=== PATIENT | female | born 1940 | race Caucasian/White ===

== ENCOUNTER 2023-04-15 19:49 | Inpatient (IN) ==
[2023-04-15] MEDS ORDERED: fentaNYL citrate PF 100 MCG/2 ML VIAL IV STA (20:19)
[2023-04-15 20:21] LABS: Basophils # (auto) 0.05 K/uL (0.00-0.20); Basophils % (auto) 0.4 %; Hematocrit (blood only) 26.7 % (37.0-47.0); Hemoglobin 8.5 g/dl (12.0-16.0); Immature Granulocytes # (auto) 0.07 K/uL (0.01-0.20); Immature Granulocytes % (auto) 0.5 %; Lymphocytes # (auto) 1.64 K/uL (1.20-3.40); Lymphocytes % (auto) 11.9 %; Mean Corpuscular Hemoglobin 31.4 pg (25.0-34.0); Mean Corpuscular Hgb Conc 31.8 g/dL (32.0-36.0); Mean Corpuscular Volume 98.5 fL (80.0-100.0); Mean Platelet Volume 9.8 fL (9.4-12.4); Monocytes # (auto) 1.16 K/uL (0.11-0.59); Monocytes % (auto) 8.4 %; Neutrophils # (auto) 10.82 K/uL (1.40-6.50); Neutrophils % (auto) 78.8 %; Platelet Count 451 K/uL (130-400); RDW Coefficient of Variation 16.4 % (11.5-14.5); Red Blood Count 2.71 M/uL (4.20-5.40); White Blood Count 13.74 K/ul (4.8-10.8)
[2023-04-15 20:33] LABS: Albumin Globulin Ratio 0.8 (0.9-2); BUN Creatinine Ratio 14.3 (10-20); Bilirubin,Total 0.3 mg/dl (0.2-1.0); Calcium 8.6 mg/dl (8.6-10.3); Est GFR (African American) 37.9 ml/min; Est GFR (Non-African American) 32.7 ml/min; Globulin 3.9 gm/dl (2.5-4.0); Potassium 4.5 mmol/L (3.5-5.1); Total Protein 6.9 gm/dl (6.0-8.3)
[2023-04-15 20:43] LABS: INR 1.1 (0.9-1.1); Partial Thromboplastin Time 27 Seconds (21-31); Prothrombin Time 12.2 Seconds (9.0-12.0)
[2023-04-15] MEDS ORDERED: SODIUM CHLORIDE 0.9% 500 ML IV ONE (20:44)
--- NOTE | 2023-04-15 20:48 | Emergency Department Note ---
Impression & Plan Hip pain ED Provider Note Provider: Dakota Rubio MD DATE OF SERVICE: 04/15/2023 CHIEF COMPLAINT: Left hip pain HISTORY OF PRESENT ILLNESS: Patient is a 82-year-old female. She is not a good historian. Did call and discussed with [facility] where she comes from via ambulance tonight. Attendant there reports the patient arrived to their facility yesterday from outside the [facility], [facility]. Patient evidently fell and fractured her left hip in December and required at least 1 if not 2 repeat surgeries due to infection. They report that she has had no fever or trauma and her memory was not so good when she arrived. They states that the left hip area was not red or warm or tender at all upon arrival last night became that way today. Patient received some Tylenol for EMS but complains of pain here. She herself repeatedly asked if she can be taken to the hospital. Informed her that she is here already. Niece later arrives and states the patient has been treated [facility] by [facility]. Patient in February had repeat surgery without findings of infection although possibly fungus and completed course of IV antibiotics as well as fluconazole. Niece has not seen the wound recently but states it does look red now. States the patient's memory and recollection issues are chronic. PAST MEDICAL HISTORY: As noted above MEDICATIONS: SOCIAL HISTORY: Currently a resident at [facility] PHYSICAL EXAM: GENERAL: alert looking around the room asking for help. Not oriented to location or events or time. Head: normocephalic and atraumatic EYES: No injection, discharge or icterus. PERRL, EOMI. NECK: Trachea midline. ENT: Mucous membranes pink and moist. LUNGS: Airway patent. No retractions. Breath sounds clear HEART: Regular rate and rhythm. No chest wall tenderness ABDOMEN: Soft and non-tender, without guarding or rebound. SKIN: Acyanotic, warm, dry, without rashes EXTREMITIES: Large area of erythema and tenderness approximately 26 cm x 8 cm surrounding a postsurgical wound of the left lateral hip. No crepitus. NEUROLOGICAL: No focal deficits. No aphasia. No facial droop or slurred speech. Normal strength and tone in the extremities. Sensation to gross touch normal. EK bpm normal sinus rhythm with incomplete right bundle branch block. No PVC or PAC. No acute ST segment elevation or depression with QTc of 474 CONTINUOUS CARDIAC MONITORING: was ordered and showed a heart rate of bpm in 1 view chest x-ray pulm interpretation: No significant cardiomegaly or free under the diaphragm. No o pneumonia or pneumothorax noted. No significant pleural effusions or pulmonary edema. Reviewed left hip x-ray and pelvis per my interpretation: Hardware in the left hip without obvious fracture or displacement and no obvious acute fracture. Patient's laboratory studies and imaging reviewed. Differential includes Foreign body, fracture, dislocation, joint compromise, infection, soft tissue injury, tendon injury, vascular compromise, compartment syndrome, DVT as well as other pathologies. IMPRESSION/MEDICAL DECISION MAKING: Patient not a good historian. Additional history from facility. From what I gather outside the [place] area had a hip fracture then had a root infection and had to have repeat surgery. No reported redness or fever tenderness to the area of the left hip wound which is well-healed yesterday but is that way tonight. Given some fentanyl and did receive Tylenol prior to arrival. Blood cultures and procalcitonin and lactate sent. Given some IV fluid. Moving all extremities and no trauma history. From report from facility it seems like the patient always has some memory issues so lower suspicion for acute intracranial abnormality. Blood work here mild anemia 8.5 with a white count of 13.74. INR normal. Creatinine elevated 1.47. Slight hyponatremia. Procalcitonin not significantly elevated low suspicion for systemic sepsis or bacteremia. Hypertensive but nontachycardic and not hypoxic. No significant swelling of the lower extremities in the legs or ankle area. I have low suspicion for DVT at this time. The isolated area of erythema is right around the postsurgical wound given the report that this has evolved since yesterday by staff report from [facility], and concern for infection in this area. Will obtain a CT scan here to evaluate for fluid collection. X-rays of the hip were obtained. No obvious hardware fracture or malpositioning noted. CT of the femur per radiology report shows Niece reports she has talked with Dr. Campos who is agreeable to see the patient when she moved to the area. Did receive records from [facility] showing the patient had workup here in February including MRI and neurology evaluation believing likely a chronic dementia episode as well as a course of vancomycin and cefepime as well as fluconazole for a total of 28 days that has been completed. Evidently had a pulmonary embolism and January and has been on Eliquis since that time. Is on Depakote for mood stabilization and level of this was ordered. CT reporting delayed overnight. Discussed with hospitalist. DIAGNOSIS: left hip pain, long-term anticoagulation DISPOSITION: Hospitalist will evaluate Past Med/Surg History Social History Smoking Status: Unknown if ever smoked Hx Alcohol Use: No (unable to answer questions) Hx Substance Use: No (unable to answer questions) Preferred Language: Kyr[place] Vp Hr Diversity Required: No Beliefs That Will Affect Care: None Current Living Situation: Personal Care Facility Current Living Situation Comment: [facility] Feels Safe at Home: Yes Allergies Allergies Allergy/AdvReac Type Severity Reaction Status Date / Time cinnamon Allergy Intermediate Flushing Verified 04/15/23 20:13 haloperidol [From Haldol] AdvReac Severe excessive Verified 04/16/23 07:24 sedation as per family Home Meds Home Medications Medication Instructions Recorded Confirmed amlodipine 5 mg tablet 5 mg PO DAILY 04/15/23 04/15/23 anastrozole 1 mg tablet 1 mg PO QAM 04/15/23 04/15/23 apixaban 5 mg tablet (Eliquis) 5 mg PO Q12 04/15/23 04/15/23 benzonatate 100 mg capsule 200 mg PO Q8 PRN Cough 04/15/23 04/15/23 clonidine 0.1 mg/24 hr weekly 0.1 mg transdermal .Wednesdays04/15/23 04/15/23 transdermal patch divalproex 250 mg tablet,extended 250 mg PO HS 04/15/23 04/15/23 release 24 hr levothyroxine 125 mcg tablet 125 mcg PO DAILYBB 04/15/23 04/15/23 quetiapine 25 mg tablet 12.5 mg PO BID 04/15/23 04/15/23 Results & Data (ED) Vital Signs Vital Signs - 24 hr 04/15/23 19:53 04/15/23 19:53 04/15/23 20:01 Temperature 36.4 C L Temperature Source Oral Pulse Rate 87 92 H Pulse Rate [Apical] Pulse Rate from SpO2 Sensor Pulse Rhythm [Apical] Pulse Strength [Apical] Respiratory Rate 17 Respiratory Effort / Characteristics Non-Labored Respiratory Depth Normal Normal Respiratory Pattern Blood Pressure 152/102 H Blood Pressure [Right Arm] Blood Pressure Mean 118 Blood Pressure Mean [Right Arm] Blood Pressure Position [Right Arm] Pulse Oximetry 97 Oxygen Delivery Method Room Air Sepsis Recent Fever Within 48 Hours No Sepsis New/Unexplained Change in Mental Status No Sepsis Action Taken by Nursing No Action Required 04/15/23 20:02 04/15/23 20:30 04/15/23 20:33 Temperature Temperature Source Pulse Rate 89 94 H 99 H Pulse Rate [Apical] Pulse Rate from SpO2 Sensor 92 H 97 H Pulse Rhythm [Apical] Pulse Strength [Apical] Respiratory Rate 20 21 24 Respiratory Effort / Characteristics Respiratory Depth Respiratory Pattern Blood Pressure 138/109 H Blood Pressure [Right Arm] Blood Pressure Mean 118 Blood Pressure Mean [Right Arm] Blood Pressure Position [Right Arm] Pulse Oximetry 93 96 Oxygen Delivery Method Sepsis Recent Fever Within 48 Hours Sepsis New/Unexplained Change in Mental Status Sepsis Action Taken by Nursing 04/15/23 21:00 04/15/23 21:30 04/15/23 22:00 Temperature Temperature Source Pulse Rate 95 H 84 86 Pulse Rate [Apical] Pulse Rate from SpO2 Sensor 95 H 84 82 Pulse Rhythm [Apical] Pulse Strength [Apical] Respiratory Rate 17 19 16 Respiratory Effort / Characteristics Respiratory Depth Respiratory Pattern Blood Pressure 157/120 H 140/75 129/99 Blood Pressure [Right Arm] Blood Pressure Mean 132 96 109 Blood Pressure Mean [Right Arm] Blood Pressure Position [Right Arm] Pulse Oximetry 95 100 94 Oxygen Delivery Method Sepsis Recent Fever Within 48 Hours Sepsis New/Unexplained Change in Mental Status Sepsis Action Taken by Nursing 04/15/23 23:25 04/16/23 00:10 Temperature Temperature Source Pulse Rate 72 Pulse Rate [Apical] 69 Pulse Rate from SpO2 Sensor Pulse Rhythm [Apical] Regular Pulse Strength [Apical] Normal Respiratory Rate 15 Respiratory Effort / Characteristics Non-Labored Spontaneous Respiratory Depth Normal Respiratory Pattern Regular Blood Pressure Blood Pressure [Right Arm] 87/48 L Blood Pressure Mean Blood Pressure Mean [Right Arm] 61 Blood Pressure Position [Right Arm] Lying Pulse Oximetry 91 Oxygen Delivery Method Room Air Sepsis Recent Fever Within 48 Hours Sepsis New/Unexplained Change in Mental Status Sepsis Action Taken by Nursing Laboratory Data 04/15/23 23:43 04/16/23 04:03 Lab Results 04/15/23 04/15/23 04/15/23 Range/Units 20:02 20:35 21:31 WBC 13.74 H (4.8-10.8) K/ul RBC 2.71 L (4.20-5.40) M/uL Hgb 8.5 L (12.0-16.0) g/dl Hct 26.7 L (37.0-47.0) % MCV 98.5 (80.0-100.0) fL MCH 31.4 (25.0-34.0) pg MCHC 31.8 L (32.0-36.0) g/dL RDW Std Deviation 59.0 H (36.4-46.3) fL RDW Coeff of Andrea 16.4 H (11.5-14.5) % Plt Count 451 H (130-400) K/uL MPV 9.8 (9.4-12.4) fL Immature Gran % (Auto) 0.5 % Neut % (Auto) 78.8 % Lymph % (Auto) 11.9 % [place] % (Auto) 8.4 % Eos % (Auto) 0.0 % Baso % (Auto) 0.4 % Neut # (Auto) 10.82 H (1.40-6.50) K/uL Lymph # (Auto) 1.64 (1.20-3.40) K/uL [place] # (Auto) 1.16 H (0.11-0.59) K/uL Eos # (Auto) 0.00 (0.00-0.50) K/uL Baso # (Auto) 0.05 (0.00-0.20) K/uL Immature Gran # (Auto) 0.07 (0.01-0.20) K/uL PT 12.2 H (9.0-12.0) Seconds INR 1.1 (0.9-1.1) APTT 27 (21-31) Seconds PTT Ratio 1.0 Sodium 134 L (136-145) mmol/L Potassium 4.5 (3.5-5.1) mmol/L Chloride 101 (98-107) mmol/L Carbon Dioxide 23 (21-32) mmol/L Anion Gap 10 (3-11) BUN 21 (6-23) mg/dl Creatinine 1.47 H (0.6-1.2) mg/dl Est Cr Clr Drug Dosing 25.0 ml/min Est GFR ( Amer) 37.9 ml/min Est GFR (Non-Af Amer) 32.7 ml/min BUN/Creatinine Ratio 14.3 (10-20) Glucose 116 H (70-99(Fasting)) mg/dl Estimat Average Glucose mg/dl Hemoglobin A1c (4.5-5.6) % Lactate 2.7 H* (0.4-2.0) mmol/L Calcium 8.6 (8.6-10.3) mg/dl Magnesium 1.8 (1.7-2.4) mg/dl Total Bilirubin 0.3 (0.2-1.0) mg/dl AST 27 (13-39) U/L ALT 11 (7-52) U/L Alkaline Phosphatase 105 H (34-104) U/L Troponin I High Sens 8.7 (0-14) pg/ml Total Protein 6.9 (6.0-8.3) gm/dl Albumin 3.0 L (3.4-5.0) gm/dl Globulin 3.9 (2.5-4.0) gm/dl Albumin/Globulin Ratio 0.8 L (0.9-2) Procalcitonin 0.15 (0-0.5) ng/ml TSH 4.282 (0.300-4.500) uIu/ml Urine Color Urine Appearance (Clear) Urine pH (4.5-7.5) Ur Specific [place] (1.000-1.030) Urine Protein (Negative) Urine Glucose (UA) (Negative) Urine Ketones (Negative) Urine Blood (Negative) Urine Nitrite (Negative) Urine Bilirubin (Negative) Urine Urobilinogen (Negative) Ur Leukocyte Esterase (Negative) Urine WBC (Auto) (0-5) /hpf Urine RBC (Auto) (0-4) /hpf U Hyaline Cast (Auto) (0-5) /lpf U Epithel Cells (Auto) (0-5) /lpf Urine Bacteria (Auto) (Negative) Valproic Acid (50-100) mcg/ml SARS-CoV-2, RNA, NAAT NEGATIVE (NEGATIVE) Blood Type Antibody Screen Crossmatch 04/15/23 04/15/23 04/15/23 Range/Units 22:20 23:21 23:43 WBC (4.8-10.8) K/ul RBC (4.20-5.40) M/uL Hgb 6.3 L* (12.0-16.0) g/dl Hct 20.4 L* (37.0-47.0) % MCV (80.0-100.0) fL MCH (25.0-34.0) pg MCHC (32.0-36.0) g/dL RDW Std Deviation (36.4-46.3) fL RDW Coeff of Andrea (11.5-14.5) % Plt Count (130-400) K/uL MPV (9.4-12.4) fL Immature Gran % (Auto) % Neut % (Auto) % Lymph % (Auto) % [place] % (Auto) % Eos % (Auto) % Baso % (Auto) % Neut # (Auto) (1.40-6.50) K/uL Lymph # (Auto) (1.20-3.40) K/uL [place] # (Auto) (0.11-0.59) K/uL Eos # (Auto) (0.00-0.50) K/uL Baso # (Auto) (0.00-0.20) K/uL Immature Gran # (Auto) (0.01-0.20) K/uL PT (9.0-12.0) Seconds INR (0.9-1.1) APTT (21-31) Seconds PTT Ratio Sodium (136-145) mmol/L Potassium (3.5-5.1) mmol/L Chloride (98-107) mmol/L Carbon Dioxide (21-32) mmol/L Anion Gap (3-11) BUN (6-23) mg/dl Creatinine (0.6-1.2) mg/dl Est Cr Clr Drug Dosing ml/min Est GFR ( Amer) ml/min Est GFR (Non-Af Amer) ml/min BUN/Creatinine Ratio (10-20) Glucose (70-99(Fasting)) mg/dl Estimat Average Glucose 97 mg/dl Hemoglobin A1c 5.0 (4.5-5.6) % Lactate 2.1 H* (0.4-2.0) mmol/L Calcium (8.6-10.3) mg/dl Magnesium (1.7-2.4) mg/dl Total Bilirubin (0.2-1.0) mg/dl AST (13-39) U/L ALT (7-52) U/L Alkaline Phosphatase (34-104) U/L Troponin I High Sens (0-14) pg/ml Total Protein (6.0-8.3) gm/dl Albumin (3.4-5.0) gm/dl Globulin (2.5-4.0) gm/dl Albumin/Globulin Ratio (0.9-2) Procalcitonin (0-0.5) ng/ml TSH (0.300-4.500) uIu/ml Urine Color Yellow Urine Appearance Clear (Clear) Urine pH 7.0 (4.5-7.5) Ur Specific [place] 1.014 (1.000-1.030) Urine Protein Trace H (Negative) Urine Glucose (UA) Negative (Negative) Urine Ketones Negative (Negative) Urine Blood Negative (Negative) Urine Nitrite Negative (Negative) Urine Bilirubin Negative (Negative) Urine Urobilinogen Negative (Negative) Ur Leukocyte Esterase Negative (Negative) Urine WBC (Auto) 1-5 (0-5) /hpf Urine RBC (Auto) 0-4 (0-4) /hpf U Hyaline Cast (Auto) 1-5 (0-5) /lpf U Epithel Cells (Auto) 10-20 H (0-5) /lpf Urine Bacteria (Auto) Negative (Negative) Valproic Acid 33 L (50-100) mcg/ml SARS-CoV-2, RNA, NAAT (NEGATIVE) Blood Type B Positive Antibody Screen NEGATIVE Crossmatch See Detail Administered Medications Sodium Chloride (Nss) 1,000 mls @ 50 mls/hr IV .Q20H ONE Stop: 04/16/23 21:29 Last Infusion: 04/16/23 04:00 Dose: 0 mls/hr Documented By: Admin: 04/16/23 02:26 Dose: 80 mls/hr Documented By: IDD Levothyroxine Sodium (Levothyroxine Sodium 125 Mcg Tablet) 125 mcg PO DAILYBB BO Stop: 05/16/23 06:29 Last Admin: 04/16/23 06:15 Dose: Not Given Documented By: ERIKA Discontinued Medications Fentanyl Citrate (Fentanyl Citrate Pf 100 Mcg/2 Ml Vial) 50 mcg IV NOW STA Stop: 04/15/23 20:20 Last Admin: 04/15/23 20:38 Dose: 50 mcg Documented By: EMB Sodium Chloride (Nss) 500 mls @ 999 mls/hr IV .Q31M ONE Stop: 04/15/23 21:14 Last Infusion: 04/15/23 22:24 Dose: Infused Documented By: Admin: 04/15/23 21:19 Dose: 999 mls/hr Documented By: EMB Vancomycin HCl 1,250 mg/ (Sodium Chloride) 525 mls @ 200 mls/hr IV NOW ONE Stop: 04/16/23 01:29 Last Infusion: 04/16/23 04:00 Dose: Infused Documented By: Admin: 04/16/23 00:52 Dose: 200 mls/hr Documented By: IDD Cefepime HCl (Maxipime) 2,000 mg in 20 mls @ 5 mls/min IV NOW STA; Protocol Stop: 04/15/23 22:55 Last Admin: 04/15/23 23:33 Dose: 5 mls/min Documented By: IDD Sodium Chloride (Nss) 1,000 mls @ 500 mls/hr IV .Q2H ONE Stop: 04/16/23 01:28 Last Infusion: 04/16/23 02:15 Dose: Infused Documented By: Infusion: 04/16/23 00:28 Dose: 500 mls/hr Documented By: Admin: 04/15/23 23:42 Dose: 100 mls/hr Documented By: IDD Caspofungin 70 mg/ Sodium (Chloride) 260 mls @ 260 mls/hr IV NOW STA; Protocol Stop: 04/16/23 01:36 Last Infusion: 04/16/23 02:43 Dose: Infused Documented By: Admin: 04/16/23 01:37 Dose: 260 mls/hr Documented By: IDD Lorazepam (Lorazepam 1 Mg/1 Ml Syr Ed Inj Use) 0.5 mg IV ONE STA Stop: 04/15/23 23:07 Last Admin: 04/15/23 23:23 Dose: 0.5 mg Documented By: IDD Morphine Sulfate (Morphine Sulfate 4 Mg/Ml 1 Ml Carp\Vial) 4 mg IV NOW STA Stop: 04/15/23 21:10 Last Admin: 04/15/23 21:19 Dose: 4 mg Documented By: EMB Imaging Data Radiologist's Impression: Hip/Pelvis X-Ray 04/15/23 20:19 XR hip LT 2V w pelvis CLINICAL HISTORY: s/p surgery, pain COMPARISON: None FINDINGS: Sacroiliac joints and symphysis pubis are intact. No acute fracture within the pelvis or hips is identified. Left hip arthroplasty is intact. Proximal left femoral internal fixation with cerclage wires is noted. Heterotopic ossification is present. There is no acute periprosthetic fracture or lucency. IMPRESSION: 1. No acute fracture within the pelvis or hips. 2. Intact left hip arthroplasty with proximal left femoral internal fixation. No acute periprosthetic fracture. ACT 112: Negative or not required by law. Electronically signed by: Floyd Bañuelos M.D. 04/16/2023 7:19 AM Chest X-Ray 04/15/23 20:20 XR chest 1V portable CLINICAL HISTORY: weakness COMPARISON STUDY: No previous studies for comparison. FINDINGS: Incidental note is made of surgical anchors within the right humerus and right axillary surgical clips. Lung volumes are normal. Lungs are clear. There is no pneumothorax or pleural effusion. Cardiac size is normal. Mediastinal contours are normal. There is no evidence for pulmonary edema. IMPRESSION: No acute cardiopulmonary findings. ACT 112: Negative or not required by law. Electronically signed by: Floyd Bañuelos M.D. 04/16/2023 7:[address] 04/15/23 21:00 Exam(s): CT EXTREMITY LEFT LOWER Without Contrast EXAM: CT Left Lower Extremity Without Intravenous Contrast CLINICAL HISTORY: Reason for exam: s/p surgery, ?infection/abscess. TECHNIQUE: Axial computed tomography images of the left lower extremity without intravenous contrast. CTDI is 10.43 mGy and DLP is 545.36 mGy-cm. Automated exposure control was utilized for the study. A dose lowering technique was utilized adhering to the principles of ALARA. COMPARISON: No relevant prior studies available. FINDINGS: Bones/joints: Posterior to the hip replacement there is a moderate size hematoma measuring up to 4.1 cm in thickness by 10 cm transverse. The hematoma begins at the superior acetabulum and extends into the mid thigh measuring at least 15 cm craniocaudal. Patient is status post a left total hip replacement. No hardware complications are noted. No acute fractures or dislocations. Soft tissues: See above. IMPRESSION: Posterior to the hip replacement there is a moderate size hematoma measuring up to 4.1 cm in thickness by 10 cm transverse. The hematoma begins at the superior acetabulum and extends into the mid thigh measuring at least 15 cm craniocaudal. Electronically signed by: Hiram Castro M.D. 04/16/23 01:34 AM Discharge Plan Visit Data Chief Complaint: Hip Pain Stated Complaint: HIP PAIN, REDNESS AND SWELLING ED Provider: Dakota Rubio Discharge Problem: Hip pain Patient Disposition: Admitted As Inpatient Discharge Instructions Interventions: ED Discharge Assessment Last Done: 04/16/23 02:41 Discharge Problem: Hip pain Qualifiers: Laterality: left Qualified Code(s): M25.552 - Pain in left hip
[2023-04-15 20:53] LABS: Magnesium 1.8 mg/dl (1.7-2.4)
[2023-04-15 21:05] LABS: Troponin I High Sensitivity 8.7 pg/ml (0-14)
[2023-04-15] MEDS ORDERED: MoRPHine SULFATE 4 MG/ML 1 ML CARP\\VIAL IV STA (21:09)
[2023-04-15 21:15] LABS: Thyroid Stimulating Hormone 4.282 uIu/ml (0.300-4.500)
[2023-04-15 22:45] LABS: Appearance Urine Clear (Clear); Bacteria Urine Automated Negative (Negative); Bilirubin Urine Negative (Negative); Blood Urine Negative (Negative); Color Urine Yellow; Glucose Urine UA Negative (Negative); Ketones Urine Negative (Negative); Leukocyte Esterase Urine Negative (Negative); Nitrite Urine Negative (Negative); Protein Urine Trace (Negative); RBC Urine Automated 0-4 /hpf (0-4); Specific Gravity Urine 1.014 (1.000-1.030); Urobilinogen Urine Negative (Negative)
[2023-04-15] MEDS ORDERED: CEFEPIME 2,000 MG/20 ML VIAL IV STA (22:52)
[2023-04-15] MEDS ORDERED: VANCOMYCIN CONSULT ACTIVE PRN (22:52)
[2023-04-15] MEDS ORDERED: VANCOMYCIN HCL 1,250 MG in SODIUM CHLORIDE 0.9% 500 ML IV ONE (22:52)
[2023-04-15] MEDS ORDERED: LORazepam 1 MG/1 ML SYR ED Inj Use IV STA (23:06)
[2023-04-15] MEDS ORDERED: SODIUM CHLORIDE 0.9% 1,000 ML IV ONE (23:29)
--- NOTE | 2023-04-16 00:22 | History & Physical Report ---
Date of Service April 16, 2023 Assessment & Plan (1) Hypotension: Plan: Secondary to hypovolemia secondary to left hip hematoma History of multiple L hip fracture surgeries following infectious complications Patient on Eliquis for pulmonary embolism Anemia secondary to left hip hematoma Hemoglobin dropped from 8.5 to 6.3 within a span of 3 hours ARF, unknown duration hx CVA as per records breast cancer left status postsurgery, radiation currently on Arimidex hypothyroidism, euthyroid as of today CISH mood disorder, at baseline dementia, multiple admissions for delirium since surgery 3 months ago Hyperglycemia rule out DM ongoing tobacco abuse Medical telemetry Transfuse PRBC to maintain hemoglobin of at least 8 given history of CVA as per records Hold clonidine for now given hypotension Stop Eliquis given significant bleeding causing hypotension and hospital admission, Orthopedics consult Re: Left hip hematoma (Dr. Campos as per patient family request.) Vascular surgery consult for IVC filter placement given contraindication to anti coagulation if family agreeable. Patient niece would like to contemplate over decision given patient protracted illness over the last few months. N.p.o. for now in anticipation of procedures. Monitor creatinine response to IVF Check hemoglobin A1c DVT prophylaxis. SCDs Re: Left hip hematoma DNR as per patient's prior directives as per family. Patient niece requesting updates providers. Ms. Orly Smith, contact #[phone] Total critical time was 45 minutes. Text document was generated using Immy voice recognition software. It may contain grammatical or spelling errors. Kindly contact undersigned for clarification of any documentation item in question. History of Present Illness Chief Complaint: Worsening left hip pain/swelling Primary Care Provider: Rodolfo Palma DO History obtained from patient family, ER provider, and records. Limited history from patient secondary to dementia. Medical history significant for hypertension, CVA as per records, hx PE on Eliquis (01/2023), breast cancer left status postsurgery, radiation currently on Arimidex, hypothyroidism, mood disorder, occipital neuralgia as per records, dementia, ongoing tobacco abuse. Patient is a resident of [place], [place] who was admitted at a local personal care facility yesterday to be close to local family. Multiple admissions at [facility] in [facility] since December 2022 following traumatic left hip fracture leading to surgery. Patient noted to have pulmonary embolism postop. First occurrence as per family. Discharged on Eliquis to rehab facility. Patient contracted COVID-19 illness first week of January 2023 at rehab facility. Patient later found to have pulmonary embolism. No leg DVT as per niece. Patient started on Eliquis. 02/23-03/10 Patient readmitted at [facility] for infected left hip prosthesis/abscess. Subsequent operative revision and wound VAC replacement. Yeast within deep tissue noted on operative CS. Patient completed vancomycin, cefepime and fluconazole course following ID recommendations. 03/11-03/23 Patient readmitted for delirium. Subsequently discharged to rehab facility. Left hip sutures removed 3 days ago as per niece. Patient admitted at the local [facility] yesterday to be close to her niece. Patient complaining of increased left hip pain at facility yesterday. Left hip noted bruise and swollen as per niece. Patient unable to verbalize chest pain, SOB symptoms. Increased agitation noted. Patient directed to ER for evaluation. Lowest SBP of 80s noted. Vancomycin and cefepime administered at the ER. Lorazepam administered for agitation. Patient currently somnolent post Ativan administration. 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 [employer] Allergies Allergy/AdvReac Type Severity Reaction Status Date / Time cinnamon Allergy Intermediate Flushing Verified 04/15/23 20:13 haloperidol [From Haldol] AdvReac Severe excessive Verified 04/16/23 07:24 sedation as per family Home Medications Medication Instructions Recorded Confirmed Type amlodipine 5 mg tablet 5 mg PO DAILY 04/15/23 04/15/23 History anastrozole 1 mg tablet 1 mg PO QAM 04/15/23 04/15/23 History apixaban 5 mg tablet (Eliquis) 5 mg PO Q12 04/15/23 04/15/23 History benzonatate 100 mg capsule 200 mg PO Q8 PRN Cough 04/15/23 04/15/23 History clonidine 0.1 mg/24 hr weekly 0.1 mg transdermal .Wednesdays04/15/23 04/15/23 History transdermal patch divalproex 250 mg tablet,extended 250 mg PO HS 04/15/23 04/15/23 History release 24 hr levothyroxine 125 mcg tablet 125 mcg PO DAILYBB 04/15/23 04/15/23 History quetiapine 25 mg tablet 12.5 mg PO BID 04/15/23 04/15/23 History Past Med/Surg History Social History Smoking Status: Unknown if ever smoked Hx Alcohol Use: No (unable to answer questions) Hx Substance Use: No (unable to answer questions) Preferred Language: Turkish Formula Technician Required: No Beliefs That Will Affect Care: None Current Living Situation: Personal Care Facility Current Living Situation Comment: [facility] Feels Safe at Home: Yes Review of Systems Review of Systems: Could not be reliably obtained secondary to obtunded state Physical Exam Physical Exam: GENERAL: Obtunded, no respiratory distress SKIN: Pallor, warm HEENT: Pale palpebral conjunctivae, no ptosis, dry buccal mucosa NECK : Supple, no tenderness CHEST : Decreased breath sounds, no tenderness HEART : RRR, no obvious murmurs ABDOMEN: Some distention, nontender EXTREMITIES : Ecchymosis left hip with tenderness, no other conspicuous deformities noted NEUROLOGIC : Obtunded, no facial asymmetry, gait and stance not assessed Results & Data Results & Data Vital Signs (Past 12 Hours) Vital Signs Temp Pulse Pulse Resp BP BP Pulse Ox 04/16/23 00:10 72 04/15/23 23:25 69 15 87/48 L 91 04/15/23 22:00 86 16 129/99 94 04/15/23 21:30 84 19 140/75 100 04/15/23 21:00 95 H 17 157/120 H 95 04/15/23 20:33 99 H 24 138/109 H 96 04/15/23 20:30 94 H 21 04/15/23 20:02 89 20 93 04/15/23 20:01 92 H 04/15/23 19:53 36.4 C L 87 17 152/102 H 97 O2 Del Method 04/16/23 00:10 04/15/23 23:25 Room Air 04/15/23 22:00 04/15/23 21:30 04/15/23 21:00 04/15/23 20:33 04/15/23 20:30 04/15/23 20:02 04/15/23 20:01 04/15/23 19:53 Room Air Laboratory Results Laboratory Results WBC 13.74 K/ul (4.8-10.8) H 04/15/23 20:02 RBC 2.71 M/uL (4.20-5.40) L 04/15/23 20:02 Hgb 8.5 g/dl (12.0-16.0) L 04/15/23 20:02 Hct 26.7 % (37.0-47.0) L 04/15/23 20:02 MCV 98.5 fL (80.0-100.0) 04/15/23 20:02 MCH 31.4 pg (25.0-34.0) 04/15/23 20:02 MCHC 31.8 g/dL (32.0-36.0) L 04/15/23 20:02 RDW Std Deviation 59.0 fL (36.4-46.3) H 04/15/23 20:02 RDW Coeff of Andrea 16.4 % (11.5-14.5) H 04/15/23 20:02 Plt Count 451 K/uL (130-400) H 04/15/23 20:02 MPV 9.8 fL (9.4-12.4) 04/15/23 20:02 Immature Gran % (Auto) 0.5 % 04/15/23 20:02 Neut % (Auto) 78.8 % 04/15/23 20:02 Lymph % (Auto) 11.9 % 04/15/23 20:02 Long % (Auto) 8.4 % 04/15/23 20:02 Eos % (Auto) 0.0 % 04/15/23 20:02 Baso % (Auto) 0.4 % 04/15/23 20:02 Neut # (Auto) 10.82 K/uL (1.40-6.50) H 04/15/23 20:02 Lymph # (Auto) 1.64 K/uL (1.20-3.40) 04/15/23 20:02 Long # (Auto) 1.16 K/uL (0.11-0.59) H 04/15/23 20:02 Eos # (Auto) 0.00 K/uL (0.00-0.50) 04/15/23 20:02 Baso # (Auto) 0.05 K/uL (0.00-0.20) 04/15/23 20:02 Immature Gran # (Auto) 0.07 K/uL (0.01-0.20) 04/15/23 20:02 PT 12.2 Seconds (9.0-12.0) H 04/15/23 20:02 INR 1.1 (0.9-1.1) 04/15/23 20:02 APTT 27 Seconds (21-31) 04/15/23 20:02 PTT Ratio 1.0 04/15/23 20:02 Sodium 134 mmol/L (136-145) L 04/15/23 20:02 Potassium 4.5 mmol/L (3.5-5.1) 04/15/23 20:02 Chloride 101 mmol/L (98-107) 04/15/23 20:02 Carbon Dioxide 23 mmol/L (21-32) 04/15/23 20:02 Anion Gap 10 (3-11) 04/15/23 20:02 BUN 21 mg/dl (6-23) 04/15/23 20:02 Creatinine 1.47 mg/dl (0.6-1.2) H 04/15/23 20:02 Est Cr Clr Drug Dosing 25.0 ml/min 04/15/23 20:02 Est GFR ( Amer) 37.9 ml/min 04/15/23 20:02 Est GFR (Non-Af Amer) 32.7 ml/min 04/15/23 20:02 BUN/Creatinine Ratio 14.3 (10-20) 04/15/23 20:02 Glucose 116 mg/dl (70-99(Fasting)) H 04/15/23 20:02 Lactate 2.1 mmol/L (0.4-2.0) H* 04/15/23 23:21 Calcium 8.6 mg/dl (8.6-10.3) 04/15/23 20:02 Magnesium 1.8 mg/dl (1.7-2.4) 04/15/23 20:02 Total Bilirubin 0.3 mg/dl (0.2-1.0) 04/15/23 20:02 AST 27 U/L (13-39) 04/15/23 20:02 ALT 11 U/L (7-52) 04/15/23 20:02 Alkaline Phosphatase 105 U/L (34-104) H 04/15/23 20:02 Troponin I High Sens 8.7 pg/ml (0-14) 04/15/23 20:02 Total Protein 6.9 gm/dl (6.0-8.3) 04/15/23 20:02 Albumin 3.0 gm/dl (3.4-5.0) L 04/15/23 20:02 Globulin 3.9 gm/dl (2.5-4.0) 04/15/23 20:02 Albumin/Globulin Ratio 0.8 (0.9-2) L 04/15/23 20:02 Procalcitonin 0.15 ng/ml (0-0.5) 04/15/23 20:02 TSH 4.282 uIu/ml (0.300-4.500) 04/15/23 20:02 Urine Color Yellow 04/15/23 22:20 Urine Appearance Clear (Clear) 04/15/23 22:20 Urine pH 7.0 (4.5-7.5) 04/15/23 22:[address] [place] 1.014 (1.000-1.030) 04/15/23 22:20 Urine Protein Trace (Negative) H 04/15/23 22:20 Urine Glucose (UA) Negative (Negative) 04/15/23 22:20 Urine Ketones Negative (Negative) 04/15/23 22:20 Urine Blood Negative (Negative) 04/15/23 22:20 Urine Nitrite Negative (Negative) 04/15/23 22:20 Urine Bilirubin Negative (Negative) 04/15/23 22:20 Urine Urobilinogen Negative (Negative) 04/15/23 22:20 Ur Leukocyte Esterase Negative (Negative) 04/15/23 22:20 Urine WBC (Auto) 1-5 /hpf (0-5) 04/15/23 22:20 Urine RBC (Auto) 0-4 /hpf (0-4) 04/15/23 22:20 U Hyaline Cast (Auto) 1-5 /lpf (0-5) 04/15/23 22:20 U Epithel Cells (Auto) 10-20 /lpf (0-5) H 04/15/23 22:20 Urine Bacteria (Auto) Negative (Negative) 04/15/23 22:20 Valproic Acid 33 mcg/ml (50-100) L 04/15/23 23:21 SARS-CoV-2, RNA, NAAT NEGATIVE (NEGATIVE) 04/15/23 20:[address]: Posterior to the hip replacement there is a moderate size hematoma measuring up to 4.1 cm in thickness by 10 cm transverse. The hematoma begins at the superior acetabulum and extends into the mid thigh measuring at least 15 cm craniocaudal. Diagnostic Findings Chest x-ray as per my interpretation no congestion EKG as per my interpretation :Rate 90, NSR, normal axis, incomplete RBBB, T wave abnormalities inferior leads
[2023-04-16] MEDS ORDERED: traMADol HCL 50 MG TABLET PO PRN (00:26)
[2023-04-16] MEDS ORDERED: PROMETHAZINE HCL 6.25 MG in SODIUM CHLORIDE 0.9% 50 ML IV PRN (00:26)
[2023-04-16] MEDS ORDERED: CASPOFUNGIN 70 MG in SODIUM CHLORIDE 0.9% 250 ML IV STA (00:37)
[2023-04-16 00:48] LABS: Hematocrit (blood only) 20.4 % (37.0-47.0); Hemoglobin 6.3 g/dl (12.0-16.0)
[2023-04-16] MEDS ORDERED: SODIUM CHLORIDE 0.9% 250 ML IV PRN (00:51)
[2023-04-16] MEDS ORDERED: SODIUM CHLORIDE 0.9% 1,000 ML IV ONE (01:30)
--- NOTE | 2023-04-16 01:35 | CT Scan Report ---
Exam(s): CT EXTREMITY LEFT LOWER Without Contrast EXAM: CT Left Lower Extremity Without Intravenous Contrast CLINICAL HISTORY: Reason for exam: s/p surgery, ?infection/abscess. TECHNIQUE: Axial computed tomography images of the left lower extremity without intravenous contrast. CTDI is 10.43 mGy and DLP is 545.36 mGy-cm. Automated exposure control was utilized for the study. A dose lowering technique was utilized adhering to the principles of ALARA. COMPARISON: No relevant prior studies available. FINDINGS: Bones/joints: Posterior to the hip replacement there is a moderate size hematoma measuring up to 4.1 cm in thickness by 10 cm transverse. The hematoma begins at the superior acetabulum and extends into the mid thigh measuring at least 15 cm craniocaudal. Patient is status post a left total hip replacement. No hardware complications are noted. No acute fractures or dislocations. Soft tissues: See above. IMPRESSION: Posterior to the hip replacement there is a moderate size hematoma measuring up to 4.1 cm in thickness by 10 cm transverse. The hematoma begins at the superior acetabulum and extends into the mid thigh measuring at least 15 cm craniocaudal. Electronically signed by: Hiram Castro M.D. 04/16/23 01:34 AM
[2023-04-16 04:36] LABS: BUN Creatinine Ratio 16.5 (10-20); Calcium 7.5 mg/dl (8.6-10.3); Creatinine Clr Calc Pharmacy 33.8 ml/min; Est GFR (African American) 54.4 ml/min; Est GFR (Non-African American) 46.9 ml/min; Potassium 4.8 mmol/L (3.5-5.1)
[2023-04-16] MEDS: LEVOTHYROXINE SODIUM 125 MCG TABLET PO SCH (06:15)
--- NOTE | 2023-04-16 07:15 | XRay Report ---
XR chest 1V portable CLINICAL HISTORY: weakness COMPARISON STUDY: No previous studies for comparison. FINDINGS: Incidental note is made of surgical anchors within the right humerus and right axillary gracie gical clips. Lung volumes are normal. Lungs are clear. There is no pneumothorax or pleural effusion. Cardiac size is normal. Mediastinal contours are normal. There is no evidence for pulmonary edema. IMPRESSION: No acute cardiopulmonary findings. ACT 112: Negative or not required by law. Electronically signed by: Floyd Bañuelos M.D. 04/16/2023 7:13 AM
--- NOTE | 2023-04-16 07:20 | XRay Report ---
XR hip LT 2V w pelvis CLINICAL HISTORY: s/p surgery, pain COMPARISON: None FINDINGS: Sacroiliac joints and symphysis pubis are intact. No acute fracture within the pelvis or h ips is identified. Left hip arthroplasty is intact. Proximal left femoral internal fixation with cerc yung wires is noted. Heterotopic ossification is present. There is no acute periprosthetic fracture o r lucency. IMPRESSION: 1. No acute fracture within the pelvis or hips. 2. Intact left hip arthroplasty with proximal left femoral internal fixation. No acute periprosthetic fracture. ACT 112: Negative or not required by law. Electronically signed by: Floyd Bañuelos M.D. 04/16/2023 7:19 AM
[2023-04-16 07:37] LABS: Estimated Average Glucose 97 mg/dl
--- NOTE | 2023-04-16 11:16 | Orthopedic Consultation ---
Date of Service April 16, 2023 Assessment & Plan (1) Hip pain: Patient was seen and evaluated today with Dr. Sanchez. At this point, as far as orthopedic intervention we can continue with conservative treatment options for the left hip pain and hematoma. She may be weightbearing as tolerated to the left lower extremity. Recommend physical therapy and occupational evaluation. We are going to check a CRP and sed rate. If these are elevated, we would recommend continuing with antibiotic coverage. If these are within normal range, antibiotics may not be needed for the hematoma/hip pain. DVT prophylaxis and medical management per primary. She may follow-up with us as an outpatient. She would like to follow-up with Dr. Campos per family request. Please [place] text or reach out to [facility] orthopedics if this patient's situation is to change. History of Present Illness Reason for Consultation: . Left hip hematoma Requesting Physician: . Attending Physician: Wiley Vizcarra MD . Patient is an 82-year-old female who is pleasantly confused with significant past medical history who we were asked to see on consult today involving a left hip hematoma. She does have a significant past surgical history with the left hip. She currently does have a left total hip arthroplasty completed with a long trochanteric plate which appears to be secondary to an old fracture with another surgery for irrigation and debridement of the surgical site. She had all this done at [facility] in [facility]. She does not really answer any questions upon examination today so most of the history is from the intake form. It does appear that antibiotics were started in the emergency department with vancomycin and cefepime. She is on anticoagulation which is Eliquis that has since been discontinued due to low hemoglobin as well as possible procedures while inpatient. She denies any concerns today. Allergies Allergy/AdvReac Type Severity Reaction Status Date / Time cinnamon Allergy Intermediate Flushing Verified 04/15/23 20:13 haloperidol [From Haldol] AdvReac Severe excessive Verified 04/16/23 07:24 sedation as per family Home Medications Medication Instructions Recorded Confirmed Type amlodipine 5 mg tablet 5 mg PO DAILY 04/15/23 04/15/23 History anastrozole 1 mg tablet 1 mg PO QAM 04/15/23 04/15/23 History apixaban 5 mg tablet (Eliquis) 5 mg PO Q12 04/15/23 04/15/23 History benzonatate 100 mg capsule 200 mg PO Q8 PRN Cough 04/15/23 04/15/23 History clonidine 0.1 mg/24 hr weekly 0.1 mg transdermal .Wednesdays04/15/23 04/15/23 History transdermal patch divalproex 250 mg tablet,extended 250 mg PO HS 04/15/23 04/15/23 History release 24 hr levothyroxine 125 mcg tablet 125 mcg PO DAILYBB 04/15/23 04/15/23 History quetiapine 25 mg tablet 12.5 mg PO BID 04/15/23 04/15/23 History Past Med/Surg History Social History Smoking Status: Unknown if ever smoked Hx Alcohol Use: No (unable to answer questions) Hx Substance Use: No (unable to answer questions) Preferred Language: 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 Physical Exam . GENERAL: Obtunded, no respiratory distress SKIN: Pallor, warm HEENT: Pale palpebral conjunctivae, no ptosis, dry buccal mucosa NECK : Supple, no tenderness CHEST : Decreased breath sounds, no tenderness HEART : RRR, no obvious murmurs ABDOMEN: Some distention, nontender NEUROLOGIC : Obtunded, no facial asymmetry, gait and stance not assessed Musculoskeletal On physical examination of the left hip, well-healed surgical incision to the lateral aspect of the left hip with ecchymosis diffusely throughout the left lower extremity predominantly around the surgical site. She really does not follow directions for assessment of active range of motion. She does show some discomfort with passive range of motion at the hip. Slight discomfort with logroll. No tenderness at the calf. She does dorsiflex when touched on the foot. +2 DP and PT pulses. Less than 2-second capillary refill. Results & Data Results & Data Laboratory Results . Abnormal lab results 04/15/23 04/15/23 04/15/23 Range/Units 20:02 21:31 22:20 WBC 13.74 H (4.8-10.8) K/ul RBC 2.71 L (4.20-5.40) M/uL Hgb 8.5 L (12.0-16.0) g/dl Hct 26.7 L (37.0-47.0) % MCHC 31.8 L (32.0-36.0) g/dL RDW Std Deviation 59.0 H (36.4-46.3) fL RDW Coeff of Andrea 16.4 H (11.5-14.5) % Plt Count 451 H (130-400) K/uL Neut # (Auto) 10.82 H (1.40-6.50) K/uL Hinds # (Auto) 1.16 H (0.11-0.59) K/uL PT 12.2 H (9.0-12.0) Seconds Sodium 134 L (136-145) mmol/L Chloride (98-107) mmol/L Creatinine 1.47 H (0.6-1.2) mg/dl Glucose 116 H (70-99(Fasting)) mg/dl Lactate 2.7 H* (0.4-2.0) mmol/L Calcium (8.6-10.3) mg/dl Alkaline Phosphatase 105 H (34-104) U/L Albumin 3.0 L (3.4-5.0) gm/dl Albumin/Globulin Ratio 0.8 L (0.9-2) Urine Protein Trace H (Negative) U Epithel Cells (Auto) 10-20 H (0-5) /lpf Valproic Acid (50-100) mcg/ml Crossmatch 04/15/23 04/15/23 04/16/23 Range/Units 23:21 23:43 04:03 WBC (4.8-10.8) K/ul RBC (4.20-5.40) M/uL Hgb 6.3 L* (12.0-16.0) g/dl Hct 20.4 L* (37.0-47.0) % MCHC (32.0-36.0) g/dL RDW Std Deviation (36.4-46.3) fL RDW Coeff of Andrea (11.5-14.5) % Plt Count (130-400) K/uL Neut # (Auto) (1.40-6.50) K/uL Hinds # (Auto) (0.11-0.59) K/uL PT (9.0-12.0) Seconds Sodium (136-145) mmol/L Chloride 109 H (98-107) mmol/L Creatinine (0.6-1.2) mg/dl Glucose (70-99(Fasting)) mg/dl Lactate 2.1 H* (0.4-2.0) mmol/L Calcium 7.5 L (8.6-10.3) mg/dl Alkaline Phosphatase (34-104) U/L Albumin (3.4-5.0) gm/dl Albumin/Globulin Ratio (0.9-2) Urine Protein (Negative) U Epithel Cells (Auto) (0-5) /lpf Valproic Acid 33 L (50-100) mcg/ml Crossmatch See Detail Diagnostic Findings . Hip/Pelvis X-Ray 04/15/23 20:19 XR hip LT 2V w pelvis CLINICAL HISTORY: s/p surgery, pain COMPARISON: None FINDINGS: Sacroiliac joints and symphysis pubis are intact. No acute fracture within the pelvis or hips is identified. Left hip arthroplasty is intact. Proximal left femoral internal fixation with cerclage wires is noted. Heterotopic ossification is present. There is no acute periprosthetic fracture or lucency. IMPRESSION: 1. No acute fracture within the pelvis or hips. 2. Intact left hip arthroplasty with proximal left femoral internal fixation. No acute periprosthetic fracture. ACT 112: Negative or not required by law. Electronically signed by: Floyd Bañuelos M.D. 04/16/2023 7:19 AM Chest X-Ray 04/15/23 20:20 XR chest 1V portable CLINICAL HISTORY: weakness COMPARISON STUDY: No previous studies for comparison. FINDINGS: Incidental note is made of surgical anchors within the right humerus and right axillary surgical clips. Lung volumes are normal. Lungs are clear. There is no pneumothorax or pleural effusion. Cardiac size is normal. Mediastinal contours are normal. There is no evidence for pulmonary edema. IMPRESSION: No acute cardiopulmonary findings. ACT 112: Negative or not required by law. Electronically signed by: Floyd Bañuelos M.D. 04/16/2023 7:[address] 04/15/23 21:00 Exam(s): CT EXTREMITY LEFT LOWER Without Contrast EXAM: CT Left Lower Extremity Without Intravenous Contrast CLINICAL HISTORY: Reason for exam: s/p surgery, ?infection/abscess. TECHNIQUE: Axial computed tomography images of the left lower extremity without intravenous contrast. CTDI is 10.43 mGy and DLP is 545.36 mGy-cm. Automated exposure control was utilized for the study. A dose lowering technique was utilized adhering to the principles of ALARA. COMPARISON: No relevant prior studies available. FINDINGS: Bones/joints: Posterior to the hip replacement there is a moderate size hematoma measuring up to 4.1 cm in thickness by 10 cm transverse. The hematoma begins at the superior acetabulum and extends into the mid thigh measuring at least 15 cm craniocaudal. Patient is status post a left total hip replacement. No hardware complications are noted. No acute fractures or dislocations. Soft tissues: See above. IMPRESSION: Posterior to the hip replacement there is a moderate size hematoma measuring up to 4.1 cm in thickness by 10 cm transverse. The hematoma begins at the superior acetabulum and extends into the mid thigh measuring at least 15 cm craniocaudal. Electronically signed by: Hiram Castro M.D. 04/16/23 01:34 AM PG Care Time/CCT Total # of Minutes Spent Total Time Spent with Patient: Total time spent is greater than 50% in coordination of care (as documented) at patient's floor/unit and/or counseling patient: Coding Level of Care Code 12562 IN/OBS CONSULT LVL 3,45M Diagnoses Hip pain M25.552 Laterality: left (1) Hip pain Laterality: left Qualified Code(s): M25.552 - Pain in left hip
[2023-04-16] MEDS: QUEtiapine FUMARATE 25 MG TABLET PO SCH ×2 (11:38→19:59)
[2023-04-16] MEDS: ANASTROZOLE 1 MG TAB PO SCH (12:04)
[2023-04-16] MEDS: ACETAMINOPHEN 325 MG TAB PO PRN (12:04)
[2023-04-16] MEDS ORDERED: PNEUMOCOCCAL VACCINE (PCV20) 20-VAL CONJ-DIP CRM/PF 0.5 ML SYR IM ONE (12:15)
[2023-04-16 12:49] LABS: Basophils # (auto) 0.04 K/uL (0.00-0.20); Basophils % (auto) 0.5 %; Eosinophils # (auto) 0.04 K/uL (0.00-0.50); Eosinophils % (auto) 0.5 %; Immature Granulocytes # (auto) 0.02 K/uL (0.01-0.20); Immature Granulocytes % (auto) 0.3 %; Lymphocytes % (auto) 20.4 %; Mean Corpuscular Hemoglobin 29.9 pg (25.0-34.0); Mean Corpuscular Hgb Conc 32.3 g/dL (32.0-36.0); Mean Corpuscular Volume 92.5 fL (80.0-100.0); Mean Platelet Volume 9.1 fL (9.4-12.4); Monocytes # (auto) 0.83 K/uL (0.11-0.59); Monocytes % (auto) 11.3 %; Neutrophils # (auto) 4.92 K/uL (1.40-6.50); Platelet Count 290 K/uL (130-400); RDW Coefficient of Variation 17.7 % (11.5-14.5); RDW Standard Deviation 59.2 fL (36.4-46.3); Red Blood Count 3.35 M/uL (4.20-5.40); White Blood Count 7.35 K/ul (4.8-10.8)
--- NOTE | 2023-04-16 14:23 | CT Scan Report ---
HEAD CT NONCONTRAST CT DOSE: 1094.1 mGy.cm HISTORY: Confusion. altered mental status TECHNIQUE: Multiaxial CT images of the head were performed without the use of intravenous contrast. A utomated exposure control was utilized for this study. A dose lowering technique was utilized adheri ng to the principles of ALARA. Comparison: None. Findings: Fluid levels within the sphenoid sinuses and right maxillary sinus resulting in partial opa cification. The mastoid air cells are clear. Suboptimal evaluation of the brain due to the motion art ifact. The calvarium and skull base are intact. There is no definite mass, hematoma, midline shift, a cute infarct. White matter hypodensity is nonspecific but suggestive of microvascular ischemic change . The ventricles and sulci demonstrate mild age-related involutional changes. Impression: Suboptimal evaluation of the brain due to motion artifact. However, no definite acute intracranial ab normality. ACT 112: Negative or not required by law. Electronically signed by: Laureano San M.D. 04/16/2023 2:22 PM
--- NOTE | 2023-04-16 15:33 | Hospitalist Progress Note ---
Date of Service April 16, 2023 Assessment & Plan (1) Hypotension: Plan: Left hip hematoma Acute blood loss anemia In setting of anticoagulation use with Eliquis No known history of trauma H/O multiple left hip surgeries and complications with infection Hypovolemia Delirium --Femur CT: Posterior to the hip replacement there is a moderate size hematoma measuring up to 4.1 cm in thickness by 10 cm transverse. The hematoma begins at the superior acetabulum and extends into the mid thigh measuring at least 15 cm craniocaudal. --Hip X ray:No acute fracture within the pelvis or hips. Intact left hip arthroplasty with proximal left femoral internal fixation. No acute periprosthetic fracture. --Head CT:Suboptimal evaluation of the brain due to motion artifact. However, no definite acute intracranial abnormality. --S/P 2 units PRBCs --Fall precautions Appreciate orthopedics input Conservative management as per orthopedics Monitor CBC Weightbearing as tolerated per Ortho PT OT evaluation Given ESR, CRP elevated, will start empiric antibiotics Blood cultures pending Patient is use of narcotics given delirium H/O PE (postprocedure, COVID infection) Eliquis on hold given acute blood loss anemia Discussed with patient's family regarding possible need for IVC filter--will hold off for now per family Also did discuss risk versus benefits of anticoagulation given mental status/fall risk Acute kidney injury Renal function improved with IV fluids, blood transfusion Creatinine back to baseline Monitor renal function Avoid nephrotoxic agents as able H/O CVA As per records Has been delirious since many months Evaluated by neurology on prior hospitalization CT head showed no acute findings Obtain old records Zyprexa as needed for agitation Reorient frequently H/O Breast cancer S/P Surgery, radiation continue Arimidex Hypothyroidism Normal TSH Continue levothyroxine Mood disorder Possible Dementia Continue home medications Ongoing tobacco abuse Counseled to quit smoking DVT Px: SCDs for now Code Status DNI/DNR Admission and Anticipated Discharge Date Admission Date: April 16, 2023 Subjective Patient is seen and examined at bedside Unable to provide any history due to patient's mental status Discussed with patient's family in detail Currently no plan for intervention by orthopedics Pleasantly confused Review of Systems Review of Systems: Unobtainable due to cognitive status Physical Exam Physical Exam: Physical Exam: Vitals signs as noted above General Appearance:Moderately built and nourished, mild distress,confused Head: normocephalic, Atraumatic Eyes: normal inspection, EOMI Neck: supple, Trachea midline Respiratory/Chest: Decreased breath sounds, CTA, No accessory muscle use Cardiovascular: S1, S2, No murmur Abdomen/GI:Soft, Non tender, Bowel sounds present Extremities/Musculoskeletal:normal inspection, no edema,+ L hip Ecchymosis, tender Neurologic/Psych:Alert, awake, confused, grossly moves all extremities Skin: normal color, warm Results & Data Results & Data Vital Signs (Past 12 Hours) Vital Signs Temp Pulse Pulse Resp BP BP Pulse Ox 04/16/23 11:42 04/16/23 11:38 36.4 C L 66 16 150/79 H 94 04/16/23 10:42 36.8 C 60 16 138/70 99 04/16/23 10:03 36.7 C 63 16 145/79 H 100 04/16/23 09:03 36.7 C 65 14 149/75 H 100 04/16/23 08:33 36.8 C 62 16 120/55 L 99 04/16/23 08:18 36.4 C L 61 16 129/76 100 04/16/23 08:14 36.4 C L 61 16 129/76 100 04/16/23 07:57 36.8 C 61 16 121/64 100 04/16/23 07:14 66 04/16/23 06:59 36.8 C 63 16 124/77 100 04/16/23 05:59 36.4 C L 70 18 157/76 H 99 04/16/23 04:59 36.3 C L 65 18 126/70 100 04/16/23 04:29 36.4 C L 64 18 125/78 98 04/16/23 04:14 36.4 C L 72 18 119/75 98 04/16/23 03:53 36.3 C L 69 18 104/63 97 O2 Del Method O2 Flow Rate 04/16/23 11:42 Room Air 04/16/23 11:38 Room Air 04/16/23 10:42 2 04/16/23 10:03 2 04/16/23 09:03 2 04/16/23 08:33 2 04/16/23 08:18 2 04/16/23 08:14 04/16/23 07:57 04/16/23 07:14 04/16/23 06:59 2 04/16/23 05:59 2 04/16/23 04:59 2 04/16/23 04:29 2 04/16/23 04:14 2 04/16/23 03:53 2 Laboratory Results Short CBC 04/15/23 04/15/23 04/16/23 Range/Units 20:02 23:43 12:10 WBC 13.74 H 7.35 (4.8-10.8) K/ul Hgb 8.5 L 6.3 L* 10.0 L D (12.0-16.0) g/dl Hct 26.7 L 20.4 L* 31.0 L (37.0-47.0) % Plt Count 451 H 290 (130-400) K/uL BMP 04/15/23 04/16/23 20:02 04:03 Sodium 134 L 138 Potassium 4.5 4.8 Chloride 101 109 H Carbon Dioxide 23 25 BUN 21 18 Creatinine 1.47 H 1.09 D Glucose 116 H 91 Calcium 8.6 7.5 L Liver Function 04/15/23 Range/Units 20:02 Total Bilirubin 0.3 (0.2-1.0) mg/dl AST 27 (13-39) U/L ALT 11 (7-52) U/L Alkaline Phosphatase 105 H (34-104) U/L Albumin 3.0 L (3.4-5.0) gm/dl Urine 04/15/23 Range/Units 22:20 Urine Color Yellow Urine Appearance Clear (Clear) Urine pH 7.0 (4.5-7.5) Ur Specific [place] 1.014 (1.000-1.030) Urine Protein Trace H (Negative) Urine Glucose (UA) Negative (Negative)
[2023-04-16] MEDS ORDERED: VANCOMYCIN HCL 1,000 MG in SODIUM CHLORIDE 0.9% 250 ML IV STA (15:52)
[2023-04-16] MEDS ORDERED: VANCOMYCIN CONSULT ACTIVE PRN (15:52)
[2023-04-16] MEDS ORDERED: CEFEPIME 1,000 MG in SYRINGE 0 ML IV SCH (16:00)
[2023-04-16] MEDS: CEFEPIME 2,000 MG in SYRINGE 0 ML IV SCH (16:47)
[2023-04-16] MEDS: VANCOMYCIN HCL 1,000 MG in SODIUM CHLORIDE 0.9% 250 ML IV SCH (16:47)
--- NOTE | 2023-04-16 18:47 | Pharmacy Report ---
Pharmacy PK ABX Note - Date of Service April 16, 2023 - Assessment and Plan Assessment 82 year old F receiving empiric vancomycin/cefepime. SCr improving, ? baseline. Initial leukocytosis improved. Blood cultures pending. Elevated CRP. Plan Vancomycin * Loading dose: 1250 mg IV x 1 * Maintenance dose: 1000 mg IV every 24 hours * Regimen is predicted to achieve target AUC/SANTIAGO of 400-600 mg/L.hr * Random level to be ordered if continued >48 hours Pharmacy will continue to follow and will adjust dose/frequency as necessary. Thank you. Pharmacy has transitioned to AUC monitoring for vancomycin. AUC/SANTIAGO is the preferred PK/PD target and is associated with decreased risk of nephrotoxicity compared to traditional trough targets.
[2023-04-16] MEDS: DIVALPROEX EXTENDED RELEASE 250 MG TABCR PO SCH (19:59)
[2023-04-17] MEDS: CEFEPIME 2,000 MG in SYRINGE 0 ML IV SCH ×2 (04:30→16:41)
[2023-04-17] MEDS: LEVOTHYROXINE SODIUM 125 MCG TABLET PO SCH ×2 (06:36→06:38)
[2023-04-17 06:44] LABS: Hematocrit (blood only) 33.9 % (37.0-47.0); Mean Corpuscular Hemoglobin 29.8 pg (25.0-34.0); Mean Corpuscular Hgb Conc 32.4 g/dL (32.0-36.0); Mean Corpuscular Volume 91.9 fL (80.0-100.0); Mean Platelet Volume 9.2 fL (9.4-12.4); Platelet Count 315 K/uL (130-400); RDW Coefficient of Variation 17.5 % (11.5-14.5); RDW Standard Deviation 59.2 fL (36.4-46.3); Red Blood Count 3.69 M/uL (4.20-5.40); White Blood Count 6.87 K/ul (4.8-10.8)
[2023-04-17 07:17] LABS: BUN Creatinine Ratio 16.9 (10-20); Calcium 8.5 mg/dl (8.6-10.3); Creatinine Clr Calc Pharmacy 41.4 ml/min; Est GFR (African American) 69.5 ml/min; Est GFR (Non-African American) 59.9 ml/min; Magnesium 1.6 mg/dl (1.7-2.4); Potassium 3.6 mmol/L (3.5-5.1)
[2023-04-17] MEDS: ANASTROZOLE 1 MG TAB PO SCH (08:22)
[2023-04-17] MEDS: QUEtiapine FUMARATE 25 MG TABLET PO SCH ×2 (08:22→20:01)
[2023-04-17] MEDS: MAGNESIUM CHLORIDE W/CALCIUM 64MG DELAYED REL TAB PO SCH ×2 (12:09→20:02)
--- NOTE | 2023-04-17 13:10 | Orthopedic Progress Note ---
Date of Service April 17, 2023 Assessment & Plan (1) Hip pain: I think she is doing with a hematoma from the 3 surgery she had around her hip over the past few months. She has been lying supine a lot and the hematoma seems to have collected posterior to the hip joint. I do not think a fourth surgery would be beneficial on her at this time. I think that this needs to absorb some and heal on its own. I explained this to the daughter and she is in agreement. Tc can be weightbearing as tolerated on the left hip. I do not feel that this is an infection show antibiotics can be distributed per the primary care team. She can follow-up with my office in about a month to make sure that she is improving. Office phone number is [phone] Subjective Tc was seen and examined at bedside again this morning. Her hematoma is improving overall. Her daughter was with her in the room. She still is fairly demented and unable to answer questions. She has no new complaints and no acute events overnight.. Review of Systems All systems reviewed & are unremarkable except as noted in HPI & below. Physical Exam Physical examination of her left hip does show a large hematoma. There are some ecchymosis laterally. There is little bit of induration. I do not see any erythema or signs of infection. She is unable to cooperate with a neurovascular examination.. Results & Data Results & Data Laboratory Results . Diagnostic Findings . PG Care Time/CCT Total # of Minutes Spent Total Time Spent with Patient: Total time spent is greater than 50% in coordination of care (as documented) at patient's floor/unit and/or counseling patient: Coding Level of Care Code 73536 SUB INP/OBS CARE 2/35MIN Diagnoses Hip pain M25.552 Laterality: left (1) Hip pain Laterality: left Qualified Code(s): M25.552 - Pain in left hip
--- NOTE | 2023-04-17 14:47 | Hospitalist Progress Note ---
Date of Service April 17, 2023 Assessment & Plan (1) Hypotension: Plan: Left hip hematoma Acute blood loss anemia In setting of anticoagulation use with Eliquis No known history of trauma H/O multiple left hip surgeries and complications with infection Hypovolemia Delirium --Femur CT: Posterior to the hip replacement there is a moderate size hematoma measuring up to 4.1 cm in thickness by 10 cm transverse. The hematoma begins at the superior acetabulum and extends into the mid thigh measuring at least 15 cm craniocaudal. --Hip X ray:No acute fracture within the pelvis or hips. Intact left hip arthroplasty with proximal left femoral internal fixation. No acute periprosthetic fracture. --Head CT:Suboptimal evaluation of the brain due to motion artifact. However, no definite acute intracranial abnormality. --S/P 2 units PRBCs --Fall precautions Appreciate orthopedics input Conservative management as per orthopedics Monitor CBC Weightbearing as tolerated per Ortho PT OT evaluation Given ESR, CRP elevated, was started on empiric antibiotics Blood cultures pending to date Cautious use of narcotics given delirium No concern for joint infection per Ortho Will consider discontinuing antibiotics if cultures remain negative PT OT eval requested Hemoglobin stable today H/O PE (postprocedure, COVID infection) Eliquis on hold given acute blood loss anemia Discussed with patient's family regarding possible need for IVC filter--will hold off for now per family Also did discuss risk versus benefits of anticoagulation given mental status/fall risk Acute kidney injury Renal function improved with IV fluids, blood transfusion Creatinine back to baseline Monitor renal function Avoid nephrotoxic agents as able H/O CVA As per records Has been delirious since many months Evaluated by neurology on prior hospitalization CT head showed no acute findings Obtain old records Zyprexa as needed for agitation Reorient frequently H/O Breast cancer S/P Surgery, radiation continue Arimidex Hypothyroidism Normal TSH Continue levothyroxine Mood disorder Possible Dementia Continue home medications Ongoing tobacco abuse Counseled to quit smoking DVT Px: SCDs for now Code Status DNI/DNR Admission and Anticipated Discharge Date Admission Date: April 16, 2023 Subjective Patient is seen and examined at bedside Unable to provide any history due to patient's mental status No distress on exam Lying comfortably on bed during my encounter Afebrile today Hemoglobin stable Review of Systems Review of Systems: Other Physical Exam Physical Exam: Physical Exam: Vitals signs as noted above General Appearance:Moderately built and nourished, mild distress,confused Head: normocephalic, Atraumatic Eyes: normal inspection, EOMI Neck: supple, Trachea midline Respiratory/Chest: Decreased breath sounds, CTA, No accessory muscle use Cardiovascular: S1, S2, No murmur Abdomen/GI:Soft, Non tender, Bowel sounds present Extremities/Musculoskeletal:normal inspection, no edema,+ L hip Ecchymosis, tender Neurologic/Psych:Alert, awake, confused, grossly moves all extremities Skin: normal color, warm Results & Data Results & Data Vital Signs (Past 12 Hours) Vital Signs Temp Pulse Pulse Pulse Resp BP Pulse Ox 04/17/23 11:50 36.9 C 67 16 134/84 97 04/17/23 08:33 36.5 C 69 18 135/74 97 04/17/23 07:30 61 04/17/23 03:59 36.5 C 77 20 144/84 H 92 O2 Del Method 04/17/23 11:50 Room Air 04/17/23 08:33 Room Air 04/17/23 07:30 04/17/23 03:59 Room Air Laboratory Results Short CBC 04/17/23 Range/Units 06:23 WBC 6.87 (4.8-10.8) K/ul Hgb 11.0 L (12.0-16.0) g/dl Hct 33.9 L (37.0-47.0) % Plt Count 315 (130-400) K/uL BMP 04/17/23 06:23 Sodium 139 Potassium 3.6 D Chloride 105 Carbon Dioxide 26 BUN 15 Creatinine 0.89 Glucose 74 Calcium 8.5 L
[2023-04-17] MEDS: VANCOMYCIN HCL 1,000 MG in SODIUM CHLORIDE 0.9% 250 ML IV SCH (16:41)
[2023-04-17] MEDS: DIVALPROEX EXTENDED RELEASE 250 MG TABCR PO SCH (20:02)
[2023-04-17] MEDS: ACETAMINOPHEN 325 MG TAB PO PRN (22:47)
[2023-04-18] MEDS: CEFEPIME 2,000 MG in SYRINGE 0 ML IV SCH (04:24)
[2023-04-18] MEDS: LEVOTHYROXINE SODIUM 125 MCG TABLET PO SCH (05:53)
[2023-04-18 09:02] LABS: Hematocrit (blood only) 33.9 % (37.0-47.0); Mean Corpuscular Hemoglobin 29.9 pg (25.0-34.0); Mean Corpuscular Hgb Conc 32.4 g/dL (32.0-36.0); Mean Corpuscular Volume 92.1 fL (80.0-100.0); Mean Platelet Volume 9.4 fL (9.4-12.4); Platelet Count 330 K/uL (130-400); RDW Coefficient of Variation 17.2 % (11.5-14.5); RDW Standard Deviation 58.1 fL (36.4-46.3); Red Blood Count 3.68 M/uL (4.20-5.40); White Blood Count 5.18 K/ul (4.8-10.8)
[2023-04-18 09:04] LABS: BUN Creatinine Ratio 16.8 (10-20); C Reactive Protein 8.86 mg/dl (0-0.5); Calcium 8.4 mg/dl (8.6-10.3); Creatinine Clr Calc Pharmacy 38.7 ml/min; Est GFR (African American) 64.2 ml/min; Est GFR (Non-African American) 55.4 ml/min; Magnesium 1.7 mg/dl (1.7-2.4); Potassium 3.3 mmol/L (3.5-5.1)
[2023-04-18] MEDS ORDERED: POTASSIUM CHLORIDE CRTAB 20 MEQ TABCR PO STA (09:22)
[2023-04-18] MEDS: ACETAMINOPHEN 325 MG TAB PO PRN (11:28)
[2023-04-18] MEDS: QUEtiapine FUMARATE 25 MG TABLET PO SCH ×2 (11:28→21:46)
[2023-04-18] MEDS: ANASTROZOLE 1 MG TAB PO SCH (11:29)
[2023-04-18] MEDS: MAGNESIUM CHLORIDE W/CALCIUM 64MG DELAYED REL TAB PO SCH ×2 (11:29→21:46)
--- NOTE | 2023-04-18 12:55 | Hospitalist Progress Note ---
Date of Service April 18, 2023 Assessment & Plan (1) Hypotension: Plan: Left hip hematoma Acute blood loss anemia In setting of anticoagulation use with Eliquis No known history of trauma H/O multiple left hip surgeries and complications with infection Hypovolemia Delirium --Femur CT: Posterior to the hip replacement there is a moderate size hematoma measuring up to 4.1 cm in thickness by 10 cm transverse. The hematoma begins at the superior acetabulum and extends into the mid thigh measuring at least 15 cm craniocaudal. --Hip X ray:No acute fracture within the pelvis or hips. Intact left hip arthroplasty with proximal left femoral internal fixation. No acute periprosthetic fracture. --Head CT:Suboptimal evaluation of the brain due to motion artifact. However, no definite acute intracranial abnormality. --S/P 2 units PRBCs --Fall precautions Appreciate orthopedics input Conservative management as per orthopedics Monitor CBC Weightbearing as tolerated per Ortho Started on prn Toradol for pain Given ESR, CRP elevated, was started on empiric antibiotics Blood cultures with NGTD Cautious use of narcotics given delirium No concern for joint infection per Ortho Discontinued antibiotics PT OT eval requested- pt's family declined evaluation today Hemoglobin remains stable at 11 Poor Appetite Per nursing, pt refusing all po intake Started on very gentle IVF on 04/18 Nutrition consult placed H/O PE (postprocedure, COVID infection) Eliquis on hold given acute blood loss anemia Discussed with patient's family regarding possible need for IVC filter--will hold off for now per family Also did discuss risk versus benefits of anticoagulation given mental status/fall risk Acute kidney injury Renal function improved with IV fluids, blood transfusion Creatinine back to baseline Monitor renal function Avoid nephrotoxic agents as able -pt started on as needed toradol for pain, sparing use H/O CVA As per records Has been delirious for many months Evaluated by neurology on prior hospitalization CT head showed no acute findings Obtain old records Zyprexa as needed for agitation Reorient frequently H/O Breast cancer S/P Surgery, radiation continue Arimidex Hypothyroidism Normal TSH Continue levothyroxine Mood disorder Possible Dementia Continue home medications Ongoing tobacco abuse Encourage cessation DVT Px: SCDs for now Code Status: DNI/DNR Dispo: Family declining PT/OT at this time Admission and Anticipated Discharge Date Admission Date: April 16, 2023 Subjective Pt initially did not want to talk to provider on arrival. Was not answering questions. Did ask what are you doing when abdomen was palpated. Review of Systems Review of Systems: All systems reviewed & are unremarkable except as noted in Subjective Physical Exam Physical Exam: General: Alert, Skin: No noted rashes or bruises Psych: could not determine Neuro: No gross deficits while laying in bed HEENT: NC/AT CV: RRR Resp: no increased effort of breathing Abdomen: Soft, nontender Extremities: No edema in lower extremities bilaterally. Results & Data Results & Data Vital Signs (Past 12 Hours) Vital Signs Temp Pulse Pulse Resp BP Pulse Ox O2 Del Method 04/18/23 11:05 36.6 C 78 16 136/83 99 Room Air 04/18/23 09:27 56 L 04/18/23 07:27 36.5 C 61 18 143/81 H 95 Room Air
[2023-04-18] MEDS: KETOROLAC TROMETHAMINE 15 MG/ML VIAL IV PRN (14:11)
[2023-04-18] MEDS: SODIUM CHLORIDE 0.9% 1,000 ML IV SCH (17:09)
[2023-04-18] MEDS: VANCOMYCIN HCL 1,000 MG in SODIUM CHLORIDE 0.9% 250 ML IV SCH (17:09)
[2023-04-18] MEDS: HYDROmorphone INJ 0.5 MG/0.5 ML SYR IV PRN ×2 (17:12→22:00)
--- NOTE | 2023-04-18 18:14 | Electrocardiogram Report ---
Test Reason : Blood Pressure : / mmHG Vent. Rate : 091 BPM Atrial Rate : 091 BPM P-R Int : 140 ms QRS Dur : 104 ms QT Int : 386 ms P-R-T Axes : 087 013 036 degrees QTc Int : 474 ms Normal sinus rhythm Incomplete right bundle branch block Borderline ECG No previous ECGs available Confirmed by Sarmad Quiros ([id number]) on 04/18/2023 6:14:15 PM Referred By: [facility] Confirmed By:Sarmad Quiros
[2023-04-18] MEDS ORDERED: LABETALOL HCL IV 5 MG/ML 20ML IV STA (21:37)
[2023-04-18] MEDS: DIVALPROEX EXTENDED RELEASE 250 MG TABCR PO SCH (21:46)
[2023-04-19] MEDS: SODIUM CHLORIDE 0.9% 1,000 ML IV SCH (05:45)
[2023-04-19] MEDS: LEVOTHYROXINE SODIUM 125 MCG TABLET PO SCH (05:50)
[2023-04-19 07:13] LABS: Hematocrit (blood only) 35.5 % (37.0-47.0); Hemoglobin 11.7 g/dl (12.0-16.0); Mean Platelet Volume 9.4 fL (9.4-12.4); Platelet Count 373 K/uL (130-400); RDW Coefficient of Variation 16.6 % (11.5-14.5); RDW Standard Deviation 55.6 fL (36.4-46.3); White Blood Count 4.66 K/ul (4.8-10.8)
[2023-04-19 07:24] LABS: BUN Creatinine Ratio 15.1 (10-20); Creatinine Clr Calc Pharmacy 42.8 ml/min; Est GFR (African American) 72.4 ml/min; Est GFR (Non-African American) 62.5 ml/min; Magnesium 1.7 mg/dl (1.7-2.4); Phosphorus 3.1 mg/dl (2.5-4.9); Potassium 4.1 mmol/L (3.5-5.1)
[2023-04-19] MEDS: KETOROLAC TROMETHAMINE 15 MG/ML VIAL IV PRN (08:32)
[2023-04-19] MEDS: HYDROmorphone INJ 0.5 MG/0.5 ML SYR IV PRN ×2 (08:32→15:20)
[2023-04-19] MEDS: ACETAMINOPHEN 1,000 MG/100 ML VIAL IV SCH ×2 (13:29→21:22)
[2023-04-19] MEDS: QUEtiapine FUMARATE 25 MG TABLET PO SCH ×2 (13:30→21:21)
[2023-04-19] MEDS: ANASTROZOLE 1 MG TAB PO SCH (13:30)
[2023-04-19] MEDS: MAGNESIUM CHLORIDE W/CALCIUM 64MG DELAYED REL TAB PO SCH ×2 (13:30→21:21)
--- NOTE | 2023-04-19 14:00 | Hospitalist Progress Note ---
Date of Service April 19, 2023 Assessment & Plan (1) Hypotension: Plan: Left hip hematoma Acute blood loss anemia In setting of anticoagulation use with Eliquis No known history of trauma H/O multiple left hip surgeries --Femur CT on admission: Posterior to the hip replacement there is a moderate size hematoma measuring up to 4.1 cm in thickness by 10 cm transverse. The hematoma begins at the superior acetabulum and extends into the mid thigh measuring at least 15 cm craniocaudal. --Hip X ray:No acute fracture within the pelvis or hips. Intact left hip arthroplasty with proximal left femoral internal fixation. No acute periprosthetic fracture. --Head CT:Suboptimal evaluation of the brain due to motion artifact. However, no definite acute intracranial abnormality. --S/P 2 units PRBCs Hemoglobin is stable around 11 Will restart DVT prophylaxis with heparin and see response. Discussed with POA. Patient has high risks of PE given her previous history. Fall precautions Patient evaluated by orthopedic; follow-up as outpatient in 4 weeks. Pain control with IV Tylenol. Minimize opioids. H/O PE (postprocedure, COVID infection) Eliquis on hold given acute blood loss anemia Started on DVT prophylaxis with heparin. Acute kidney injury, likely prerenal due to hypotension. Renal function improved with IV fluids, blood transfusion Creatinine back to baseline Monitor renal function Avoid nephrotoxic agents as able H/O CVA As per records Evaluated by neurology on prior hospitalization CT head showed no acute findings Zyprexa as needed for agitation Reorient frequently H/O Breast cancer S/P Surgery, radiation continue Arimidex Hypothyroidism Normal TSH Continue levothyroxine Mood disorder Possible underlying dementia Continue home medications Ongoing tobacco abuse Encourage cessation DVT Px: Heparin Code Status: DNI/DNR Dispo: PT OT pending Time spent evaluating patient, direct bedside care, chart review, placing orders, interpretation of diagnostic studies, discussion with consultants, patient, and family members, as well as other required patient management activities is 50 minutes Please note the above document was generated using voice recognition software. It may contain grammatical, syntax or spelling errors. Any formal questions or concerns about the content, text or information contained within the body of this dictation should be directly addressed to the provider for clarification Admission and Anticipated Discharge Date Admission Date: April 16, 2023 Subjective Patient seen and examined at bedside. She appears to be delirious. She is not responding to questions. Vital stable. No overnight events Review of Systems Review of Systems: Unobtainable due to cognitive status Physical Exam Physical Exam: Constitutional: Awake, alert, oriented to self only Respiratory: Bilateral vesicular breath sound. Cardiovascular: RRR, no murmur, no edema Vessels: no JVD or carotid bruit Abdomen: Soft, nontender. Musculoskeletal: Bruises present on right thigh Skin: no rashes, warm and dry normal turgor Neurologic: Difficulty in following commands. PERRLA Psychiatric: A+Ox1, euthymic affect Results & Data Results & Data Vital Signs (Past 12 Hours) Vital Signs Temp Pulse Pulse Resp BP Pulse Ox O2 Del Method 04/19/23 11:45 35.4 C L 71 20 162/97 H 97 Room Air 04/19/23 08:09 36.3 C L 66 16 161/75 H 100 Room Air 04/19/23 08:00 77 04/19/23 05:12 36.6 C 72 18 106/78 95 Room Air
[2023-04-19] MEDS: HEPARIN SOD 5,000 UNIT/0.5 ML VIAL SQ SCH ×2 (15:39→21:37)
[2023-04-19] MEDS: MoRPHine SULFATE 2 MG/ML CARP IV PRN ×3 (16:18→22:44)
[2023-04-19] MEDS ORDERED: LABETALOL HCL IV 5 MG/ML 20ML IV STA (20:51)
[2023-04-19] MEDS: VALPROATE SOD 250 MG in DEXTROSE 5% 50 ML IV SCH (21:38)
[2023-04-20] MEDS: ACETAMINOPHEN 1,000 MG/100 ML VIAL IV SCH ×3 (05:11→21:36)
[2023-04-20] MEDS: HEPARIN SOD 5,000 UNIT/0.5 ML VIAL SQ SCH ×3 (05:13→21:36)
[2023-04-20] MEDS: LEVOTHYROXINE SODIUM 125 MCG TABLET PO SCH ×2 (05:31→07:26)
[2023-04-20 06:38] LABS: Basophils # (auto) 0.03 K/uL (0.00-0.20); Basophils % (auto) 0.6 %; Eosinophils # (auto) 0.07 K/uL (0.00-0.50); Eosinophils % (auto) 1.5 %; Hematocrit (blood only) 33.2 % (37.0-47.0); Hemoglobin 11.3 g/dl (12.0-16.0); Immature Granulocytes # (auto) 0.01 K/uL (0.01-0.20); Immature Granulocytes % (auto) 0.2 %; Lymphocytes # (auto) 1.33 K/uL (1.20-3.40); Lymphocytes % (auto) 27.8 %; Mean Corpuscular Hemoglobin 30.3 pg (25.0-34.0); Monocytes # (auto) 0.61 K/uL (0.11-0.59); Monocytes % (auto) 12.7 %; Neutrophils # (auto) 2.74 K/uL (1.40-6.50); Neutrophils % (auto) 57.2 %; Platelet Count 344 K/uL (130-400); RDW Coefficient of Variation 16.2 % (11.5-14.5); RDW Standard Deviation 53.5 fL (36.4-46.3); Red Blood Count 3.73 M/uL (4.20-5.40); White Blood Count 4.79 K/ul (4.8-10.8)
[2023-04-20] MEDS: OLANZapine 10 MG/2.1 ML SDV IM PRN (07:04)
[2023-04-20 07:21] LABS: BUN Creatinine Ratio 16.4 (10-20); Calcium 8.8 mg/dl (8.6-10.3); Creatinine Clr Calc Pharmacy 50.4 ml/min; Est GFR (African American) 88.3 ml/min; Est GFR (Non-African American) 76.2 ml/min; Potassium 2.9 mmol/L (3.5-5.1)
[2023-04-20] MEDS: QUEtiapine FUMARATE 25 MG TABLET PO SCH ×2 (07:23→18:15)
[2023-04-20] MEDS: MAGNESIUM CHLORIDE W/CALCIUM 64MG DELAYED REL TAB PO SCH ×2 (07:23→21:36)
[2023-04-20] MEDS: ANASTROZOLE 1 MG TAB PO SCH (07:23)
[2023-04-20] MEDS: POTASSIUM CHLORIDE / WTR 10 MEQ/100 ML PLCT IV SCH ×4 (10:00→14:53)
[2023-04-20] MEDS ORDERED: INFLUENZA VACCINE HIGH-DOSE (HD-IIV4) PF 65+ 0.7mL SYR IM ONE (11:15)
--- NOTE | 2023-04-20 13:19 | Hospitalist Progress Note ---
Date of Service April 20, 2023 Assessment & Plan (1) Hypotension: Plan: Left hip hematoma Acute blood loss anemia In setting of anticoagulation use with Eliquis No known history of trauma H/O multiple left hip surgeries --Femur CT on admission: Posterior to the hip replacement there is a moderate size hematoma measuring up to 4.1 cm in thickness by 10 cm transverse. The hematoma begins at the superior acetabulum and extends into the mid thigh measuring at least 15 cm craniocaudal. --Hip X ray:No acute fracture within the pelvis or hips. Intact left hip arthroplasty with proximal left femoral internal fixation. No acute periprosthetic fracture. --Head CT:Suboptimal evaluation of the brain due to motion artifact. However, no definite acute intracranial abnormality. --S/P 2 units PRBCs Hemoglobin is stable around 11 Restarted on DVT prophylaxis with heparin. Discussed with POA. Patient has high risks of PE given her previous history. Fall precautions Patient evaluated by orthopedic; follow-up as outpatient in 4 weeks. Pain control with IV Tylenol. Minimize opioids. H/O PE (postprocedure, COVID infection) Eliquis on hold given acute blood loss anemia Started on DVT prophylaxis with heparin. Acute kidney injury, likely prerenal due to hypotension. Renal function improved with IV fluids, blood transfusion Creatinine back to baseline Monitor renal function Avoid nephrotoxic agents as able H/O CVA As per records Evaluated by neurology on prior hospitalization CT head showed no acute findings Zyprexa as needed for agitation Reorient frequently H/O Breast cancer S/P Surgery, radiation continue Arimidex Hypothyroidism Normal TSH Continue levothyroxine Mood disorder Possible underlying dementia Continue home medications Ongoing tobacco abuse Encourage cessation DVT Px: Heparin Code Status: DNI/DNR Dispo: PT OT Discussed with the POA. Plan is to discharge back to [facility] in next few days if she continues to remain clinically stable. Time spent evaluating patient, direct bedside care, chart review, placing orders, interpretation of diagnostic studies, discussion with consultants, patient, and family members, as well as other required patient management activities is 50 minutes Please note the above document was generated using voice recognition software. It may contain grammatical, syntax or spelling errors. Any formal questions or concerns about the content, text or information contained within the body of this dictation should be directly addressed to the provider for clarification Admission and Anticipated Discharge Date Admission Date: April 16, 2023 Subjective Patient seen and examined at bedside. Patient appears to be much more comfortable today. No complaints of pain. No significant overnight events. Hemodynamically stable. She is able to answer questions appropriately. Able to follow commands Review of Systems Review of Systems: All systems reviewed & are unremarkable except as noted in Subjective Physical Exam Physical Exam: Constitutional: Awake, alert, oriented to self only Respiratory: Bilateral vesicular breath sound. Cardiovascular: RRR, no murmur, no edema Vessels: no JVD or carotid bruit Abdomen: Soft, nontender. Musculoskeletal: Bruises present on right thigh Skin: no rashes, warm and dry normal turgor Neurologic: Grossly moves all extremities. Psychiatric: A+Ox1, euthymic affect Results & Data Results & Data Vital Signs (Past 12 Hours) Vital Signs Temp Pulse Resp BP Pulse Ox O2 Del Method 04/20/23 11:24 36.1 C L 73 18 109/71 99 Room Air 04/20/23 07:37 36.2 C L 63 18 164/90 H 100 Room Air 04/20/23 04:09 36.3 C L 81 18 165/89 H 98 Room Air
[2023-04-20] MEDS: VALPROATE SOD 250 MG in DEXTROSE 5% 50 ML IV SCH (20:51)
[2023-04-21] MEDS: ACETAMINOPHEN 1,000 MG/100 ML VIAL IV SCH ×2 (07:51→14:20)
[2023-04-21 07:54] LABS: Basophils # (auto) 0.05 K/uL (0.00-0.20); Eosinophils # (auto) 0.29 K/uL (0.00-0.50); Hematocrit (blood only) 32.5 % (37.0-47.0); Hemoglobin 10.7 g/dl (12.0-16.0); Immature Granulocytes # (auto) 0.02 K/uL (0.01-0.20); Immature Granulocytes % (auto) 0.4 %; Lymphocytes # (auto) 1.95 K/uL (1.20-3.40); Lymphocytes % (auto) 40.6 %; Mean Corpuscular Hgb Conc 32.9 g/dL (32.0-36.0); Mean Platelet Volume 9.4 fL (9.4-12.4); Monocytes # (auto) 0.47 K/uL (0.11-0.59); Monocytes % (auto) 9.8 %; Neutrophils # (auto) 2.02 K/uL (1.40-6.50); Neutrophils % (auto) 42.2 %; Platelet Count 354 K/uL (130-400); RDW Coefficient of Variation 16.3 % (11.5-14.5); RDW Standard Deviation 55.2 fL (36.4-46.3); Red Blood Count 3.57 M/uL (4.20-5.40)
[2023-04-21] MEDS: HEPARIN SOD 5,000 UNIT/0.5 ML VIAL SQ SCH ×3 (07:55→19:45)
[2023-04-21] MEDS: LEVOTHYROXINE SODIUM 125 MCG TABLET PO SCH (07:55)
[2023-04-21] MEDS: QUEtiapine FUMARATE 25 MG TABLET PO SCH ×2 (07:56→19:46)
[2023-04-21] MEDS: ANASTROZOLE 1 MG TAB PO SCH (07:56)
[2023-04-21] MEDS: MAGNESIUM CHLORIDE W/CALCIUM 64MG DELAYED REL TAB PO SCH ×2 (07:56→19:45)
[2023-04-21 08:08] LABS: BUN Creatinine Ratio 17.7 (10-20); Calcium 8.5 mg/dl (8.6-10.3); Creatinine Clr Calc Pharmacy 38.3 ml/min; Est GFR (African American) 63.4 ml/min; Est GFR (Non-African American) 54.7 ml/min; Potassium 3.1 mmol/L (3.5-5.1)
--- NOTE | 2023-04-21 11:18 | Hospitalist Progress Note ---
Date of Service April 21, 2023 Assessment & Plan (1) Hypotension: Plan: Left hip hematoma Acute blood loss anemia In setting of anticoagulation use with Eliquis No known history of trauma H/O multiple left hip surgeries --Femur CT on admission: Posterior to the hip replacement there is a moderate size hematoma measuring up to 4.1 cm in thickness by 10 cm transverse. The hematoma begins at the superior acetabulum and extends into the mid thigh measuring at least 15 cm craniocaudal. --Hip X ray:No acute fracture within the pelvis or hips. Intact left hip arthroplasty with proximal left femoral internal fixation. No acute periprosthetic fracture. --Head CT:Suboptimal evaluation of the brain due to motion artifact. However, no definite acute intracranial abnormality. --S/P 2 units PRBCs Hemoglobin is stable around 11 Restarted on DVT prophylaxis with heparin. Discussed with POA. Patient has high risks of PE given her previous history. Fall precautions Patient evaluated by orthopedic; follow-up as outpatient in 4 weeks. Pain control with IV Tylenol. Minimize opioids. H/O PE (postprocedure, COVID infection) Eliquis on hold given acute blood loss anemia Started on DVT prophylaxis with heparin. Continue to monitor. Acute kidney injury, likely prerenal due to hypotension. Renal function improved with IV fluids, blood transfusion Creatinine back to baseline Monitor renal function Avoid nephrotoxic agents as able H/O CVA As per records Evaluated by neurology on prior hospitalization CT head showed no acute findings Zyprexa as needed for agitation Reorient frequently Will decrease her frequency of Seroquel to just at night and avoiding daytime dose. H/O Breast cancer S/P Surgery, radiation continue Arimidex Hypothyroidism Normal TSH Continue levothyroxine Mood disorder Possible underlying dementia Continue home medications Ongoing tobacco abuse Encourage cessation DVT Px: Heparin Code Status: DNI/DNR Dispo: PT OT Discussed with the POA. Plan is to discharge back to [facility] in next few days if she continues to remain clinically stable. Please note the above document was generated using voice recognition software. It may contain grammatical, syntax or spelling errors. Any formal questions or concerns about the content, text or information contained within the body of this dictation should be directly addressed to the provider for clarification Admission and Anticipated Discharge Date Admission Date: April 16, 2023 Subjective Patient seen at bedside. She is lying on the bed comfortably. She wakes up with voice. She denied any pain or discomfort. No overnight events Review of Systems Review of Systems: All systems reviewed & are unremarkable except as noted in Subjective Physical Exam Physical Exam: Constitutional: Awake, alert, oriented to self only Respiratory: Bilateral vesicular breath sound. Cardiovascular: RRR, no murmur, no edema Vessels: no JVD or carotid bruit Abdomen: Soft, nontender. Musculoskeletal: Bruises present on right thigh Skin: no rashes, warm and dry normal turgor Neurologic: Grossly moves all extremities. Psychiatric: A+Ox1, euthymic affect Results & Data Results & Data Vital Signs (Past 12 Hours) Vital Signs Temp Pulse Pulse Pulse Resp BP Pulse Ox 04/21/23 07:31 36.4 C L 60 18 164/80 H 99 04/21/23 07:00 59 L 04/21/23 04:00 36.6 C 56 L 56 L 16 147/78 H 99 O2 Del Method 04/21/23 07:31 Room Air 04/21/23 07:00 04/21/23 04:00 Room Air
[2023-04-21] MEDS: POTASSIUM CHLORIDE / WTR 10 MEQ/100 ML PLCT IV SCH ×4 (11:22→15:20)
[2023-04-21] MEDS: DIVALPROEX EXTENDED RELEASE 250 MG TABCR PO SCH (21:38)
[2023-04-22] MEDS: ACETAMINOPHEN 1,000 MG/100 ML VIAL IV SCH ×2 (01:50→06:33)
[2023-04-22] MEDS: HEPARIN SOD 5,000 UNIT/0.5 ML VIAL SQ SCH ×3 (06:33→20:07)
[2023-04-22] MEDS: LEVOTHYROXINE SODIUM 125 MCG TABLET PO SCH (06:33)
[2023-04-22] MEDS: ANASTROZOLE 1 MG TAB PO SCH (07:39)
[2023-04-22] MEDS: MAGNESIUM CHLORIDE W/CALCIUM 64MG DELAYED REL TAB PO SCH ×2 (07:39→20:07)
[2023-04-22 09:14] LABS: BUN Creatinine Ratio 21.6 (10-20); Calcium 8.7 mg/dl (8.6-10.3); Creatinine Clr Calc Pharmacy 36.1 ml/min; Est GFR (African American) 58.9 ml/min; Est GFR (Non-African American) 50.8 ml/min; Potassium 3.3 mmol/L (3.5-5.1)
[2023-04-22 09:25] LABS: Basophils # (auto) 0.05 K/uL (0.00-0.20); Echinocytes 1+; Eosinophils # (auto) 0.27 K/uL (0.00-0.50); Eosinophils % (auto) 5.1 %; Hematocrit (blood only) 37.6 % (37.0-47.0); Hemoglobin 11.7 g/dl (12.0-16.0); Immature Granulocytes # (auto) 0.03 K/uL (0.01-0.20); Immature Granulocytes % (auto) 0.6 %; Lymphocytes # (auto) 1.58 K/uL (1.20-3.40); Lymphocytes % (auto) 30.1 %; Mean Corpuscular Hemoglobin 29.8 pg (25.0-34.0); Mean Corpuscular Hgb Conc 31.1 g/dL (32.0-36.0); Mean Corpuscular Volume 95.7 fL (80.0-100.0); Mean Platelet Volume 8.8 fL (9.4-12.4); Monocytes # (auto) 0.48 K/uL (0.11-0.59); Monocytes % (auto) 9.1 %; Neutrophils # (auto) 2.84 K/uL (1.40-6.50); Neutrophils % (auto) 54.1 %; Platelet Count 338 K/uL (130-400); RDW Coefficient of Variation 16.7 % (11.5-14.5); RDW Standard Deviation 59.2 fL (36.4-46.3); Red Blood Count 3.93 M/uL (4.20-5.40); White Blood Count 5.25 K/ul (4.8-10.8)
--- NOTE | 2023-04-22 13:33 | Hospitalist Progress Note ---
Date of Service April 22, 2023 Assessment & Plan (1) Hypotension: Plan: Left hip hematoma Acute blood loss anemia In setting of anticoagulation use with Eliquis No known history of trauma H/O multiple left hip surgeries --Femur CT on admission: Posterior to the hip replacement there is a moderate size hematoma measuring up to 4.1 cm in thickness by 10 cm transverse. The hematoma begins at the superior acetabulum and extends into the mid thigh measuring at least 15 cm craniocaudal. --Hip X ray:No acute fracture within the pelvis or hips. Intact left hip arthroplasty with proximal left femoral internal fixation. No acute periprosthetic fracture. --Head CT:Suboptimal evaluation of the brain due to motion artifact. However, no definite acute intracranial abnormality. --S/P 2 units PRBCs Hemoglobin is stable around 11 Restarted on DVT prophylaxis with heparin. Discussed with POA. Patient has high risks of PE given her previous history. Fall precautions Patient evaluated by orthopedic; follow-up as outpatient in 4 weeks. Pain control with IV Tylenol. Minimize opioids. H/O PE (postprocedure, COVID infection) Eliquis on hold given acute blood loss anemia Started on DVT prophylaxis with heparin. Continue to monitor. Could consider low-dose of Eliquis at 2.5 mg twice daily as DVT prophylaxis at discharge. Acute kidney injury, likely prerenal due to hypotension. Renal function improved with IV fluids, blood transfusion Creatinine back to baseline Monitor renal function Avoid nephrotoxic agents as able H/O CVA As per records Evaluated by neurology on prior hospitalization CT head showed no acute findings Zyprexa as needed for agitation Reorient frequently Will decrease her frequency of Seroquel to just at night and avoiding daytime dose. H/O Breast cancer S/P Surgery, radiation continue Arimidex Hypothyroidism Normal TSH Continue levothyroxine Mood disorder Possible underlying dementia Continue home medications Ongoing tobacco abuse Encourage cessation DVT Px: Heparin Code Status: DNI/DNR Dispo: PT OT Please note the above document was generated using voice recognition software. It may contain grammatical, syntax or spelling errors. Any formal questions or concerns about the content, text or information contained within the body of this dictation should be directly addressed to the provider for clarification Admission and Anticipated Discharge Date Admission Date: April 16, 2023 Subjective Patient seen and examined at bedside. She was in pleasant mood; not in any distress. Denies any pain or discomfort. Review of Systems Review of Systems: All systems reviewed & are unremarkable except as noted in Subjective Physical Exam Physical Exam: Constitutional: Awake, alert, oriented to self only Respiratory: Bilateral vesicular breath sound. Cardiovascular: RRR, no murmur, no edema Vessels: no JVD or carotid bruit Abdomen: Soft, nontender. Musculoskeletal: Bruises present on right thigh Skin: no rashes, warm and dry normal turgor Neurologic: Grossly moves all extremities. Psychiatric: A+Ox1, euthymic affect Results & Data Results & Data Vital Signs (Past 12 Hours) Vital Signs Temp Pulse Resp BP Pulse Ox O2 Del Method 04/22/23 11:21 36.5 C 73 18 112/72 96 Room Air 04/22/23 07:53 36.4 C L 65 18 167/92 H 99 Room Air Laboratory Results Laboratory Results WBC 5.25 K/ul (4.8-10.8) 04/22/23 08:45 RBC 3.93 M/uL (4.20-5.40) L 04/22/23 08:45 Hgb 11.7 g/dl (12.0-16.0) L 04/22/23 08:45 Hct 37.6 % (37.0-47.0) 04/22/23 08:45 MCV 95.7 fL (80.0-100.0) D 04/22/23 08:45 MCH 29.8 pg (25.0-34.0) 04/22/23 08:45 MCHC 31.1 g/dL (32.0-36.0) L 04/22/23 08:45 RDW Std Deviation 59.2 fL (36.4-46.3) H 04/22/23 08:45 RDW Coeff of Andrea 16.7 % (11.5-14.5) H 04/22/23 08:45 Plt Count 338 K/uL (130-400) 04/22/23 08:45 MPV 8.8 fL (9.4-12.4) L 04/22/23 08:45 Immature Gran % (Auto) 0.6 % 04/22/23 08:45 Neut % (Auto) 54.1 % 04/22/23 08:45 Lymph % (Auto) 30.1 % 04/22/23 08:45 [place] % (Auto) 9.1 % 04/22/23 08:45 Eos % (Auto) 5.1 % 04/22/23 08:45 Baso % (Auto) 1.0 % 04/22/23 08:45 Neut # (Auto) 2.84 K/uL (1.40-6.50) 04/22/23 08:45 Lymph # (Auto) 1.58 K/uL (1.20-3.40) 04/22/23 08:45 [place] # (Auto) 0.48 K/uL (0.11-0.59) 04/22/23 08:45 Eos # (Auto) 0.27 K/uL (0.00-0.50) 04/22/23 08:45 Baso # (Auto) 0.05 K/uL (0.00-0.20) 04/22/23 08:45 Immature Gran # (Auto) 0.03 K/uL (0.01-0.20) 04/22/23 08:45 Echinocytes 1+ 04/22/23 08:45 ESR 76 mm/hr (0-30) H 04/18/23 08:07 PT 12.2 Seconds (9.0-12.0) H 04/15/23 20:02 INR 1.1 (0.9-1.1) 04/15/23 20:02 APTT 27 Seconds (21-31) 04/15/23 20:02 PTT Ratio 1.0 04/15/23 20:02 Sodium 137 mmol/L (136-145) 04/22/23 08:45 Potassium 3.3 mmol/L (3.5-5.1) L 04/22/23 08:45 Chloride 104 mmol/L (98-107) 04/22/23 08:45 Carbon Dioxide 26 mmol/L (21-32) 04/22/23 08:45 Anion Gap 7 (3-11) 04/22/23 08:45 BUN 22 mg/dl (6-23) 04/22/23 08:45 Creatinine 1.02 mg/dl (0.6-1.2) 04/22/23 08:45 Est Cr Clr Drug Dosing 36.1 ml/min 04/22/23 08:45 Est GFR ( Amer) 58.9 ml/min 04/22/23 08:45 Est GFR (Non-Af Amer) 50.8 ml/min 04/22/23 08:45 BUN/Creatinine Ratio 21.6 (10-20) H 04/22/23 08:45 Glucose 82 mg/dl (70-99(Fasting)) 04/22/23 08:45 Estimat Average Glucose 97 mg/dl 04/15/23 23:43 Hemoglobin A1c 5.0 % (4.5-5.6) 04/15/23 23:43 Lactate 1.6 mmol/L (0.4-2.0) 04/16/23 04:03 Calcium 8.7 mg/dl (8.6-10.3) 04/22/23 08:45 Ionized Calcium 1.19 mmol/L (1.12-1.32) 04/19/23 06:11 Phosphorus 3.1 mg/dl (2.5-4.9) 04/19/23 06:11 Magnesium 1.7 mg/dl (1.7-2.4) 04/19/23 06:11 Total Bilirubin 0.3 mg/dl (0.2-1.0) 04/15/23 20:02 AST 27 U/L (13-39) 04/15/23 20:02 ALT 11 U/L (7-52) 04/15/23 20:02 Alkaline Phosphatase 105 U/L (34-104) H 04/15/23 20:02 Troponin I High Sens 8.7 pg/ml (0-14) 04/15/23 20:02 C-Reactive Protein 8.86 mg/dl (0-0.5) H 04/18/23 08:07 Total Protein 6.9 gm/dl (6.0-8.3) 04/15/23 20:02 Albumin 3.0 gm/dl (3.4-5.0) L 04/15/23 20:02 Globulin 3.9 gm/dl (2.5-4.0) 04/15/23 20:02 Albumin/Globulin Ratio 0.8 (0.9-2) L 04/15/23 20:02 Procalcitonin 0.15 ng/ml (0-0.5) 04/15/23 20:02 TSH 4.282 uIu/ml (0.300-4.500) 04/15/23 20:02 Urine Color Yellow 04/15/23 22:20 Urine Appearance Clear (Clear) 04/15/23 22:20 Urine pH 7.0 (4.5-7.5) 04/15/23 22:20 Ur Specific [place] 1.014 (1.000-1.030) 04/15/23 22:20 Urine Protein Trace (Negative) H 04/15/23 22:20 Urine Glucose (UA) Negative (Negative) 04/15/23 22:20 Urine Ketones Negative (Negative) 04/15/23 22:20 Urine Blood Negative (Negative) 04/15/23 22:20 Urine Nitrite Negative (Negative) 04/15/23 22:20 Urine Bilirubin Negative (Negative) 04/15/23 22:20 Urine Urobilinogen Negative (Negative) 04/15/23 22:20 Ur Leukocyte Esterase Negative (Negative) 04/15/23 22:20 Urine WBC (Auto) 1-5 /hpf (0-5) 04/15/23 22:20 Urine RBC (Auto) 0-4 /hpf (0-4) 04/15/23 22:20 U Hyaline Cast (Auto) 1-5 /lpf (0-5) 04/15/23 22:20 U Epithel Cells (Auto) 10-20 /lpf (0-5) H 04/15/23 22:20 Urine Bacteria (Auto) Negative (Negative) 04/15/23 22:20 Valproic Acid 33 mcg/ml (50-100) L 04/15/23 23:21 SARS-CoV-2, RNA, NAAT NEGATIVE (NEGATIVE) 04/15/23 20:35 Blood Type B Positive 04/15/23 23:43 Blood Type Recheck B Positive 04/16/23 01:13 Antibody Screen NEGATIVE 04/15/23 23:43 Crossmatch See Detail 04/15/23 23:43 Impressions Hip/Pelvis X-Ray 04/15/23 20:19 XR hip LT 2V w pelvis CLINICAL HISTORY: s/p surgery, pain COMPARISON: None FINDINGS: Sacroiliac joints and symphysis pubis are intact. No acute fracture within the pelvis or hips is identified. Left hip arthroplasty is intact. Proximal left femoral internal fixation with cerclage wires is noted. Heterotopic ossification is present. There is no acute periprosthetic fracture or lucency. IMPRESSION: 1. No acute fracture within the pelvis or hips. 2. Intact left hip arthroplasty with proximal left femoral internal fixation. No acute periprosthetic fracture. ACT 112: Negative or not required by law. Electronically signed by: Floyd Bañuelos M.D. 04/16/2023 7:19 AM Chest X-Ray 04/15/23 20:20 XR chest 1V portable CLINICAL HISTORY: weakness COMPARISON STUDY: No previous studies for comparison. FINDINGS: Incidental note is made of surgical anchors within the right humerus and right axillary surgical clips. Lung volumes are normal. Lungs are clear. There is no pneumothorax or pleural effusion. Cardiac size is normal. Mediastinal contours are normal. There is no evidence for pulmonary edema. IMPRESSION: No acute cardiopulmonary findings. ACT 112: Negative or not required by law. Electronically signed by: Floyd Bañuelos M.D. 04/16/2023 7:[address] 04/15/23 21:00 Exam(s): CT EXTREMITY LEFT LOWER Without Contrast EXAM: CT Left Lower Extremity Without Intravenous Contrast CLINICAL HISTORY: Reason for exam: s/p surgery, ?infection/abscess. TECHNIQUE: Axial computed tomography images of the left lower extremity without intravenous contrast. CTDI is 10.43 mGy and DLP is 545.36 mGy-cm. Automated exposure control was utilized for the study. A dose lowering technique was utilized adhering to the principles of ALARA. COMPARISON: No relevant prior studies available. FINDINGS: Bones/joints: Posterior to the hip replacement there is a moderate size hematoma measuring up to 4.1 cm in thickness by 10 cm transverse. The hematoma begins at the superior acetabulum and extends into the mid thigh measuring at least 15 cm craniocaudal. Patient is status post a left total hip replacement. No hardware complications are noted. No acute fractures or dislocations. Soft tissues: See above. IMPRESSION: Posterior to the hip replacement there is a moderate size hematoma measuring up to 4.1 cm in thickness by 10 cm transverse. The hematoma begins at the superior acetabulum and extends into the mid thigh measuring at least 15 cm craniocaudal. Electronically signed by: Hiram Castro M.D. 04/16/23 01:[address] 04/16/23 11:[address] DOSE: 1094.1 mGy.cm HISTORY: Confusion. altered mental status TECHNIQUE: Multiaxial CT images of the head were performed without the use of intravenous contrast. Automated exposure control was utilized for this study. A dose lowering technique was utilized adhering to the principles of ALARA. Comparison: None. Findings: Fluid levels within the sphenoid sinuses and right maxillary sinus resulting in partial opacification. The mastoid air cells are clear. Suboptimal evaluation of the brain due to the motion artifact. The calvarium and skull base are intact. There is no definite mass, hematoma, midline shift, acute infarct. White matter hypodensity is nonspecific but suggestive of microvascular ischemic change. The ventricles and sulci demonstrate mild age-related involutional changes. Impression: Suboptimal evaluation of the brain due to motion artifact. However, no definite acute intracranial abnormality. ACT 112: Negative or not required by law. Electronically signed by: Laureano San M.D. 04/16/2023 2:22 PM
[2023-04-22] MEDS: ACETAMINOPHEN 1,000 MG/100 ML VIAL IV PRN (17:45)
[2023-04-22] MEDS: QUEtiapine FUMARATE 25 MG TABLET PO SCH (20:07)
[2023-04-22] MEDS: DIVALPROEX EXTENDED RELEASE 250 MG TABCR PO SCH (20:08)
[2023-04-22] MEDS: OLANZapine 10 MG/2.1 ML SDV IM PRN (20:35)
[2023-04-23 06:59] LABS: Hematocrit (blood only) 33.5 % (37.0-47.0); Hemoglobin 10.7 g/dl (12.0-16.0); Mean Corpuscular Hemoglobin 29.9 pg (25.0-34.0); Mean Corpuscular Hgb Conc 31.9 g/dL (32.0-36.0); Mean Corpuscular Volume 93.6 fL (80.0-100.0); Mean Platelet Volume 9.2 fL (9.4-12.4); Platelet Count 311 K/uL (130-400); RDW Coefficient of Variation 16.4 % (11.5-14.5); Red Blood Count 3.58 M/uL (4.20-5.40); White Blood Count 6.19 K/ul (4.8-10.8)
[2023-04-23 07:21] LABS: Calcium 8.8 mg/dl (8.6-10.3); Est GFR (Non-African American) 68.2 ml/min
[2023-04-23 07:49] LABS: Basophils # (auto) 0.04 K/uL (0.00-0.20); Basophils % (auto) 0.6 %; Eosinophils # (auto) 0.22 K/uL (0.00-0.50); Eosinophils % (auto) 3.6 %; Immature Granulocytes # (auto) 0.03 K/uL (0.01-0.20); Immature Granulocytes % (auto) 0.5 %; Lymphocytes # (auto) 1.73 K/uL (1.20-3.40); Lymphocytes % (auto) 27.9 %; Monocytes # (auto) 0.58 K/uL (0.11-0.59); Monocytes % (auto) 9.4 %; Neutrophils # (auto) 3.59 K/uL (1.40-6.50)
[2023-04-23] MEDS: MAGNESIUM CHLORIDE W/CALCIUM 64MG DELAYED REL TAB PO SCH ×2 (08:20→19:37)
[2023-04-23] MEDS: ANASTROZOLE 1 MG TAB PO SCH (08:21)
[2023-04-23] MEDS: LEVOTHYROXINE SODIUM 125 MCG TABLET PO SCH (08:21)
[2023-04-23] MEDS: HEPARIN SOD 5,000 UNIT/0.5 ML VIAL SQ SCH ×3 (08:23→19:38)
[2023-04-23] MEDS: ACETAMINOPHEN 1,000 MG/100 ML VIAL IV PRN ×2 (09:51→19:42)
--- NOTE | 2023-04-23 12:37 | Hospitalist Progress Note ---
Date of Service April 23, 2023 Assessment & Plan (1) Hypotension: (2) Hip pain: (3) Hip hematoma, left: (4) History of CVA (cerebrovascular accident): (5) Dementia: (6) Delirium: (7) Hypothyroidism: Plan Pt is an 82yoF with PMHx significant for HTN, Hx of CVA, hx PE on Eliquis (01/2023), breast cancer, s/p surgery & radiation currently on Arimidex, hypothyroidism, mood disorder, occipital neuralgia as per records, dementia admitted after multiple hospitalizations and rehab admissions, admitted with left hip pain and a hematoma. Left hip hematoma Acute blood loss anemia In setting of anticoagulation use with Eliquis No known history of trauma H/O multiple left hip surgeries S/P 2 units PRBCs Hemoglobin is stable around 11 Restarted on DVT prophylaxis with heparin per discussion of previous provider with POA. Fall precautions Patient evaluated by orthopedics; follow-up as outpatient in 4 weeks. Pain control with IV Tylenol. Minimize opioids. H/O PE (postprocedure, COVID infection) Eliquis on hold given acute blood loss anemia Started on DVT prophylaxis with heparin. Consider low-dose of Eliquis at 2.5 mg twice daily as DVT prophylaxis at discharge. Acute kidney injury Renal function improved with IV fluids, blood transfusion Creatinine currently back to baseline Monitor renal function Avoid nephrotoxic agents as able H/O CVA As per records Evaluated by neurology on prior hospitalization CT head showed no acute findings Dementia Delirium Mood Disorder Currently on seroquel 12.5mg qhs Zyprexa as needed for agitation Reorient frequently H/O Breast cancer S/P Surgery, radiation continue Arimidex Hypothyroidism Normal TSH Continue levothyroxine Ongoing tobacco abuse Encourage cessation Diet: Regular DVT Px: Heparin Code Status: DNI/DNR Dispo: PT recommending rehab vs. H Admission and Anticipated Discharge Date Admission Date: April 16, 2023 Subjective Pt seen, sitting at bedside. Was conversant, though at times thoughts were tangential. Unable to follow train of thought. Per nursing, pt can be aggressive and threatening. Nursing reports pt stated that she would "shoot her whole family". Review of Systems Review of Systems: All systems reviewed & are unremarkable except as noted in Subjective Physical Exam Physical Exam: General: Alert Skin: No noted rashes or bruises Psych: tangential Neuro: No gross deficits while sitting up in chair HEENT: NC/AT CV: RRR Resp: no increased effort of breathing Abdomen: Soft, nontender Extremities: No edema in lower extremities bilaterally. Results & Data Results & Data Vital Signs (Past 12 Hours) Vital Signs Temp Pulse Pulse Resp BP Pulse Ox O2 Del Method 04/23/23 08:14 36.6 C 60 18 150/73 H 98 Room Air 04/23/23 07:18 64 04/23/23 01:47 65 (2) Hip pain Laterality: left Qualified Code(s): M25.552 - Pain in left hip
[2023-04-23] MEDS ORDERED: POTASSIUM CHLORIDE 20 MEQ/15 ML UDC PO STA (14:00)
[2023-04-23] MEDS: QUEtiapine FUMARATE 25 MG TABLET PO SCH (19:35)
[2023-04-23] MEDS: DIVALPROEX EXTENDED RELEASE 250 MG TABCR PO SCH (19:37)
[2023-04-24] MEDS: LEVOTHYROXINE SODIUM 125 MCG TABLET PO SCH (05:44)
[2023-04-24] MEDS: HEPARIN SOD 5,000 UNIT/0.5 ML VIAL SQ SCH ×3 (05:44→19:33)
[2023-04-24 07:54] LABS: Hemoglobin 10.7 g/dl (12.0-16.0); Mean Corpuscular Hemoglobin 30.3 pg (25.0-34.0); Mean Corpuscular Hgb Conc 31.5 g/dL (32.0-36.0); Mean Corpuscular Volume 96.3 fL (80.0-100.0); Mean Platelet Volume 9.6 fL (9.4-12.4); Platelet Count 334 K/uL (130-400); RDW Coefficient of Variation 17.2 % (11.5-14.5); RDW Standard Deviation 60.5 fL (36.4-46.3); Red Blood Count 3.53 M/uL (4.20-5.40); White Blood Count 6.51 K/ul (4.8-10.8)
[2023-04-24 08:13] LABS: Albumin Globulin Ratio 0.7 (0.9-2); Albumin Level 2.7 gm/dl (3.4-5.0); BUN Creatinine Ratio 32.5 (10-20); Bilirubin,Total 0.4 mg/dl (0.2-1.0); Calcium 8.8 mg/dl (8.6-10.3); Creatinine Clr Calc Pharmacy 47.8 ml/min; Est GFR (African American) 82.8 ml/min; Est GFR (Non-African American) 71.4 ml/min; Globulin 3.7 gm/dl (2.5-4.0); Magnesium 1.7 mg/dl (1.7-2.4); Potassium 3.7 mmol/L (3.5-5.1); Total Protein 6.4 gm/dl (6.0-8.3)
[2023-04-24 08:25] LABS: Basophils # (auto) 0.06 K/uL (0.00-0.20); Basophils % (auto) 0.9 %; Eosinophils # (auto) 0.45 K/uL (0.00-0.50); Eosinophils % (auto) 6.9 %; Immature Granulocytes # (auto) 0.03 K/uL (0.01-0.20); Immature Granulocytes % (auto) 0.5 %; Lymphocytes % (auto) 33.8 %; Monocytes # (auto) 0.64 K/uL (0.11-0.59); Monocytes % (auto) 9.8 %; Neutrophils # (auto) 3.13 K/uL (1.40-6.50); Neutrophils % (auto) 48.1 %
[2023-04-24] MEDS: MAGNESIUM CHLORIDE W/CALCIUM 64MG DELAYED REL TAB PO SCH ×2 (08:38→19:33)
[2023-04-24] MEDS: ANASTROZOLE 1 MG TAB PO SCH (08:38)
[2023-04-24] MEDS ORDERED: POTASSIUM PHOS 3 MMOL/1 ML INFUSION IV STA (09:11)
[2023-04-24] MEDS ORDERED: POTASSIUM PHOSPHATE 21 MMOL in SODIUM CHLORIDE 0.9% 500 ML IV ONE (09:30)
--- NOTE | 2023-04-24 13:23 | Hospitalist Progress Note ---
Date of Service April 24, 2023 Assessment & Plan (1) Hypotension: (2) Hip pain: (3) Hip hematoma, left: (4) History of CVA (cerebrovascular accident): (5) Dementia: (6) Delirium: (7) Hypothyroidism: Plan Pt is an 82yoF with PMHx significant for HTN, Hx of CVA, hx PE on Eliquis (01/2023), breast cancer, s/p surgery & radiation currently on Arimidex, hypothyroidism, mood disorder, occipital neuralgia as per records, dementia admitted after multiple hospitalizations and rehab admissions, admitted with left hip pain and a hematoma. Left hip hematoma Acute blood loss anemia In setting of anticoagulation use with Eliquis No known history of trauma H/O multiple left hip surgeries S/P 2 units PRBCs Hemoglobin is stable around 11 Restarted on DVT prophylaxis with heparin per discussion of previous provider with POA. Fall precautions Patient evaluated by orthopedics; follow-up as outpatient in 4 weeks. Pain control with IV Tylenol. Minimize opioids. H/O PE (postprocedure, COVID infection) Eliquis on hold given acute blood loss anemia Started on DVT prophylaxis with heparin. Consider low-dose of Eliquis at 2.5 mg twice daily as DVT prophylaxis at discharge. Acute kidney injury Renal function improved with IV fluids, blood transfusion Creatinine currently back to baseline Monitor renal function Avoid nephrotoxic agents as able H/O CVA As per records Evaluated by neurology on prior hospitalization CT head showed no acute findings Dementia Delirium Mood Disorder Currently on seroquel 12.5mg qhs IM Zyprexa as needed for agitation- pt has been receiving the IM zyprexa which limits placement. Reorient frequently H/O Breast cancer S/P Surgery, radiation continue Arimidex Hypothyroidism Normal TSH Continue levothyroxine Ongoing tobacco abuse Encourage cessation Diet: Regular DVT Px: Heparin Code Status: DNI/DNR Dispo: PT recommending rehab vs. [facility] Admission and Anticipated Discharge Date Admission Date: April 16, 2023 Subjective Pt was seen laying in bed. States that she was looking for her car. Not sure where her car was. Review of Systems Review of Systems: Unobtainable due to mental health condition Physical Exam Physical Exam: General: Alert Skin: No noted rashes or bruises Psych: tangential Neuro: No gross deficits while laying in bed HEENT: NC/AT CV: RRR Resp: no increased effort of breathing Abdomen: Soft, nontender Extremities: No edema in lower extremities bilaterally. Results & Data Results & Data Vital Signs (Past 12 Hours) Vital Signs Temp Pulse Pulse BP Pulse Ox O2 Del Method 04/24/23 10:42 36.4 C L 75 132/77 97 Room Air 04/24/23 07:34 36.5 C 63 145/79 H 99 Room Air 04/24/23 07:24 62 (2) Hip pain Laterality: left Qualified Code(s): M25.552 - Pain in left hip
[2023-04-24] MEDS: QUEtiapine FUMARATE 25 MG TABLET PO SCH (17:39)
[2023-04-24] MEDS: ACETAMINOPHEN 1,000 MG/100 ML VIAL IV PRN (19:32)
[2023-04-24] MEDS: DIVALPROEX EXTENDED RELEASE 250 MG TABCR PO SCH (19:33)
[2023-04-25] MEDS: OLANZapine 10 MG/2.1 ML SDV IM PRN ×2 (02:32→18:06)
[2023-04-25] MEDS: LEVOTHYROXINE SODIUM 125 MCG TABLET PO SCH (06:03)
[2023-04-25] MEDS: HEPARIN SOD 5,000 UNIT/0.5 ML VIAL SQ SCH ×3 (06:03→19:58)
[2023-04-25] MEDS: ANASTROZOLE 1 MG TAB PO SCH (09:35)
[2023-04-25] MEDS: MAGNESIUM CHLORIDE W/CALCIUM 64MG DELAYED REL TAB PO SCH ×2 (09:35→19:58)
[2023-04-25] MEDS: ACETAMINOPHEN 1,000 MG/100 ML VIAL IV PRN (09:42)
[2023-04-25] MEDS ORDERED: POTASSIUM PHOS 3 MMOL/1 ML INFUSION IV STA (10:18)
[2023-04-25 10:52] LABS: Basophils # (auto) 0.06 K/uL (0.00-0.20); Basophils % (auto) 0.9 %; Eosinophils # (auto) 0.25 K/uL (0.00-0.50); Eosinophils % (auto) 3.8 %; Hematocrit (blood only) 33.7 % (37.0-47.0); Hemoglobin 10.8 g/dl (12.0-16.0); Immature Granulocytes # (auto) 0.04 K/uL (0.01-0.20); Immature Granulocytes % (auto) 0.6 %; Lymphocytes # (auto) 1.83 K/uL (1.20-3.40); Lymphocytes % (auto) 27.7 %; Mean Corpuscular Hemoglobin 29.9 pg (25.0-34.0); Mean Corpuscular Volume 93.4 fL (80.0-100.0); Mean Platelet Volume 9.4 fL (9.4-12.4); Monocytes # (auto) 0.77 K/uL (0.11-0.59); Monocytes % (auto) 11.7 %; Neutrophils # (auto) 3.65 K/uL (1.40-6.50); Neutrophils % (auto) 55.3 %; Platelet Count 334 K/uL (130-400); RDW Coefficient of Variation 17.6 % (11.5-14.5); RDW Standard Deviation 60.1 fL (36.4-46.3); Red Blood Count 3.61 M/uL (4.20-5.40)
[2023-04-25] MEDS ORDERED: POTASSIUM PHOSPHATE 15 MMOL in SODIUM CHLORIDE 0.9% 250 ML IV ONE (11:00)
[2023-04-25 11:04] LABS: Albumin Globulin Ratio 0.7 (0.9-2); Albumin Level 3.2 gm/dl (3.4-5.0); BUN Creatinine Ratio 26.3 (10-20); Bilirubin,Total 0.4 mg/dl (0.2-1.0); Calcium 9.5 mg/dl (8.6-10.3); Est GFR (Non-African American) 68.2 ml/min; Globulin 4.3 gm/dl (2.5-4.0); Magnesium 1.7 mg/dl (1.7-2.4); Phosphorus 2.6 mg/dl (2.5-4.9); Potassium 3.6 mmol/L (3.5-5.1); Total Protein 7.5 gm/dl (6.0-8.3)
[2023-04-25] MEDS: QUEtiapine FUMARATE 25 MG TABLET PO SCH (19:56)
[2023-04-25] MEDS: DIVALPROEX EXTENDED RELEASE 250 MG TABCR PO SCH (19:58)
--- NOTE | 2023-04-25 22:24 | Hospitalist Progress Note ---
Date of Service April 25, 2023 Assessment & Plan (1) Hypotension: (2) Hip pain: (3) Hip hematoma, left: (4) History of CVA (cerebrovascular accident): (5) Dementia: (6) Delirium: (7) Hypothyroidism: Plan Pt is an 82yoF with PMHx significant for HTN, Hx of CVA, hx PE on Eliquis (01/2023), breast cancer, s/p surgery & radiation currently on Arimidex, hypothyroidism, mood disorder, occipital neuralgia as per records, dementia admitted after multiple hospitalizations and rehab admissions, admitted with left hip pain and a hematoma. Left hip hematoma Acute blood loss anemia In setting of anticoagulation use with Eliquis No known history of trauma H/O multiple left hip surgeries S/P 2 units PRBCs Hemoglobin is stable around 11 Restarted on DVT prophylaxis with heparin per discussion of previous provider with POA. Fall precautions Patient evaluated by orthopedics; follow-up as outpatient in 4 weeks. Pain control with IV Tylenol. Minimize opioids. H/O PE (postprocedure, COVID infection) Eliquis on hold given acute blood loss anemia Started on DVT prophylaxis with heparin. Consider low-dose of Eliquis at 2.5 mg twice daily as DVT prophylaxis at discharge. Acute kidney injury Renal function improved with IV fluids, blood transfusion Creatinine currently back to baseline Monitor renal function Avoid nephrotoxic agents as able H/O CVA As per records Evaluated by neurology on prior hospitalization CT head showed no acute findings Dementia Delirium Mood Disorder Currently on seroquel 12.5mg qhs IM Zyprexa as needed for agitation- pt has been receiving the IM zyprexa which limits placement. Started on po Zyrprexa nightly at same IM dose. Careful concurrent use with low dose seroquel EKGs Reorient frequently H/O Breast cancer S/P Surgery, radiation continue Arimidex Hypothyroidism Normal TSH Continue levothyroxine Ongoing tobacco abuse Encourage cessation Diet: Regular DVT Px: Heparin Code Status: DNI/DNR Dispo: PT recommending rehab vs. [facility] Admission and Anticipated Discharge Date Admission Date: April 16, 2023 Subjective Pt seen sitting up in bed eating, sitter at bedisde. Tangential in speech once more. Review of Systems Review of Systems: Unobtainable due to mental health condition Physical Exam Physical Exam: General: Alert Skin: No noted rashes or bruises Psych: tangential Neuro: No gross deficits while laying in bed HEENT: NC/AT CV: RRR Resp: no increased effort of breathing Abdomen: Soft, nontender Extremities: No edema in lower extremities bilaterally. Results & Data Results & Data Vital Signs (Past 12 Hours) Vital Signs Temp Pulse Pulse Resp BP Pulse Ox O2 Del Method 04/25/23 09:06 36.3 C L 74 16 157/88 H 97 Room Air 04/25/23 07:13 67 04/25/23 03:47 79 18 (2) Hip pain Laterality: left Qualified Code(s): M25.552 - Pain in left hip
[2023-04-26] MEDS: HEPARIN SOD 5,000 UNIT/0.5 ML VIAL SQ SCH ×3 (06:14→20:57)
[2023-04-26] MEDS: LEVOTHYROXINE SODIUM 125 MCG TABLET PO SCH (06:15)
[2023-04-26 09:12] LABS: Basophils # (auto) 0.08 K/uL (0.00-0.20); Basophils % (auto) 1.4 %; Eosinophils # (auto) 0.38 K/uL (0.00-0.50); Eosinophils % (auto) 6.5 %; Hematocrit (blood only) 30.3 % (37.0-47.0); Immature Granulocytes # (auto) 0.02 K/uL (0.01-0.20); Immature Granulocytes % (auto) 0.3 %; Lymphocytes # (auto) 1.92 K/uL (1.20-3.40); Mean Corpuscular Hemoglobin 30.4 pg (25.0-34.0); Mean Corpuscular Volume 92.1 fL (80.0-100.0); Mean Platelet Volume 9.4 fL (9.4-12.4); Monocytes # (auto) 0.73 K/uL (0.11-0.59); Monocytes % (auto) 12.5 %; Neutrophils # (auto) 2.69 K/uL (1.40-6.50); Neutrophils % (auto) 46.3 %; Platelet Count 345 K/uL (130-400); RDW Coefficient of Variation 17.8 % (11.5-14.5); RDW Standard Deviation 58.5 fL (36.4-46.3); Red Blood Count 3.29 M/uL (4.20-5.40); White Blood Count 5.82 K/ul (4.8-10.8)
[2023-04-26 09:27] LABS: Albumin Globulin Ratio 0.7 (0.9-2); Albumin Level 2.8 gm/dl (3.4-5.0); BUN Creatinine Ratio 30.1 (10-20); Bilirubin,Total 0.4 mg/dl (0.2-1.0); Calcium 8.9 mg/dl (8.6-10.3); Creatinine Clr Calc Pharmacy 50.4 ml/min; Est GFR (African American) 88.3 ml/min; Est GFR (Non-African American) 76.2 ml/min; Globulin 3.8 gm/dl (2.5-4.0); Magnesium 1.8 mg/dl (1.7-2.4); Phosphorus 3.6 mg/dl (2.5-4.9); Potassium 4.1 mmol/L (3.5-5.1); Total Protein 6.6 gm/dl (6.0-8.3)
[2023-04-26] MEDS: MAGNESIUM CHLORIDE W/CALCIUM 64MG DELAYED REL TAB PO SCH ×2 (10:32→19:48)
[2023-04-26] MEDS: ANASTROZOLE 1 MG TAB PO SCH (10:32)
--- NOTE | 2023-04-26 14:08 | Psychiatric Consultation ---
Date of Consultation April 26, 2023 Impression / Recommendations Impression 82 y/o F with evident dementia with superimposed delirium. Etiology of the dementia is unclear, but she has a history of CVA, so a vascular etiology or contribution is plausible. She has had episodes of delirium prior to this admission and appears to have episodes of delirium in the evenings here - the benign confusion on my exam today is clearly not how she presents all the time. Pt is currently ordered divalproex ER 250 mg QHS, which seems to have been the thnkn-[id number] dose on which her level had been subtherapeutic on presentation. When used for mood disorder symptoms, the target range of 85-125 mcg/mL is higher than the 50-100 mcg/mL used for seizures. Since pt has been requiring PRN olanzapine, strongly consider increasing the divalproex ER to 500 mg QHS. Pt is on very low-dose quetiapine 12.5 mg QHS, which is lower than her wynzq-kv-crveafhlj dose of 12.5 mg BID and evidently insufficient to prevent episodes during which she seems to be more disoriented and frightened, necessita ting IM olanzapine three times thus far. Because of this, scheduled olanzapine has been added in the hope of obviating the need for PRN doses. It is strongly preferred to use a single antipsychotic, if any must be used, and in this instance the olanzapine appears more useful than the quetiapine. Pt may very well have had some sort of mood disorder for which she was treated in the past. Right now, this is not evident clinically and is not a priority target for treatment. I do not believe this could account for the symptoms for which she has given PRN medication. Overall I spent a total of 78 minutes on the floor for this consultation assessment including review of chart records, review of test results, direct evaluation of the patient [id number], risk assessment, [facility], and documentation in the electronic health record. (1) Dementia: (2) Delirium: Plan * increase divalproex ER to 500 mg QHS * stop quetiapine * continue olanzapine 2.5 mg, change time to QPM at 1600 * add olanzapine ODT 2.5 mg PO Q4Hr PRN psychosis * continue olanzapine 2.5 mg IM Q4Hr PRN psychosis of oral form cannot be administered Psych History Identifying Data TORSTEN GALEANO is a 82-year-old F with a history of dementia, admitted on 04/16/2023 for left hip pain. Consult is by the hospitalist service for "med management, per silva was "normal" 3 mos ago". Chief Complaint "Oh, I've been here for about 10 years". History of Present Illness As part of a thorough review of the available medical records, I have read and confirmed the following note by the ED physician: "Patient is a 82-year-old female. She is not a good historian. Did call and discussed with [facility] where she comes from via ambulance tonight. Attendant there reports the patient arrived to their facility yesterday from outside the [facility], [place]?. Patient evidently fell and fractured her left hip in December and required at least 1 if not 2 repeat surgeries due to infection. They report that she has had no fever or trauma and her memory was not so good when she arrived. They states that the left hip area was not red or warm or tender at all upon arrival last night became that way today. Patient received some Tylenol for EMS but complains of pain here. She herself repeatedly asked if she can be taken to the hospital. Informed her that she is here already. Niece later arrives and states the patient has been treated [facility] by [place]. Patient in February had repeat surgery without fin dings of infection although possibly fungus and completed course of IV antibiotics as well as fluconazole. Niece has not seen the wound recently but states it does look red now. States the patient's memory and recollection issues are chronic." "Did receive records from [facility] showing the patient had workup here in February including MRI and neurology evaluation believing likely a chronic dementia episode as well as a course of vancomycin and cefepime as well as fluconazole for a total of 28 days that has been completed. Evidently had a pulmonary embolism and January and has been on Eliquis since that time. Is on Depakote for mood stabilization and level of this was ordered" Review of the medical record reveals no previous or outside psychiatric records. There are repeated mentions of dementia and reference to at least one hospitalization for delirium. There is mention of "mood disorder at baseline". Valproic acid level in the ED was very low at 33 mcg/mL. Pt was living in the [place] area until the day prior to admission, when she moved to the [facility] to be closer to her niece. She is reported to have fallen and fractured her left hip in December 2022 with subsequent infections, further surgery, and admissions. She appears to have been described in multiple notes over that ~3 month period as having a dementia and h er niece told the ED physician here that she has had "chronic" memory problems. However, more recently she appears to have been describing the patient as "normal" prior to the hip fracture. Today, pt greets me cheerfully and says she thinks it's been a long time since we last met. We've never met. She is alert and her level of arousal does not vary over the course of my assessment. She is oriented to her name only. She is not able to say she's in a hospital, although she says she has "had GI issues for a long time" and that "it leaks". She cannot tell me the town or state. She correctly identifies the day as Friday. When I ask about the "date, month, and year" she says "Friday but I got here ". She is not aware of any impending or recent holidays. Pt is not able to tell me of any medical problems Allergies Allergy/AdvReac Type Severity Reaction Status Date / Time cinnamon Allergy Intermediate Flushing Verified 04/15/23 20:13 haloperidol [From Haldol] AdvReac Severe excessive Verified 04/16/23 07:24 sedation as per family Home Medications Medication Instructions Recorded Confirmed Type amlodipine 5 mg tablet 5 mg PO DAILY 04/15/23 04/15/23 History anastrozole 1 mg tablet 1 mg PO QAM 04/15/23 04/15/23 History apixaban 5 mg tablet (Eliquis) 5 mg PO Q12 04/15/23 04/15/23 History benzonatate 100 mg capsule 200 mg PO Q8 PRN Cough 04/15/23 04/15/23 History clonidine 0.1 mg/24 hr weekly 0.1 mg transdermal .Wednesdays04/15/23 04/15/23 History transdermal patch divalproex 250 mg tablet,extended 250 mg PO HS 04/15/23 04/15/23 History release 24 hr levothyroxine 125 mcg tablet 125 mcg PO DAILYBB 04/15/23 04/15/23 History quetiapine 25 mg tablet 12.5 mg PO BID 04/15/23 04/15/23 History Patient History Social History Smoking Status: Unknown if ever smoked Hx Alcohol Use: No (unable to answer questions) Hx Substance Use: No (unable to answer questions) Preferred Language: Indonesian Communication Ability: Effective Manager Banking Required: No Beliefs That Will Affect Care: None Current Living Situation: Personal Care Facility Current Living Situation Comment: [facility] Feels Safe at Home: Yes Assistive Devices: Walker Physical Exam Psychiatric: Orientation: alert and oriented to person; + not oriented to place and + not oriented to time Apperance: appropriately dressed, appropriately groomed and appeared stated age Eye Contact: good eye contact Motor Behavior: no abnormal motor movements Speech: normal rate/rhythm/volume of speech (very sparse content despite chattiness) Affect: euthymic affect Mood: no depressed mood, no anxious mood and no irritable mood Thought Process: + looseness of associations and + confabulations; + t hought process not linear or logical and + thought process not clear or coherent Thought Content: reality based without delusions Suicidal Thoughts: denies suicidal thoughts Homicidal Thoughts: denies homicidal thoughts Hallucinations: no auditory hallucinations and no visual hallucinations Cognition: + recent memory not intact, + remote memory not intact, + attention not intact and + language not intact Estimated Intelligence: average estimated intelligence Insight: + severely impaired insight Judgment: + impaired judgement Vital Signs (Past 24 Hours): Last Vital Signs Temp 36.6 C 04/26/23 12:42 Pulse 72 04/26/23 12:42 Resp 18 04/26/23 12:42 BP 156/84 H 04/26/23 12:42 Pulse Ox 98 04/26/23 12:42 O2 Del Method Room Air 04/26/23 12:42 O2 Flow Rate 2 04/16/23 10:42 Exam Statement: I've reviewed and incorporated into my assessment the physical exams done in the ED and by the hospitalist upon admission. Results & Data (PSY) Medications Administered Anastrozole (Anastrozole 1 Mg Tab) 1 mg PO QAM BO Stop: 05/16/23 08:59 Last Admin: 04/26/23 10:32 Dose: 1 mg Documented By: PADMINI Co-signed By: JOSE Admin: 04/25/23 09:35 Dose: 1 mg Documented By: AMS Co-signed By: MOISE Admin: 04/24/23 08:38 Dose: 1 mg Documented By: AMS Co-signed By: SM Admin: 04/23/23 08:21 Dose: 1 mg Documented By: JOSE Co-signed By: MARIA ELENA Admin: 04/22/23 07:39 Dose: 1 mg Documented By: ALA Co-signed By: SDA Admin: 04/21/23 07:56 Dose: 1 mg Documented By: RRR Co-signed By: MES Admin: 04/20/23 07:23 Dose: 1 mg Documented By: JENNIFER Co-signed By: MOISE Admin: 04/19/23 13:30 Dose: Not Given Documented By: Admin: 04/18/23 11:29 Dose: 1 mg Documented By: COREY Co-signed By: JING Admin: 04/17/23 08:22 Dose: 1 mg Documented By: JOSE JUAN Co-signed By: IKER Admin: 04/16/23 12:04 Dose: 1 mg Documented By: JOSE JUAN Co-signed By: SAJAN Divalproex Sodium (Divalproex Extended Release 250 Mg Tabcr) 250 mg PO HS BO Stop: 05/16/23 20:59 Last Admin: 04/25/23 19:58 Dose: 250 mg Documented By: Admin: 04/24/23 19:33 Dose: 250 mg Documented By: Admin: 04/23/23 19:37 Dose: 250 mg Documented By: Admin: 04/22/23 20:08 Dose: 250 mg Documented By: Admin: 04/21/23 21:38 Dose: 250 mg Documented By: Admin: 04/18/23 21:46 Dose: Not Given Documented By: Admin: 04/17/23 20:02 Dose: 250 mg Documented By: Admin: 04/16/23 19:59 Dose: 250 mg Documented By: CLR Heparin Sodium (Porcine) (Heparin Sod 5,000 Unit/0.5 Ml Vial) 5,000 units SQ Q8 BO Stop: 05/19/23 13:59 Last Admin: 04/26/23 14:01 Dose: 5,000 units Documented By: Admin: 04/26/23 06:14 Dose: 5,000 units Documented By: Admin: 04/25/23 19:58 Dose: 5,000 units Documented By: Admin: 04/25/23 13:07 Dose: 5,000 units Documented By: Admin: 04/25/23 06:03 Dose: Not Given Documented By: Admin: 04/24/23 19:33 Dose: 5,000 units Documented By: Admin: 04/24/23 13:51 Dose: 5,000 units Documented By: Admin: 04/24/23 05:44 Dose: 5,000 units Documented By: Admin: 04/23/23 19:38 Dose: 5,000 units Documented By: Admin: 04/23/23 14:30 Dose: 5,000 units Documented By: Admin: 04/23/23 08:23 Dose: 5,000 units Documented By: Admin: 04/22/23 20:07 Dose: 5,000 units Documented By: Admin: 04/22/23 13:42 Dose: 5,000 units Documented By: Admin: 04/22/23 06:33 Dose: 5,000 units Documented By: Admin: 04/21/23 19:45 Dose: 5,000 units Documented By: Admin: 04/21/23 14:22 Dose: 5,000 units Documented By: Admin: 04/21/23 07:55 Dose: 5,000 units Documented By: Admin: 04/20/23 21:36 Dose: 5,000 units Documented By: Admin: 04/20/23 15:14 Dose: 5,000 units Documented By: Admin: 04/20/23 05:13 Dose: 5,000 units Documented By: Admin: 04/19/23 21:37 Dose: 5,000 units Documented By: Admin: 04/19/23 15:39 Dose: 5,000 units Documented By: MM Levothyroxine Sodium (Levothyroxine Sodium 125 Mcg Tablet) 125 mcg PO DAILYBB BO Stop: 05/16/23 06:29 Last Admin: 04/26/23 06:15 Dose: 125 mcg Documented By: Admin: 04/25/23 06:03 Dose: Not Given Documented By: Admin: 04/24/23 05:44 Dose: 125 mcg Documented By: Admin: 04/23/23 08:21 Dose: 125 mcg Documented By: Admin: 04/22/23 06:33 Dose: 125 mcg Documented By: Admin: 04/21/23 07:55 Dose: 125 mcg Documented By: Admin: 04/20/23 07:26 Dose: 125 mcg Documented By: Admin: 04/20/23 05:31 Dose: Not Given Documented By: Admin: 04/19/23 05:50 Dose: Not Given Documented By: Admin: 04/18/23 05:53 Dose: Not Given Documented By: Admin: 04/17/23 06:38 Dose: Not Given Documented By: Admin: 04/16/23 06:15 Dose: Not Given Documented By: ERIKA Magnesium Chloride (Magnesium Chloride W/Calcium 64mg Delayed Rel Tab) 64 mg PO BID BO Stop: 05/17/23 09:29 Last Admin: 04/26/23 10:32 Dose: 64 mg Documented By: Admin: 04/25/23 19:58 Dose: 64 mg Documented By: Admin: 04/25/23 09:35 Dose: 64 mg Documented By: Admin: 04/24/23 19:33 Dose: 64 mg Documented By: Admin: 04/24/23 08:38 Dose: 64 mg Documented By: Admin: 04/23/23 19:37 Dose: 64 mg Documented By: Admin: 04/23/23 08:20 Dose: 64 mg Documented By: Admin: 04/22/23 20:07 Dose: 64 mg Documented By: Admin: 04/22/23 07:39 Dose: 64 mg Documented By: Admin: 04/21/23 19:45 Dose: 64 mg Documented By: Admin: 04/21/23 07:56 Dose: 64 mg Documented By: Admin: 04/20/23 21:36 Dose: 64 mg Documented By: Admin: 04/20/23 07:23 Dose: 64 mg Documented By: Admin: 04/19/23 21:21 Dose: Not Given Documented By: Admin: 04/19/23 13:30 Dose: Not Given Documented By: Admin: 04/18/23 21:46 Dose: Not Given Documented By: Admin: 04/18/23 11:29 Dose: 64 mg Documented By: Admin: 04/17/23 20:02 Dose: 64 mg Documented By: Admin: 04/17/23 12:09 Dose: 64 mg Documented By: JOSE JUAN Olanzapine (Olanzapine 10 Mg/2.1 Ml Sdv) 2.5 mg IM Q4H PRN PRN Reason: Agitation Stop: 05/16/23 00:25 Last Admin: 04/25/23 18:06 Dose: 2.5 mg Documented By: Admin: 04/25/23 02:32 Dose: 2.5 mg Documented By: Admin: 04/22/23 20:35 Dose: 2.5 mg Documented By: Admin: 04/20/23 07:04 Dose: 2.5 mg Documented By: JENNIFER Quetiapine Fumarate (Quetiapine Fumarate 25 Mg Tablet) 12.5 mg PO HS BO Stop: 05/21/23 20:59 Last Admin: 04/25/23 19:56 Dose: 12.5 mg Documented By: Admin: 04/24/23 17:39 Dose: 12.5 mg Documented By: Admin: 04/23/23 19:35 Dose: 12.5 mg Documented By: Admin: 04/22/23 20:07 Dose: 12.5 mg Documented By: Admin: 04/21/23 19:46 Dose: 12.5 mg Documented By: KARTHIK Coding Level of Care Code 18205 [facility] Intl Hosp Care Lvl 3 Diagnoses Dementia F03.90 Delirium R41.0 Time Spent (min) 78
[2023-04-26] MEDS ORDERED: OLANZAPINE 2.5 MG TAB PO STA (19:27)
[2023-04-26] MEDS: DIVALPROEX EXTENDED RELEASE 500 MG TAB PO SCH (19:47)
[2023-04-26] MEDS: OLANZapine 10 MG/2.1 ML SDV IM PRN (20:04)
[2023-04-26] MEDS ORDERED: OLANZapine 10 MG/2.1 ML SDV IM PRN (20:31)
[2023-04-26] MEDS ORDERED: OLANZAPINE 2.5 MG TAB PO SCH (21:00)
[2023-04-27] MEDS: OLANZapine ZYDIS 5 MG ORALLY DIS. TAB PO PRN ×2 (00:44→21:49)
--- NOTE | 2023-04-27 05:53 | Hospitalist Progress Note ---
Date of Service April 26, 2023 Assessment & Plan (1) Hypotension: (2) Hip pain: (3) Hip hematoma, left: (4) History of CVA (cerebrovascular accident): (5) Dementia: (6) Delirium: (7) Hypothyroidism: Plan Pt is an 82yoF with PMHx significant for HTN, Hx of CVA, hx PE on Eliquis (01/2023), breast cancer, s/p surgery & radiation currently on Arimidex, hypothyroidism, mood disorder, occipital neuralgia as per records, dementia admitted after multiple hospitalizations and rehab admissions, admitted with left hip pain and a hematoma. Left hip hematoma Acute blood loss anemia In setting of anticoagulation use with Eliquis No known history of trauma H/O multiple left hip surgeries S/P 2 units PRBCs Hemoglobin is stable around 11 Restarted on DVT prophylaxis with heparin per discussion of previous provider with POA. Fall precautions Patient evaluated by orthopedics; follow-up as outpatient in 4 weeks. Pain control with IV Tylenol. Minimize opioids. H/O PE (postprocedure, COVID infection) Eliquis on hold given acute blood loss anemia Started on DVT prophylaxis with heparin. Consider low-dose of Eliquis at 2.5 mg twice daily as DVT prophylaxis at discharge. Acute kidney injury Renal function improved with IV fluids, blood transfusion Creatinine currently back to baseline Monitor renal function Avoid nephrotoxic agents as able Dementia Delirium Mood Disorder Currently on seroquel 12.5mg qhs IM Zyprexa as needed for agitation- pt has been receiving the IM zyprexa which limits placement. Started on po Zyprexa nightly at same IM dose. Psych consulted- recommended discontinuing seroquel and increasing dose of Depakote Continuing with po zyprexa at 4pm daily and using the ODT prn before IM Delirium precautions. Frequent reorientation, avoid sedating medications Pt needs to be 48hr free from IM antipsychotic for placement H/O CVA As per records Evaluated by neurology on prior hospitalization CT head showed no acute findings H/O Breast cancer S/P Surgery, radiation continue Arimidex Hypothyroidism Normal TSH Continue levothyroxine Ongoing tobacco abuse Encourage cessation Diet: Regular DVT Px: Heparin Code Status: DNI/DNR Dispo: PT recommending rehab vs. [facility] Admission and Anticipated Discharge Date Admission Date: April 16, 2023 Subjective Laying in bed, today talking about her grandmother visiting. Pt aware that it might not be true. Discussed with pt's silva Sequeira, provided update. Agreeable to psych evaluation for further medication recommendations especially since pt was her usual slef 3 months ago and has never been on antipsychotics before then. Review of Systems Review of Systems: Unobtainable due to mental health condition Physical Exam Physical Exam: General: Alert Skin: No noted rashes or bruises Psych: tangential Neuro: No gross deficits while laying in bed HEENT: NC/AT CV: murmur appreciated Resp: no increased effort of breathing Abdomen: Soft, nontender Extremities: No edema in lower extremities bilaterally. Results & Data Results & Data Vital Signs (Past 12 Hours) Vital Signs Temp Pulse Pulse Resp BP Pulse Ox O2 Del Method 04/26/23 07:56 36.6 C 65 18 127/53 L 96 Room Air 04/26/23 07:38 57 L 04/26/23 03:42 36.4 C L 61 18 128/75 96 Room Air 04/25/23 23:57 87 04/25/23 23:09 36.6 C 87 18 125/85 95 Room Air (2) Hip pain Laterality: left Qualified Code(s): M25.552 - Pain in left hip
[2023-04-27] MEDS: HEPARIN SOD 5,000 UNIT/0.5 ML VIAL SQ SCH ×3 (06:49→20:58)
[2023-04-27] MEDS: LEVOTHYROXINE SODIUM 125 MCG TABLET PO SCH (06:49)
[2023-04-27] MEDS: MAGNESIUM CHLORIDE W/CALCIUM 64MG DELAYED REL TAB PO SCH ×2 (09:35→20:11)
[2023-04-27] MEDS: ANASTROZOLE 1 MG TAB PO SCH (09:35)
[2023-04-27] MEDS: OLANZAPINE 2.5 MG TAB PO SCH (14:58)
--- NOTE | 2023-04-27 18:13 | Hospitalist Progress Note ---
Date of Service April 27, 2023 Assessment & Plan (1) Acute blood loss anemia: (2) Delirium: (3) Hip pain: (4) Hip hematoma, left: (5) History of CVA (cerebrovascular accident): (6) Dementia: (7) Hypothyroidism: Plan Pt is an 82yoF with PMHx significant for HTN, Hx of CVA, hx PE on Eliquis (01/2023), breast cancer, s/p surgery & radiation currently on Arimidex, hypothyroidism, mood disorder, occipital neuralgia as per records, dementia admitted after multiple hospitalizations and rehab admissions, admitted with left hip pain and a hematoma. Left hip hematoma Acute blood loss anemia In setting of anticoagulation use with Eliquis No known history of trauma H/O multiple left hip surgeries S/P 2 units PRBCs Hemoglobin is stable Restarted on DVT prophylaxis with heparin per discussion of previous provider with POA. Fall precautions Patient evaluated by orthopedics; follow-up as outpatient in 4 weeks. Pain control with Tylenol. Minimize opioids. She was ambulating today per RN-appears to be improving. H/O PE Eliquis on hold given acute blood loss anemia Acute kidney injury Renal function improved with IV fluids, blood transfusion Creatinine currently back to baseline Monitor renal function Avoid nephrotoxic agents as able Dementia Delirium Mood Disorder Currently on seroquel 12.5mg qhs IM Zyprexa as needed for agitation- pt has been receiving the IM zyprexa which limits placement. Started on po Zyprexa nightly at same IM dose. Psych consulted- recommended discontinuing seroquel and increasing dose of Depakote Continuing with po zyprexa at 4pm daily and using the ODT prn before IM Delirium precautions. Frequent reorientation, avoid sedating medications Pt needs to be 48hr free from IM antipsychotic for placement H/O CVA As per records Evaluated by neurology on prior hospitalization CT head showed no acute findings H/O Breast cancer S/P Surgery, radiation continue Arimidex Hypothyroidism Normal TSH Continue levothyroxine Ongoing tobacco abuse Encourage cessation Diet: Regular DVT Px: Heparin Code Status: DNI/DNR Dispo: PT recommending rehab vs. [facility] DO Violetta Antunez Hospitalist Admission and Anticipated Discharge Date Admission Date: April 16, 2023 Subjective 82 yo F with dementia presents with left hip pain Pt is a poor historian 2/2 dementia. Some discomfort in her legs is present that cannot be explained further She is open to Tylenol Per RN she appeared to be ambulating with ease. Physical Exam Physical Exam: CONSTITUTIONAL: WNWD, vitals as above, generally well-appearing, NAD EYES: normal conjunctivae, no scleral icterus, ENT: external ear and nose normal, MMM NECK: trachea midline, RESPIRATORY: clear to auscultation bilaterally, no crackles, rales or wheezes, normal respiratory effort CARDIOVASCULAR: regular rate and rhythm, S1 and 2 heard without murmurs, gallops or rubs, no JVD, no peripheral edema, CHEST: inspection of chest was normal GASTROINTESTINAL: soft, nontender, ND, no guarding MUSCULOSKELETAL: strength 5/5 throughout, head is normocephalic and atraumatic, neck supple, normal palpation of chest wall without tenderness SKIN: warm and dry NEUROLOGIC: CN 2-12 grossly intact, no sensory deficit, normal cognition, normal speech, no tremor PSYCHIATRIC: alert cooperative and oriented to person, place and time. Euthymic mood, makes good eye contact, language grossly intact, recent and remote memory grossly intact. Results & Data Results & Data Vital Signs (Past 12 Hours) Vital Signs Temp Pulse Pulse Resp BP Pulse Ox O2 Del Method 04/27/23 11:22 36.3 C L 71 19 118/70 98 Room Air 04/27/23 10:21 36.7 C 72 20 133/74 98 Room Air 04/27/23 07:17 62 Medications Administered Current Inpatient Medications Acetaminophen (Acetaminophen 500 Mg Tab) 1,000 mg PO Q8H PRN PRN Reason: fever or pain Stop: 05/25/23 17:12 Anastrozole (Anastrozole 1 Mg Tab) 1 mg PO QAM [facility] Stop: 05/16/23 08:59 Last Admin: 04/27/23 09:35 Dose: 1 mg Divalproex Sodium (Divalproex Extended Release 500 Mg Tab) 500 mg PO HS [facility] Stop: 05/26/23 20:59 Last Admin: 04/26/23 19:47 Dose: 500 mg Heparin Sodium (Porcine) (Heparin Sod 5,000 Unit/0.5 Ml Vial) 5,000 units SQ Q8 BO Stop: 05/19/23 13:59 Last Admin: 04/27/23 13:56 Dose: 5,000 units Levothyroxine Sodium (Levothyroxine Sodium 125 Mcg Tablet) 125 mcg PO DAILYBB [facility] Stop: 05/16/23 06:29 Last Admin: 04/27/23 06:49 Dose: Not Given Magnesium Chloride (Magnesium Chloride W/Calcium 64mg Delayed Rel Tab) 64 mg PO BID [facility] Stop: 05/17/23 09:29 Last Admin: 04/27/23 09:35 Dose: 64 mg Olanzapine (Olanzapine 2.5 Mg Tab) 2.5 mg PO DAILY@1600 [facility] Stop: 05/27/23 15:59 Last Admin: 04/27/23 14:58 Dose: 2.5 mg Olanzapine (Olanzapine Zydis 5 Mg Orally Dis. Tab) 2.5 mg PO Q4H PRN PRN Reason: psychosis (1st line) Stop: 05/26/23 20:29 Last Admin: 04/27/23 00:44 Dose: 2.5 mg Olanzapine (Olanzapine 10 Mg/2.1 Ml Sdv) 2.5 mg IM Q4H PRN PRN Reason: psychosis if ODT cannot be giv Stop: 05/16/23 00:25 (3) Hip pain Laterality: left Qualified Code(s): M25.552 - Pain in left hip
[2023-04-27] MEDS: DIVALPROEX EXTENDED RELEASE 500 MG TAB PO SCH (20:11)
[2023-04-27] MEDS: ACETAMINOPHEN 500 MG TAB PO PRN (20:20)
[2023-04-28] MEDS: LEVOTHYROXINE SODIUM 125 MCG TABLET PO SCH (06:47)
[2023-04-28] MEDS: HEPARIN SOD 5,000 UNIT/0.5 ML VIAL SQ SCH ×2 (06:50→14:56)
[2023-04-28] MEDS: ANASTROZOLE 1 MG TAB PO SCH (08:46)
[2023-04-28] MEDS: MAGNESIUM CHLORIDE W/CALCIUM 64MG DELAYED REL TAB PO SCH ×2 (08:46→20:15)
--- NOTE | 2023-04-28 14:45 | Hospitalist Progress Note ---
Date of Service April 28, 2023 Assessment & Plan (1) Acute blood loss anemia: (2) Delirium: (3) Hip pain: (4) Hip hematoma, left: (5) History of CVA (cerebrovascular accident): (6) Dementia: (7) Hypothyroidism: Plan Pt is an 82yoF with PMHx significant for HTN, Hx of CVA, hx PE on Eliquis (01/2023), breast cancer, s/p surgery & radiation currently on Arimidex, hypothyroidism, mood disorder, occipital neuralgia as per records, dementia admitted after multiple hospitalizations and rehab admissions, admitted with left hip pain and a hematoma. Left hip hematoma Acute blood loss anemia In setting of anticoagulation use with Eliquis No known history of trauma H/O multiple left hip surgeries S/P 2 units PRBCs Hemoglobin is stable--will restart her apixaban now. Fall precautions Patient evaluated by orthopedics; follow-up as outpatient in 4 weeks. Pain control with Tylenol. Minimize opioids. She was ambulating today per RN-appears to be improving. H/O PE Eliquis on hold given acute blood loss anemia-will restart 1/2 Acute kidney injury Renal function improved with IV fluids, blood transfusion Creatinine currently back to baseline Monitor renal function Avoid nephrotoxic agents as able Dementia Delirium Mood Disorder Currently on seroquel 12.5mg qhs IM Zyprexa as needed for agitation- pt has been receiving the IM zyprexa which limits placement. Started on po Zyprexa nightly at same IM dose. Psych consulted- recommended discontinuing seroquel and increasing dose of Depakote Continuing with po zyprexa at 4pm daily and using the ODT prn before IM Delirium precautions. Frequent reorientation, avoid sedating medications Pt needs to be 48hr free from IM antipsychotic for placement H/O CVA As per records Evaluated by neurology on prior hospitalization CT head showed no acute findings H/O Breast cancer S/P Surgery, radiation continue Arimidex Hypothyroidism Normal TSH Continue levothyroxine Ongoing tobacco abuse Encourage cessation Diet: Regular DVT Px: Heparin Code Status: DNI/DNR Dispo: PT recommending rehab vs. [facility] DO Violetta Antunez Hospitalist Admission and Anticipated Discharge Date Admission Date: April 16, 2023 Subjective 82 yo F with dementia presents with left hip pain Pt is a poor historian 2/2 dementia. Some discomfort in her legs is present that cannot be explained further Doing well with Tylenol Less combative on current medication regimen with olanzapine Per RN she appeared to be ambulating with ease. Physical Exam Physical Exam: CONSTITUTIONAL: WNWD, vitals as above, generally well-appearing, NAD EYES: normal conjunctivae, no scleral icterus, ENT: external ear and nose normal, MMM NECK: trachea midline, RESPIRATORY: clear to auscultation bilaterally, no crackles, rales or wheezes, normal respiratory effort CARDIOVASCULAR: regular rate and rhythm, S1 and 2 heard without murmurs, gallops or rubs, no JVD, no peripheral edema, CHEST: inspection of chest was normal GASTROINTESTINAL: soft, nontender, ND, no guarding MUSCULOSKELETAL: strength 5/5 throughout, head is normocephalic and atraumatic, neck supple, normal palpation of chest wall without tenderness SKIN: warm and dry NEUROLOGIC: CN 2-12 grossly intact, no sensory deficit, normal cognition, normal speech, no tremor PSYCHIATRIC: alert cooperative and oriented to person, place and time. Euthymic mood, makes good eye contact, language grossly intact, recent and remote memory grossly intact. Results & Data Results & Data Vital Signs (Past 12 Hours) Vital Signs Temp Pulse Pulse Resp BP Pulse Ox O2 Del Method 04/28/23 14:32 36.6 C 74 18 100/65 97 Room Air 04/28/23 09:39 36.5 C 67 18 118/69 96 Room Air 04/28/23 08:00 Room Air 04/28/23 07:00 60 Medications Administered Current Inpatient Medications Acetaminophen (Acetaminophen 500 Mg Tab) 1,000 mg PO Q8H PRN PRN Reason: fever or pain Stop: 05/25/23 17:12 Last Admin: 04/27/23 20:20 Dose: 1,000 mg Anastrozole (Anastrozole 1 Mg Tab) 1 mg PO QAM BO Stop: 05/16/23 08:59 Last Admin: 04/28/23 08:46 Dose: 1 mg Divalproex Sodium (Divalproex Extended Release 500 Mg Tab) 500 mg PO HS BO Stop: 05/26/23 20:59 Last Admin: 04/27/23 20:11 Dose: 500 mg Heparin Sodium (Porcine) (Heparin Sod 5,000 Unit/0.5 Ml Vial) 5,000 units SQ Q8 BO Stop: 05/19/23 13:59 Last Admin: 04/28/23 06:50 Dose: Not Given Levothyroxine Sodium (Levothyroxine Sodium 125 Mcg Tablet) 125 mcg PO DAILYBB [facility] Stop: 05/16/23 06:29 Last Admin: 04/28/23 06:47 Dose: 125 mcg Magnesium Chloride (Magnesium Chloride W/Calcium 64mg Delayed Rel Tab) 64 mg PO BID [facility] Stop: 05/17/23 09:29 Last Admin: 04/28/23 08:46 Dose: 64 mg Olanzapine (Olanzapine 2.5 Mg Tab) 2.5 mg PO DAILY@1600 [facility] Stop: 05/27/23 15:59 Last Admin: 04/27/23 14:58 Dose: 2.5 mg Olanzapine (Olanzapine Zydis 5 Mg Orally Dis. Tab) 2.5 mg PO Q4H PRN PRN Reason: psychosis (1st line) Stop: 05/26/23 20:29 Last Admin: 04/27/23 21:49 Dose: 2.5 mg Olanzapine (Olanzapine 10 Mg/2.1 Ml Sdv) 2.5 mg IM Q4H PRN PRN Reason: psychosis if ODT cannot be giv Stop: 05/16/23 00:25 (3) Hip pain Laterality: left Qualified Code(s): M25.552 - Pain in left hip
[2023-04-28] MEDS: OLANZapine ZYDIS 5 MG ORALLY DIS. TAB PO PRN ×2 (16:21→20:16)
[2023-04-28] MEDS: OLANZAPINE 2.5 MG TAB PO SCH (16:25)
[2023-04-28] MEDS: DIVALPROEX EXTENDED RELEASE 500 MG TAB PO SCH (20:16)
[2023-04-28] MEDS: APIXABAN 5 MG TABLET PO SCH (21:38)
[2023-04-29] MEDS: OLANZapine ZYDIS 5 MG ORALLY DIS. TAB PO PRN ×4 (00:16→20:15)
[2023-04-29] MEDS: LEVOTHYROXINE SODIUM 125 MCG TABLET PO SCH (06:17)
[2023-04-29] MEDS: MAGNESIUM CHLORIDE W/CALCIUM 64MG DELAYED REL TAB PO SCH ×2 (09:52→20:01)
[2023-04-29] MEDS: ANASTROZOLE 1 MG TAB PO SCH (09:52)
[2023-04-29] MEDS: APIXABAN 5 MG TABLET PO SCH ×2 (09:53→20:00)
[2023-04-29 10:44] LABS: Hematocrit (blood only) 32.2 % (37.0-47.0); Hemoglobin 10.2 g/dl (12.0-16.0); Mean Corpuscular Hemoglobin 30.6 pg (25.0-34.0); Mean Corpuscular Hgb Conc 31.7 g/dL (32.0-36.0); Mean Corpuscular Volume 96.7 fL (80.0-100.0); Mean Platelet Volume 9.2 fL (9.4-12.4); Platelet Count 444 K/uL (130-400); RDW Coefficient of Variation 18.3 % (11.5-14.5); RDW Standard Deviation 64.1 fL (36.4-46.3); Red Blood Count 3.33 M/uL (4.20-5.40); White Blood Count 7.48 K/ul (4.8-10.8)
[2023-04-29 10:48] LABS: BUN Creatinine Ratio 30.7 (10-20); Calcium 9.2 mg/dl (8.6-10.3); Creatinine Clr Calc Pharmacy 37.6 ml/min; Est GFR (African American) 70.4 ml/min; Est GFR (Non-African American) 60.8 ml/min; Potassium 4.2 mmol/L (3.5-5.1)
--- NOTE | 2023-04-29 12:28 | Hospitalist Progress Note ---
Date of Service April 29, 2023 Assessment & Plan (1) Acute blood loss anemia: (2) Delirium: (3) Hip pain: (4) Hip hematoma, left: (5) History of CVA (cerebrovascular accident): (6) Dementia: (7) Hypothyroidism: Plan Pt is an 82yoF with PMHx significant for HTN, Hx of CVA, hx PE on Eliquis (01/2023), breast cancer, s/p surgery & radiation currently on Arimidex, hypothyroidism, mood disorder, occipital neuralgia as per records, dementia admitted after multiple hospitalizations and rehab admissions, admitted with left hip pain and a hematoma. Left hip hematoma Acute blood loss anemia In setting of anticoagulation use with Eliquis No known history of trauma H/O multiple left hip surgeries S/P 2 units PRBCs Hemoglobin is stable--apixaban restarted Fall precautions Patient evaluated by orthopedics; follow-up as outpatient in 4 weeks. Pain control with Tylenol. Minimize opioids. She was ambulating today per RN-appears to be improving. H/O PE Eliquis on hold given acute blood loss anemia-will restart 1/2 Acute kidney injury Renal function improved with IV fluids, blood transfusion Creatinine currently back to baseline Monitor renal function Avoid nephrotoxic agents as able Dementia Delirium Mood Disorder Currently on seroquel 12.5mg qhs IM Zyprexa as needed for agitation- pt has been receiving the IM zyprexa which limits placement. Started on po Zyprexa nightly at same IM dose. Psych consulted- recommended discontinuing seroquel and increasing dose of Depakote Continuing with po zyprexa at 4pm daily and using the ODT prn before IM Delirium precautions. Frequent reorientation, avoid sedating medications Pt needs to be 48hr free from IM antipsychotic for placement H/O CVA As per records Evaluated by neurology on prior hospitalization CT head showed no acute findings H/O Breast cancer S/P Surgery, radiation continue Arimidex Hypothyroidism Normal TSH Continue levothyroxine Ongoing tobacco abuse Encourage cessation Diet: Regular DVT Px: Heparin Code Status: DNI/DNR Dispo: PT recommending rehab vs. [facility] I tried to contact the two people on her contact list today for an update. Orly did not answer the phone and She's phone was busy. Pt came from [facility]. Cont with current plan for now. [facility] Admission and Anticipated Discharge Date Admission Date: April 16, 2023 Subjective 82 yo F with dementia presents with left hip pain Pt is a poor historian 2/2 dementia. Reports that her legs feel well Has not been demonstrating combative behavior Not eating well today I tried to address restarting the apixaban with her today but she is too disoriented and cannot understand. Physical Exam Physical Exam: CONSTITUTIONAL: WNWD, vitals as above, generally well-appearing, NAD EYES: normal conjunctivae, no scleral icterus, ENT: external ear and nose normal, MMM NECK: trachea midline, RESPIRATORY: clear to auscultation bilaterally, no crackles, rales or wheezes, normal respiratory effort CARDIOVASCULAR: regular rate and rhythm, S1 and 2 heard without murmurs, gallops or rubs, no JVD, no peripheral edema, CHEST: inspection of chest was normal GASTROINTESTINAL: soft, nontender, ND, no guarding MUSCULOSKELETAL: strength 5/5 throughout, head is normocephalic and atraumatic, neck supple, normal palpation of chest wall without tenderness SKIN: warm and dry NEUROLOGIC: CN 2-12 grossly intact, no sensory deficit, normal cognition, normal speech, no tremor PSYCHIATRIC: alert cooperative and oriented to person, place and time. Euthymic mood, makes good eye contact, language grossly intact, recent and remote memory grossly intact. Results & Data Results & Data Vital Signs (Past 12 Hours) Vital Signs Temp Pulse Pulse Resp BP Pulse Ox O2 Del Method 04/29/23 11:43 36.5 C 64 16 126/69 98 Room Air 04/29/23 07:44 80 04/29/23 02:26 83 Laboratory Results Short CBC 04/29/23 Range/Units 09:53 WBC 7.48 (4.8-10.8) K/ul Hgb 10.2 L (12.0-16.0) g/dl Hct 32.2 L (37.0-47.0) % Plt Count 444 H (130-400) K/uL BMP 04/29/23 09:53 Sodium 138 Potassium 4.2 Chloride 105 Carbon Dioxide 27 BUN 27 H Creatinine 0.88 Glucose 84 Calcium 9.2 Medications Administered Current Inpatient Medications Acetaminophen (Acetaminophen 500 Mg Tab) 1,000 mg PO Q8H PRN PRN Reason: fever or pain Stop: 05/25/23 17:12 Last Admin: 04/27/23 20:20 Dose: 1,000 mg Anastrozole (Anastrozole 1 Mg Tab) 1 mg PO QAM [facility] Stop: 05/16/23 08:59 Last Admin: 04/29/23 09:52 Dose: 1 mg Apixaban (Apixaban 5 Mg Tablet) 5 mg PO BID [facility] Stop: 05/28/23 20:59 Last Admin: 04/29/23 09:53 Dose: 5 mg Divalproex Sodium (Divalproex Extended Release 500 Mg Tab) 500 mg PO HS [facility] Stop: 05/26/23 20:59 Last Admin: 04/28/23 20:16 Dose: 500 mg Levothyroxine Sodium (Levothyroxine Sodium 125 Mcg Tablet) 125 mcg PO DAILYBB [facility] Stop: 05/16/23 06:29 Last Admin: 04/29/23 06:17 Dose: 125 mcg Magnesium Chloride (Magnesium Chloride W/Calcium 64mg Delayed Rel Tab) 64 mg PO BID [facility] Stop: 05/17/23 09:29 Last Admin: 04/29/23 09:52 Dose: 64 mg Olanzapine (Olanzapine 2.5 Mg Tab) 2.5 mg PO DAILY@1600 [facility] Stop: 05/27/23 15:59 Last Admin: 04/28/23 16:25 Dose: 2.5 mg Olanzapine (Olanzapine Zydis 5 Mg Orally Dis. Tab) 2.5 mg PO Q4H PRN PRN Reason: psychosis (1st line) Stop: 05/26/23 20:29 Last Admin: 04/29/23 11:22 Dose: 2.5 mg Olanzapine (Olanzapine 10 Mg/2.1 Ml Sdv) 2.5 mg IM Q4H PRN PRN Reason: psychosis if ODT cannot be giv Stop: 05/16/23 00:25 (3) Hip pain Laterality: left Qualified Code(s): M25.552 - Pain in left hip
[2023-04-29] MEDS: OLANZAPINE 2.5 MG TAB PO SCH (15:56)
[2023-04-29] MEDS: DIVALPROEX EXTENDED RELEASE 500 MG TAB PO SCH (20:00)
[2023-04-29] MEDS: ACETAMINOPHEN 500 MG TAB PO PRN (20:12)
[2023-04-30] MEDS: MAGNESIUM CHLORIDE W/CALCIUM 64MG DELAYED REL TAB PO SCH ×2 (08:44→19:27)
[2023-04-30] MEDS: ANASTROZOLE 1 MG TAB PO SCH (08:44)
[2023-04-30] MEDS: APIXABAN 5 MG TABLET PO SCH ×2 (08:44→19:27)
[2023-04-30] MEDS: LEVOTHYROXINE SODIUM 125 MCG TABLET PO SCH (08:44)
[2023-04-30] MEDS: ACETAMINOPHEN 500 MG TAB PO PRN (13:29)
[2023-04-30] MEDS: OLANZAPINE 2.5 MG TAB PO SCH (14:03)
--- NOTE | 2023-04-30 14:47 | Hospitalist Progress Note ---
Date of Service April 30, 2023 Assessment & Plan (1) Acute blood loss anemia: (2) Delirium: (3) Hip pain: (4) Hip hematoma, left: (5) History of CVA (cerebrovascular accident): (6) Dementia: (7) Hypothyroidism: Plan Pt is an 82yoF with PMHx significant for HTN, Hx of CVA, hx PE on Eliquis (01/2023), breast cancer, s/p surgery & radiation currently on Arimidex, hypothyroidism, mood disorder, occipital neuralgia as per records, dementia admitted after multiple hospitalizations and rehab admissions, admitted with left hip pain and a hematoma. Left hip hematoma Acute blood loss anemia In setting of anticoagulation use with Eliquis No known history of trauma H/O multiple left hip surgeries S/P 2 units PRBCs Hemoglobin is stable--apixaban restarted Fall precautions Patient evaluated by orthopedics; follow-up as outpatient in 4 weeks. Pain control with Tylenol. Minimize opioids. She was ambulating today per RN-appears to be improving. repeat cbc, bmp in am. now that apixaban restarted H/O PE Eliquis on hold given acute blood loss anemia-restarted 1/2 Acute kidney injury Renal function improved with IV fluids, blood transfusion Creatinine currently back to baseline Monitor renal function Avoid nephrotoxic agents as able check bmp in a.m. Dementia Delirium Mood Disorder Currently on seroquel 12.5mg qhs OFF IM Zyprexa Started on po Zyprexa nightly at same IM dose as well as PRN Psych consulted- recommended discontinuing seroquel and increasing dose of Depakote Continuing with po zyprexa at 4pm daily and using the ODT prn Delirium precautions. Frequent reorientation, avoid sedating medications Pt needs to be 48hr free from IM antipsychotic for placement - she has not required IM in 48 hrs H/O CVA As per records Evaluated by neurology on prior hospitalization CT head showed no acute findings H/O Breast cancer S/P Surgery, radiation continue Arimidex Hypothyroidism Normal TSH Continue levothyroxine Ongoing tobacco abuse Encourage cessation Diet: Regular DVT Px: Eliquis Code Status: DNI/DNR Dispo: PT recommending rehab vs. [facility]; [facility] was in to eval patient but CM is still waiting to hear back, if able to accept she is medically stable to d/c back to [facility]; if they are unable she will need snf for rehab Discussed with niisamar Ramsey at bedside Pt was seen and examined in collaboration with Dr. Jolly, please see addendum Check cbc, bmp in a.m. Admission and Anticipated Discharge Date Admission Date: April 16, 2023 Supervising Physician Co-Signing Physician Notes Pt seen and examined by me, care coordinated w/ B. Yasmany NAJERA, pls refer to her note above for further detail. Pt is currently sitting up in chair in NAD. Currently has no complaints. Answers simple questions however more hx from 1:1 sitter present in the room. lungs CTAB, heart sounds regular, abdomen soft, nontender, + left hip hematoma. Apixaban was restarted, cont. to monitor H&H. Plan to Dc back to [facility] if accepted back. CM involved in DC. MD Shanae Subjective Pt seen and examined in [facility]. F/U left hip hematoma and ABL anemia Nurse at bedside. She is sitting up in bed w/o complaints. ROS unreliable due to dementia. Niece at bedside who also elicits history. She has been drinking boost, not a big breakfast eater. She denies f/c/s, chest pain, sob, n/v/d. [facility] was in to eval her today. Review of Systems Review of Systems: All systems reviewed & are unremarkable except as noted in HPI & below Physical Exam Physical Exam: Gen: WD/WN, NAD, A&O x3 HEENT: Normocephalic, atraumatic, conjunctivae moist, sclerae anicteric, mucous membranes moist. Lung: Clear to Auscultation bilaterally, no wheezes/rales/rhonchi Heart: Regular rate, regular rhythm, no murmurs, rubs, or gallops Abdomen: Soft, NT, ND +BS x 4 Extremities: No edema Skin: Warm, no rash, negative turgor. Results & Data Results & Data Vital Signs (Past 12 Hours) Vital Signs Temp Pulse Resp BP Pulse Ox O2 Del Method 04/30/23 08:51 36.5 C 66 18 138/82 98 Room Air Medications Administered Current Inpatient Medications Acetaminophen (Acetaminophen 500 Mg Tab) 1,000 mg PO Q8H PRN PRN Reason: fever or pain Stop: 05/25/23 17:12 Last Admin: 04/30/23 13:29 Dose: 1,000 mg Anastrozole (Anastrozole 1 Mg Tab) 1 mg PO QAM [facility] Stop: 05/16/23 08:59 Last Admin: 04/30/23 08:44 Dose: 1 mg Apixaban (Apixaban 5 Mg Tablet) 5 mg PO BID [facility] Stop: 05/28/23 20:59 Last Admin: 04/30/23 08:44 Dose: 5 mg Divalproex Sodium (Divalproex Extended Release 500 Mg Tab) 500 mg PO HS [facility] Stop: 05/26/23 20:59 Last Admin: 04/29/23 20:00 Dose: 500 mg Levothyroxine Sodium (Levothyroxine Sodium 125 Mcg Tablet) 125 mcg PO DAILYBB [facility] Stop: 05/16/23 06:29 Last Admin: 04/30/23 08:44 Dose: 125 mcg Magnesium Chloride (Magnesium Chloride W/Calcium 64mg Delayed Rel Tab) 64 mg PO BID [facility] Stop: 05/17/23 09:29 Last Admin: 04/30/23 08:44 Dose: 64 mg Olanzapine (Olanzapine 2.5 Mg Tab) 2.5 mg PO DAILY@1600 [facility] Stop: 05/27/23 15:59 Last Admin: 04/30/23 14:03 Dose: 2.5 mg Olanzapine (Olanzapine Zydis 5 Mg Orally Dis. Tab) 2.5 mg PO Q4H PRN PRN Reason: psychosis (1st line) Stop: 05/26/23 20:29 Last Admin: 04/29/23 20:15 Dose: 2.5 mg (3) Hip pain Laterality: left Qualified Code(s): M25.552 - Pain in left hip
[2023-04-30] MEDS: OLANZapine ZYDIS 5 MG ORALLY DIS. TAB PO PRN ×2 (15:40→19:27)
[2023-04-30] MEDS ORDERED: OLANZAPINE 2.5 MG TAB PO ONE (16:41)
[2023-04-30] MEDS: DIVALPROEX EXTENDED RELEASE 500 MG TAB PO SCH (19:26)
[2023-05-01] MEDS: OLANZapine ZYDIS 5 MG ORALLY DIS. TAB PO PRN ×3 (01:35→19:29)
[2023-05-01] MEDS: LEVOTHYROXINE SODIUM 125 MCG TABLET PO SCH (06:22)
[2023-05-01 07:21] LABS: BUN Creatinine Ratio 41.9 (10-20); Calcium 8.7 mg/dl (8.6-10.3); Creatinine Clr Calc Pharmacy 38.5 ml/min; Est GFR (African American) 72.4 ml/min; Est GFR (Non-African American) 62.5 ml/min; Potassium 3.9 mmol/L (3.5-5.1)
[2023-05-01 07:27] LABS: Basophils # (auto) 0.06 K/uL (0.00-0.20); Basophils % (auto) 0.9 %; Eosinophils # (auto) 0.42 K/uL (0.00-0.50); Hematocrit (blood only) 30.4 % (37.0-47.0); Hemoglobin 9.8 g/dl (12.0-16.0); Immature Granulocytes # (auto) 0.04 K/uL (0.01-0.20); Immature Granulocytes % (auto) 0.6 %; Lymphocytes % (auto) 32.9 %; Mean Corpuscular Hemoglobin 30.6 pg (25.0-34.0); Mean Corpuscular Hgb Conc 32.2 g/dL (32.0-36.0); Mean Platelet Volume 9.3 fL (9.4-12.4); Monocytes # (auto) 0.81 K/uL (0.11-0.59); Monocytes % (auto) 11.6 %; Neutrophils # (auto) 3.37 K/uL (1.40-6.50); Platelet Count 500 K/uL (130-400); RDW Coefficient of Variation 18.3 % (11.5-14.5); RDW Standard Deviation 64.4 fL (36.4-46.3)
[2023-05-01] MEDS: ANASTROZOLE 1 MG TAB PO SCH (09:44)
[2023-05-01] MEDS: APIXABAN 5 MG TABLET PO SCH ×4 (09:44→20:35)
[2023-05-01] MEDS: MAGNESIUM CHLORIDE W/CALCIUM 64MG DELAYED REL TAB PO SCH ×4 (09:45→20:36)
[2023-05-01] MEDS: ACETAMINOPHEN 500 MG TAB PO PRN (14:45)
[2023-05-01] MEDS: OLANZAPINE 2.5 MG TAB PO SCH (15:50)
--- NOTE | 2023-05-01 17:56 | Hospitalist Progress Note ---
Date of Service May 01, 2023 Assessment & Plan (1) Acute blood loss anemia: (2) Delirium: (3) Hip pain: (4) Hip hematoma, left: (5) History of CVA (cerebrovascular accident): (6) Dementia: (7) Hypothyroidism: Plan Pt is an 82yoF with PMHx significant for HTN, Hx of CVA, hx PE on Eliquis (01/2023), breast cancer, s/p surgery & radiation currently on Arimidex, hypothyroidism, mood disorder, occipital neuralgia as per records, dementia admitted after multiple hospitalizations and rehab admissions, admitted with left hip pain and a hematoma. Left hip hematoma Acute blood loss anemia In setting of anticoagulation use with Eliquis No known history of trauma H/O multiple left hip surgeries S/P 2 units PRBCs Hemoglobin is stable--apixaban restarted Fall precautions Patient evaluated by orthopedics; follow-up as outpatient in 4 weeks. Pain control with Tylenol. Minimize opioids. She was ambulating today per RN-appears to be improving. Hgb 9.8 today (from 10.2), cont to monitor with daily CBC H/O PE Eliquis on hold given acute blood loss anemia-restarted 04/29 Acute kidney injury Renal function improved with IV fluids, blood transfusion Creatinine currently back to baseline Monitor renal function Avoid nephrotoxic agents as able check bmp in a.m. Dementia Delirium Mood Disorder Currently on seroquel 12.5mg qhs OFF IM Zyprexa Started on po Zyprexa nightly at same IM dose as well as PRN Psych consulted- recommended discontinuing seroquel and increasing dose of Depakote Continuing with po zyprexa at 4pm daily and using the ODT prn Delirium precautions. Frequent reorientation, avoid sedating medications Pt needs to be 48hr free from IM antipsychotic for placement - she has not required IM in 48 hrs H/O CVA As per records Evaluated by neurology on prior hospitalization CT head showed no acute findings H/O Breast cancer S/P Surgery, radiation continue Arimidex Hypothyroidism Normal TSH Continue levothyroxine Ongoing tobacco abuse Encourage cessation Diet: Regular DVT Px: Eliquis Code Status: DNI/DNR Dispo: PT recommending rehab vs [facility]; per CM: [facility] can offer a bed on Friday 05/05, pending insurance auth Pt was seen and examined in collaboration with Dr. Jolly, please see addendum Admission and Anticipated Discharge Date Admission Date: April 16, 2023 Supervising Physician Co-Signing Physician Notes Pt seen and examined by me, care coordinated w/ Reginald Sanchez PA-C, pls refer to her note above for further detail. Pt is currently laying in bed in NAD. She is sleeping but wakes up easily, opens her eyes but does not answer me today very much. Received extra zyprexa last evening. 1:1 sitter present in the room. lungs CTAB, heart sounds regular, abdomen soft, nontender, + left hip hematoma. Apixaban was restarted, cont. to monitor H&H. Plan to DC to [facility] before return to [facility]. CM involved in DC. MD Shanae Subjective Pt seen and examined in 352-1 in F/U left hip hematoma and ABL anemia. No acute events or issues overnight, resting comfortably with 1:1 present. ROS unreliable due to dementia. Did require PO olanzapine once overnight. Review of Systems Review of Systems: Unobtainable due to cognitive status Physical Exam Physical Exam: Gen: WD/WN, NAD, resting comfortably, pleasantly confused HEENT: Normocephalic, atraumatic, conjunctivae moist, sclerae anicteric, mucous membranes moist. Lung: Clear to Auscultation bilaterally, no wheezes/rales/rhonchi Heart: Regular rate, regular rhythm, no murmurs, rubs, or gallops Abdomen: Soft, NT, ND +BS x 4 Extremities: No edema Skin: Warm, no rash Results & Data Results & Data Vital Signs (Past 12 Hours) Vital Signs Temp Pulse Resp BP Pulse Ox O2 Del Method 05/01/23 16:00 36.7 C 70 18 120/60 97 Room Air 05/01/23 07:23 36.7 C 72 18 124/64 97 Room Air Laboratory Results Short CBC 05/01/23 Range/Units 06:05 WBC 7.00 (4.8-10.8) K/ul Hgb 9.8 L (12.0-16.0) g/dl Hct 30.4 L (37.0-47.0) % Plt Count 500 H (130-400) K/uL BMP 05/01/23 06:05 Sodium 138 Potassium 3.9 Chloride 105 Carbon Dioxide 26 BUN 36 H Creatinine 0.86 Glucose 85 Calcium 8.7 Diagnostic Findings Hip/Pelvis X-Ray 04/15/23 20:19 XR hip LT 2V w pelvis CLINICAL HISTORY: s/p surgery, pain COMPARISON: None FINDINGS: Sacroiliac joints and symphysis pubis are intact. No acute fracture within the pelvis or hips is identified. Left hip arthroplasty is intact. Proximal left femoral internal fixation with cerclage wires is noted. Heterotopic ossification is present. There is no acute periprosthetic fracture or lucency. IMPRESSION: 1. No acute fracture within the pelvis or hips. 2. Intact left hip arthroplasty with proximal left femoral internal fixation. No acute periprosthetic fracture. ACT 112: Negative or not required by law. Electronically signed by: Floyd Bañuelos M.D. 04/16/2023 7:19 AM Chest X-Ray 04/15/23 20:20 XR chest 1V portable CLINICAL HISTORY: weakness COMPARISON STUDY: No previous studies for comparison. FINDINGS: Incidental note is made of surgical anchors within the right humerus and right axillary surgical clips. Lung volumes are normal. Lungs are clear. There is no pneumothorax or pleural effusion. Cardiac size is normal. Mediastinal contours are normal. There is no evidence for pulmonary edema. IMPRESSION: No acute cardiopulmonary findings. ACT 112: Negative or not required by law. Electronically signed by: Floyd Bañuelos M.D. 04/16/2023 7:[address] 04/15/23 21:00 Exam(s): CT EXTREMITY LEFT LOWER Without Contrast EXAM: CT Left Lower Extremity Without Intravenous Contrast CLINICAL HISTORY: Reason for exam: s/p surgery, ?infection/abscess. TECHNIQUE: Axial computed tomography images of the left lower extremity without intravenous contrast. CTDI is 10.43 mGy and DLP is 545.36 mGy-cm. Automated exposure control was utilized for the study. A dose lowering technique was utilized adhering to the principles of ALARA. COMPARISON: No relevant prior studies available. FINDINGS: Bones/joints: Posterior to the hip replacement there is a moderate size hematoma measuring up to 4.1 cm in thickness by 10 cm transverse. The hematoma begins at the superior acetabulum and extends into the mid thigh measuring at least 15 cm craniocaudal. Patient is status post a left total hip replacement. No hardware complications are noted. No acute fractures or dislocations. Soft tissues: See above. IMPRESSION: Posterior to the hip replacement there is a moderate size hematoma measuring up to 4.1 cm in thickness by 10 cm transverse. The hematoma begins at the superior acetabulum and extends into the mid thigh measuring at least 15 cm craniocaudal. Electronically signed by: Hiram Castro M.D. 04/16/23 01:[address] 04/16/23 11:[address] DOSE: 1094.1 mGy.cm HISTORY: Confusion. altered mental status TECHNIQUE: Multiaxial CT images of the head were performed without the use of intravenous contrast. Automated exposure control was utilized for this study. A dose lowering technique was utilized adhering to the principles of ALARA. Comparison: None. Findings: Fluid levels within the sphenoid sinuses and right maxillary sinus resulting in partial opacification. The mastoid air cells are clear. Suboptimal evaluation of the brain due to the motion artifact. The calvarium and skull base are intact. There is no definite mass, hematoma, midline shift, acute infarct. White matter hypodensity is nonspecific but suggestive of microvascular ischemic change. The ventricles and sulci demonstrate mild age-related involutional changes. Impression: Suboptimal evaluation of the brain due to motion artifact. However, no definite acute intracranial abnormality. ACT 112: Negative or not required by law. Electronically signed by: Laureano San M.D. 04/16/2023 2:22 PM (3) Hip pain Laterality: left Qualified Code(s): M25.552 - Pain in left hip
[2023-05-01] MEDS: DIVALPROEX EXTENDED RELEASE 500 MG TAB PO SCH ×3 (19:31→20:36)
[2023-05-01] MEDS ORDERED: OLANZapine 10 MG/2.1 ML SDV IM STA (19:42)
[2023-05-02] MEDS: LEVOTHYROXINE SODIUM 125 MCG TABLET PO SCH (08:25)
[2023-05-02] MEDS: ANASTROZOLE 1 MG TAB PO SCH (08:26)
[2023-05-02] MEDS: MAGNESIUM CHLORIDE W/CALCIUM 64MG DELAYED REL TAB PO SCH ×2 (08:26→21:49)
[2023-05-02] MEDS: OLANZapine ZYDIS 5 MG ORALLY DIS. TAB PO PRN ×3 (08:27→21:48)
[2023-05-02] MEDS: ACETAMINOPHEN 500 MG TAB PO PRN (08:36)
--- NOTE | 2023-05-02 09:21 | Hospitalist Progress Note ---
Date of Service May 02, 2023 Assessment & Plan (1) Acute blood loss anemia: (2) Delirium: (3) Hip pain: (4) Hip hematoma, left: (5) History of CVA (cerebrovascular accident): (6) Dementia: (7) Hypothyroidism: Plan Pt is an 82yoF with PMHx significant for HTN, Hx of CVA, hx PE on Eliquis (01/2023), breast cancer, s/p surgery & radiation currently on Arimidex, hypothyroidism, mood disorder, occipital neuralgia as per records, dementia admitted after multiple hospitalizations and rehab admissions, admitted with left hip pain and a hematoma. Left hip hematoma Acute blood loss anemia In setting of anticoagulation use with Eliquis No known history of trauma H/O multiple left hip surgeries S/P 2 units PRBCs Hemoglobin is stable--apixaban restarted Fall precautions Patient evaluated by orthopedics; follow-up as outpatient in 4 weeks. Pain control with Tylenol. Minimize opioids. She is ambulating per RN-appears to be improving. Hgb 9.9 on 05/02/22 (unchanged from yesterday) (previosly 10.2), cont to monitor H/O PE Eliquis was on hold given acute blood loss anemia-restarted 04/29 Acute kidney injury Renal function improved with IV fluids, blood transfusion Creatinine currently back to baseline Avoid nephrotoxic agents as able Left arm weakness -noted 1 AM - stroke alert called and discussed with CT head, CTA head and neck - negative brain MRI - negative for CVA Pt received IM zyprexa likely in her left arm 1/4 evening [facility] neurology consulted Dementia Delirium Mood Disorder was on seroquel 12.5mg qhs was off IM Zyprexa Started on po Zyprexa nightly at same IM dose as well as PRN Psych consulted- recommended discontinuing seroquel and increasing dose of Depakote Continuing with po zyprexa at 4pm daily and using the ODT prn Delirium precautions. Frequent reorientation, avoid sedating medications Pt needs to be 48hr free from IM antipsychotic for placement - she has not required IM in several days however received IM zyprexa last evening (05/01/22) H/O CVA As per records Evaluated by neurology on prior hospitalization CT head showed no acute findings H/O Breast cancer S/P Surgery, radiation continue Arimidex Hypothyroidism Normal TSH Continue levothyroxine Ongoing tobacco abuse Encourage cessation Diet: Regular DVT Px: Eliquis Code Status: DNI/DNR Dispo: PT recommending rehab vs H; per CM: [facility] can offer a bed on Friday 05/05, pending insurance auth Admission and Anticipated Discharge Date Admission Date: April 16, 2023 Subjective Pt seen in follow up left hip hematoma and ABL anemia. This AM pt not able to lift her left arm. 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 She does have sign of injection and bruise at her left upper arm. She is awake and cooperative. She moves other extremities. She is able to squeeze my fingers with her left hand and bend her left elbow. She can't move her left shoulder - pt is trying to lift her left arm w/ help of her R arm- exam done w/ RN at the bedside Stroke alert called. Discussed w/ [facility] stroke neurologist over the phone and at the bedside via telestroke, CT head w/o con negative. CTA head and neck also negative. Recommended to obtain brain MRI as pt also has some LLE weakness (neurologist aware that pt had recently several L hip surgeries). Also updated family at the bedside. Pt is otherwise calm and cooperative and does not have any complaints. This AM found resting comfortably with 1:1 present. Did require IM olanzapine once overnight (as mentioned above) Update: Brain MRI negative for acute CVA. Will place consult for [facility] neurology for further recommendations Review of Systems Review of Systems: All systems reviewed & are unremarkable except as noted in Subjective Physical Exam Physical Exam: Gen: WD/WN, NAD, resting comfortably, pleasantly confused HEENT: Normocephalic, atraumatic, conjunctivae moist, sclerae anicteric, mucous membranes moist. Lung: Clear to Auscultation bilaterally, no wheezes/rales/rhonchi Heart: Regular rate, regular rhythm, no murmurs, rubs, or gallops Abdomen: Soft, NT, ND +BS x 4 Extremities: No edema. Neuro: She is awake and cooperative. She moves other extremities but left arm. She is able to squeeze my fingers with her left hand and bend her left elbow. She can't move her left shoulder - pt is trying to lift her left arm w/ help of her R arm Skin: Warm, no rash Results & Data Results & Data Vital Signs (Past 12 Hours) Vital Signs Temp Pulse Resp BP Pulse Ox O2 Del Method 05/02/23 08:11 37.1 C 78 16 132/74 93 Room Air 05/01/23 23:17 36.9 C 88 14 161/96 H 94 Room Air Laboratory Results 05/02/23 05/02/23 05/02/23 Range/Units 10:50 10:49 10:39 WBC 7.74 (4.8-10.8) K/ul RBC 3.23 L (4.20-5.40) M/uL Hgb 9.9 L (12.0-16.0) g/dl Hct 31.5 L (37.0-47.0) % MCV 97.5 (80.0-100.0) fL MCH 30.7 (25.0-34.0) pg MCHC 31.4 L (32.0-36.0) g/dL RDW Std Deviation 65.8 H (36.4-46.3) fL RDW Coeff of Andrea 18.2 H (11.5-14.5) % Plt Count 539 H (130-400) K/uL MPV 9.2 L (9.4-12.4) fL PT 10.4 (9.0-12.0) Seconds INR 0.9 (0.9-1.1) APTT 26 (21-31) Seconds PTT Ratio 0.9 Sodium 140 (136-145) mmol/L Potassium 4.2 (3.5-5.1) mmol/L Chloride 107 (98-107) mmol/L Carbon Dioxide 27 (21-32) mmol/L Anion Gap 6 (3-11) BUN 33 H (6-23) mg/dl Creatinine 0.97 (0.6-1.2) mg/dl Est Cr Clr Drug Dosing 34.1 ml/min Est GFR ( Amer) 62.6 ml/min Est GFR (Non-Af Amer) 54.0 ml/min BUN/Creatinine Ratio 34.0 H (10-20) Glucose 113 H (70-99(Fasting)) mg/dl POC Glucose 125 H (70-99) mg/dl Calcium 9.1 (8.6-10.3) mg/dl Magnesium 2.0 (1.7-2.4) mg/dl Blood Type B Positive Antibody Screen NEGATIVE Medications Administered Current Inpatient Medications Acetaminophen (Acetaminophen 500 Mg Tab) 1,000 mg PO Q8H PRN PRN Reason: fever or pain Stop: 05/25/23 17:12 Last Admin: 05/02/23 08:36 Dose: 1,000 mg Anastrozole (Anastrozole 1 Mg Tab) 1 mg PO QAM [facility] Stop: 05/16/23 08:59 Last Admin: 05/02/23 08:26 Dose: 1 mg Apixaban (Apixaban 5 Mg Tablet) 5 mg PO BID [facility] Stop: 05/28/23 20:59 Last Admin: 05/01/23 20:35 Dose: Not Given Divalproex Sodium (Divalproex Extended Release 500 Mg Tab) 500 mg PO HS [facility] Stop: 05/26/23 20:59 Last Admin: 05/01/23 20:36 Dose: Not Given Levothyroxine Sodium (Levothyroxine Sodium 125 Mcg Tablet) 125 mcg PO DAILYBB [facility] Stop: 05/16/23 06:29 Last Admin: 05/02/23 08:25 Dose: 125 mcg Magnesium Chloride (Magnesium Chloride W/Calcium 64mg Delayed Rel Tab) 64 mg PO BID [facility] Stop: 05/17/23 09:29 Last Admin: 05/02/23 08:26 Dose: 64 mg Olanzapine (Olanzapine 2.5 Mg Tab) 2.5 mg PO DAILY@1600 [facility] Stop: 05/27/23 15:59 Last Admin: 05/01/23 15:50 Dose: 2.5 mg Olanzapine (Olanzapine Zydis 5 Mg Orally Dis. Tab) 2.5 mg PO Q4H PRN PRN Reason: psychosis (1st line) Stop: 05/26/23 20:29 Last Admin: 05/02/23 08:27 Dose: 2.5 mg (3) Hip pain Laterality: left Qualified Code(s): M25.552 - Pain in left hip
[2023-05-02] MEDS: APIXABAN 5 MG TABLET PO SCH ×2 (10:16→21:48)
[2023-05-02] MEDS ORDERED: OPTIRAY 320 125ml IV ONE (11:04)
--- NOTE | 2023-05-02 11:22 | CT Scan Report ---
HEAD CT NONCONTRAST CT DOSE: HISTORY: Stroke symptoms. Left arm paresthesia/paralysis. can't lift L arm TECHNIQUE: Multiaxial CT images of the head were performed without the use of intravenous contrast. A utomated exposure control was utilized for this study. A dose lowering technique was utilized adheri ng to the principles of ALARA. Comparison: Head CT 04/16/2023. Findings: Small fluid levels within the sphenoid sinuses and mild mucosal thickening within the right maxillary sinus. This has improved in the interval. The mastoid air cells are clear. The calvarium a nd skull base are intact. There is no mass, hematoma, midline shift, acute infarct. White matter hypo density is nonspecific but suggestive of microvascular ischemic change. The ventricles and sulci demo nstrate mild age-related involutional changes. Impression: 1. No acute infarct or intracranial hemorrhage. 2. Interval improvement in the paranasal sinus disease. ACT 112: Negative or not required by law. Electronically signed by: Laureano San M.D. 05/02/2023 11:20 AM
[2023-05-02 11:34] LABS: Hematocrit (blood only) 31.5 % (37.0-47.0); Hemoglobin 9.9 g/dl (12.0-16.0); Mean Corpuscular Hemoglobin 30.7 pg (25.0-34.0); Mean Corpuscular Hgb Conc 31.4 g/dL (32.0-36.0); Mean Corpuscular Volume 97.5 fL (80.0-100.0); Mean Platelet Volume 9.2 fL (9.4-12.4); Platelet Count 539 K/uL (130-400); RDW Coefficient of Variation 18.2 % (11.5-14.5); RDW Standard Deviation 65.8 fL (36.4-46.3); Red Blood Count 3.23 M/uL (4.20-5.40); White Blood Count 7.74 K/ul (4.8-10.8)
--- NOTE | 2023-05-02 11:38 | CT Scan Report ---
CT ANGIOGRAM OF THE NECK CLINICAL HISTORY: Strokelike symptoms. Left upper extremity weakness. COMPARISON STUDY: No priors. TECHNIQUE: Following the IV administration of 116 of Optiray 320, CT angiogram of the neck was perfor med from the aortic arch to the skull base. Images are reviewed in the axial, sagittal, and coronal p lanes. 3-D MIPS images are created and assessed. IV contrast was administered without complication. A ll measurements were calculated based on NASCET criteria. A dose lowering technique was utilized adh ering to the principles of ALARA. CT DOSE: 1263.07 mGy.cm FINDINGS: Thoracic aorta: Visualized portions of the thoracic aorta are normal in caliber. The aortic arch demo nstrates bovine variant anatomy. Right carotid arterial system: The right common carotid artery is widely patent, as are the right int ernal and external carotid arteries. Left carotid arterial system: The left common carotid artery is widely patent, as are the left finance intern al and external carotid arteries. Vertebral arteries: The vertebral arteries are widely patent bilaterally noting left-sided dominance. Subclavian arteries: Widely patent bilaterally. Intracranial vasculature: The visualized intracranial vessels at the skull base are patent. Jugular veins: The right internal jugular vein is patent. The left internal jugular vein is diminutiv e. Brain parenchyma: The visualized brain parenchyma the skull base is within normal limits. Lung apices: A calcified granuloma is noted at the left apex. Partially visualized upper lobe lung pa renchyma otherwise appears clear. Soft tissues: The visualized pharyngeal soft tissues are normal in appearance noting angiographic pha se technique. The oropharyngeal airway appears widely patent. The thyroid gland is atrophic. The sali vary glands are normal in appearance. No cervical lymphadenopathy is seen. Skeletal structures: The skeletal structures are osteopenic. The visualized calvarium at the skull ba se appears intact. The imaged cervical spine is maintained noting multilevel spondylosis. Sinuses and mastoids: There is trace mucosal thickening in the right maxillary antrum. Mild mucosal t hickening is noted in the sphenoid sinuses. The mastoid air cells are well pneumatized. IMPRESSION: Unremarkable CT angiogram of the neck. ACT 112: Negative or not required by law. Electronically signed by: Fred Ramirez M.D. 05/02/2023 11:37 AM
--- NOTE | 2023-05-02 11:39 | CT Scan Report ---
CT angio head w con CLINICAL HISTORY: 82 years-old Female with can't lift L arm. Acute stroke like symptoms COMPARISON STUDY: CTA neck of same day, head CT 04/16/2023 TECHNIQUE: Unenhanced axial CT scan of the following the IV administration of 116 cc of Optiray, CT a ngiogram of the brain was performed from the skull base to the vertex. Images are reviewed in the axi al, sagittal, and coronal planes. 3-D MIPS images are created and assessed. IV contrast was administe red without complication. All measurements were obtained according to NASCET criteria. A dose lowerin g technique was utilized adhering to the principles of ALARA. FINDINGS: CT ANGIOGRAM OF THE BRAIN: The imaged bilateral internal carotid arteries are patent. There is a 3 mm saccular aneurysm arising from the clinoid segment left ICA on image 102 series 5 without rupture. Trifurcation of the A2 segme nts of the anterior cerebral arteries with areas of mild multifocal stenosis. The bilateral anterior and middle cerebral arteries are also patent. There is 50% narrowing within the P1 segment left poste rior cerebral artery on image 119 series 5. Additional mild areas of stenosis within the posterior ce rebral arteries. Basilar artery is patent. There is no additional aneurysm, high-grade stenosis, or p roximal branch occlusion identified. Dural sinuses appear patent. Involutional changes with chronic microvascular ischemic disease. IMPRESSION: 1. 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 2. Otherwise unremarkable CTA of the head. ACT 112: Negative or not required by law. The above report was generated using voice recognition software. It may contain grammatical, syntax o r spelling errors. Electronically signed by: Christos Rico M.D. 05/02/2023 11:38 AM
--- NOTE | 2023-05-02 11:40 | Electrocardiogram Report ---
Test Reason : Blood Pressure : / mmHG Vent. Rate : 073 BPM Atrial Rate : 073 BPM P-R Int : 156 ms QRS Dur : 100 ms QT Int : 420 ms P-R-T Axes : 041 029 045 degrees QTc Int : 462 ms Normal sinus rhythm with sinus arrhythmia Incomplete right bundle branch block Borderline ECG When compared with ECG of 15-APR-2023 20:00, Non-specific change in ST segment in Anterior leads Confirmed by Steve Vargas ([id number]) on 05/02/2023 11:39:59 AM Referred By: [facility] Confirmed By:Steve Vargas
[2023-05-02 11:47] LABS: Calcium 9.1 mg/dl (8.6-10.3); Creatinine Clr Calc Pharmacy 34.1 ml/min; Est GFR (African American) 62.6 ml/min; Potassium 4.2 mmol/L (3.5-5.1)
[2023-05-02 11:55] LABS: INR 0.9 (0.9-1.1); Partial Thromboplastin Ratio 0.9; Partial Thromboplastin Time 26 Seconds (21-31); Prothrombin Time 10.4 Seconds (9.0-12.0)
--- NOTE | 2023-05-02 13:26 | Magnetic Resonance Report ---
MRI OF THE BRAIN WITHOUT IV CONTRAST CLINICAL HISTORY: Strokelike symptoms. COMPARISON STUDY: CT of the brain dated 05/02/2023. TECHNIQUE: MRI of the brain was performed utilizing various T1 and T2-weighted sequences in the axial , sagittal, and coronal planes. IV contrast was not administered for this examination. The examinatio n is significantly degraded by motion artifact. FINDINGS: Brain parenchyma: There is age related involutional change noting moderate to advanced confluent subc ortical and periventricular microangiopathic disease. There is no hemorrhage or mass effect. There is no restricted diffusion to suggest acute ischemia. Palacio-white matter differentiation is preserved. N o extra-axial fluid collection is seen. The cerebellar tonsils are normal in configuration. Ventricles, sulci, and cisterns: Prominent secondary to involutional change. Pituitary and sella: Unremarkable. Intracranial vasculature: Normal flow voids are maintained at the skull base. Orbits: The bony orbits are grossly intact. Orbital contents are normal in appearance Bilateral ocular lens implants. Sinuses and mastoids: Mucosal thickening is noted in the sphenoid sinuses. The remaining paranasal si nuses and the mastoid air cells are clear. Calvarium: Unremarkable. Cervical cord: Partially visualized cervical spinal cord is normal in morphology and signal intensity . IMPRESSION: No acute intracranial abnormality is identified. ACT 112: Negative or not required by law. Electronically signed by: Fred Ramirez M.D. 05/02/2023 1:23 PM
[2023-05-02] MEDS: OLANZAPINE 2.5 MG TAB PO SCH (16:14)
--- NOTE | 2023-05-02 16:35 | Communication Note ---
Date of Service: May 02, 2023 Pt has improved in some ways. Went several days without requiring IM PRN medication until night before last. Appears to have been tolerating divalproex w ithout evidence of adverse effects. It would be reasonable to increase her low doses of divalproex and olanzapine, though each could be sedating and if she were to be sedated changing both at the same time could make it difficult to determine to which change to attribute that. Overall, the risk to her from disorganized behavior is significant. Recommendations: * increase divalproex ER to 250 mg QAM & 500 mg QHS * increase olanzapine to 2.5 mg BID * continue olanzapine ODT 2.5 mg PO Q4Hr PRN psychosis or 2.5 mg IM Q4Hr PRN psychosis if oral form cannot be administered
--- NOTE | 2023-05-02 16:59 | Neurology Consultation ---
Date of Consultation May 02, 2023 Assessment & Plan (1) Axillary nerve palsy: Pattern of weakness involving shoulder abduction without distal weakness is inconsistent with stroke or other central etiology. MRI is normal as expected. This is consistent with an axillary nerve injury. Recommend shoulder films to rule out dislocation but otherwise likely compressive. Can have EMG in 6 weeks if it does not improve. -- Shoulder x-rays for dislocation -- EMG in 6 weeks if not improved -- Please contact us with any further questions. Telehealth Consultation Telehealth Information Telehealth Information: I performed this visit using a real-time telehealth connection between my location and the patients location ([facility]). After connecting through interactive tele-video, patient was identified by name and date of and/or wristband check.Patient (or authorized healthcare account services representative) was informed that this was a telemedicine visit and it was being conducted confidentially over secure lines. My office door was closed and no one else was present in the room with me.Patient (or authorized healthcare account services representative) provided consent to proceed with the visit, expressed an understanding of privacy and security of the telemedicine visit, and gave permission to have a hospital account services representative in the room in order to assist with the visit and to conduct portions of the visit, as needed. I informed the patient (or authorized healthcare account services representative) that I reviewed their record and presented the opportunity for them to ask any questions regarding the visit today. The patient agreed to participate. History of Present Illness Reason for Consultation: L arm weakness Requesting Physician: Dr. Jolly Attending Physician: Wood Jolly MD History of Present Illness Tc Shrestha is an 82 yo F admitted 16 days for a L hip hematoma complicated by delirium on dementia. She has been awaiting placement but needs to be off of rescue antipsychotics before she can be placed. Today it was noted on exam that her left shoulder was weak and she needed to lift her left arm with her right. Nursing reports it was noted when trying to get her out of bed this morning but not noticed prior. The patient is unreliable but feels like it has been that way for weeks. She also describes intermittent pain in the shoulder but not currently. Allergies Allergy/AdvReac Type Severity Reaction Status Date / Time cinnamon Allergy Intermediate Flushing Verified 04/15/23 20:13 haloperidol [From Haldol] AdvReac Severe excessive Verified 04/16/23 07:24 sedation as per family Home Medications Medication Instructions Recorded Confirmed Type amlodipine 5 mg tablet 5 mg PO DAILY 04/15/23 04/15/23 History anastrozole 1 mg tablet 1 mg PO QAM 04/15/23 04/15/23 History apixaban 5 mg tablet (Eliquis) 5 mg PO Q12 04/15/23 04/15/23 History benzonatate 100 mg capsule 200 mg PO Q8 PRN Cough 04/15/23 04/15/23 History clonidine 0.1 mg/24 hr weekly 0.1 mg transdermal .Wednesdays04/15/23 04/15/23 History transdermal patch divalproex 250 mg tablet,extended 250 mg PO HS 04/15/23 04/15/23 History release 24 hr levothyroxine 125 mcg tablet 125 mcg PO DAILYBB 04/15/23 04/15/23 History quetiapine 25 mg tablet 12.5 mg PO BID 04/15/23 04/15/23 History Patient History Social History Smoking Status: Unknown if ever smoked Hx Alcohol Use: No (unable to answer questions) Hx Substance Use: No (unable to answer questions) Preferred Language: Turkmen Communication Ability: Effective Strategic Alliances Manager Required: No Beliefs That Will Affect Care: None Current Living Situation: Personal Care Facility Current Living Situation Comment: [facility] Feels Safe at Home: Yes Assistive Devices: Walker Review of Systems L arm weakness Physical Exam Awake and alert, speech fluent but otherwise unable to provide a history. Disoriented to place and time. Follows commands. Face symmetric, no ocular movement abnormalities. LUE - 3/5 strength in the L deltoid, specifically first 25% of range, then able to maintain against gravity. Full strength distally. Results & Data Vital Signs (Past 12 Hours) Vital Signs Temp Pulse Pulse Resp BP BP Pulse Ox 05/02/23 15:11 36.5 C 68 16 131/78 95 05/02/23 12:15 159/78 H 05/02/23 12:15 77 22 05/02/23 12:00 145/93 H 05/02/23 12:00 79 17 05/02/23 11:45 139/67 05/02/23 11:45 81 18 05/02/23 11:30 132/88 05/02/23 11:30 72 24 05/02/23 11:15 118/72 05/02/23 11:15 75 29 H 95 01/05/24 11:07 36.6 C 94 05/02/23 11:07 121/69 05/02/23 08:11 37.1 C 78 16 132/74 93 O2 Del Method 05/02/23 15:11 Room Air 05/02/23 12:15 05/02/23 12:15 05/02/23 12:00 05/02/23 12:00 05/02/23 11:45 05/02/23 11:45 05/02/23 11:30 05/02/23 11:30 05/02/23 11:15 05/02/23 11:15 05/02/23 11:07 05/02/23 11:07 05/02/23 08:11 Room Air Laboratory Results Abnormal lab results 05/02/23 05/02/23 Range/Units 10:39 10:49 RBC 3.23 L (4.20-5.40) M/uL Hgb 9.9 L (12.0-16.0) g/dl Hct 31.5 L (37.0-47.0) % MCHC 31.4 L (32.0-36.0) g/dL RDW Std Deviation 65.8 H (36.4-46.3) fL RDW Coeff of Andrea 18.2 H (11.5-14.5) % Plt Count 539 H (130-400) K/uL MPV 9.2 L (9.4-12.4) fL BUN 33 H (6-23) mg/dl BUN/Creatinine Ratio 34.0 H (10-20) Glucose 113 H (70-99(Fasting)) mg/dl POC Glucose 125 H (70-99) mg/dl Diagnostic Findings MRI brain - Unremarkable
[2023-05-02] MEDS: DIVALPROEX EXTENDED RELEASE 500 MG TAB PO SCH (21:49)
--- NOTE | 2023-05-03 08:06 | XRay Report ---
XR shoulder RT min 2V routine CLINICAL HISTORY: Unable to lift arm. Evaluate for dislocation. COMPARISON: None FINDINGS: Alignment of the right acromioclavicular and glenohumeral joints is anatomic. There is no acute fracture. Mild to moderate degenerative changes within the right shoulder are present. Surgical anchors within the right humeral head are incidentally noted. There are right axillary surgical clip s. IMPRESSION: 1. No fracture or dislocation within the right shoulder. 2. Mild to moderate degenerative changes within the right shoulder. ACT 112: Negative or not required by law. Electronically signed by: Floyd Bañuelos M.D. 05/03/2023 8:05 AM
--- NOTE | 2023-05-03 08:07 | XRay Report ---
XR humerus RT 2V CLINICAL HISTORY: right arm sore COMPARISON: None FINDINGS: Surgical anchors within the right humeral head are incidentally noted. There is no fractur e within the right humerus. No osseous lesions are present. Irregularity of the humeral condyles is c hronic. Moderate right elbow osteophytosis is present. IMPRESSION: 1. No fractures within the right humerus. 2. Moderate right elbow osteoarthritis. ACT 112: Negative or not required by law. Electronically signed by: Floyd Bañuelos M.D. 05/03/2023 8:06 AM
--- NOTE | 2023-05-03 08:08 | XRay Report ---
XR forearm RT 2V CLINICAL HISTORY: right arm sore COMPARISON: None FINDINGS: No fracture within the right radius or ulna is identified. Forearm IV is incidentally note d. There is moderate right elbow osteophytosis. There are no osseous lesions. IMPRESSION: 1. No fractures within the right radius or ulna. 2. Moderate right elbow osteoarthritis. ACT 112: Negative or not required by law. Electronically signed by: Floyd Bañuelos M.D. 05/03/2023 8:07 AM
[2023-05-03] MEDS: LEVOTHYROXINE SODIUM 125 MCG TABLET PO SCH (09:42)
[2023-05-03] MEDS: MAGNESIUM CHLORIDE W/CALCIUM 64MG DELAYED REL TAB PO SCH (09:43)
[2023-05-03] MEDS: APIXABAN 5 MG TABLET PO SCH ×2 (09:43→21:21)
[2023-05-03] MEDS: ANASTROZOLE 1 MG TAB PO SCH (09:43)
[2023-05-03] MEDS: ACETAMINOPHEN 500 MG TAB PO PRN (12:49)
[2023-05-03] MEDS: OLANZapine ZYDIS 5 MG ORALLY DIS. TAB PO PRN ×2 (16:15→21:24)
[2023-05-03] MEDS: OLANZAPINE 2.5 MG TAB PO SCH (16:37)
--- NOTE | 2023-05-03 17:53 | Hospitalist Progress Note ---
Date of Service May 03, 2023 Assessment & Plan (1) Acute blood loss anemia: (2) Delirium: (3) Hip pain: (4) Hip hematoma, left: (5) History of CVA (cerebrovascular accident): (6) Dementia: (7) Hypothyroidism: Plan Pt is an 82yoF with PMHx significant for HTN, Hx of CVA, hx PE on Eliquis (01/2023), breast cancer, s/p surgery & radiation currently on Arimidex, hypothyroidism, mood disorder, occipital neuralgia as per records, dementia admitted after multiple hospitalizations and rehab admissions, admitted with left hip pain and a hematoma. Left hip hematoma Acute blood loss anemia In setting of anticoagulation use with Eliquis No known history of trauma H/O multiple left hip surgeries S/P 2 units PRBCs Hemoglobin is stable--apixaban restarted Fall precautions Patient evaluated by orthopedics; follow-up as outpatient in 4 weeks. Pain control with Tylenol. Minimize opioids. She is ambulating per RN-appears to be improving. Hgb 9.9 on 05/02/22 (unchanged from yesterday) (previosly 10.2), cont to monitor H/O PE Eliquis was on hold given acute blood loss anemia-restarted 04/29 Acute kidney injury Renal function improved with IV fluids, blood transfusion Creatinine currently back to baseline Avoid nephrotoxic agents as able received contrast on 05/02 d/t poss. cva eval - cont. to monitor renal function Left arm weakness -noted 05/02 AM - stroke alert called and discussed with CT head, CTA head and neck - negative brain MRI - negative for CVA Pt received IM zyprexa likely in her left arm on 05/01 evening [facility] neurology consulted - Axillary nerve palsy: Pattern of weakness involving shoulder abduction without distal weakness is inconsistent with stroke or other central etiology. MRI is normal as expected. This is consistent with an axillary nerve injury. Recommend shoulder films to rule out dislocation but otherwise likely compressive. Can have EMG in 6 weeks if it does not improve. -- Shoulder x-rays for dislocation -- EMG in 6 weeks if not improved -- Please contact us with any further questions. XR of left shoulder obtained - no fracture or dislocation Dementia Delirium Mood Disorder was on seroquel 12.5mg qhs was off IM Zyprexa Started on po Zyprexa nightly at same IM dose as well as PRN Psych consulted- recommended discontinuing seroquel and increasing dose of Depakote 250 AM, 500 HS Continuing with po zyprexa at 4pm daily and using the ODT prn -> increase to 2.5 BID Delirium precautions. Frequent reorientation, avoid sedating medications Pt needs to be 48hr free from IM antipsychotic for placement - she has not required IM in several days however received IM zyprexa in the evening (05/01/22) H/O CVA As per records Evaluated by neurology on prior hospitalization CT head showed no acute findings H/O Breast cancer S/P Surgery, radiation continue Arimidex Hypothyroidism Normal TSH Continue levothyroxine Ongoing tobacco abuse Encourage cessation Diet: Regular DVT Px: Eliquis Code Status: DNI/DNR Dispo: PT recommending rehab vs [facility]; per CM: [facility] can offer a bed on Friday 05/05, pending insurance auth Admission and Anticipated Discharge Date Admission Date: April 16, 2023 Subjective Pt seen in follow up left hip hematoma and ABL anemia. Currently laying in bed , in NAD, resting No chest pain, shortness of breath, abd. pain, n/v Left arm weakness seems to be improving. XR of L shoulder obtained and negative Review of Systems Review of Systems: All systems reviewed & are unremarkable except as noted in Subjective Physical Exam Physical Exam: Gen: WD/WN, NAD, resting comfortably, pleasantly confused HEENT: Normocephalic, atraumatic, conjunctivae moist, sclerae anicteric, mucous membranes moist. Lung: Clear to Auscultation bilaterally, no wheezes/rales/rhonchi Heart: Regular rate, regular rhythm, no murmurs, rubs, or gallops Abdomen: Soft, NT, ND +BS x 4 Extremities: No edema. Neuro: Left arm weakness seems to be improving compared to yesterday Skin: Warm, no rash Results & Data Results & Data Vital Signs (Past 12 Hours) Vital Signs Temp Pulse Pulse Resp BP Pulse Ox O2 Del Method 05/03/23 14:00 76 05/03/23 11:41 36.6 C 73 17 112/63 95 Room Air 05/03/23 08:01 36.6 C 72 17 155/73 H 96 Room Air 05/03/23 05:55 65 Medications Administered Current Inpatient Medications Acetaminophen (Acetaminophen 500 Mg Tab) 1,000 mg PO Q8H PRN PRN Reason: fever or pain Stop: 05/25/23 17:12 Last Admin: 05/03/23 12:49 Dose: 1,000 mg Anastrozole (Anastrozole 1 Mg Tab) 1 mg PO QAM [facility] Stop: 05/16/23 08:59 Last Admin: 05/03/23 09:43 Dose: 1 mg Apixaban (Apixaban 5 Mg Tablet) 5 mg PO BID [facility] Stop: 05/28/23 20:59 Last Admin: 05/03/23 09:43 Dose: 5 mg Divalproex Sodium (Divalproex Extended Release 500 Mg Tab) 500 mg PO HS [facility] Stop: 05/26/23 20:59 Last Admin: 05/02/23 21:49 Dose: 500 mg Guaifenesin (Guaifenesin Sugar Free 200 Mg/10 Ml Udc) 200 mg PO Q6H [facility] Stop: 06/02/23 17:59 Levothyroxine Sodium (Levothyroxine Sodium 125 Mcg Tablet) 125 mcg PO DAILYBB [facility] Stop: 05/16/23 06:29 Last Admin: 05/03/23 09:42 Dose: 125 mcg Magnesium Chloride (Magnesium Chloride W/Calcium 64mg Delayed Rel Tab) 64 mg PO BID [facility] Stop: 05/17/23 09:29 Last Admin: 05/03/23 09:43 Dose: 64 mg Olanzapine (Olanzapine 2.5 Mg Tab) 2.5 mg PO DAILY@1600 [facility] Stop: 05/27/23 15:59 Last Admin: 05/03/23 16:37 Dose: 2.5 mg Olanzapine (Olanzapine Zydis 5 Mg Orally Dis. Tab) 2.5 mg PO Q4H PRN PRN Reason: psychosis (1st line) Stop: 05/26/23 20:29 Last Admin: 05/02/23 21:48 Dose: 2.5 mg (3) Hip pain Laterality: left Qualified Code(s): M25.552 - Pain in left hip
[2023-05-03] MEDS ORDERED: guaiFENesin 600 MG TABCR PO SCH (21:00)
[2023-05-03] MEDS: guaiFENesin SUGAR FREE 200 MG/10 ML UDC PO SCH ×2 (21:20→23:00)
[2023-05-03] MEDS: DIVALPROEX EXTENDED RELEASE 500 MG TAB PO SCH ×2 (21:21→21:35)
[2023-05-03] MEDS ORDERED: VALPROIC ACID SOLN 250 MG/5 ML UDC PO SCH ×2 (21:40→21:45)
[2023-05-03] MEDS: DIVALPROEX SODIUM SPRINKLE/DEL-REL 125 MG CAP PO SCH (22:17)
[2023-05-04] MEDS: DIVALPROEX SODIUM SPRINKLE/DEL-REL 125 MG CAP PO SCH ×2 (07:15→21:55)
[2023-05-04] MEDS: guaiFENesin SUGAR FREE 200 MG/10 ML UDC PO SCH ×4 (07:15→23:10)
[2023-05-04] MEDS: LEVOTHYROXINE SODIUM 125 MCG TABLET PO SCH (07:24)
[2023-05-04] MEDS ORDERED: DIVALPROEX EXTENDED RELEASE 250 MG TABCR PO SCH (09:00)
[2023-05-04 09:01] LABS: Hematocrit (blood only) 34.9 % (37.0-47.0); Hemoglobin 10.9 g/dl (12.0-16.0); Mean Corpuscular Hemoglobin 30.8 pg (25.0-34.0); Mean Corpuscular Hgb Conc 31.2 g/dL (32.0-36.0); Mean Corpuscular Volume 98.6 fL (80.0-100.0); Mean Platelet Volume 9.3 fL (9.4-12.4); Platelet Count 564 K/uL (130-400); RDW Coefficient of Variation 17.9 % (11.5-14.5); RDW Standard Deviation 65.6 fL (36.4-46.3); Red Blood Count 3.54 M/uL (4.20-5.40); White Blood Count 6.96 K/ul (4.8-10.8)
[2023-05-04 09:05] LABS: BUN Creatinine Ratio 32.2 (10-20); Calcium 9.5 mg/dl (8.6-10.3); Creatinine Clr Calc Pharmacy 42.3 ml/min; Est GFR (African American) 71.4 ml/min; Est GFR (Non-African American) 61.6 ml/min; Phosphorus 3.9 mg/dl (2.5-4.9); Potassium 4.2 mmol/L (3.5-5.1)
[2023-05-04] MEDS: OLANZAPINE 2.5 MG TAB PO SCH ×2 (10:01→21:55)
[2023-05-04] MEDS: ANASTROZOLE 1 MG TAB PO SCH (10:02)
[2023-05-04] MEDS: APIXABAN 5 MG TABLET PO SCH ×2 (10:02→21:55)
--- NOTE | 2023-05-04 10:09 | Hospitalist Progress Note ---
Date of Service May 04, 2023 Assessment & Plan (1) Acute blood loss anemia: (2) Delirium: (3) Hip pain: (4) Hip hematoma, left: (5) History of CVA (cerebrovascular accident): (6) Dementia: (7) Hypothyroidism: Plan Pt is an 82yoF with PMHx significant for HTN, Hx of CVA, hx PE on Eliquis (01/2023), breast cancer, s/p surgery & radiation currently on Arimidex, hypothyroidism, mood disorder, occipital neuralgia as per records, dementia admitted after multiple hospitalizations and rehab admissions, admitted with left hip pain and a hematoma. Left hip hematoma Acute blood loss anemia In setting of anticoagulation use with Eliquis No known history of trauma H/O multiple left hip surgeries S/P 2 units PRBCs Hemoglobin is stable--apixaban restarted Fall precautions Patient evaluated by orthopedics; follow-up as outpatient in 4 weeks. Pain control with Tylenol. Minimize opioids. She is ambulating per RN-appears to be improving. Hgb 05/04 10.9, improving, cont to monitor 05/04 family concerned about hip hematoma - more tight at the scar and warm, repeat CT ordered, ESR, CRP, will also further discuss w/ Dr. Campos. Pt has no fever, WBC is normal. Hgb is improving. blood cultx obtained previously are negative. H/O PE Eliquis was on hold given acute blood loss anemia-restarted 04/29 Acute kidney injury Renal function improved with IV fluids, blood transfusion Creatinine currently back to baseline Avoid nephrotoxic agents as able received contrast on 05/02 d/t poss. cva eval - cont. to monitor renal function- renal function remains at baseline Left arm weakness -noted 05/02 AM - stroke alert called and discussed with CT head, CTA head and neck - negative brain MRI - negative for CVA Pt received IM zyprexa likely in her left arm on 05/01 evening [facility] neurology consulted - Axillary nerve palsy: Pattern of weakness involving shoulder abduction without distal weakness is inconsistent with stroke or other central etiology. MRI is normal as expected. This is consistent with an axillary nerve injury. Recommend shoulder films to rule out dislocation but otherwise likely compressive. Can have EMG in 6 weeks if it does not improve. -- Shoulder x-rays for dislocation -- EMG in 6 weeks if not improved -- Please contact us with any further questions. XR of left shoulder obtained - no fracture or dislocation Dementia Delirium Mood Disorder was on seroquel 12.5mg qhs was off IM Zyprexa Started on po Zyprexa nightly at same IM dose as well as PRN Psych consulted- recommended discontinuing seroquel and increased dose of Depakote 250 AM, 500 HS Continuing with po zyprexa at 4pm daily and using the ODT prn -> increased to 2.5 BID Delirium precautions. Frequent reorientation, avoid sedating medications Pt needs to be 48hr free from IM antipsychotic for placement - she has not required IM in several days however received IM zyprexa in the evening (05/01/22) H/O CVA As per records Evaluated by neurology on prior hospitalization CT head showed no acute findings H/O Breast cancer S/P Surgery, radiation continue Arimidex Hypothyroidism Normal TSH Continue levothyroxine Ongoing tobacco abuse Encourage cessation Diet: Regular DVT Px: Eliquis Code Status: DNI/DNR Dispo: plan to DC to [facility] when bed available/ auth obatined Admission and Anticipated Discharge Date Admission Date: April 16, 2023 Subjective Pt seen in follow up left hip hematoma and ABL anemia. Currently laying in bed , in NAD, resting No chest pain, shortness of breath, abd. pain, n/v Update: Notified by RN that Pt's niece concerned about left hip hematoma, seems more tight at the scar and warm. Will obtain repeat CT, ESR and CRP and will discuss w/ Dr. Campos. Review of Systems Review of Systems: All systems reviewed & are unremarkable except as noted in Subjective Physical Exam Physical Exam: Gen: WD/WN, NAD, resting comfortably, pleasantly confused HEENT: Normocephalic, atraumatic, conjunctivae moist, sclerae anicteric, mucous membranes moist. Lung: Clear to Auscultation bilaterally, no wheezes/rales/rhonchi Heart: Regular rate, regular rhythm, no murmurs, rubs, or gallops Abdomen: Soft, NT, ND +BS x 4 Extremities: No edema. Neuro: Left arm weakness seems to be slightly improving compared to previous exam Skin: Warm, no rash Results & Data Results & Data Vital Signs (Past 12 Hours) Vital Signs Temp Pulse Pulse Resp BP BP Pulse Ox 05/04/23 07:59 36.4 C L 81 16 147/89 H 98 05/04/23 05:55 65 05/03/23 23:42 05/03/23 23:11 81 05/03/23 22:55 36.6 C 88 16 144/90 H 96 O2 Del Method 05/04/23 07:59 Room Air 05/04/23 05:55 05/03/23 23:42 Room Air 05/03/23 23:11 05/03/23 22:55 Room Air Laboratory Results 05/04/23 Range/Units 08:00 WBC 6.96 (4.8-10.8) K/ul RBC 3.54 L (4.20-5.40) M/uL Hgb 10.9 L (12.0-16.0) g/dl Hct 34.9 L (37.0-47.0) % MCV 98.6 (80.0-100.0) fL MCH 30.8 (25.0-34.0) pg MCHC 31.2 L (32.0-36.0) g/dL RDW Std Deviation 65.6 H (36.4-46.3) fL RDW Coeff of Andrea 17.9 H (11.5-14.5) % Plt Count 564 H (130-400) K/uL MPV 9.3 L (9.4-12.4) fL Sodium 137 (136-145) mmol/L Potassium 4.2 (3.5-5.1) mmol/L Chloride 103 (98-107) mmol/L Carbon Dioxide 28 (21-32) mmol/L Anion Gap 6 (3-11) BUN 28 H (6-23) mg/dl Creatinine 0.87 (0.6-1.2) mg/dl Est Cr Clr Drug Dosing 42.3 ml/min Est GFR ( Amer) 71.4 ml/min Est GFR (Non-Af Amer) 61.6 ml/min BUN/Creatinine Ratio 32.2 H (10-20) Glucose 106 H (70-99(Fasting)) mg/dl Calcium 9.5 (8.6-10.3) mg/dl Phosphorus 3.9 (2.5-4.9) mg/dl Magnesium 2.0 (1.7-2.4) mg/dl Medications Administered Current Inpatient Medications Acetaminophen (Acetaminophen 500 Mg Tab) 1,000 mg PO Q8H PRN PRN Reason: fever or pain Stop: 05/25/23 17:12 Last Admin: 05/03/23 12:49 Dose: 1,000 mg Anastrozole (Anastrozole 1 Mg Tab) 1 mg PO QAM [facility] Stop: 05/16/23 08:59 Last Admin: 05/04/23 10:02 Dose: 1 mg Apixaban (Apixaban 5 Mg Tablet) 5 mg PO BID [facility] Stop: 05/28/23 20:59 Last Admin: 05/04/23 10:02 Dose: 5 mg Divalproex Sodium (Divalproex Sodium Sprinkle/Del-Rel 125 Mg Cap) 250 mg PO DAILYBB [facility] Stop: 06/03/23 06:29 Last Admin: 05/04/23 07:15 Dose: 250 mg Divalproex Sodium (Divalproex Sodium Sprinkle/Del-Rel 125 Mg Cap) 500 mg PO HS [facility] Stop: 06/02/23 21:59 Last Admin: 05/03/23 22:17 Dose: 500 mg Guaifenesin (Guaifenesin Sugar Free 200 Mg/10 Ml Udc) 200 mg PO Q6H [facility] Stop: 06/02/23 17:59 Last Admin: 05/04/23 07:15 Dose: 200 mg Levothyroxine Sodium (Levothyroxine Sodium 125 Mcg Tablet) 125 mcg PO DAILYBB [facility] Stop: 05/16/23 06:29 Last Admin: 05/04/23 07:24 Dose: 125 mcg Magnesium Chloride (Magnesium Chloride W/Calcium 64mg Delayed Rel Tab) 64 mg PO BID [facility] Stop: 05/17/23 09:29 Last Admin: 05/03/23 09:43 Dose: 64 mg Olanzapine (Olanzapine Zydis 5 Mg Orally Dis. Tab) 2.5 mg PO Q4H PRN PRN Reason: psychosis (1st line) Stop: 05/26/23 20:29 Last Admin: 05/03/23 21:24 Dose: 2.5 mg Olanzapine (Olanzapine 2.5 Mg Tab) 2.5 mg PO BID [facility] Stop: 06/03/23 08:59 Last Admin: 05/04/23 10:01 Dose: 2.5 mg (3) Hip pain Laterality: left Qualified Code(s): M25.552 - Pain in left hip
[2023-05-04] MEDS: ACETAMINOPHEN 500 MG TAB PO PRN (12:46)
[2023-05-04] MEDS: ACETAMINOPHEN 500 MG TAB PO SCH (21:54)
--- NOTE | 2023-05-04 23:18 | CT Scan Report ---
Exam(s): CT EXTREMITY LEFT LOWER Without Contrast EXAM: CT Left Lower Extremity Without Intravenous Contrast CLINICAL HISTORY: Reason for exam: follow hematoma, ? abscess. TECHNIQUE: Axial computed tomography images of the left lower extremity without intravenous contrast. CTDI is 10.57 mGy and DLP is 566.02 mGy-cm. Automated exposure control was utilized for the study. A dose lowering technique was utilized adhering to the principles of ALARA. COMPARISON: 04/15/2003. FINDINGS: Bones/joints: There is a left-sided hip prosthesis in place with normal alignment. Diffuse osteopenia. There is an old fracture involving the right inferior pubic ramus and anterior aspect of the right pubic symphysis. Degenerative disease at the level of the knee. Soft tissues: There is nonspecific soft tissue swelling along the lateral aspect of the upper thigh and buttock region versus mild hematoma. Other findings: Increased fecal debris within the colon consistent with constipation. Diverticulosis of the visualized sigmoid. IMPRESSION: 1. Mild hematoma versus nonspecific soft tissue swelling along the lateral aspect of the upper thigh and buttock region. 2. Left-sided hip prosthesis in place with no acute fracture or subluxation. Electronically signed by: Sharmin Valdovinos MD 05/04/23 23:17 PM
[2023-05-05] MEDS: ACETAMINOPHEN 500 MG TAB PO SCH ×3 (06:39→20:16)
[2023-05-05] MEDS: DIVALPROEX SODIUM SPRINKLE/DEL-REL 125 MG CAP PO SCH ×2 (06:40→20:16)
[2023-05-05] MEDS: guaiFENesin SUGAR FREE 200 MG/10 ML UDC PO SCH ×4 (06:40→17:34)
[2023-05-05] MEDS: LEVOTHYROXINE SODIUM 125 MCG TABLET PO SCH (06:40)
[2023-05-05] MEDS: APIXABAN 5 MG TABLET PO SCH ×2 (09:15→20:17)
[2023-05-05] MEDS: ANASTROZOLE 1 MG TAB PO SCH (09:15)
[2023-05-05] MEDS: OLANZAPINE 2.5 MG TAB PO SCH ×2 (09:15→20:16)
[2023-05-05 10:38] LABS: Hematocrit (blood only) 35.3 % (37.0-47.0); Mean Corpuscular Hemoglobin 30.6 pg (25.0-34.0); Mean Corpuscular Hgb Conc 31.2 g/dL (32.0-36.0); Mean Corpuscular Volume 98.1 fL (80.0-100.0); Mean Platelet Volume 9.1 fL (9.4-12.4); Platelet Count 552 K/uL (130-400); RDW Coefficient of Variation 17.8 % (11.5-14.5); RDW Standard Deviation 64.4 fL (36.4-46.3); White Blood Count 6.11 K/ul (4.8-10.8)
[2023-05-05 10:52] LABS: BUN Creatinine Ratio 30.6 (10-20); C Reactive Protein 1.52 mg/dl (0-0.5); Calcium 9.6 mg/dl (8.6-10.3); Creatinine Clr Calc Pharmacy 37.6 ml/min; Est GFR (African American) 61.8 ml/min; Est GFR (Non-African American) 53.3 ml/min; Magnesium 2.1 mg/dl (1.7-2.4); Phosphorus 4.6 mg/dl (2.5-4.9); Potassium 4.2 mmol/L (3.5-5.1)
--- NOTE | 2023-05-05 17:04 | Hospitalist Progress Note ---
Date of Service May 05, 2023 Assessment & Plan (1) Acute blood loss anemia: (2) Delirium: (3) Hip pain: (4) Hip hematoma, left: (5) History of CVA (cerebrovascular accident): (6) Dementia: (7) Hypothyroidism: Plan Pt is an 82yoF with PMHx significant for HTN, Hx of CVA, hx PE on Eliquis (01/2023), breast cancer, s/p surgery & radiation currently on Arimidex, hypothyroidism, mood disorder, occipital neuralgia as per records, dementia admitted after multiple hospitalizations and rehab admissions, admitted with left hip pain and a hematoma. Left hip hematoma Acute blood loss anemia In setting of anticoagulation use with Eliquis No known history of trauma H/O multiple left hip surgeries S/P 2 units PRBCs Hemoglobin is stable--apixaban restarted Fall precautions Patient evaluated by orthopedics; follow-up as outpatient in 4 weeks. Pain control with Tylenol. Minimize opioids. She is ambulating per RN-appears to be improving. Hgb 05/05/23 - 11, improving 05/04 family concerned about hip hematoma - more tight at the scar and warm, repeat CT ordered, ESR, CRP, will also further discuss w/ Dr. Campos. Pt has no fever, WBC is normal. Hgb is improving. blood cultx obtained previously are negative. No hip pain to palpation. 05/05 CT hip repeated - 1. Mild hematoma versus nonspecific soft tissue swelling along the lateral aspect of the upper thigh and buttock region. 2. Left-sided hip prosthesis in place with no acute fracture or subluxation. ESR 119, CRP 1.5. will discuss further w/ Dr. Campos (orthopedics). H/O PE Eliquis was on hold given acute blood loss anemia-restarted 04/29 Acute kidney injury Renal function improved with IV fluids, blood transfusion Creatinine currently back to baseline Avoid nephrotoxic agents as able received contrast on 05/02 d/t poss. cva eval - cont. to monitor renal function- renal function remains at baseline Left arm weakness -noted 05/02 AM - stroke alert called and discussed with CT head, CTA head and neck - negative brain MRI - negative for CVA Pt received IM zyprexa likely in her left arm on 05/01 evening [facility] neurology consulted - Axillary nerve palsy: Pattern of weakness involving shoulder abduction without distal weakness is inconsistent with stroke or other central etiology. MRI is normal as expected. This is consistent with an axillary nerve injury. Recommend shoulder films to rule out dislocation but otherwise likely compressive. Can have EMG in 6 weeks if it does not improve. -- Shoulder x-rays for dislocation -- EMG in 6 weeks if not improved -- Please contact us with any further questions. XR of left shoulder obtained - no fracture or dislocation Dementia Delirium Mood Disorder was on seroquel 12.5mg qhs was off IM Zyprexa Started on po Zyprexa nightly at same IM dose as well as PRN Psych consulted- recommended discontinuing seroquel and increased dose of Depakote 250 AM, 500 HS Continuing with po zyprexa at 4pm daily and using the ODT prn -> increased to 2.5 BID Delirium precautions. Frequent reorientation, avoid sedating medications Pt needs to be 48hr free from IM antipsychotic for placement - she has not required IM in several days however received IM zyprexa in the evening (05/01/22) H/O CVA As per records Evaluated by neurology on prior hospitalization CT head showed no acute findings H/O Breast cancer S/P Surgery, radiation continue Arimidex Hypothyroidism Normal TSH Continue levothyroxine Ongoing tobacco abuse Encourage cessation Diet: Regular DVT Px: Eliquis Code Status: DNI/DNR Dispo: plan to DC to [facility] when bed available/ auth obtained, poss. tmrw Admission and Anticipated Discharge Date Admission Date: April 16, 2023 Subjective Pt seen in follow up left hip hematoma and ABL anemia. Currently laying in bed , in NAD, resting No chest pain, shortness of breath, abd. pain, n/v. No hip pain either. Review of Systems Review of Systems: All systems reviewed & are unremarkable except as noted in Subjective Physical Exam Physical Exam: Gen: WD/WN, NAD, resting comfortably, pleasantly confused HEENT: Normocephalic, atraumatic, conjunctivae moist, sclerae anicteric, mucous membranes moist. Lung: Clear to Auscultation bilaterally, no wheezes/rales/rhonchi Heart: Regular rate, regular rhythm, no murmurs, rubs, or gallops Abdomen: Soft, NT, ND +BS x 4 Extremities: No edema. Neuro: Left arm weakness seems to be slightly improving compared to previous exam Skin: Warm, no rash Results & Data Results & Data Vital Signs (Past 12 Hours) Vital Signs Temp Pulse Pulse Pulse Resp BP BP 05/05/23 15:50 36.7 C 82 18 135/75 05/05/23 15:45 92 H 05/05/23 07:16 73 05/05/23 07:06 36.5 C 68 20 127/78 Pulse Ox O2 Del Method 05/05/23 15:50 98 Room Air 05/05/23 15:45 05/05/23 07:16 05/05/23 07:06 94 Room Air Laboratory Results 05/05/23 Range/Units 09:52 WBC 6.11 (4.8-10.8) K/ul RBC 3.60 L (4.20-5.40) M/uL Hgb 11.0 L (12.0-16.0) g/dl Hct 35.3 L (37.0-47.0) % MCV 98.1 (80.0-100.0) fL MCH 30.6 (25.0-34.0) pg MCHC 31.2 L (32.0-36.0) g/dL RDW Std Deviation 64.4 H (36.4-46.3) fL RDW Coeff of Andrea 17.8 H (11.5-14.5) % Plt Count 552 H (130-400) K/uL MPV 9.1 L (9.4-12.4) fL ESR 119 H (0-30) mm/hr Sodium 138 (136-145) mmol/L Potassium 4.2 (3.5-5.1) mmol/L Chloride 104 (98-107) mmol/L Carbon Dioxide 26 (21-32) mmol/L Anion Gap 8 (3-11) BUN 30 H (6-23) mg/dl Creatinine 0.98 (0.6-1.2) mg/dl Est Cr Clr Drug Dosing 37.6 ml/min Est GFR ( Amer) 61.8 ml/min Est GFR (Non-Af Amer) 53.3 ml/min BUN/Creatinine Ratio 30.6 H (10-20) Glucose 107 H (70-99(Fasting)) mg/dl Calcium 9.6 (8.6-10.3) mg/dl Phosphorus 4.6 (2.5-4.9) mg/dl Magnesium 2.1 (1.7-2.4) mg/dl C-Reactive Protein 1.52 H (0-0.5) mg/dl Medications Administered Current Inpatient Medications Acetaminophen (Acetaminophen 500 Mg Tab) 1,000 mg PO Q8H [facility] Stop: 06/03/23 20:59 Last Admin: 05/05/23 12:19 Dose: 1,000 mg Anastrozole (Anastrozole 1 Mg Tab) 1 mg PO QAM BO Stop: 05/16/23 08:59 Last Admin: 05/05/23 09:15 Dose: 1 mg Apixaban (Apixaban 5 Mg Tablet) 5 mg PO BID [facility] Stop: 05/28/23 20:59 Last Admin: 05/05/23 09:15 Dose: 5 mg Divalproex Sodium (Divalproex Sodium Sprinkle/Del-Rel 125 Mg Cap) 250 mg PO DAILYBB [facility] Stop: 06/03/23 06:29 Last Admin: 05/05/23 06:40 Dose: 250 mg Divalproex Sodium (Divalproex Sodium Sprinkle/Del-Rel 125 Mg Cap) 500 mg PO HS [facility] Stop: 06/02/23 21:59 Last Admin: 05/04/23 21:55 Dose: 500 mg Guaifenesin (Guaifenesin Sugar Free 200 Mg/10 Ml Udc) 200 mg PO Q6H [facility] Stop: 06/02/23 17:59 Last Admin: 05/05/23 12:18 Dose: Not Given Levothyroxine Sodium (Levothyroxine Sodium 125 Mcg Tablet) 125 mcg PO DAILYBB [facility] Stop: 05/16/23 06:29 Last Admin: 05/05/23 06:40 Dose: 125 mcg Magnesium Chloride (Magnesium Chloride W/Calcium 64mg Delayed Rel Tab) 64 mg PO BID [facility] Stop: 05/17/23 09:29 Last Admin: 05/03/23 09:43 Dose: 64 mg Olanzapine (Olanzapine Zydis 5 Mg Orally Dis. Tab) 2.5 mg PO Q4H PRN PRN Reason: psychosis (1st line) Stop: 05/26/23 20:29 Last Admin: 05/03/23 21:24 Dose: 2.5 mg Olanzapine (Olanzapine 2.5 Mg Tab) 2.5 mg PO BID BO Stop: 06/03/23 08:59 Last Admin: 05/05/23 09:15 Dose: 2.5 mg (3) Hip pain Laterality: left Qualified Code(s): M25.552 - Pain in left hip
[2023-05-06] MEDS: guaiFENesin SUGAR FREE 200 MG/10 ML UDC PO SCH ×5 (01:18→23:23)
[2023-05-06] MEDS: ACETAMINOPHEN 500 MG TAB PO SCH ×3 (06:24→19:23)
[2023-05-06] MEDS: LEVOTHYROXINE SODIUM 125 MCG TABLET PO SCH (06:26)
[2023-05-06] MEDS: DIVALPROEX SODIUM SPRINKLE/DEL-REL 125 MG CAP PO SCH ×2 (06:26→20:34)
[2023-05-06] MEDS: APIXABAN 5 MG TABLET PO SCH ×2 (08:15→20:33)
[2023-05-06] MEDS: ANASTROZOLE 1 MG TAB PO SCH (08:15)
[2023-05-06] MEDS: OLANZAPINE 2.5 MG TAB PO SCH ×2 (08:16→20:33)
--- NOTE | 2023-05-06 13:44 | Hospitalist Progress Note ---
Date of Service May 06, 2023 Assessment & Plan (1) Acute blood loss anemia: (2) Delirium: (3) Hip pain: (4) Hip hematoma, left: (5) History of CVA (cerebrovascular accident): (6) Dementia: (7) Hypothyroidism: Plan Pt is an 82yoF with PMHx significant for HTN, Hx of CVA, hx PE on Eliquis (01/2023), breast cancer, s/p surgery & radiation currently on Arimidex, hypothyroidism, mood disorder, occipital neuralgia as per records, dementia admitted after multiple hospitalizations and rehab admissions, admitted with left hip pain and a hematoma. Left hip hematoma Acute blood loss anemia In setting of anticoagulation use with Eliquis No known history of trauma H/O multiple left hip surgeries S/P 2 units PRBCs Hemoglobin is stable--apixaban restarted Fall precautions Patient evaluated by orthopedics; follow-up as outpatient in 4 weeks. Pain control with Tylenol. Minimize opioids. She is ambulating per RN-appears to be improving. Hgb 05/05/23 - 11, improving 05/04 family concerned about hip hematoma - more tight at the scar and warm, repeat CT ordered, ESR, CRP, will also further discuss w/ Dr. Campos. Pt has no fever, WBC is normal. Hgb is improving. blood cultx obtained previously are negative. No hip pain to palpation. 05/05 CT hip repeated - 1. Mild hematoma versus nonspecific soft tissue swelling along the lateral aspect of the upper thigh and buttock region. 2. Left-sided hip prosthesis in place with no acute fracture or subluxation. ESR 119, CRP 1.5. will discuss further w/ Dr. Campos (orthopedics). 05/06 - Per Dr. Campos - reviewed chart - hematoma is smaller and her crp and wbc is down, esr is too nonspecific. Pt still have some sutures present and today is complaining about stabbing pain where sutures are - notified Dr. Campos as well H/O PE Eliquis was on hold given acute blood loss anemia-restarted 04/29 Acute kidney injury Renal function improved with IV fluids, blood transfusion Creatinine currently back to baseline Avoid nephrotoxic agents as able received contrast on 05/02 d/t poss. cva eval - cont. to monitor renal function- renal function remains at baseline Left arm weakness -noted 1/5 AM - stroke alert called and discussed with CT head, CTA head and neck - negative brain MRI - negative for CVA Pt received IM zyprexa likely in her left arm on 05/[address] [facility] neurology consulted - Axillary nerve palsy: Pattern of weakness involving shoulder abduction without distal weakness is inconsistent with stroke or other central etiology. MRI is normal as expected. This is consistent with an axillary nerve injury. Recommend shoulder films to rule out dislocation but otherwise likely compressive. Can have EMG in 6 weeks if it does not improve. -- Shoulder x-rays for dislocation -- EMG in 6 weeks if not improved -- Please contact us with any further questions. XR of left shoulder obtained - no fracture or dislocation Dementia Delirium Mood Disorder was on seroquel 12.5mg qhs was off IM Zyprexa Started on po Zyprexa nightly at same IM dose as well as PRN Psych consulted- recommended discontinuing seroquel and increased dose of Depakote 250 AM, 500 HS Continuing with po zyprexa at 4pm daily and using the ODT prn -> increased to 2.5 BID Delirium precautions. Frequent reorientation, avoid sedating medications Pt needs to be 48hr free from IM antipsychotic for placement - she has not requ ired IM in several days however received IM zyprexa in the evening (05/01/22) H/O CVA As per records Evaluated by neurology on prior hospitalization CT head showed no acute findings H/O Breast cancer S/P Surgery, radiation continue Arimidex Hypothyroidism Normal TSH Continue levothyroxine Ongoing tobacco abuse Encourage cessation Diet: Regular DVT Px: Eliquis Code Status: DNI/DNR Dispo: plan to DC to [facility] when bed available/ auth obtained, poss. tmrw Admission and Anticipated Discharge Date Admission Date: April 16, 2023 Subjective Pt seen in follow up left hip hematoma and ABL anemia. Currently laying in bed , in NAD, resting No chest pain, shortness of breath, abd. pain, n/v. Reports some stabbing pain where her sutures still are. Notified Dr. Campos as well. Review of Systems Review of Systems: All systems reviewed & are unremarkable except as noted in Subjective Physical Exam Physical Exam: Gen: WD/WN, NAD, resting comfortably, pleasantly confused HEENT: Normocephalic, atraumatic, conjunctivae moist, sclerae anicteric, mucous membranes moist. Lung: Clear to Auscultation bilaterally, no wheezes/rales/rhonchi Heart: Regular rate, regular rhythm, no murmurs, rubs, or gallops Abdomen: Soft, NT, ND +BS x 4 Extremities: No edema. Neuro: +Left arm weakness, otherwise moves extremities Skin: Warm, no rash Results & Data Results & Data Vital Signs (Past 12 Hours) Vital Signs Temp Pulse Pulse Pulse Resp BP BP 05/06/23 10:31 36.4 C L 68 18 118/72 05/06/23 07:23 79 05/06/23 04:00 37.0 C 79 18 144/85 H 05/06/23 02:03 89 Pulse Ox O2 Del Method 05/06/23 10:31 96 Room Air 05/06/23 07:23 05/06/23 04:00 95 Room Air 05/06/23 02:03 Medications Administered Current Inpatient Medications Acetaminophen (Acetaminophen 500 Mg Tab) 1,000 mg PO Q8H [facility] Stop: 06/03/23 20:59 Last Admin: 05/06/23 13:40 Dose: 1,000 mg Anastrozole (Anastrozole 1 Mg Tab) 1 mg PO QAM BO Stop: 05/16/23 08:59 Last Admin: 05/06/23 08:15 Dose: 1 mg Apixaban (Apixaban 5 Mg Tablet) 5 mg PO BID BO Stop: 05/28/23 20:59 Last Admin: 05/06/23 08:15 Dose: 5 mg Divalproex Sodium (Divalproex Sodium Sprinkle/Del-Rel 125 Mg Cap) 250 mg PO DAILYBB BO Stop: 06/03/23 06:29 Last Admin: 05/06/23 06:26 Dose: 250 mg Divalproex Sodium (Divalproex Sodium Sprinkle/Del-Rel 125 Mg Cap) 500 mg PO HS BO Stop: 06/02/23 21:59 Last Admin: 05/05/23 20:16 Dose: 500 mg Guaifenesin (Guaifenesin Sugar Free 200 Mg/10 Ml Udc) 200 mg PO Q6H [facility] Stop: 06/02/23 17:59 Last Admin: 05/06/23 13:40 Dose: 200 mg Levothyroxine Sodium (Levothyroxine Sodium 125 Mcg Tablet) 125 mcg PO DAILYBB [facility] Stop: 05/16/23 06:29 Last Admin: 05/06/23 06:26 Dose: 125 mcg Magnesium Chloride (Magnesium Chloride W/Calcium 64mg Delayed Rel Tab) 64 mg PO BID [facility] Stop: 05/17/23 09:29 Last Admin: 05/03/23 09:43 Dose: 64 mg Olanzapine (Olanzapine Zydis 5 Mg Orally Dis. Tab) 2.5 mg PO Q4H PRN PRN Reason: psychosis (1st line) Stop: 05/26/23 20:29 Last Admin: 05/03/23 21:24 Dose: 2.5 mg Olanzapine (Olanzapine 2.5 Mg Tab) 2.5 mg PO BID [facility] Stop: 06/03/23 08:59 Last Admin: 05/06/23 08:16 Dose: 2.5 mg (3) Hip pain Laterality: left Qualified Code(s): M25.552 - Pain in left hip
[2023-05-06] MEDS: OLANZapine ZYDIS 5 MG ORALLY DIS. TAB PO PRN (19:23)
[2023-05-07] MEDS: OLANZapine ZYDIS 5 MG ORALLY DIS. TAB PO PRN (01:17)
[2023-05-07] MEDS: ACETAMINOPHEN 500 MG TAB PO SCH ×3 (05:30→20:28)
[2023-05-07] MEDS: DIVALPROEX SODIUM SPRINKLE/DEL-REL 125 MG CAP PO SCH ×2 (05:30→20:27)
[2023-05-07] MEDS: guaiFENesin SUGAR FREE 200 MG/10 ML UDC PO SCH ×3 (05:30→17:07)
[2023-05-07] MEDS: LEVOTHYROXINE SODIUM 125 MCG TABLET PO SCH (05:30)
[2023-05-07] MEDS: ANASTROZOLE 1 MG TAB PO SCH (10:09)
[2023-05-07] MEDS: APIXABAN 5 MG TABLET PO SCH ×2 (10:10→20:28)
[2023-05-07] MEDS: OLANZAPINE 2.5 MG TAB PO SCH ×2 (10:10→20:28)
--- NOTE | 2023-05-07 13:00 | Orthopedic Progress Note ---
Date of Service May 07, 2023 Assessment & Plan (1) Hip hematoma, left: Patient presentation and exam discussed with Dr. Campos and the plan is as follows. We were asked to reexamine this patient due to family concerns of the hematoma feeling a little more firm. It appears that hematoma has reduced in si ze since original visit and it does not look erythemic or warm to touch today. She also complains of no discomfort. Latest ESR was elevated with CRP trending downward. It was discussed that the ESR is nonspecific as well as CRP trending downwards does not correlate towards infectious process. The secondary CT confirmed hematoma still present and does not appear to be an abscess or infectious in nature. At this point, we would still refrain from any surgical intervention at this time due to there being no benefit to surgical intervention. She may continue working with physical therapy being weightbearing as tolerated to the left hip. She may follow-up with Dr. Campos as an outpatient once discharged. Please [place] text or reach out to [facility] orthopedics if this patient's situation is to change. Procedure: Remaining suture removal of left hip surgical site A timeout was completed with patient and nurse present and verbal consent was given. Site was marked and cleaned using aseptic technique. Suture was held and clipped at the knot and pulled out. Upon completion of procedure, 2 suture strands were removed from patient's surgical site. It appears that all superfic ial suture has now been removed from the surgical site. A Band-Aid was placed at the distal end of the surgical site. Patient tolerated procedure well. Subjective . Tc was seen today at bedside resting comfortably in no apparent distress. We were asked by primary service to reevaluate the patient's left hip due to laboratory work and family request. She denies any pain today involving the left hip. The only complaint she has is there is still some suture remaining that was missed during the original suture removal from primary team. She denies any other concerns. Review of Systems All systems reviewed & are unremarkable except as noted in HPI & below. Physical Exam . On physical examination of the left hip, there appears to very mild induration from a known hematoma that does appear smaller in size to original evaluation. There is a suture tail at the middle aspect of the incision as well as the distal end of the surgical incision. No erythema, ecchymosis, edema, or other obvious deformities. No tenderness to palpation. Limited range of motion and strength due to subjective weakness to the left hip when compared bilaterally. Calf soft nontender to palpation. Negative Homans' sign. +2 DP and PT pulses. Less than 2-second capillary refill. Normal sensation. Neurovascular intact. Results & Data Results & Data Laboratory Results . Diagnostic Findings . PG Care Time/CCT Total # of Minutes Spent Total Time Spent with Patient: Total time spent is greater than 50% in coordination of care (as documented) at patient's floor/unit and/or counseling patient: Coding Level of Care Code 52400 SUB INP/OBS CARE 235MIN Diagnoses Hip hematoma, left S70.02XA
--- NOTE | 2023-05-07 16:06 | Hospitalist Progress Note ---
Date of Service May 07, 2023 Assessment & Plan (1) Acute blood loss anemia: (2) Delirium: (3) Hip pain: (4) Hip hematoma, left: (5) History of CVA (cerebrovascular accident): (6) Dementia: (7) Hypothyroidism: Plan Pt is an 82yoF with PMHx significant for HTN, Hx of CVA, hx PE on Eliquis (01/2023), breast cancer, s/p surgery & radiation currently on Arimidex, hypothyroidism, mood disorder, occipital neuralgia as per records, dementia admitted after multiple hospitalizations and rehab admissions, admitted with left hip pain and a hematoma. Left hip hematoma Acute blood loss anemia In setting of anticoagulation use with Eliquis No known history of trauma H/O multiple left hip surgeries S/P 2 units PRBCs Hemoglobin is stable--apixaban restarted Fall precautions Patient evaluated by orthopedics; follow-up as outpatient in 4 weeks. Pain control with Tylenol. Minimize opioids. She is ambulating per RN-appears to be improving. Hgb 05/05/23 - 11, improving 05/04 family concerned about hip hematoma - more tight at the scar and warm, repeat CT ordered, ESR, CRP, will also further discuss w/ Dr. Campos. Pt has no fever, WBC is normal. Hgb is improving. blood cultx obtained previously are negative. No hip pain to palpation. 05/05 CT hip repeated - 1. Mild hematoma versus nonspecific soft tissue swelling along the lateral aspect of the upper thigh and buttock region. 2. Left-sided hip prosthesis in place with no acute fracture or subluxation. ESR 119, CRP 1.5. will discuss further w/ Dr. Campos (orthopedics). 05/06 - Per Dr. Campos - reviewed chart - hematoma is smaller and her crp and wbc is down, esr is too nonspecific. Pt still have some sutures present and today is complaining about stabbing pain where sutures are - notified Dr. Campos as well 05/07 - Remaining sutures removed by orthopedics. Overall feeling well, but pleasantly confused. H/O PE Eliquis was on hold given acute blood loss anemia-restarted 04/29 Acute kidney injury Renal function improved with IV fluids, blood transfusion Creatinine currently back to baseline Avoid nephrotoxic agents as able received contrast on 05/02 d/t poss. cva eval - cont. to monitor renal function- renal function remains at baseline Left arm weakness -noted 1/ AM - stroke alert called and discussed with CT head, CTA head and neck - negative brain MRI - negative for CVA Pt received IM zyprexa likely in her left arm on 05/01 evening [facility] neurology consulted - Axillary nerve palsy: Pattern of weakness involving shoulder abduction without distal weakness is inconsistent with stroke or other central etiology. MRI is normal as expected. This is consistent with an axillary nerve injury. Recommend shoulder films to rule out dislocation but otherwise likely compressive. Can have EMG in 6 weeks if it does not improve. -- Shoulder x-rays for dislocation -- EMG in 6 weeks if not improved -- Please contact us with any further questions. XR of left shoulder obtained - no fracture or dislocation Dementia Delirium Mood Disorder was on seroquel 12.5mg qhs was off IM Zyprexa Started on po Zyprexa nightly at same IM dose as well as PRN Psych consulted- recommended discontinuing seroquel and increased dose of Depakote 250 AM, 500 HS Continuing with po zyprexa at 4pm daily and using the ODT prn -> increased to 2.5 BID Delirium precautions. Frequent reorientation, avoid sedating medications Pt needs to be 48hr free from IM antipsychotic for placement - she has not required IM in several days however received IM zyprexa in the evening (05/01/22) H/O CVA As per records Evaluated by neurology on prior hospitalization CT head showed no acute findings H/O Breast cancer S/P Surgery, radiation continue Arimidex Hypothyroidism Normal TSH Continue levothyroxine Ongoing tobacco abuse Encourage cessation Diet: Regular DVT Px: Eliquis Code Status: DNI/DNR Dispo: plan to DC to [facility] when bed available, CM involved Admission and Anticipated Discharge Date Admission Date: April 16, 2023 Subjective Pt seen in follow up left hip hematoma and ABL anemia. Currently laying in bed , in NAD, resting No chest pain, shortness of breath, abd. pain, n/v. Had some stabbing pain where some of her sutures still were. Seen by orthopedics again and remaining sutures were removed. Review of Systems Review of Systems: All systems reviewed & are unremarkable except as noted in Subjective Physical Exam Physical Exam: Gen: WD/WN, NAD, resting comfortably, pleasantly confused HEENT: Normocephalic, atraumatic, conjunctivae moist, sclerae anicteric, mucous membranes moist. Lung: Clear to Auscultation bilaterally, no wheezes/rales/rhonchi Heart: Regular rate, regular rhythm, no murmurs, rubs, or gallops Abdomen: Soft, NT, ND +BS x 4 Extremities: No edema. Neuro: +Left arm weakness, otherwise moves extremities Skin: Warm, no rash Results & Data Results & Data Vital Signs (Past 12 Hours) Vital Signs Temp Pulse Pulse Resp BP Pulse Ox O2 Del Method 05/07/23 15:34 80 05/07/23 12:02 36.8 C 93 H 18 127/68 95 Room Air 05/07/23 07:56 37.1 C 93 H 18 166/79 H 94 Room Air 05/07/23 07:28 100 H 05/07/23 04:19 Room Air Medications Administered Current Inpatient Medications Acetaminophen (Acetaminophen 500 Mg Tab) 1,000 mg PO Q8H [facility] Stop: 06/03/23 20:59 Last Admin: 05/08/23 10:39 Dose: 1,000 mg Anastrozole (Anastrozole 1 Mg Tab) 1 mg PO QAM BO Stop: 05/16/23 08:59 Last Admin: 05/08/23 07:44 Dose: 1 mg Apixaban (Apixaban 5 Mg Tablet) 5 mg PO BID BO Stop: 05/28/23 20:59 Last Admin: 05/08/23 07:44 Dose: 5 mg Divalproex Sodium (Divalproex Sodium Sprinkle/Del-Rel 125 Mg Cap) 250 mg PO DAILYBB [facility] Stop: 06/03/23 06:29 Last Admin: 05/08/23 05:51 Dose: 250 mg Divalproex Sodium (Divalproex Sodium Sprinkle/Del-Rel 125 Mg Cap) 500 mg PO HS BO Stop: 06/02/23 21:59 Last Admin: 05/07/23 20:27 Dose: 500 mg Guaifenesin (Guaifenesin Sugar Free 200 Mg/10 Ml Udc) 200 mg PO Q6H BO Stop: 06/02/23 17:59 Last Admin: 05/08/23 10:39 Dose: 200 mg Levothyroxine Sodium (Levothyroxine Sodium 125 Mcg Tablet) 125 mcg PO DAILYBB [facility] Stop: 05/16/23 06:29 Last Admin: 05/08/23 05:57 Dose: Not Given Magnesium Chloride (Magnesium Chloride W/Calcium 64mg Delayed Rel Tab) 64 mg PO BID [facility] Stop: 05/17/23 09:29 Last Admin: 05/03/23 09:43 Dose: 64 mg Olanzapine (Olanzapine Zydis 5 Mg Orally Dis. Tab) 2.5 mg PO Q4H PRN PRN Reason: psychosis (1st line) Stop: 05/26/23 20:29 Last Admin: 05/07/23 01:17 Dose: 2.5 mg Olanzapine (Olanzapine 2.5 Mg Tab) 2.5 mg PO BID [facility] Stop: 06/03/23 08:59 Last Admin: 05/08/23 07:44 Dose: 2.5 mg (3) Hip pain Laterality: left Qualified Code(s): M25.552 - Pain in left hip
[2023-05-08] MEDS: guaiFENesin SUGAR FREE 200 MG/10 ML UDC PO SCH ×5 (00:32→23:35)
[2023-05-08] MEDS: DIVALPROEX SODIUM SPRINKLE/DEL-REL 125 MG CAP PO SCH ×2 (05:51→21:06)
[2023-05-08] MEDS: ACETAMINOPHEN 500 MG TAB PO SCH ×4 (05:51→21:07)
[2023-05-08] MEDS: LEVOTHYROXINE SODIUM 125 MCG TABLET PO SCH ×2 (05:51→05:57)
[2023-05-08] MEDS: APIXABAN 5 MG TABLET PO SCH ×2 (07:44→21:06)
[2023-05-08] MEDS: ANASTROZOLE 1 MG TAB PO SCH (07:44)
[2023-05-08] MEDS: OLANZAPINE 2.5 MG TAB PO SCH ×2 (07:44→21:07)
--- NOTE | 2023-05-08 13:57 | Hospitalist Progress Note ---
Date of Service May 08, 2023 Assessment & Plan (1) Acute blood loss anemia: (2) Delirium: (3) Hip pain: (4) Hip hematoma, left: (5) History of CVA (cerebrovascular accident): (6) Dementia: (7) Hypothyroidism: Plan Pt is an 82yoF with PMHx significant for HTN, Hx of CVA, hx PE on Eliquis (01/2023), breast cancer, s/p surgery & radiation currently on Arimidex, hypothyroidism, mood disorder, occipital neuralgia as per records, dementia admitted after multiple hospitalizations and rehab admissions, admitted with left hip pain and a hematoma. Left hip hematoma Acute blood loss anemia In setting of anticoagulation use with Eliquis No known history of trauma H/O multiple left hip surgeries S/P 2 units PRBCs Hemoglobin is stable--apixaban restarted Fall precautions Patient evaluated by orthopedics; follow-up as outpatient in 4 weeks. Pain control with Tylenol. Minimize opioids. She is ambulating per RN-appears to be improving. Hgb 05/05/23 - , improving 05/04 family concerned about hip hematoma - more tight at the scar and warm, repeat CT ordered, ESR, CRP, will also further discuss w/ Dr. Campos. Pt has no fever, WBC is normal. Hgb is improving. blood cultx obtained previously are negative. No hip pain to palpation. 05/05 CT hip repeated - 1. Mild hematoma versus nonspecific soft tissue swelling along the lateral aspect of the upper thigh and buttock region. 2. Left-sided hip prosthesis in place with no acute fracture or subluxation. ESR 119, CRP 1.5. will discuss further w/ Dr. Campos (orthopedics). 05/06 - Per Dr. Campos - reviewed chart - hematoma is smaller and her crp and wbc is down, esr is too nonspecific. Pt still have some sutures present and today is complaining about stabbing pain where sutures are - notified Dr. Campos as well 05/07 - Remaining sutures removed by orthopedics. Overall feeling well, but pleasantly confused. 05/08 Still having some discomfort in L hip, possibly positional - discussed w/ RN at the bedside - reposition pt, apply, ice, lidocain patch H/O PE Eliquis was on hold given acute blood loss anemia-restarted 04/29 Acute kidney injury Renal function improved with IV fluids, blood transfusion Creatinine currently back to baseline Avoid nephrotoxic agents as able received contrast on 05/02 d/t poss. cva eval - cont. to monitor renal function- renal function remains at baseline Left arm weakness -noted 05/02 AM - stroke alert called and discussed with CT head, CTA head and neck - negative brain MRI - negative for CVA Pt received IM zyprexa likely in her left arm on 05/01 evening [facility] neurology consulted - Axillary nerve palsy: Pattern of weakness involving shoulder abduction without distal weakness is inconsistent with stroke or other central etiology. MRI is normal as expected. This is consistent with an axillary nerve injury. Recommend shoulder films to rule out dislocation but otherwise likely compressive. Can have EMG in 6 weeks if it does not improve. -- Shoulder x-rays for dislocation -- EMG in 6 weeks if not improved -- Please contact us with any further questions. XR of left shoulder obtained - no fracture or dislocation Dementia Delirium Mood Disorder was on seroquel 12.5mg qhs was off IM Zyprexa Started on po Zyprexa nightly at same IM dose as well as PRN Psych consulted- recommended discontinuing seroquel and increased dose of Depakote 250 AM, 500 HS Continuing with po zyprexa at 4pm daily and using the ODT prn -> increased to 2.5 BID Delirium precautions. Frequent reorientation, avoid sedating medications Pt needs to be 48hr free from IM antipsychotic for placement - she has not required IM in several days however received IM zyprexa in the evening (05/01/22) H/O CVA As per records Evaluated by neurology on prior hospitalization CT head showed no acute findings H/O Breast cancer S/P Surgery, radiation continue Arimidex Hypothyroidism Normal TSH Continue levothyroxine Ongoing tobacco abuse Encourage cessation Diet: Regular DVT Px: Eliquis Code Status: DNI/DNR Dispo: CM involved Admission and Anticipated Discharge Date Admission Date: April 16, 2023 Subjective Pt seen in follow up left hip hematoma and ABL anemia. Currently laying in bed , in NAD, resting No chest pain, shortness of breath, abd. pain, n/v. Had some stabbing pain where some of her sutures still were. Seen by orthopedics again and remaining sutures were removed. Today still with some discomfort at L hip area. Discussed w/ RN at the bedside - will provide ice, lidocaine patch, reposition pt. Review of Systems Review of Systems: All systems reviewed & are unremarkable except as noted in Subjective Physical Exam Physical Exam: Gen: WD/WN, NAD, resting comfortably, gets pleasantly confused HEENT: Normocephalic, atraumatic, conjunctivae moist, sclerae anicteric, mucous membranes moist. Lung: Clear to Auscultation bilaterally, no wheezes/rales/rhonchi Heart: Regular rate, regular rhythm, no murmurs, rubs, or gallops Abdomen: Soft, NT, ND +BS x 4 Extremities: No edema. Neuro: +Left arm weakness, otherwise moves extremities Skin: Warm, no rash Results & Data Results & Data Vital Signs (Past 12 Hours) Vital Signs Temp Pulse Pulse Pulse Resp BP BP 05/08/23 11:47 36.9 C 75 16 113/68 05/08/23 07:57 05/08/23 07:43 36.7 C 88 18 125/76 05/08/23 07:23 88 05/08/23 06:23 37.1 C 83 18 110/77 Pulse Ox O2 Del Method 05/08/23 11:47 91 Room Air 05/08/23 07:57 Room Air 05/08/23 07:43 95 Room Air 05/08/23 07:23 05/08/23 06:23 95 Room Air Medications Administered Current Inpatient Medications Acetaminophen (Acetaminophen 500 Mg Tab) 1,000 mg PO Q8H BO Stop: 06/03/23 20:59 Last Admin: 05/08/23 10:39 Dose: 1,000 mg Anastrozole (Anastrozole 1 Mg Tab) 1 mg PO QAM BO Stop: 05/16/23 08:59 Last Admin: 05/08/23 07:44 Dose: 1 mg Apixaban (Apixaban 5 Mg Tablet) 5 mg PO BID BO Stop: 05/28/23 20:59 Last Admin: 05/08/23 07:44 Dose: 5 mg Divalproex Sodium (Divalproex Sodium Sprinkle/Del-Rel 125 Mg Cap) 250 mg PO DAILYBB BO Stop: 06/03/23 06:29 Last Admin: 05/08/23 05:51 Dose: 250 mg Divalproex Sodium (Divalproex Sodium Sprinkle/Del-Rel 125 Mg Cap) 500 mg PO HS [facility] Stop: 06/02/23 21:59 Last Admin: 05/07/23 20:27 Dose: 500 mg Guaifenesin (Guaifenesin Sugar Free 200 Mg/10 Ml Udc) 200 mg PO Q6H [facility] Stop: 06/02/23 17:59 Last Admin: 05/08/23 10:39 Dose: 200 mg Levothyroxine Sodium (Levothyroxine Sodium 125 Mcg Tablet) 125 mcg PO DAILYBB [facility] Stop: 05/16/23 06:29 Last Admin: 05/08/23 05:57 Dose: Not Given Magnesium Chloride (Magnesium Chloride W/Calcium 64mg Delayed Rel Tab) 64 mg PO BID [facility] Stop: 05/17/23 09:29 Last Admin: 05/03/23 09:43 Dose: 64 mg Olanzapine (Olanzapine Zydis 5 Mg Orally Dis. Tab) 2.5 mg PO Q4H PRN PRN Reason: psychosis (1st line) Stop: 05/26/23 20:29 Last Admin: 05/07/23 01:17 Dose: 2.5 mg Olanzapine (Olanzapine 2.5 Mg Tab) 2.5 mg PO BID [facility] Stop: 06/03/23 08:59 Last Admin: 05/08/23 07:44 Dose: 2.5 mg (3) Hip pain Laterality: left Qualified Code(s): M25.552 - Pain in left hip
[2023-05-09] MEDS: ACETAMINOPHEN 500 MG TAB PO SCH ×3 (06:26→20:04)
[2023-05-09] MEDS: OLANZAPINE 2.5 MG TAB PO SCH ×2 (08:32→20:04)
[2023-05-09] MEDS: LEVOTHYROXINE SODIUM 125 MCG TABLET PO SCH (08:32)
[2023-05-09] MEDS: ANASTROZOLE 1 MG TAB PO SCH (08:32)
[2023-05-09] MEDS: APIXABAN 5 MG TABLET PO SCH ×2 (08:32→20:04)
[2023-05-09] MEDS: DIVALPROEX SODIUM SPRINKLE/DEL-REL 125 MG CAP PO SCH ×2 (08:36→20:03)
[2023-05-09] MEDS: guaiFENesin SUGAR FREE 200 MG/10 ML UDC PO SCH ×3 (08:37→17:05)
[2023-05-09] MEDS: HYDROCORTISONE 1% OINT 30 GM TUBE EXT SCH ×2 (12:43→20:03)
--- NOTE | 2023-05-09 14:29 | Hospitalist Progress Note ---
Date of Service May 09, 2023 Assessment & Plan (1) Acute blood loss anemia: (2) Delirium: (3) Hip pain: (4) Hip hematoma, left: (5) History of CVA (cerebrovascular accident): (6) Dementia: (7) Hypothyroidism: Plan Pt is an 82yoF with PMHx significant for HTN, Hx of CVA, hx PE on Eliquis (01/2023), breast cancer, s/p surgery & radiation currently on Arimidex, hypothyroidism, mood disorder, occipital neuralgia as per records, dementia admitted after multiple hospitalizations and rehab admissions, admitted with left hip pain and a hematoma. Left hip hematoma Acute blood loss anemia In setting of anticoagulation use with Eliquis No known history of trauma H/O multiple left hip surgeries S/P 2 units PRBCs Hemoglobin is stable--apixaban restarted Fall precautions Patient evaluated by orthopedics; follow-up as outpatient in 4 weeks. Pain control with Tylenol. Minimize opioids. She is ambulating per RN-appears to be improving. Hgb 05/05/23 - 11, improving 05/04 family concerned about hip hematoma - more tight at the scar and warm, repeat CT ordered, ESR, CRP, will also further discuss w/ Dr. Campos. Pt has no fever, WBC is normal. Hgb is improving. blood cultx obtained previously are negative. No hip pain to palpation. 05/05 CT hip repeated - 1. Mild hematoma versus nonspecific soft tissue swelling along the lateral aspect of the upper thigh and buttock region. 2. Left-sided hip prosthesis in place with no acute fracture or subluxation. ESR 119, CRP 1.5. will discuss further w/ Dr. Campos (orthopedics). 05/06 - Per Dr. Campos - reviewed chart - hematoma is smaller and her crp and wbc is down, esr is too nonspecific. Pt still have some sutures present and today is complaining about stabbing pain where sutures are - notified Dr. Campos as well 05/07 - Remaining sutures removed by orthopedics. Overall feeling well, but pleasantly confused. 05/08 Still having some discomfort in L hip, possibly positional - discussed w/ RN at the bedside - reposition pt, apply, ice, lidocain patch 05/09 Overall feeling well, awaiting placement. CM involved H/O PE Eliquis was on hold given acute blood loss anemia-restarted 04/29 Acute kidney injury Renal function improved with IV fluids, blood transfusion Creatinine currently back to baseline Avoid nephrotoxic agents as able received contrast on 05/02 d/t poss. cva eval - cont. to monitor renal function- renal function remains at baseline Left arm weakness -noted 05/02 AM - stroke alert called and discussed with CT head, CTA head and neck - negative brain MRI - negative for CVA Pt received IM zyprexa likely in her left arm on 05/01 evening [facility] neurology consulted - Axillary nerve palsy: Pattern of weakness involving shoulder abduction without distal weakness is inconsistent with stroke or other central etiology. MRI is normal as expected. This is consistent with an axillary nerve injury. Recommend shoulder films to rule out dislocation but otherwise likely compressive. Can have EMG in 6 weeks if it does not improve. -- Shoulder x-rays for dislocation -- EMG in 6 weeks if not improved -- Please contact us with any further questions. XR of left shoulder obtained - no fracture or dislocation Dementia Delirium Mood Disorder was on seroquel 12.5mg qhs was off IM Zyprexa Started on po Zyprexa nightly at same IM dose as well as PRN Psych consulted- recommended discontinuing seroquel and increased dose of Depa kote 250 AM, 500 HS Continuing with po zyprexa at 4pm daily and using the ODT prn -> increased to 2.5 BID Delirium precautions. Frequent reorientation, avoid sedating medications Pt needs to be 48hr free from IM antipsychotic for placement - she has not required IM in several days however received IM zyprexa in the evening (05/01/22) H/O CVA As per records Evaluated by neurology on prior hospitalization CT head showed no acute findings H/O Breast cancer S/P Surgery, radiation continue Arimidex Hypothyroidism Normal TSH Continue levothyroxine Ongoing tobacco abuse Encourage cessation Diet: Regular DVT Px: Eliquis Code Status: DNI/DNR Dispo: CM involved Admission and Anticipated Discharge Date Admission Date: April 16, 2023 Subjective Pt seen in follow up left hip hematoma and ABL anemia. Currently laying in bed , in NAD, resting No chest pain, shortness of breath, abd. pain, n/v. 1:1 sitter present CM involved in DC planning Review of Systems Review of Systems: All systems reviewed & are unremarkable except as noted in Subjective Physical Exam Physical Exam: Gen: WD/WN, NAD, resting comfortably, gets pleasantly confused HEENT: Normocephalic, atraumatic, conjunctivae moist, sclerae anicteric, mucous membranes moist. Lung: Clear to Auscultation bilaterally, no wheezes/rales/rhonchi Heart: Regular rate, regular rhythm, no murmurs, rubs, or gallops Abdomen: Soft, NT, ND +BS x 4 Extremities: No edema. Neuro: +Left arm weakness, otherwise moves extremities Skin: Warm, no rash Results & Data Results & Data Vital Signs (Past 12 Hours) Vital Signs Temp Pulse Pulse Pulse Resp BP Pulse Ox 05/09/23 11:24 36.6 C 75 17 126/72 95 05/09/23 08:37 05/09/23 08:37 36.5 C 75 16 122/75 92 05/09/23 05:38 74 O2 Del Method 05/09/23 11:24 Room Air 05/09/23 08:37 Room Air 05/09/23 08:37 Room Air 05/09/23 05:38 Medications Administered Current Inpatient Medications Acetaminophen (Acetaminophen 500 Mg Tab) 1,000 mg PO Q8H BO Stop: 06/03/23 20:59 Last Admin: 05/09/23 12:14 Dose: 1,000 mg Anastrozole (Anastrozole 1 Mg Tab) 1 mg PO QAM BO Stop: 05/16/23 08:59 Last Admin: 05/09/23 08:32 Dose: 1 mg Apixaban (Apixaban 5 Mg Tablet) 5 mg PO BID BO Stop: 05/28/23 20:59 Last Admin: 05/09/23 08:32 Dose: 5 mg Divalproex Sodium (Divalproex Sodium Sprinkle/Del-Rel 125 Mg Cap) 250 mg PO DAILYBB BO Stop: 06/03/23 06:29 Last Admin: 05/09/23 08:36 Dose: Not Given Divalproex Sodium (Divalproex Sodium Sprinkle/Del-Rel 125 Mg Cap) 500 mg PO HS BO Stop: 06/02/23 21:59 Last Admin: 05/08/23 21:06 Dose: 500 mg Guaifenesin (Guaifenesin Sugar Free 200 Mg/10 Ml Udc) 200 mg PO Q6H BO Stop: 06/02/23 17:59 Last Admin: 05/09/23 11:05 Dose: Not Given Hydrocortisone (Hydrocortisone 1% Oint 30 Gm Tube) 1 appln EXT BID [facility] Stop: 06/08/23 12:29 Last Admin: 05/09/23 12:43 Dose: 1 appln Levothyroxine Sodium (Levothyroxine Sodium 125 Mcg Tablet) 125 mcg PO DAILYBB [facility] Stop: 05/16/23 06:29 Last Admin: 05/09/23 08:32 Dose: 125 mcg Magnesium Chloride (Magnesium Chloride W/Calcium 64mg Delayed Rel Tab) 64 mg PO BID BO Stop: 05/17/23 09:29 Last Admin: 05/03/23 09:43 Dose: 64 mg Olanzapine (Olanzapine Zydis 5 Mg Orally Dis. Tab) 2.5 mg PO Q4H PRN PRN Reason: psychosis (1st line) Stop: 05/26/23 20:29 Last Admin: 05/07/23 01:17 Dose: 2.5 mg Olanzapine (Olanzapine 2.5 Mg Tab) 2.5 mg PO BID [facility] Stop: 06/03/23 08:59 Last Admin: 05/09/23 08:32 Dose: 2.5 mg Sodium Chloride (Sodium Chloride 0.65% Na Soln 45 Ml ([place])) 1 sprays NA TID [facility] Stop: 06/08/23 20:59 (3) Hip pain Laterality: left Qualified Code(s): M25.552 - Pain in left hip
[2023-05-09] MEDS: SODIUM CHLORIDE 0.65% NA SOLN 45 ML (OCEAN) SCH (20:54)
[2023-05-10] MEDS: guaiFENesin SUGAR FREE 200 MG/10 ML UDC PO SCH ×5 (00:29→23:47)
[2023-05-10] MEDS: ACETAMINOPHEN 500 MG TAB PO SCH ×3 (06:02→19:54)
[2023-05-10] MEDS: LEVOTHYROXINE SODIUM 125 MCG TABLET PO SCH (06:02)
[2023-05-10] MEDS: DIVALPROEX SODIUM SPRINKLE/DEL-REL 125 MG CAP PO SCH ×3 (06:02→20:08)
[2023-05-10] MEDS: APIXABAN 5 MG TABLET PO SCH ×3 (12:40→20:08)
[2023-05-10] MEDS: ANASTROZOLE 1 MG TAB PO SCH (12:40)
[2023-05-10] MEDS: HYDROCORTISONE 1% OINT 30 GM TUBE EXT SCH ×2 (12:40→19:55)
[2023-05-10] MEDS: OLANZAPINE 2.5 MG TAB PO SCH ×3 (12:41→20:08)
[2023-05-10] MEDS: SODIUM CHLORIDE 0.65% NA SOLN 45 ML (OCEAN) SCH ×3 (12:41→19:56)
[2023-05-10] MEDS ORDERED: predniSONE 5 MG TAB PO ONE (14:57)
[2023-05-10] MEDS ORDERED: LORATADINE 10 MG TAB PO ONE (14:58)
[2023-05-10] MEDS: OLANZapine ZYDIS 5 MG ORALLY DIS. TAB PO PRN (15:46)
--- NOTE | 2023-05-10 16:39 | Hospitalist Progress Note ---
Date of Service May 10, 2023 Assessment & Plan (1) Acute blood loss anemia: (2) Delirium: (3) Hip pain: (4) Hip hematoma, left: (5) History of CVA (cerebrovascular accident): (6) Dementia: (7) Hypothyroidism: Plan Pt is an 82yoF with PMHx significant for HTN, Hx of CVA, hx PE on Eliquis (01/2023), breast cancer, s/p surgery & radiation currently on Arimidex, hypothyroidism, mood disorder, occipital neuralgia as per records, dementia admitted after multiple hospitalizations and rehab admissions, admitted with left hip pain and a hematoma. Left hip hematoma Acute blood loss anemia In setting of anticoagulation use with Eliquis No known history of trauma H/O multiple left hip surgeries --Femur CT: Posterior to the hip replacement there is a moderate size hematoma measuring up to 4.1 cm in thickness by 10 cm transverse. The hematoma begins at the superior acetabulum and extends into the mid thigh measuring at least 15 cm craniocaudal. --repeat Femur CT:Mild hematoma versus nonspecific soft tissue swelling along the lateral aspect of the upper thigh and buttock region. Left-sided hip prosthesis in place with no acute fracture or subluxation. --Hip X ray:No acute fracture within the pelvis or hips. Intact left hip arthr oplasty with proximal left femoral internal fixation. No acute periprosthetic fracture. --Head CT:Suboptimal evaluation of the brain due to motion artifact. However, no definite acute intracranial abnormality. S/P 2 units PRBCs Hb Stable Restarted apixaban Fall precautions Appreciate orthopedics input Needs follow-up with orthopedics in 4 weeks as outpatient Pain control. Avoid opioids to minimize confusion Continue PT OT Case management to help with discharge planning H/O PE (postprocedure, COVID infection) Eliquis was on hold given acute blood loss anemia-restarted 1/2 Discussed with patient's family regarding possible need for IVC filter--will hold off for now per family Also did discuss risk versus benefits of anticoagulation given mental status/fall risk Acute kidney injury Renal function improved with IV fluids, blood transfusion Cr back to baseline Avoid nephrotoxic agents as able Monitor Left arm weakness: Thought to be axillary node biopsy -MRI Brain:No acute intracranial abnormality is identified. Shoulder x-ray:No fracture or dislocation within the right shoulder. Mild to moderate degenerative changes within the right shoulder. As per prior provider Pt received IM zyprexa likely in her left arm on 05/01 evening [facility] neurology consulted - Axillary nerve palsy: Pattern of weakness involving shoulder abduction without distal weakness is inconsistent with stroke or other central etiology. MRI is normal as expected. This is consistent with an axillary nerve injury. Recommend shoulder films to rule out dislocation but otherwise likely compressive. Can have EMG in 6 weeks if it does not improve. -- Shoulder x-rays for dislocation --Needs EMG in 6 weeks if not improved Petechial rash Unclear etiology Started on low-dose prednisone Continue hydrocortisone cream Monitor As per prior provider Dementia Delirium Mood Disorder Was on seroquel 12.5mg qhs Was off IM Zyprexa Started on po Zyprexa nightly Psych consulted- recommended discontinuing Seroquel and increased dose of Depakote 250 AM, 500 HS Continuing with po zyprexa at 4pm daily and using the ODT prn -> increased to 2.5 BID Delirium precautions. Frequent reorientation, avoid sedating medications Pt needs to be 48hr free from IM antipsychotic for placement - she has not required IM in several days however received IM zyprexa in the evening (05/01/22) H/O CVA As per records Evaluated by neurology on prior hospitalization CT head showed no acute findings H/O Breast cancer S/P Surgery, radiation continue Arimidex Hypothyroidism Normal TSH Continue levothyroxine Ongoing tobacco abuse Encourage cessation DVT Px: Eliquis Code Status: DNI/DNR Disposition Case management to help with discharge planning Admission and Anticipated Discharge Date Admission Date: April 16, 2023 Subjective Patient is seen and examined at bedside Unable to obtain much history States feeling tired No distress on exam RN noted petechial rash Afebrile today Waiting for placement Sitter at bedside Review of Systems Review of Systems: Other Physical Exam Physical Exam: Physical Exam: Vitals signs as noted above General Appearance:Moderately built and nourished, no distress, confused Head: normocephalic, Atraumatic Eyes: normal inspection, EOMI Neck: supple, Trachea midline Respiratory/Chest: Decreased breath sounds, CTA, No accessory muscle use Cardiovascular: S1, S2, No murmur Abdomen/GI:Soft, Non tender, Bowel sounds present Extremities/Musculoskeletal:normal inspection, no edema,+ L hip Ecchymosis improved, tender Neurologic/Psych:Alert, awake, confused, grossly moves all extremities Skin: normal color, warm, +Petechial rash Results & Data Results & Data Vital Signs (Past 12 Hours) Vital Signs Temp Pulse Resp BP Pulse Ox O2 Del Method 05/10/23 13:31 36.4 C L 64 16 135/81 96 Room Air 05/10/23 09:55 36.7 C 65 16 124/69 96 Room Air (3) Hip pain Laterality: left Qualified Code(s): M25.552 - Pain in left hip
[2023-05-11] MEDS: OLANZapine ZYDIS 5 MG ORALLY DIS. TAB PO PRN (04:29)
[2023-05-11] MEDS: guaiFENesin SUGAR FREE 200 MG/10 ML UDC PO SCH ×4 (06:14→23:48)
[2023-05-11] MEDS: LEVOTHYROXINE SODIUM 125 MCG TABLET PO SCH (06:14)
[2023-05-11] MEDS: DIVALPROEX SODIUM SPRINKLE/DEL-REL 125 MG CAP PO SCH ×2 (06:15→21:24)
[2023-05-11] MEDS: ACETAMINOPHEN 500 MG TAB PO SCH ×3 (06:18→21:28)
[2023-05-11 07:01] LABS: Hematocrit (blood only) 32.9 % (37.0-47.0); Hemoglobin 10.8 g/dl (12.0-16.0)
[2023-05-11] MEDS ORDERED: predniSONE 5 MG TAB PO SCH (09:00)
[2023-05-11] MEDS: APIXABAN 5 MG TABLET PO SCH ×2 (10:39→21:24)
[2023-05-11] MEDS: ANASTROZOLE 1 MG TAB PO SCH (10:39)
[2023-05-11] MEDS: HYDROCORTISONE 1% OINT 30 GM TUBE EXT SCH ×2 (10:40→21:23)
[2023-05-11] MEDS: SODIUM CHLORIDE 0.65% NA SOLN 45 ML (OCEAN) SCH ×3 (10:40→21:25)
[2023-05-11] MEDS: OLANZAPINE 2.5 MG TAB PO SCH ×2 (10:41→21:23)
[2023-05-11] MEDS ORDERED: diphenhydrAMINE HCL 25 MG/10 ML UDC PO PRN (11:59)
--- NOTE | 2023-05-11 12:24 | XRay Report ---
SINGLE VIEW CHEST CLINICAL HISTORY: Cough. FINDINGS: An AP, portable, upright chest radiograph is compared to study dated 04/15/2023. The cardio mediastinal silhouette is unremarkable noting atherosclerotic calcification of the thoracic aorta. Ch ronic interstitial thickening is similar to previous. There is right basilar consolidation. Scarring/ atelectasis is noted at the left lung base. No large pleural effusion or pneumothorax is seen. The sk eletal structures are osteopenic. The bony thorax is grossly intact. Postoperative changes noted in t he right shoulder. There are surgical clips in the right axilla. IMPRESSION: Right basilar consolidation is typical for pneumonia/aspiration pneumonitis. Clinical cor relation will be required and radiographic follow-up to resolution is recommended. ACT 112: Negative or not required by law. Electronically signed by: Fred Ramirez M.D. 05/11/2023 12:23 PM
[2023-05-11 13:55] LABS: Adenovirus PCR Not Detected (NotDetected); Bordetella parapertussis PCR Not Detected (NotDetected); Bordetella pertussis PCR Not Detected (NotDetected); Chlamydia pneumoniae PCR Not Detected (NotDetected); Coronavirus 229E PCR Not Detected (NotDetected); Coronavirus CoV-2 (COVID19)PCR Not Detected (NotDetected); Coronavirus HKU1 PCR Not Detected (NotDetected); Coronavirus NL63 PCR Not Detected (NotDetected); Coronavirus OC43PCR Not Detected (NotDetected); Human Metapneumovirus PCR Not Detected (NotDetected); Influenza A PCR Not Detected (NotDetected); Influenza B PCR Not Detected (NotDetected); Mycoplasma pneumoniae PCR Not Detected (NotDetected); Parainfluenza Virus 1 PCR Not Detected (NotDetected); Parainfluenza Virus 2 PCR Not Detected (NotDetected); Parainfluenza Virus 3 PCR Not Detected (NotDetected); Parainfluenza Virus 4 PCR Not Detected (NotDetected); Respiratory Syncytial VirusPCR Not Detected (NotDetected); Rhinovirus/Enterovirus PCR Not Detected (NotDetected)
[2023-05-11] MEDS: DOXYCYCLINE HYCLATE 100 MG CAP PO SCH ×2 (15:30→21:25)
--- NOTE | 2023-05-11 16:03 | Hospitalist Progress Note ---
Date of Service May 11, 2023 Assessment & Plan (1) Acute blood loss anemia: (2) Delirium: (3) Hip pain: (4) Hip hematoma, left: (5) History of CVA (cerebrovascular accident): (6) Dementia: (7) Hypothyroidism: Plan Pt is an 82yoF with PMHx significant for HTN, Hx of CVA, hx PE on Eliquis (01/2023), breast cancer, s/p surgery & radiation currently on Arimidex, hypothyroidism, mood disorder, occipital neuralgia as per records, dementia admitted after multiple hospitalizations and rehab admissions, admitted with left hip pain and a hematoma. Left hip hematoma Acute blood loss anemia In setting of anticoagulation use with Eliquis No known history of trauma H/O multiple left hip surgeries --Femur CT: Posterior to the hip replacement there is a moderate size hematoma measuring up to 4.1 cm in thickness by 10 cm transverse. The hematoma begins at the superior acetabulum and extends into the mid thigh measuring at least 15 cm craniocaudal. --repeat Femur CT:Mild hematoma versus nonspecific soft tissue swelling along the lateral aspect of the upper thigh and buttock region. Left-sided hip prosthesis in place with no acute fracture or subluxation. --Hip X ray:No acute fracture within the pelvis or hips. Intact left hip arthr oplasty with proximal left femoral internal fixation. No acute periprosthetic fracture. --Head CT:Suboptimal evaluation of the brain due to motion artifact. However, no definite acute intracranial abnormality. S/P 2 units PRBCs Hb Stable Restarted apixaban Fall precautions Appreciate orthopedics input Needs follow-up with orthopedics in 4 weeks as outpatient Pain control. Avoid opioids to minimize confusion Continue PT OT Case management to help with discharge planning H/O PE (postprocedure, COVID infection) Eliquis was on hold given acute blood loss anemia-restarted 1/2 Discussed with patient's family regarding possible need for IVC filter--will hold off for now per family Also did discuss risk versus benefits of anticoagulation given mental status/fall risk Cough Likely acute bronchitis BioFire negative Aspiration precautions at all times Check procalcitonin Empirically started on doxycycline Acute kidney injury Renal function improved with IV fluids, blood transfusion Cr back to baseline Avoid nephrotoxic agents as able Monitor Left arm weakness: Thought to be axillary node biopsy -MRI Brain:No acute intracranial abnormality is identified. Shoulder x-ray:No fracture or dislocation within the right shoulder. Mild to moderate degenerative changes within the right shoulder. As per prior provider Pt received IM zyprexa likely in her left arm on 05/01 evening [facility] neurology consulted - Axillary nerve palsy: Pattern of weakness involving shoulder abduction without distal weakness is inconsistent with stroke or other central etiology. MRI is normal as expected. This is consistent with an axillary nerve injury. Recommend shoulder films to rule out dislocation but otherwise likely compressive. Can have EMG in 6 weeks if it does not improve. -- Shoulder x-rays for dislocation --Needs EMG in 6 weeks if not improved Petechial rash Unclear etiology Started on prednisone Continue hydrocortisone cream Benadryl as needed Monitor As per prior provider Dementia Delirium Mood Disorder Was on seroquel 12.5mg qhs Was off IM Zyprexa Started on po Zyprexa nightly Psych consulted- recommended discontinuing Seroquel and increased dose of Depakote 250 AM, 500 HS Continuing with po zyprexa at 4pm daily and using the ODT prn -> increased to 2.5 BID Delirium precautions. Frequent reorientation, avoid sedating medications Pt needs to be 48hr free from IM antipsychotic for placement - she has not required IM in several days however received IM zyprexa in the evening (05/01/22) H/O CVA As per records Evaluated by neurology on prior hospitalization CT head showed no acute findings H/O Breast cancer S/P Surgery, radiation continue Arimidex Hypothyroidism Normal TSH Continue levothyroxine Ongoing tobacco abuse Encourage cessation DVT Px: Eliquis Code Status: DNI/DNR Disposition Case management to help with discharge planning Admission and Anticipated Discharge Date Admission Date: April 16, 2023 Subjective Patient is seen and examined at bedside Unable to obtain much history Noted to have some dry cough States feeling tired Petechial rash persistent Sitter at bedside Review of Systems Review of Systems: Other Physical Exam Physical Exam: Physical Exam: Vitals signs as noted above General Appearance:Moderately built and nourished, no distress, confused Head: normocephalic, Atraumatic Eyes: normal inspection, EOMI Neck: supple, Trachea midline Respiratory/Chest: Decreased breath sounds, CTA, No accessory muscle use Cardiovascular: S1, S2, No murmur Abdomen/GI:Soft, Non tender, Bowel sounds present Extremities/Musculoskeletal:normal inspection, no edema,+ L hip Ecchymosis improved, tender Neurologic/Psych:Alert, awake, confused, grossly moves all extremities Skin: normal color, warm, +Petechial rash Results & Data Results & Data Vital Signs (Past 12 Hours) Vital Signs Temp Pulse Resp BP Pulse Ox O2 Del Method 05/11/23 10:45 Room Air 05/11/23 10:10 36.5 C 62 16 130/83 94 Room Air Laboratory Results Short CBC 05/11/23 Range/Units 06:35 Hgb 10.8 L (12.0-16.0) g/dl Hct 32.9 L (37.0-47.0) % (3) Hip pain Laterality: left Qualified Code(s): M25.552 - Pain in left hip
[2023-05-11] MEDS: predniSONE 5 MG TAB PO SCH (21:26)
[2023-05-12] MEDS: DIVALPROEX SODIUM SPRINKLE/DEL-REL 125 MG CAP PO SCH ×2 (05:38→20:31)
[2023-05-12] MEDS: LEVOTHYROXINE SODIUM 125 MCG TABLET PO SCH (05:38)
[2023-05-12] MEDS: ACETAMINOPHEN 500 MG TAB PO SCH ×5 (05:42→20:30)
[2023-05-12] MEDS: guaiFENesin SUGAR FREE 200 MG/10 ML UDC PO SCH ×4 (05:48→20:31)
[2023-05-12] MEDS: APIXABAN 5 MG TABLET PO SCH ×2 (08:27→20:31)
[2023-05-12] MEDS: HYDROCORTISONE 1% OINT 30 GM TUBE EXT SCH ×2 (08:27→20:31)
[2023-05-12] MEDS: DOXYCYCLINE HYCLATE 100 MG CAP PO SCH ×2 (08:27→20:31)
[2023-05-12] MEDS: predniSONE 5 MG TAB PO SCH ×2 (08:27→20:31)
[2023-05-12] MEDS: OLANZAPINE 2.5 MG TAB PO SCH ×2 (08:28→20:32)
[2023-05-12] MEDS: ANASTROZOLE 1 MG TAB PO SCH (08:29)
[2023-05-12] MEDS: SODIUM CHLORIDE 0.65% NA SOLN 45 ML (OCEAN) SCH ×4 (08:36→20:31)
--- NOTE | 2023-05-12 17:50 | Hospitalist Progress Note ---
Date of Service May 12, 2023 Assessment & Plan (1) Acute blood loss anemia: (2) Delirium: (3) Hip pain: (4) Hip hematoma, left: (5) History of CVA (cerebrovascular accident): (6) Dementia: (7) Hypothyroidism: Plan Pt is an 82yoF with PMHx significant for HTN, Hx of CVA, hx PE on Eliquis (01/2023), breast cancer, s/p surgery & radiation currently on Arimidex, hypothyroidism, mood disorder, occipital neuralgia as per records, dementia admitted after multiple hospitalizations and rehab admissions, admitted with left hip pain and a hematoma. Left hip hematoma Acute blood loss anemia In setting of anticoagulation use with Eliquis No known history of trauma H/O multiple left hip surgeries --Femur CT: Posterior to the hip replacement there is a moderate size hematoma measuring up to 4.1 cm in thickness by 10 cm transverse. The hematoma begins at the superior acetabulum and extends into the mid thigh measuring at least 15 cm craniocaudal. --repeat Femur CT:Mild hematoma versus nonspecific soft tissue swelling along the lateral aspect of the upper thigh and buttock region. Left-sided hip prosthesis in place with no acute fracture or subluxation. --Hip X ray:No acute fracture within the pelvis or hips. Intact left hip arthr oplasty with proximal left femoral internal fixation. No acute periprosthetic fracture. --Head CT:Suboptimal evaluation of the brain due to motion artifact. However, no definite acute intracranial abnormality. S/P 2 units PRBCs Hb Stable Restarted apixaban Fall precautions Appreciate orthopedics input Needs follow-up with orthopedics in 4 weeks as outpatient Pain control. Avoid opioids to minimize confusion Continue PT OT Case management to help with discharge planning Hb stable H/O PE (postprocedure, COVID infection) Eliquis was on hold given acute blood loss anemia-restarted 1/2 Discussed with patient's family regarding possible need for IVC filter--will hold off for now per family Also did discuss risk versus benefits of anticoagulation given mental status/fall risk Cough Likely acute bronchitis BioFire negative Aspiration precautions at all times Normal procalcitonin Empirically started on doxycycline Improving Acute kidney injury Renal function improved with IV fluids, blood transfusion Cr back to baseline Avoid nephrotoxic agents as able Monitor Left arm weakness: Thought to be axillary node biopsy -MRI Brain:No acute intracranial abnormality is identified. Shoulder x-ray:No fracture or dislocation within the right shoulder. Mild to moderate degenerative changes within the right shoulder. As per prior provider Pt received IM zyprexa likely in her left arm on 05/[address] [facility] neurology consulted - Axillary nerve palsy: Pattern of weakness involving shoulder abduction without distal weakness is inconsistent with stroke or other central etiology. MRI is normal as expected. This is consistent with an axillary nerve injury. Recommend shoulder films to rule out dislocation but otherwise likely compressive. Can have EMG in 6 weeks if it does not improve. -- Shoulder x-rays for dislocation --Needs EMG in 6 weeks if not improved Petechial rash Unclear etiology Started on prednisone Continue hydrocortisone cream Benadryl as needed Clinically improving As per prior provider Dementia Delirium Mood Disorder Was on seroquel 12.5mg qhs Was off IM Zyprexa Started on po Zyprexa nightly Psych consulted- recommended discontinuing Seroquel and increased dose of Depakote 250 AM, 500 HS Continuing with po zyprexa at 4pm daily and using the ODT prn -> increased to 2.5 BID Delirium precautions. Frequent reorientation, avoid sedating medications Pt needs to be 48hr free from IM antipsychotic for placement - she has not required IM in several days however received IM zyprexa in the evening (05/01/22) H/O CVA As per records Evaluated by neurology on prior hospitalization CT head showed no acute findings H/O Breast cancer S/P Surgery, radiation continue Arimidex Hypothyroidism Normal TSH Continue levothyroxine Ongoing tobacco abuse Encourage cessation DVT Px: Eliquis Code Status: DNI/DNR Disposition Case management to help with discharge planning Admission and Anticipated Discharge Date Admission Date: April 16, 2023 Subjective Patient is seen and examined at bedside Poor historian Cough improving Rash improved as well Discussed with patient's family over the phone No distress on exam Review of Systems Review of Systems: All systems reviewed & are unremarkable except as noted in Subjective Physical Exam Physical Exam: Physical Exam: Vitals signs as noted above General Appearance:Moderately built and nourished, no distress, confused Head: normocephalic, Atraumatic Eyes: normal inspection, EOMI Neck: supple, Trachea midline Respiratory/Chest: Decreased breath sounds, CTA, No accessory muscle use Cardiovascular: S1, S2, No murmur Abdomen/GI:Soft, Non tender, Bowel sounds present Extremities/Musculoskeletal:normal inspection, no edema,+ L hip Ecchymosis improved, tender Neurologic/Psych:Alert, awake, confused, grossly moves all extremities Skin: normal color, warm, +Petechial rash Results & Data Results & Data Vital Signs (Past 12 Hours) Vital Signs Temp Pulse Resp BP Pulse Ox O2 Del Method 05/12/23 07:40 Room Air 05/12/23 07:10 36.4 C L 64 16 123/73 94 Room Air (3) Hip pain Laterality: left Qualified Code(s): M25.552 - Pain in left hip
[2023-05-13] MEDS: ACETAMINOPHEN 500 MG TAB PO SCH ×3 (05:29→22:50)
[2023-05-13] MEDS: DIVALPROEX SODIUM SPRINKLE/DEL-REL 125 MG CAP PO SCH ×2 (05:30→21:40)
[2023-05-13] MEDS: guaiFENesin SUGAR FREE 200 MG/10 ML UDC PO SCH ×3 (05:30→17:16)
[2023-05-13] MEDS: LEVOTHYROXINE SODIUM 125 MCG TABLET PO SCH (05:30)
[2023-05-13 07:42] LABS: Hematocrit (blood only) 34.2 % (37.0-47.0); Mean Corpuscular Hemoglobin 30.7 pg (25.0-34.0); Mean Corpuscular Hgb Conc 32.2 g/dL (32.0-36.0); Mean Corpuscular Volume 95.5 fL (80.0-100.0); Platelet Count 456 K/uL (130-400); RDW Coefficient of Variation 16.3 % (11.5-14.5); RDW Standard Deviation 58.2 fL (36.4-46.3); Red Blood Count 3.58 M/uL (4.20-5.40)
--- NOTE | 2023-05-13 07:57 | Communication Note ---
Date of Service: May 13, 2023 interim progress reviewed. Depakote was increased earlier in stay following initial psychiatric consultation by Dr. Nova. Would suggest repeat level ( trough) with next am blood draw. Monitor use of PO Zyprexa prn. Last dose appears to be 05/11 and was having some rash on that day so discomfort may have contributed. Did receive 1 dose of low dose Benadryl for rash and currently ordered as prn. Monitor use as can contribute to confusion due to anticholinergic effects. If regularly requiring prn Zyprexa PO, say 3 days in a row moving forward would increase hs dose by 2.5 mg, otherwise monitor on lowest effective dose to minimize longer term risks.
[2023-05-13 08:01] LABS: BUN Creatinine Ratio 52.4 (10-20); Calcium 9.4 mg/dl (8.6-10.3); Creatinine Clr Calc Pharmacy 44.9 ml/min; Est GFR (African American) 76.7 ml/min; Est GFR (Non-African American) 66.2 ml/min
[2023-05-13] MEDS: ANASTROZOLE 1 MG TAB PO SCH (10:16)
[2023-05-13] MEDS: predniSONE 5 MG TAB PO SCH ×2 (10:16→10:29)
[2023-05-13] MEDS: DOXYCYCLINE HYCLATE 100 MG CAP PO SCH ×2 (10:17→21:40)
[2023-05-13] MEDS: OLANZAPINE 2.5 MG TAB PO SCH ×2 (10:17→16:15)
[2023-05-13] MEDS: APIXABAN 5 MG TABLET PO SCH ×2 (10:17→21:40)
[2023-05-13] MEDS: HYDROCORTISONE 1% OINT 30 GM TUBE EXT SCH ×2 (10:18→21:40)
[2023-05-13] MEDS: SODIUM CHLORIDE 0.65% NA SOLN 45 ML (OCEAN) SCH ×4 (10:18→21:40)
--- NOTE | 2023-05-13 16:41 | Hospitalist Progress Note ---
Date of Service May 13, 2023 Assessment & Plan (1) Acute blood loss anemia: (2) Delirium: (3) Hip pain: (4) Hip hematoma, left: (5) History of CVA (cerebrovascular accident): (6) Dementia: (7) Hypothyroidism: Plan Pt is an 82yoF with PMHx significant for HTN, Hx of CVA, hx PE on Eliquis (01/2023), breast cancer, s/p surgery & radiation currently on Arimidex, hypothyroidism, mood disorder, occipital neuralgia as per records, dementia admitted after multiple hospitalizations and rehab admissions, admitted with left hip pain and a hematoma. Left hip hematoma Acute blood loss anemia In setting of anticoagulation use with Eliquis No known history of trauma H/O multiple left hip surgeries --Femur CT: Posterior to the hip replacement there is a moderate size hematoma measuring up to 4.1 cm in thickness by 10 cm transverse. The hematoma begins at the superior acetabulum and extends into the mid thigh measuring at least 15 cm craniocaudal. --repeat Femur CT:Mild hematoma versus nonspecific soft tissue swelling along the lateral aspect of the upper thigh and buttock region. Left-sided hip prosthesis in place with no acute fracture or subluxation. --Hip X ray:No acute fracture within the pelvis or hips. Intact left hip arthr oplasty with proximal left femoral internal fixation. No acute periprosthetic fracture. --Head CT:Suboptimal evaluation of the brain due to motion artifact. However, no definite acute intracranial abnormality. S/P 2 units PRBCs Hb Stable Restarted apixaban Fall precautions Appreciate orthopedics input Needs follow-up with orthopedics in 4 weeks as outpatient Pain control. Avoid opioids to minimize confusion Continue PT OT Case management to help with discharge planning Hb stable Waiting for placement H/O PE (postprocedure, COVID infection) Eliquis was on hold given acute blood loss anemia-restarted 1/2 Discussed with patient's family regarding possible need for IVC filter--will hold off for now per family Also did discuss risk versus benefits of anticoagulation given mental status/fall risk Cough Likely acute bronchitis BioFire negative Aspiration precautions at all times Normal procalcitonin Empirically started on doxycycline Improved Acute kidney injury Renal function improved with IV fluids, blood transfusion Cr back to baseline Avoid nephrotoxic agents as able Monitor Left arm weakness: Thought to be axillary node biopsy -MRI Brain:No acute intracranial abnormality is identified. Shoulder x-ray:No fracture or dislocation within the right shoulder. Mild to moderate degenerative changes within the right shoulder. As per prior provider Pt received IM zyprexa likely in her left arm on 05/[address] [facility] neurology consulted - Axillary nerve palsy: Pattern of weakness involving shoulder abduction without distal weakness is inconsistent with stroke or other central etiology. MRI is normal as expected. This is consistent with an axillary nerve injury. Recommend shoulder films to rule out dislocation but otherwise likely compressive. Can have EMG in 6 weeks if it does not improve. -- Shoulder x-rays for dislocation --Needs EMG in 6 weeks if not improved Petechial rash Unclear etiology Started on prednisone Continue hydrocortisone cream Benadryl as needed Clinically improving As per prior provider Dementia Delirium Mood Disorder Was on seroquel 12.5mg qhs Was off IM Zyprexa Started on po Zyprexa nightly Psych consulted- recommended discontinuing Seroquel and increased dose of Depakote 250 AM, 500 HS Continuing with po zyprexa at 4pm daily and using the ODT prn -> increased to 2.5 BID Delirium precautions. Frequent reorientation, avoid sedating medications Pt needs to be 48hr free from IM antipsychotic for placement - she has not required IM in several days however received IM zyprexa in the evening (05/01/22) Can titrate Zyprexa if needed as per psychiatry H/O CVA As per records Evaluated by neurology on prior hospitalization CT head showed no acute findings H/O Breast cancer S/P Surgery, radiation continue Arimidex Hypothyroidism Normal TSH Continue levothyroxine Ongoing tobacco abuse Encourage cessation DVT Px: Eliquis Code Status: DNI/DNR Disposition Case management to help with discharge planning Admission and Anticipated Discharge Date Admission Date: April 16, 2023 Subjective Patient is seen and examined at bedside Poor historian due to dementia Rash much improved No significant cough today Sitter at bedside Denies any chest pain, dyspnea Review of Systems Review of Systems: All systems reviewed & are unremarkable except as noted in Subjective Physical Exam Physical Exam: Physical Exam: Vitals signs as noted above General Appearance:Moderately built and nourished, no distress, confused Head: normocephalic, Atraumatic Eyes: normal inspection, EOMI Neck: supple, Trachea midline Respiratory/Chest: Decreased breath sounds, CTA, No accessory muscle use Cardiovascular: S1, S2, No murmur Abdomen/GI:Soft, Non tender, Bowel sounds present Extremities/Musculoskeletal:normal inspection, no edema,+ L hip Ecchymosis improved, tender Neurologic/Psych:Alert, awake, confused, grossly moves all extremities Skin: normal color, warm, +Petechial rash Results & Data Results & Data Vital Signs (Past 12 Hours) Vital Signs Temp Pulse Resp BP Pulse Ox O2 Del Method 05/13/23 07:34 Room Air 05/13/23 07:22 36.6 C 71 18 151/89 H 94 Room Air 05/13/23 05:51 36.8 C 65 18 166/89 H 96 Room Air Laboratory Results Short CBC 05/13/23 Range/Units 07:18 WBC 7.60 (4.8-10.8) K/ul Hgb 11.0 L (12.0-16.0) g/dl Hct 34.2 L (37.0-47.0) % Plt Count 456 H (130-400) K/uL BMP 05/13/23 07:18 Sodium 137 Potassium 4.0 Chloride 104 Carbon Dioxide 26 BUN 43 H Creatinine 0.82 Glucose 80 Calcium 9.4 (3) Hip pain Laterality: left Qualified Code(s): M25.552 - Pain in left hip
--- NOTE | 2023-05-13 17:46 | Communication Note ---
Date of Service: May 13, 2023 COVID test was performed for placement, tested positive. BioFire negative on 05/11/2023. Saturating well on room air currently. No indication for treatment for COVID infection. Will recheck BioFire tomorrow. Placed on airborne precautions for now.
[2023-05-13] MEDS: OLANZapine ZYDIS 5 MG ORALLY DIS. TAB PO PRN (22:46)
[2023-05-14] MEDS: guaiFENesin SUGAR FREE 200 MG/10 ML UDC PO SCH ×4 (00:50→17:32)
[2023-05-14] MEDS: ACETAMINOPHEN 500 MG TAB PO SCH ×3 (05:49→21:46)
[2023-05-14] MEDS: DIVALPROEX SODIUM SPRINKLE/DEL-REL 125 MG CAP PO SCH ×2 (05:50→21:37)
[2023-05-14] MEDS: LEVOTHYROXINE SODIUM 125 MCG TABLET PO SCH (05:50)
[2023-05-14] MEDS: OLANZapine ZYDIS 5 MG ORALLY DIS. TAB PO PRN ×4 (05:55→21:39)
[2023-05-14] MEDS: ANASTROZOLE 1 MG TAB PO SCH (09:07)
[2023-05-14] MEDS: predniSONE 5 MG TAB PO SCH (09:07)
[2023-05-14] MEDS: APIXABAN 5 MG TABLET PO SCH ×2 (09:07→21:37)
[2023-05-14] MEDS: OLANZAPINE 2.5 MG TAB PO SCH ×2 (09:07→14:58)
[2023-05-14] MEDS: DOXYCYCLINE HYCLATE 100 MG CAP PO SCH ×2 (09:07→21:38)
[2023-05-14] MEDS: SODIUM CHLORIDE 0.65% NA SOLN 45 ML (OCEAN) SCH ×3 (09:08→21:40)
[2023-05-14] MEDS: HYDROCORTISONE 1% OINT 30 GM TUBE EXT SCH ×2 (09:08→21:40)
[2023-05-14 10:24] LABS: Adenovirus PCR Not Detected (NotDetected); Bordetella parapertussis PCR Not Detected (NotDetected); Bordetella pertussis PCR Not Detected (NotDetected); Chlamydia pneumoniae PCR Not Detected (NotDetected); Coronavirus 229E PCR Not Detected (NotDetected); Coronavirus CoV-2 (COVID19)PCR Not Detected (NotDetected); Coronavirus HKU1 PCR Not Detected (NotDetected); Coronavirus NL63 PCR Not Detected (NotDetected); Coronavirus OC43PCR Not Detected (NotDetected); Human Metapneumovirus PCR Not Detected (NotDetected); Influenza A PCR Not Detected (NotDetected); Influenza B PCR Not Detected (NotDetected); Mycoplasma pneumoniae PCR Not Detected (NotDetected); Parainfluenza Virus 1 PCR Not Detected (NotDetected); Parainfluenza Virus 2 PCR Not Detected (NotDetected); Parainfluenza Virus 3 PCR Not Detected (NotDetected); Parainfluenza Virus 4 PCR Not Detected (NotDetected); Respiratory Syncytial VirusPCR Not Detected (NotDetected); Rhinovirus/Enterovirus PCR Not Detected (NotDetected)
[2023-05-15] MEDS: guaiFENesin SUGAR FREE 200 MG/10 ML UDC PO SCH ×4 (00:57→17:10)
[2023-05-15] MEDS: DIVALPROEX SODIUM SPRINKLE/DEL-REL 125 MG CAP PO SCH ×2 (05:35→21:37)
[2023-05-15] MEDS: LEVOTHYROXINE SODIUM 125 MCG TABLET PO SCH (05:35)
[2023-05-15] MEDS: ACETAMINOPHEN 500 MG TAB PO SCH ×3 (05:37→21:36)
[2023-05-15] MEDS: SODIUM CHLORIDE 0.65% NA SOLN 45 ML (OCEAN) SCH ×3 (11:50→21:38)
[2023-05-15] MEDS: APIXABAN 5 MG TABLET PO SCH ×2 (11:50→21:37)
[2023-05-15] MEDS: OLANZAPINE 2.5 MG TAB PO SCH ×2 (11:50→15:16)
[2023-05-15] MEDS: HYDROCORTISONE 1% OINT 30 GM TUBE EXT SCH ×2 (11:51→21:38)
[2023-05-15] MEDS: ANASTROZOLE 1 MG TAB PO SCH (11:51)
[2023-05-15] MEDS: predniSONE 5 MG TAB PO SCH (11:51)
[2023-05-15] MEDS: DOXYCYCLINE HYCLATE 100 MG CAP PO SCH ×2 (11:51→21:37)
--- NOTE | 2023-05-15 12:13 | Hospitalist Progress Note ---
Date of Service Late entry: May 14, 2023 Assessment & Plan (1) Acute blood loss anemia: (2) Delirium: (3) Hip pain: (4) Hip hematoma, left: (5) History of CVA (cerebrovascular accident): (6) Dementia: (7) Hypothyroidism: Plan Pt is an 82yoF with PMHx significant for HTN, Hx of CVA, hx PE on Eliquis (01/2023), breast cancer, s/p surgery & radiation currently on Arimidex, hypothyroidism, mood disorder, occipital neuralgia as per records, dementia admitted after multiple hospitalizations and rehab admissions, admitted with left hip pain and a hematoma. Left hip hematoma Acute blood loss anemia In setting of anticoagulation use with Eliquis No known history of trauma H/O multiple left hip surgeries --Femur CT: Posterior to the hip replacement there is a moderate size hematoma measuring up to 4.1 cm in thickness by 10 cm transverse. The hematoma begins at the superior acetabulum and extends into the mid thigh measuring at least 15 cm craniocaudal. --repeat Femur CT:Mild hematoma versus nonspecific soft tissue swelling along the lateral aspect of the upper thigh and buttock region. Left-sided hip prosthesis in place with no acute fracture or subluxation. --Hip X ray:No acute fracture within the pelvis or hips. Intact left hip arthroplasty with proximal left femoral internal fixation. No acute periprosthetic fracture. --Head CT:Suboptimal evaluation of the brain due to motion artifact. However, no definite acute intracranial abnormality. S/P 2 units PRBCs Hb Stable Restarted apixaban Fall precautions Needs follow-up with orthopedics in 4 weeks as outpatient Pain control. Avoid opioids to minimize confusion Continue PT OT Awaiting placement H/O PE (postprocedure, COVID infection) Eliquis was on hold given acute blood loss anemia-restarted 04/29/2023 Previous hospitalist discuss risk versus benefits of anticoagulation given mental status/fall risk Cough Likely acute bronchitis Resolved COVID-19 positive COVID-19 rapid antigen was positive. BioFire is negative. Acute kidney injury Renal function improved with IV fluids, blood transfusion Cr back to baseline Avoid nephrotoxic agents as able Monitor Left arm weakness: Thought to be axillary node biopsy -MRI Brain:No acute intracranial abnormality is identified. Shoulder x-ray:No fracture or dislocation within the right shoulder. Mild to mod erate degenerative changes within the right shoulder. As per prior provider [facility] neurology consulted - Axillary nerve palsy: Pattern of weakness involving shoulder abduction without distal weakness is inconsistent with stroke or other central etiology. MRI is normal as expected. This is consistent with an axillary nerve injury. Recommend shoulder films to rule out dislocation but otherwise likely compressive. Can have EMG in 6 weeks if it does not improve. --Needs EMG in 6 weeks if not improved Petechial rash Unclear etiology On oral prednisone Continue hydrocortisone cream Benadryl as needed Clinically improving Dementia Delirium Mood Disorder Was on seroquel 12.5mg qhs Started on po Zyprexa nightly Psych consulted- recommended discontinuing Seroquel and increased dose of Depakote 250 AM, 500 HS Continuing with po zyprexa at 4pm daily and using the ODT prn -> increased to 2.5 BID Delirium precautions. Frequent reorientation, avoid sedating medications Pt needs to be 48hr free from IM antipsychotic for placement - she has not required IM in several days however received IM zyprexa in the evening (05/01/22) Can titrate Zyprexa if needed as per psychiatry H/O CVA As per records Evaluated by neurology on prior hospitalization CT head showed no acute findings H/O Breast cancer S/P Surgery, radiation continue Arimidex Hypothyroidism Normal TSH Continue levothyroxine Ongoing tobacco abuse Encourage cessation DVT Px: Eliquis Code Status: DNI/DNR Disposition Patient was planned to go to SNF. However, she was found to have COVID-19 rapid antigen positive. As per SNF policy; patient needs to be isolated for 5 days. COVID-19 [place] test for confirmation ordered. Potential discharge in next few days. Discussed with POA. Please note the above document was generated using voice recognition software. It may contain grammatical, syntax or spelling errors. Any formal questions or concerns about the content, text or information contained within the body of this dictation should be directly addressed to the provider for clarification Admission and Anticipated Discharge Date Admission Date: April 16, 2023 Subjective Patient seen and examined at bedside. Comfortable; not in distress. Denies fever, chills, chest pain, shortness of breath, abdominal pain or urinary symptoms. No significant overnight events Review of Systems Review of Systems: All systems reviewed & are unremarkable except as noted in Subjective Physical Exam Physical Exam: Constitutional: Awake, alert, oriented to self only Respiratory: Bilateral vesicular breath sound. Cardiovascular: RRR, no murmur, no edema Vessels: no JVD or carotid bruit Abdomen: Soft, nontender. Musculoskeletal: Bruises present on right thigh Skin: no rashes, warm and dry normal turgor Neurologic: Grossly moves all extremities. Psychiatric: A+Ox1, euthymic affect Results & Data Results & Data Vital Signs (Past 12 Hours) Vital Signs Temp Pulse Resp BP Pulse Ox O2 Del Method 05/15/23 11:49 36.4 C L 65 17 146/84 H 96 Room Air (3) Hip pain Laterality: left Qualified Code(s): M25.552 - Pain in left hip
--- NOTE | 2023-05-15 12:16 | Hospitalist Progress Note ---
Date of Service May 15, 2023 Assessment & Plan (1) Acute blood loss anemia: (2) Delirium: (3) Hip pain: (4) Hip hematoma, left: (5) History of CVA (cerebrovascular accident): (6) Dementia: (7) Hypothyroidism: Plan Pt is an 82yoF with PMHx significant for HTN, Hx of CVA, hx PE on Eliquis (01/2023), breast cancer, s/p surgery & radiation currently on Arimidex, hypothyroidism, mood disorder, occipital neuralgia as per records, dementia admitted after multiple hospitalizations and rehab admissions, admitted with left hip pain and a hematoma. Left hip hematoma Acute blood loss anemia In setting of anticoagulation use with Eliquis No known history of trauma H/O multiple left hip surgeries --Femur CT: Posterior to the hip replacement there is a moderate size hematoma measuring up to 4.1 cm in thickness by 10 cm transverse. The hematoma begins at the superior acetabulum and extends into the mid thigh measuring at least 15 cm craniocaudal. --repeat Femur CT:Mild hematoma versus nonspecific soft tissue swelling along the lateral aspect of the upper thigh and buttock region. Left-sided hip prosthesis in place with no acute fracture or subluxation. --Hip X ray:No acute fracture within the pelvis or hips. Intact left hip art hroplasty with proximal left femoral internal fixation. No acute periprosthetic fracture. --Head CT:Suboptimal evaluation of the brain due to motion artifact. However, no definite acute intracranial abnormality. S/P 2 units PRBCs Hb Stable Restarted apixaban Fall precautions Needs follow-up with orthopedics in 4 weeks as outpatient Pain control. Avoid opioids to minimize confusion Continue PT OT Awaiting placement H/O PE (postprocedure, COVID infection) Eliquis was on hold given acute blood loss anemia-restarted 04/29/2023 Previous hospitalist discuss risk versus benefits of anticoagulation given mental status/fall risk Cough Likely acute bronchitis Resolved COVID-19 positive COVID-19 rapid antigen was positive. BioFire is negative. Awaiting COVID-19 [place] test Acute kidney injury Renal function improved with IV fluids, blood transfusion Cr back to baseline Avoid nephrotoxic agents as able Monitor Left arm weakness: Thought to be axillary node biopsy -MRI Brain:No acute intracranial abnormality is identified. Shoulder x-ray:No fracture or dislocation within the right shoulder. Mild to moderate degenerative changes within the right shoulder. As per prior provider [facility] neurology consulted - Axillary nerve palsy: Pattern of weakness involving shoulder abduction without distal weakness is inconsistent with stroke or other central etiology. MRI is normal as expected. This is consistent with an axillary nerve injury. Recommend shoulder films to rule out dislocation but otherwise likely compressive. Can have EMG in 6 weeks if it does not improve. --Needs EMG in 6 weeks if not improved Petechial rash Unclear etiology Status post oral prednisone Continue hydrocortisone cream Benadryl as needed Clinically improving Dementia Delirium Mood Disorder Was on seroquel 12.5mg qhs Psych consulted- recommended discontinuing Seroquel and increased dose of Depakote 250 AM, 500 HS On p.o. Zyprexa at 9 and 4 PM Delirium precautions. Frequent reorientation, avoid sedating medications H/O CVA As per records Evaluated by neurology on prior hospitalization CT head showed no acute findings H/O Breast cancer S/P Surgery, radiation continue Arimidex Hypothyroidism Normal TSH Continue levothyroxine Ongoing tobacco abuse Encourage cessation DVT Px: Eliquis Code Status: DNI/DNR Disposition Patient was planned to go to SNF. However, she was found to have COVID-19 rapid antigen positive. As per SNF policy; patient needs to be isolated for 5 days. COVID-19 [place] test for confirmation ordered. Potential discharge in next few days. Discussed with POA. Please note the above document was generated using voice recognition software. It may contain grammatical, syntax or spelling errors. Any formal questions or concerns about the content, text or information contained within the body of this dictation should be directly addressed to the provider for clarification Admission and Anticipated Discharge Date Admission Date: April 16, 2023 Subjective Patient seen and examined at bedside. She is comfortable. She denies any pain or discomfort Review of Systems Review of Systems: All systems reviewed & are unremarkable except as noted in Subjective Physical Exam 2 Physical Exam: Constitutional: Awake, alert, oriented to self only Respiratory: Bilateral vesicular breath sound. Cardiovascular: RRR, no murmur, no edema Vessels: no JVD or carotid bruit Abdomen: Soft, nontender. Musculoskeletal: Bruises present on right thigh Skin: no rashes, warm and dry normal turgor Neurologic: Grossly moves all extremities. Psychiatric: A+Ox1, euthymic affect Results & Data Results & Data Vital Signs (Past 12 Hours) Vital Signs Temp Pulse Resp BP Pulse Ox O2 Del Method 05/15/23 11:49 36.4 C L 65 17 146/84 H 96 Room Air (3) Hip pain Laterality: left Qualified Code(s): M25.552 - Pain in left hip
[2023-05-15 21:38] LABS: Hemoglobin 11.4 g/dl (12.0-16.0); Mean Corpuscular Hemoglobin 30.2 pg (25.0-34.0); Mean Corpuscular Hgb Conc 31.7 g/dL (32.0-36.0); Mean Corpuscular Volume 95.5 fL (80.0-100.0); Mean Platelet Volume 9.1 fL (9.4-12.4); Platelet Count 560 K/uL (130-400); RDW Coefficient of Variation 16.4 % (11.5-14.5); RDW Standard Deviation 57.8 fL (36.4-46.3); Red Blood Count 3.77 M/uL (4.20-5.40); White Blood Count 8.68 K/ul (4.8-10.8)
[2023-05-15] MEDS: OLANZapine ZYDIS 5 MG ORALLY DIS. TAB PO PRN (21:38)
[2023-05-15 22:34] LABS: Calcium 9.6 mg/dl (8.6-10.3); Potassium 4.2 mmol/L (3.5-5.1)
[2023-05-15 22:40] LABS: Creatinine Clr Calc Pharmacy 36.8 ml/min; Est GFR (African American) 60.3 ml/min; Est GFR (Non-African American) 52.1 ml/min
[2023-05-16] MEDS: guaiFENesin SUGAR FREE 200 MG/10 ML UDC PO SCH ×3 (00:38→11:21)
[2023-05-16] MEDS: DIVALPROEX SODIUM SPRINKLE/DEL-REL 125 MG CAP PO SCH (06:19)
[2023-05-16] MEDS: ACETAMINOPHEN 500 MG TAB PO SCH ×2 (06:19→12:14)
[2023-05-16] MEDS: APIXABAN 5 MG TABLET PO SCH (08:55)
[2023-05-16] MEDS: DOXYCYCLINE HYCLATE 100 MG CAP PO SCH (08:56)
[2023-05-16] MEDS: HYDROCORTISONE 1% OINT 30 GM TUBE EXT SCH ×2 (08:56→09:05)
[2023-05-16] MEDS: OLANZAPINE 2.5 MG TAB PO SCH (08:57)
[2023-05-16] MEDS: SODIUM CHLORIDE 0.65% NA SOLN 45 ML (OCEAN) SCH (08:58)
[2023-05-16] MEDS: predniSONE 5 MG TAB PO SCH (09:05)
[2023-05-16] MEDS: OLANZapine ZYDIS 5 MG ORALLY DIS. TAB PO PRN (11:18)
--- NOTE | 2023-05-16 16:52 | Discharge Summary ---
Date of Service May 16, 2023 Admission HPI Per Admitting Provider History obtained from patient family, ER provider, and records. Limited history from patient secondary to dementia. Medical history significant for hypertension, CVA as per records, hx PE on Eliquis (01/2023), breast cancer left status postsurgery, radiation currently on Arimidex, hypothyroidism, mood disorder, occipital neuralgia as per records, dementia, ongoing tobacco abuse. Patient is a resident of [place], [place] who was admitted at a local personal care facility yesterday to be close to local family. Multiple admissions at [facility] in [facility] since December 2022 following traumatic left hip fracture leading to surgery. Patient noted to have pulmonary embolism postop. First occurrence as per family. Discharged on Eliquis to rehab facility. Patient contracted COVID-19 illness first week of January 2023 at rehab facility. Patient later found to have pulmonary embolism. No leg DVT as per niece. Patient started on Eliquis. 02/23-03/10 Patient readmitted at [facility] for infected left hip prosthesis/abscess. Subsequent operative revision and wound VAC replacement. Yeast within deep tissue noted on operative CS. Patient completed vancomycin, cefepime and fluconazole course following ID recommendations. 03/11-03/23 Patient readmitted for delirium. Subsequently discharged to rehab facility. Left hip sutures removed 3 days ago as per niece. Patient admitted at the local [facility] personal long term yesterday to be close to her niece. Patient complaining of increased left hip pain at facility yesterday. Left hip noted bruise and swollen as per niece. Patient unable to verbalize chest pain, SOB symptoms. Increased agitation noted. Patient directed to ER for evaluation. Lowest SBP of 80s noted. Vancomycin and cefepime administered at the ER. Lorazepam administered for agitation. Patient currently somnolent post Ativan administration. 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 Admission Exam Per Admitting Provider GENERAL: Obtunded, no respiratory distress SKIN: Pallor, warm HEENT: Pale palpebral conjunctivae, no ptosis, dry buccal mucosa NECK : Supple, no tenderness CHEST : Decreased breath sounds, no tenderness HEART : RRR, no obvious murmurs ABDOMEN: Some distention, nontender EXTREMITIES : Ecchymosis left hip with tenderness, no other conspicuous deformities noted NEUROLOGIC : Obtunded, no facial asymmetry, gait and stance not assessed Principal Diagnosis Acute blood loss anemia Left hip hematoma Delirium Discharge Exam Constitutional: Awake, alert, oriented to self only Respiratory: Bilateral vesicular breath sound. Cardiovascular: RRR, no murmur, no edema Vessels: no JVD or carotid bruit Abdomen: Soft, nontender. Musculoskeletal: Bruises present on right thigh Skin: no rashes, warm and dry normal turgor Neurologic: Grossly moves all extremities. Psychiatric: A+Ox1, euthymic affect Discharge Data Allergies Allergy/AdvReac Type Severity Reaction Status Date / Time cinnamon Allergy Intermediate Flushing Verified 04/15/23 20:13 haloperidol [From Haldol] AdvReac Severe excessive Verified 04/16/23 07:24 sedation as per family Consultations 04/15/23 23:06 ED Decision to Admit Stat 04/16/23 01:55 Consult Orthopedic Surgery Routine 04/26/23 08:41 Consult Psychiatry Routine 05/02/23 13:44 Consult Neurology Routine Ordered Studies 04/15/23 21:00 CT femur LT wo con Stat 04/16/23 11:53 CT head/brain wo con Routine 05/02/23 10:36 CT head/brain wo con Stat 05/02/23 10:40 CTA head w con [CT angio head w con] Stat CTA neck with con [CT angio neck with con] Stat 05/02/23 12:13 MRI Brain [MR brain wo con] Urgent 05/04/23 16:08 CT leg [CT femur LT wo con] Routine Hospital Course (1) Acute blood loss anemia: (2) Delirium: (3) Hip pain: (4) Hip hematoma, left: (5) History of CVA (cerebrovascular accident): (6) Dementia: (7) Hypothyroidism: Plan Pt is an 82yoF with PMHx significant for HTN, Hx of CVA, hx PE on Eliquis (01/2023), breast cancer, s/p surgery & radiation currently on Arimidex, hypothyroidism, mood disorder, occipital neuralgia as per records, dementia admitted after multiple hospitalizations and rehab admissions, admitted with left hip pain and a hematoma. Left hip hematoma Acute blood loss anemia In setting of anticoagulation use with Eliquis No known history of trauma H/O multiple left hip surgeries --Femur CT: Posterior to the hip replacement there is a moderate size hematoma measuring up to 4.1 cm in thickness by 10 cm transverse. The hematoma begins at the superior acetabulum and extends into the mid thigh measuring at least 15 cm craniocaudal. --repeat Femur CT:Mild hematoma versus nonspecific soft tissue swelling along the lateral aspect of the upper thigh and buttock region. Left-sided hip prosthesis in place with no acute fracture or subluxation. --Hip X ray:No acute fracture within the pelvis or hips. Intact left hip arthroplasty with proximal left femoral internal fixation. No acute periprosthetic fracture. --Head CT:Suboptimal evaluation of the brain due to motion artifact. However, no definite acute intracranial abnormality. S/P 2 units PRBCs Hb Stable Restarted apixaban Fall precautions Follow-up with orthopedic as outpatient. H/O PE (postprocedure, COVID infection) Eliquis was on hold given acute blood loss anemia-restarted 04/29/2023 Previous hospitalist discuss risk versus benefits of anticoagulation given mental status/fall risk Cough Likely acute bronchitis Resolved COVID-19 positive COVID-19 rapid antigen was positive. BioFire is negative. COVID-19 [place] test negative Off isolation at discharge Acute kidney injury Renal function improved with IV fluids, blood transfusion Cr back to baseline Avoid nephrotoxic agents as able Monitor Left arm weakness: Thought to be axillary node biopsy -MRI Brain:No acute intracranial abnormality is identified. Shoulder x-ray:No fracture or dislocation within the right shoulder. Mild to moderate degenerative changes within the right shoulder. As per prior provider [facility] neurology consulted - Axillary nerve palsy: Pattern of weakness involving shoulder abduction without distal weakness is inconsistent with stroke or other central etiology. MRI is normal as expected. This is consistent with an axillary nerve injury. Recommend shoulder films to rule out dislocation but otherwise likely compressive. Can have EMG in 6 weeks if it does not improve. --Needs EMG in 6 weeks if not improved Petechial rash Unclear etiology Status post oral prednisone Continue hydrocortisone cream Benadryl as needed Clinically improving Dementia Delirium Mood Disorder Was on seroquel 12.5mg qhs Psych consulted- recommended discontinuing Seroquel and increased dose of Depakote 250 AM, 500 HS On p.o. Zyprexa at 9 and 4 PM Delirium precautions. Frequent reorientation, avoid sedating medications H/O CVA As per records Evaluated by neurology on prior hospitalization CT head showed no acute findings H/O Breast cancer S/P Surgery, radiation continue Arimidex Hypothyroidism Normal TSH Continue levothyroxine Ongoing tobacco abuse Encourage cessation DVT Px: Kevin Code Status: DNI/DNR Patient discharged to [facility] personalcare unit. Please note the above document was generated using voice recognition software. It may contain grammatical, syntax or spelling errors. Any formal questions or concerns about the content, text or information contained within the body of this dictation should be directly addressed to the provider for clarification Total Time Total Time Spent Total Time Spent (In Minutes): 45 Total Time Includes: Examination of the Patient, Discharge Planning, Medication Reconciliation, Communication With Other Providers and Other Discharge Plan Discharge Items Patient Disposition: Personal [facility] Reason For Visit: HYPOTENSION Discharge Diagnosis: Left hip hematoma Acute blood loss anemia In setting of anticoagulation use with Eliquis Delirium Activity: Resume your previous activity Non-emergency contact: Primary Care Provider Call non-emergency contact if: you have any medication questions and your symptoms worsen Follow-up/Referrals: Rodolfo Palma DO [Primary Care Provider] - Diet: Regular Addtl Attending Provider Instructions: You were admitted to the hospital due to hematoma in your left hip. Your blood level has been stable throughout the hospitalization. Please continue to take your medication as prescribed. Please follow-up with orthopedic (Dr. Campos) in about 2 weeks. 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 If it does not improve in 4 weeks; you will need EMG Please follow-up with your primary care doctor in about 1 week. Pending Studies at Discharge: No Stand-Alone Forms: My [employer], Smoking Cessation Skilled Items Patient informed of condition?: No DNR: Yes Discharge Level of Care: Skilled Communicable Disease: No Discharge Prognosis: Stable Lines: None Urinary Catheter: No Medications and DC Order Prescriptions: New hydrocortisone 1 % Ointment 1 applic EXT BID PRN (Reason: skin rash) Qty: 28.35 0RF olanzapine 2.5 mg Tablet 2.5 mg PO BID@0900,1600 Qty: 30 0RF acetaminophen [Tylenol Extra Strength] 500 mg Tablet 1,000 mg PO Q8H PRN (Reason: pain) Qty: 30 0RF divalproex 125 mg Capsule, Delayed Rel Sprinkle 250 mg PO DAILYBB Qty: 120 0RF divalproex 125 mg Capsule, Delayed Rel Sprinkle 500 mg PO HS Qty: 120 0RF Continued anastrozole 1 mg Tablet 1 mg PO QAM Qty: 30 0RF amlodipine 5 mg Tablet 5 mg PO DAILY Qty: 30 0RF levothyroxine 125 mcg Tablet 125 mcg PO DAILYBB Qty: 30 0RF Eliquis 5 mg Tablet 5 mg PO Q12 Qty: 60 0RF Discontinued quetiapine 25 mg Tablet 12.5 mg PO BID benzonatate 100 mg Capsule 200 mg PO Q8 PRN (Reason: Cough) divalproex 250 mg Tablet Extended Release 24 Hr 250 mg PO HS clonidine 0.1 mg/24 hr Patch Weekly 0.1 mg transdermal .WEDNESDAYS Rx Instructions: remove old patch on wednesdays too Discharge Orders: Discharge Order (Routine); Ordered 05/16/23 Ordered By: Samm Cross Admission Data Admit Date/Time: 04/16/23 00:24 Attending Provider: Samm Cross Admit Provider: Christian Portillo Primary Care Provider: Rodolfo Palma Other Providers: [facility]; [facility] [place]; Elvia Lynn; Autumn Sanchez; Christian Portillo; Ramo Campos Erica K.; Gracie Mcclendon; Jose Esparza; Moshe Nova; Brii Helms; Elpidio Salvador; Brii Craranza; Jose Mcgovern; Ward Gomez; Eric De Santiago; Arturo Boyd; Veronika Weiss; Kyle Cormier; Chadwick Elkins; Amarjit Mahajan; Dayday Owusu; Ginny Summers; Chelsey Bradley; Arturo Lubin Other Interventions: Discharge Summary Assessment (RN) Last Done: 05/16/23 12:09
== END 2023-05-16 13:08 | disposition home or self-care (01) | DRG 919 ==
LOC: ED 19:49 → SUATTDRO 04-16 00:24 → 2N 04-16 00:24 → 3W 04-29 22:03 → 2W 05-02 14:25 → 3W 05-09 20:51

== ENCOUNTER 2024-03-15 16:36 | Inpatient (IN) ==
[2024-03-15 17:40] LABS: Basophils # (auto) 0.03 K/uL (0.00-0.20); Basophils % (auto) 0.5 %; Eosinophils # (auto) 0.08 K/uL (0.00-0.50); Eosinophils % (auto) 1.3 %; Hematocrit (blood only) 33.1 % (37.0-47.0); Hemoglobin 10.2 g/dl (12.0-16.0); Immature Granulocytes # (auto) 0.02 K/uL (0.01-0.20); Immature Granulocytes % (auto) 0.3 %; Lymphocytes # (auto) 2.36 K/uL (1.20-3.40); Mean Corpuscular Hemoglobin 31.4 pg (25.0-34.0); Mean Corpuscular Hgb Conc 30.8 g/dL (32.0-36.0); Mean Corpuscular Volume 101.8 fL (80.0-100.0); Mean Platelet Volume 9.3 fL (9.4-12.4); Monocytes # (auto) 0.75 K/uL (0.11-0.59); Monocytes % (auto) 12.4 %; Neutrophils # (auto) 2.81 K/uL (1.40-6.50); Neutrophils % (auto) 46.5 %; Platelet Count 386 K/uL (130-400); RDW Coefficient of Variation 13.2 % (11.5-14.5); RDW Standard Deviation 49.3 fL (36.4-46.3); Red Blood Count 3.25 M/uL (4.20-5.40); White Blood Count 6.05 K/ul (4.8-10.8)
--- NOTE | 2024-03-15 17:47 | Emergency Department Note ---
Impression & Plan Abscess of left thigh, Dementia, Left hip pain, Anemia ED Provider Note NAME: TORSTEN GALEANO AGE: 83 SEX: F : 1940 ARRIVES VIA: Ambulance INFORMANT: [Patient][nursing] ED PROVIDER(S): [Fred Jackson MD] CHIEF COMPLAINT: Left hip pain HISTORY OF PRESENT ILLNESS: The patient is an 83-year-old female who presents to the hospital with a fullness/soreness to the area of the left lateral hip. She has had previous left hip replacement surgery. Looking at old records, patient has had a previous left hip postop infection/abscess. She was treated for this about a year ago. This was done at an outside facility. The patient is now in our area as she has moved closer to family. The patient presents with ongoing left hip discomfort and redness/fullness in the area. She has been complaining of some increased left hip pain. No fever. She has not suffered recent fall. Apparently, she does take Eliquis daily. As per the nursing staff at her care center, the timeframe for the left hip erythema/fullness is unclear. PMHx/PSHx/Social Hx: See Below PHYSICAL EXAM: GENERAL: Patient is in no acute distress. HEENT: No acute trauma, normocephalic atraumatic, mucous membranes moist, no nasal congestion. NECK: No stridor, no adenopathy, no meningismus, trachea is midline. LUNGS: Clear to auscultation bilaterally, no wheeze, no rhonchi, breath sounds equal. HEART: 3/6 systolic murmur, regular rate and rhythm. ABDOMEN: Soft, nontender, no peritonitis. EXTREMITIES: No cyanosis, full range of motion of all the joints without pain or difficulty. There is a 5 to 7 cm area of erythema/fullness/fluctuance to the left lateral hip along the inferior margin of the older left hip surgical incision. NEUROLOGIC: Awake and alert, poor historian, no acute motor or sensory deficits, no focal weakness. SKIN: No jaundice, no diaphoresis. DIFFERENTIAL DIAGNOSIS: Hematoma, abscess, anemia, septic joint, among others. EMERGENCY DEPARTMENT PROCEDURES: Abscess drainage: This procedure was performed by me. Using sterile technique, an 18-gauge needle was used to make a small opening over the area of fluctuance. There was some scant bloody discharge, no significant drainage. Unfortunately, fluid for culture could not be obtained. A dressing was applied. MEDICAL DECISION MAKING: There is no leukocytosis. The patient is anemic with a hemoglobin of 10.2, this is baseline looking back at previous testing. There was a normal platelet count. Sed rate and CRP were both quite elevated consistent with inflammation/infection. No coagulopathy. No renal failure or significant electrolyte abnormality. No concerning liver enzyme elevation. CT imaging of the left thigh was performed. There was a 12 cm collection of fluid consistent with abscess, there was concern that this may communicate with the left hip joint. On exam, the patient did have an area of fullness and fluctuance as well as erythema to the inferior margin of the left hip surgical scar. There was no active drainage but the area was somewhat tender. I did attempt to open the area with an 18-gauge needle, there was no puslike drainage, no real discharge amendable for culture. I did speak with orthopedics. The patient will likely require orthopedic OR intervention. For now, a hospitalist admission with IV antibiotic therapy was recommended. I spoke with the patient and case management, the on-call hospitalist was consulted. Of note, I did order for IV ceftriaxone and IV vancomycin as empiric antibiotic coverage. The patient was also ordered for IV Benadryl and IV Ativan for agitation/anxiety. Prior/Outside records/notes reviewed: Previous discharge summary note from 05/16/2023 discussing her presentation, hospital care and plan at discharge. Imaging/x-ray results per my interpretation: Chronic Medical/Social conditions affecting care: Advanced age, Eliquis use. Care/Management discussed with: Case management, the on-call hospitalist. Orthopedics-Dr. Vargas. Level of care consideration(s): After review of the information above and other included data: --I believe the patient requires escalation of care to admission DISPOSITION: Admission Past Med/Surg History Problem List (Updated 03/15/24 @ 20:54 by Fred Jackson MD) Anemia (Acute) Left hip pain (Acute) Dementia (Acute) Abscess of left thigh (Acute) Acute blood loss anemia Hypothyroidism Delirium multifactorial Dementia cryptogenic, but plausible vascular etiology or contribution given history of CVA History of CVA (cerebrovascular accident) Hip hematoma, left Hip pain (Acute) Hypotension Medical History Axillary nerve palsy Social History Smoking Status: Former smoker Hx Alcohol Use: No (unable to answer questions) Hx Substance Use: No (unable to answer questions) Preferred Language: [place] Communication Ability: Effective Visually Impaired Teacher Required: No Beliefs That Will Affect Care: None Current Living Situation: Personal Care Facility Current Living Situation Comment: [facility] Home Feels Safe at Home: Yes Assistive Devices: Walker Allergies Allergies Allergy/AdvReac Type Severity Reaction Status Date / Time cinnamon Allergy Intermediate Flushing Verified 04/15/23 20:13 haloperidol [From Haldol] AdvReac Severe excessive Verified 01/29/24 20:47 sedation as per family Home Meds Home Medications Medication Instructions Recorded Confirmed acetaminophen 500 mg tablet 1,000 mg PO TID 01/29/24 03/15/24 apixaban 5 mg tablet (Eliquis) 5 mg PO BID 01/29/24 03/15/24 diphenhydramine HCl 12.5 mg/5 mL 12.5 mg PO Q6H PRN ALLERGIES 01/29/24 03/15/24 oral liquid divalproex 125 mg capsule,delayed 250 mg PO QAM 01/29/24 03/15/24 release sprinkle lorazepam 0.5 mg tablet 0.5 mg PO Q6 PRN Anxiety 01/29/24 03/15/24 magnesium chloride 64 mg 64 mg PO BID 01/29/24 03/15/24 (magnesium chloride) tablet olanzapine 2.5 mg tablet 2.5 mg PO BID 01/29/24 03/15/24 olanzapine 5 mg disintegrating 2.5 mg PO Q4 PRN MOOD 01/29/24 03/15/24 tablet polyethylene glycol 3350 17 gram 17 g PO DAILY PRN Constipation 01/29/24 03/15/24 oral powder packet (SmoothLax) sodium chloride 0.65 % nasal spray 1 spray intranasal TID 01/29/24 03/15/24 aerosol (Deep Sea Nasal) Previous Rx's Medication Instructions Recorded amlodipine 5 mg tablet 5 mg PO DAILY #30 tabs 05/16/23 anastrozole 1 mg tablet 1 mg PO QAM #30 tabs 05/16/23 divalproex 125 mg capsule,delayed 500 mg (4 x 125 mg) PO HS #120 caps 05/16/23 release sprinkle hydrocortisone 1 % topical ointment 1 applic EXT BID PRN skin rash 05/16/23 #28.35 grams levothyroxine 125 mcg tablet 125 mcg PO DAILYBB #30 tabs 05/16/23 Results & Data (ED) Vital Signs Vital Signs - 24 hr 03/15/24 16:52 03/15/24 16:58 03/15/24 17:12 Temperature 36.7 C Temperature Source Oral Pulse Rate 60 58 L Pulse Rate [Apical] 60 Pulse Rate from SpO2 Sensor 57 L Respiratory Rate 16 16 18 Respiratory Effort / Characteristics Non-Labored Spontaneous Non-Labored Spontaneous Respiratory Depth Normal Normal Respiratory Pattern Regular Regular Blood Pressure 137/85 115/69 Blood Pressure [Left Arm] 148/87 H Blood Pressure Mean 102 84 Blood Pressure Mean [Left Arm] 107 Pulse Oximetry 99 99 100 Oxygen Delivery Method Room Air Room Air Sepsis Recent Fever Within 48 Hours No Sepsis New/Unexplained Change in Mental Status No Sepsis Action Taken by Nursing No Action Required 03/15/24 17:21 03/15/24 19:15 03/15/24 19:20 Temperature Temperature Source Pulse Rate 56 L Pulse Rate [Apical] 71 66 Pulse Rate from SpO2 Sensor Respiratory Rate 20 18 Respiratory Effort / Characteristics Non-Labored Spontaneous Non-Labored Spontaneous Respiratory Depth Normal Normal Respiratory Pattern Regular Regular Blood Pressure Blood Pressure [Left Arm] 179/101 H 152/86 H Blood Pressure Mean Blood Pressure Mean [Left Arm] 127 108 Pulse Oximetry 98 99 Oxygen Delivery Method Room Air Room Air Sepsis Recent Fever Within 48 Hours Sepsis New/Unexplained Change in Mental Status Sepsis Action Taken by Custodial Medications Current Medication List: was personally reviewed by me Laboratory Data Attestation: I reviewed the patient's lab results. 03/15/24 16:50 03/15/24 18:13 Lab Results 03/15/24 03/15/24 Range/Units 16:50 18:13 WBC 6.05 (4.8-10.8) K/ul RBC 3.25 L (4.20-5.40) M/uL Hgb 10.2 L (12.0-16.0) g/dl Hct 33.1 L (37.0-47.0) % MCV 101.8 H (80.0-100.0) fL MCH 31.4 (25.0-34.0) pg MCHC 30.8 L (32.0-36.0) g/dL RDW Std Deviation 49.3 H (36.4-46.3) fL RDW Coeff of Andrea 13.2 (11.5-14.5) % Plt Count 386 (130-400) K/uL MPV 9.3 L (9.4-12.4) fL Immature Gran % (Auto) 0.3 % Neut % (Auto) 46.5 % Lymph % (Auto) 39.0 % Webster % (Auto) 12.4 % Eos % (Auto) 1.3 % Baso % (Auto) 0.5 % Neut # (Auto) 2.81 (1.40-6.50) K/uL Lymph # (Auto) 2.36 (1.20-3.40) K/uL Webster # (Auto) 0.75 H (0.11-0.59) K/uL Eos # (Auto) 0.08 (0.00-0.50) K/uL Baso # (Auto) 0.03 (0.00-0.20) K/uL Immature Gran # (Auto) 0.02 (0.01-0.20) K/uL ESR 99 H (0-30) mm/hr PT 10.8 (9.0-12.0) Seconds INR 1.0 (0.9-1.1) APTT 29 (21-31) Seconds PTT Ratio 1.1 Sodium TNP 137 Potassium TNP 4.7 Chloride 100 (98-107) mmol/L Carbon Dioxide 28 (21-32) mmol/L Anion Gap TNP BUN 23 (6-23) mg/dl Creatinine 0.98 (0.6-1.2) mg/dl Est Cr Clr Drug Dosing 36.5 ml/min eGFR 56.92 BUN/Creatinine Ratio 23.5 H (10-20) Glucose 89 (70-99(Fasting)) mg/dl Calcium 9.3 (8.6-10.3) mg/dl Total Bilirubin 0.0 L (0.2-1.0) mg/dl AST TNP 20 ALT 6 L (7-52) U/L Alkaline Phosphatase 55 (34-104) U/L C-Reactive Protein 2.65 H (0-0.5) mg/dl Total Protein 8.8 H (6.0-8.3) gm/dl Albumin 3.4 (3.4-5.0) gm/dl Globulin 5.4 H (2.5-4.0) gm/dl Albumin/Globulin Ratio 0.6 L (0.9-2) Administered Medications Discontinued Medications Diphenhydramine HCl (Diphenhydramine 50 Mg/Ml Vial) 12.5 mg IV NOW STA Stop: 03/15/24 19:42 Last Admin: 03/15/24 19:45 Dose: 12.5 mg Documented By: VIGNESH Ceftriaxone Sodium (Rocephin) 2,000 mg in 50 mls @ 100 mls/hr IV NOW STA Stop: 03/15/24 20:31 Last Infusion: 03/15/24 20:43 Dose: Infused Documented By: Admin: 03/15/24 20:06 Dose: 100 mls/hr Documented By: VIGNESH Vancomycin HCl 1,250 mg/ (Sodium Chloride) 525 mls @ 200 mls/hr IV NOW ONE Stop: 03/15/24 22:39 Last Admin: 03/15/24 20:42 Dose: Not Given Documented By: VIGNESH Ioversol (Optiray 320 100ml) 93 ml IV ONCE ONE Stop: 03/15/24 18:42 Last Admin: 03/15/24 18:41 Dose: 93 ml Documented By: KATHARINE Lorazepam (Lorazepam 1 Mg/1 Ml Syr Ed Inj Use) 0.5 mg IV ONE STA Stop: 03/15/24 19:42 Last Admin: 03/15/24 19:45 Dose: 0.5 mg Documented By: VIGNESH Imaging Data Radiologist's Impression: Femur CT 03/15/24 17:37 CT LEFT LOWER EXTREMITY WITH CONTRAST: HISTORY: TECHNIQUE: CT of the left lower extremity was obtained with intravenous contrast. Coronal and sagittal reformats were created. IV CONTRAST: 100 mL of OMNIPAQUE 300 COMPARISON: Radiographs of the left hip February 19, 2024 FINDINGS: Again, the patient is status post left hip arthroplasty with lateral plate placement with cerclage wires in place. Evaluation of the soft tissues in this area is very limited due to extensive streak artifact arising from the hardware. Within this constraint, there is a large rim-enhancing fluid surrounding the proximal left femur measuring up to 8.9 x 12.7 x 12.0 cm (AP x TV x CC). Given above the limitations of this imaging, it is uncertain if this fluid arises/communicates with the joint space. There appears to be both subcutaneous and intramuscular components to this fluid. 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 IMPRESSION: Status post left hip arthroplasty with lateral plate placement with cerclage wires in place. Very limited evaluation of the soft tissues in this area due to extensive streak artifact arising from the hip hardware. Within this constraint, there is a large rim-enhancing fluid surrounding the proximal left femur measuring up to 12.7 cm which may possibly be arising from the joint space. The finding is overall consistent with a large abscess. Please correlate with fluid sampling if indicated. There appears to be both subcutaneous and intramuscular components to this fluid. Infected hardware/osteomyelitis not excluded on this imaging. Electronically signed by Madi Murrieta 03-15-2024 8:12 PM Discharge Plan Visit Data Chief Complaint: Skin Problem Stated Complaint: HEMATOMA TO L THIGH ED Provider: Fred Jackson Discharge Problem: Abscess of left thigh, Dementia, Left hip pain, Anemia Patient Disposition: Admitted As Inpatient Condition: Fair Forms Stand Alone Forms: [facility] Prescriptions Prescriptions: No Action hydrocortisone 1 % Ointment 1 applic EXT BID PRN (Reason: skin rash) Qty: 28.35 0RF divalproex 125 mg Capsule, Delayed Rel Sprinkle 500 mg PO HS Qty: 120 0RF anastrozole 1 mg Tablet 1 mg PO QAM Qty: 30 0RF amlodipine 5 mg Tablet 5 mg PO DAILY Qty: 30 0RF levothyroxine 125 mcg Tablet 125 mcg PO DAILYBB Qty: 30 0RF acetaminophen 500 mg Tablet 1,000 mg PO TID Rx Instructions: GIVE AT 8AM,1PM,7PM Eliquis 5 mg tablet 5 mg PO BID divalproex 125 mg capsule, delayed rel sprinkle 250 mg PO QAM olanzapine 2.5 mg tablet 2.5 mg PO BID Rx Instructions: GIVE AT 8AM,7PM magnesium chloride 64 mg magnesium Tablet 64 mg PO BID diphenhydramine HCl 12.5 mg/5 mL Liquid 12.5 mg PO Q6H PRN (Reason: ALLERGIES) Deep Sea Nasal 0.65 % Aerosol,Rembert 1 spray INTRANASAL TID polyethylene glycol 3350 [SmoothLax] 17 gram Powder In Packet 17 g PO DAILY PRN (Reason: Constipation) lorazepam 0.5 mg Tablet 0.5 mg PO Q6 PRN (Reason: Anxiety) olanzapine 5 mg Tablet,Disintegrating 2.5 mg PO Q4 PRN (Reason: MOOD) Rx Instructions: 1/2 TABLET DOSE Referrals Referrals: Ras Day [Primary Care Provider] - Discharge Problem: Dementia Qualifiers: Dementia type: unspecified type Dementia severity: moderate Dementia behavioral or psychological symptom: with agitation Qualified Code(s): F03.B11 - Unspecified dementia, moderate, with agitation Anemia Qualifiers: Anemia type: unspecified type Qualified Code(s): D64.9 - Anemia, unspecified
[2024-03-15 18:06] LABS: Alanine Aminotransferase 6 U/L (7-52); Albumin Globulin Ratio 0.6 (0.9-2); Albumin Level 3.4 gm/dl (3.4-5.0); Alkaline Phosphatase 55 U/L (34-104); BUN Creatinine Ratio 23.5 (10-20); Blood Urea Nitrogen 23 mg/dl (6-23); Calcium 9.3 mg/dl (8.6-10.3); Carbon Dioxide 28 mmol/L (21-32); Chloride 100 mmol/L (98-107); Creatinine Clr Calc Pharmacy 36.5 ml/min; Globulin 5.4 gm/dl (2.5-4.0); Glucose 89 mg/dl (70-99(Fasting)); Total Protein 8.8 gm/dl (6.0-8.3)
[2024-03-15] MEDS: OPTIRAY 320 100ml IV ONE (18:41)
[2024-03-15 18:42] LABS: Potassium 4.7 mmol/L (3.5-5.1)
[2024-03-15 18:57] LABS: Partial Thromboplastin Ratio 1.1; Partial Thromboplastin Time 29 Seconds (21-31); Prothrombin Time 10.8 Seconds (9.0-12.0)
[2024-03-15 19:25] LABS: C Reactive Protein 2.65 mg/dl (0-0.5)
[2024-03-15] MEDS: LORazepam 1 MG/1 ML SYR ED Inj Use IV STA (19:45)
[2024-03-15] MEDS: diphenhydrAMINE 50 MG/ML VIAL IV STA (19:45)
[2024-03-15] MEDS ORDERED: VANCOMYCIN CONSULT ACTIVE PRN (20:02)
[2024-03-15] MEDS: cefTRIAXone SODIUM 2,000 MG/50 ML BAG IV STA (20:06)
--- NOTE | 2024-03-15 20:12 | CT Scan Report ---
CT LEFT LOWER EXTREMITY WITH CONTRAST: HISTORY: TECHNIQUE: CT of the left lower extremity was obtained with intravenous contrast. Coronal and sagittal reformats were created. IV CONTRAST: 100 mL of OMNIPAQUE 300 COMPARISON: Radiographs of the left hip February 19, 2024 FINDINGS: Again, the patient is status post left hip arthroplasty with lateral plate placement with cerclage wires in place. Evaluation of the soft tissues in this area is very limited due to extensive streak artifact arising from the hardware. Within this constraint, there is a large rim-enhancing fluid surrounding the proximal left femur measuring up to 8.9 x 12.7 x 12.0 cm (AP x TV x CC). Given above the limitations of this imaging, it is uncertain if this fluid arises/communicates with the joint space. There appears to be both subcutaneous and intramuscular components to this fluid. 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 IMPRESSION: Status post left hip arthroplasty with lateral plate placement with cerclage wires in place. Very limited evaluation of the soft tissues in this area due to extensive streak artifact arising from the hip hardware. Within this constraint, there is a large rim-enhancing fluid surrounding the proximal left femur measuring up to 12.7 cm which may possibly be arising from the joint space. The finding is overall consistent with a large abscess. Please correlate with fluid sampling if indicated. There appears to be both subcutaneous and intramuscular components to this fluid. Infected hardware/osteomyelitis not excluded on this imaging. Electronically signed by Madi Murrieta 03-15-2024 8:12 PM
[2024-03-15] MEDS: VANCOMYCIN HCL 1,250 MG in SODIUM CHLORIDE 0.9% 500 ML IV ONE (20:42)
[2024-03-15] MEDS: VANCOMYCIN HCL 1,250 MG in DEXTROSE 5% 500 ML IV ONE (20:57)
--- NOTE | 2024-03-15 21:26 | History & Physical Report ---
Date of Service March 15, 2024 Assessment & Plan (1) Abscess of left thigh: (2) Left hip pain: (3) Dementia: (4) Dementia: Plan Pt is an 83yoF with PMHx significant for HTN, Hx of CVA, hx PE on Eliquis (01/2023), breast cancer, s/p surgery & radiation currently on Arimidex, hypothyroidism, mood disorder, occipital neuralgia as per records, dementia who presents to ED 2/2 L lateral hip pain. L hip pain L thigh abscess Pt with h/o multiple left hip surgeries with previous hematoma and infection --CT Femur:Status post left hip arthroplasty with lateral plate placement with cerclage wires in place. Very limited evaluation of the soft tissues in this area due to extensive streak artifact arising from the hip hardware. Within this constraint, there is a large rim-enhancing fluid surrounding the proximal left femur measuring up to 12.7 cm which may possibly be arising from the joint space. The finding is overall consistent with a large abscess. Please correlate with fluid sampling if indicated. There appears to be both subcutaneous and intramuscular components to this fluid Orthopedics consulted - await their input Dementia: mood stable, delirium precautions Hx of PE on eliquis Pt was seen, hx obtained and physical performed by myself. Please refer to Dr. Portillo addendum for details regarding a/p. I spent a total of 30 minutes reviewing notes, outpatient records, labs, medication, coordinating, documenting and providing care for this patient excluding time spent in the performance of separately billed services. Pts sima Smith to be updated regarding patient. 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 History of Present Illness Chief Complaint: Pain to Left lateral hip. Primary Care Provider: Ras Day Pt is an 83yoF with PMHx significant for HTN, Hx of CVA, hx PE on Eliquis (01/2023), breast cancer, s/p surgery & radiation currently on Arimidex, hypothyroidism, mood disorder, occipital neuralgia as per records, dementia who presents to ED 2/2 L lateral hip pain. History obtained from ED provider and nursing staff. History unobtainable from patient given underlying dementia. She presents to hospital secondary to redness, fullness and drainage from the left lateral aspect of her hip. She does report pain in this area. She has a k nown previous left hip replacement. She also has a prior history of postop abscess to the left hip approximately 1 year ago. Patient currently resides at [facility]. It is uncertain how long this area has been present like this. Allergies Allergy/AdvReac Type Severity Reaction Status Date / Time cinnamon Allergy Intermediate Flushing Verified 04/15/23 20:13 haloperidol [From Haldol] AdvReac Severe excessive Verified 01/29/24 20:47 sedation as per family Home Medications Medication Instructions Recorded Confirmed Type amlodipine 5 mg tablet 5 mg PO DAILY #30 tabs 05/16/23 03/15/24 Rx anastrozole 1 mg tablet 1 mg PO QAM #30 tabs 05/16/23 03/15/24 Rx divalproex 125 mg capsule,delayed 500 mg (4 x 125 mg) PO HS #120 caps 05/16/23 03/15/24 Rx release sprinkle hydrocortisone 1 % topical ointment 1 applic EXT BID PRN skin rash 05/16/23 03/15/24 Rx #28.35 grams levothyroxine 125 mcg tablet 125 mcg PO DAILYBB #30 tabs 05/16/23 03/15/24 Rx acetaminophen 500 mg tablet 1,000 mg PO TID 01/29/24 03/15/24 History apixaban 5 mg tablet (Eliquis) 5 mg PO BID 01/29/24 03/15/24 History diphenhydramine HCl 12.5 mg/5 mL 12.5 mg PO Q6H PRN ALLERGIES 01/29/24 03/15/24 History oral liquid divalproex 125 mg capsule,delayed 250 mg PO QAM 01/29/24 03/15/24 History release sprinkle lorazepam 0.5 mg tablet 0.5 mg PO Q6 PRN Anxiety 01/29/24 03/15/24 History magnesium chloride 64 mg 64 mg PO BID 01/29/24 03/15/24 History (magnesium chloride) tablet olanzapine 2.5 mg tablet 2.5 mg PO BID 01/29/24 03/15/24 History olanzapine 5 mg disintegrating 2.5 mg PO Q4 PRN MOOD 01/29/24 03/15/24 History tablet polyethylene glycol 3350 17 gram 17 g PO DAILY PRN Constipation 01/29/24 03/15/24 History oral powder packet (SmoothLax) sodium chloride 0.65 % nasal spray 1 spray intranasal TID 01/29/24 03/15/24 History aerosol (Deep Sea Nasal) Past Med/Surg History Problem List Anemia (Acute) Left hip pain (Acute) Dementia (Acute) Abscess of left thigh (Acute) Acute blood loss anemia Hypothyroidism Delirium multifactorial Dementia cryptogenic, but plausible vascular etiology or contribution given history of CVA History of CVA (cerebrovascular accident) Hip hematoma, left Hip pain (Acute) Hypotension Medical History Axillary nerve palsy Social History Smoking Status: Former smoker Tobacco Type: Cigarettes Second Hand Exposure: No; Do You Dip or Chew Tobacco: No; Tobacco Cessation Education Requested by Patient: No Hx Alcohol Use: No (Unable to answer questions.) Hx Substance Use: No (Unable to answer questions.) Preferred Language: Swazi Communication Ability: Effective 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 Other Information That Helps Us Care for You: No Feels Safe at Home: Yes Safety Concerns: Feels Safe At This Time Assistive Devices: Hospital Bed and Walker Review of Systems Review of Systems: Unobtainable due to cognitive status Physical Exam Physical Exam: Gen: thin, elderly, f, NAD, A&O to self only HEENT: Normocephalic, atraumatic, conjunctivae moist, sclerae anicteric, mucous membranes dry Lung: Clear to Auscultation bilaterally, no wheezes/rales/rhonchi Heart: Regular rate, regular rhythm, no murmurs, rubs, or gallops Abdomen: Soft, NT, ND +BS x 4 Extremities: No edema, L lateral abscess noted with surrounding erythema and purulent drainage Skin: Warm, no rash, negative turgor. Results & Data Results & Data Vital Signs (Past 12 Hours) Vital Signs Temp Pulse Pulse Resp BP BP Pulse Ox 03/15/24 21:01 81 03/15/24 19:20 66 18 152/86 H 99 03/15/24 19:15 71 20 179/101 H 98 03/15/24 17:21 56 L 03/15/24 17:12 58 L 18 115/69 100 03/15/24 16:58 60 16 148/87 H 99 03/15/24 16:52 36.7 C 60 16 137/85 99 O2 Del Method 03/15/24 21:01 03/15/24 19:20 Room Air 03/15/24 19:15 Room Air 03/15/24 17:21 03/15/24 17:12 03/15/24 16:58 Room Air 03/15/24 16:52 Room Air Laboratory Results I have independently reviewed and interpreted patient's admitting labs including CBC, CMP, mag, crp, esr Diagnostic Findings Femur CT 03/15/24 17:37 CT LEFT LOWER EXTREMITY WITH CONTRAST: HISTORY: TECHNIQUE: CT of the left lower extremity was obtained with intravenous contrast. Coronal and sagittal reformats were created. IV CONTRAST: 100 mL of OMNIPAQUE 300 COMPARISON: Radiographs of the left hip February 19, 2024 FINDINGS: Again, the patient is status post left hip arthroplasty with lateral plate placement with cerclage wires in place. Evaluation of the soft tissues in this area is very limited due to extensive streak artifact arising from the hardware. Within this constraint, there is a large rim-enhancing fluid surrounding the proximal left femur measuring up to 8.9 x 12.7 x 12.0 cm (AP x TV x CC). Given above the limitations of this imaging, it is uncertain if this fluid arises/communicates with the joint space. There appears to be both subcutaneous and intramuscular components to this fluid. 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 IMPRESSION: Status post left hip arthroplasty with lateral plate placement with cerclage wires in place. Very limited evaluation of the soft tissues in this area due to extensive streak artifact arising from the hip hardware. Within this constraint, there is a large rim-enhancing fluid surrounding the proximal left femur measuring up to 12.7 cm which may possibly be arising from the joint space. The finding is overall consistent with a large abscess. Please correlate with fluid sampling if indicated. There appears to be both subcutaneous and intramuscular components to this fluid. Infected hardware/osteomyelitis not excluded on this imaging. Electronically signed by Madi Murrieta 03-15-2024 8:12 PM Medications Administered Medication List Vancomycin HCl 1,250 mg/ (Dextrose) 525 mls @ 200 mls/hr IV NOW ONE Stop: 03/15/24 23:07 Last Admin: 03/15/24 20:57 Dose: 200 mls/hr Documented By: VIGNESH Discontinued Medications Diphenhydramine HCl (Diphenhydramine 50 Mg/Ml Vial) 12.5 mg IV NOW STA Stop: 03/15/24 19:42 Last Admin: 03/15/24 19:45 Dose: 12.5 mg Documented By: VIGNESH Ceftriaxone Sodium (Rocephin) 2,000 mg in 50 mls @ 100 mls/hr IV NOW STA Stop: 03/15/24 20:31 Last Infusion: 03/15/24 20:43 Dose: Infused Documented By: Admin: 03/15/24 20:06 Dose: 100 mls/hr Documented By: VIGNESH Vancomycin HCl 1,250 mg/ (Sodium Chloride) 525 mls @ 200 mls/hr IV NOW ONE Stop: 03/15/24 22:39 Last Admin: 03/15/24 20:42 Dose: Not Given Documented By: VIGNESH Ioversol (Optiray 320 100ml) 93 ml IV ONCE ONE Stop: 03/15/24 18:42 Last Admin: 03/15/24 18:41 Dose: 93 ml Documented By: KATHARINE Lorazepam (Lorazepam 1 Mg/1 Ml Syr Ed Inj Use) 0.5 mg IV ONE STA Stop: 03/15/24 19:42 Last Admin: 03/15/24 19:45 Dose: 0.5 mg Documented By: VIGNESH COVID-19 Results Results COVID-19 Adm Lab Results: RBC 3.25 M/uL (4.20-5.40) L 03/15/24 WBC 6.05 K/ul (4.8-10.8) 03/15/24 Hgb 10.8 g/dl (12.0-16.0) L 03/15/24 Hct 33.6 % (37.0-47.0) L 03/15/24 Plt Count 386 K/uL (130-400) 03/15/24 Neutrophils (%) (Auto) 46.5 % 03/15/24 Lymphocytes (%) (Auto) 39.0 % 03/15/24 Monocytes # (Auto) 0.75 K/uL (0.11-0.59) H 03/15/24 Eosinophils # (Auto) 0.08 K/uL (0.00-0.50) 03/15/24 Immature Granulocyte % (Auto) 0.3 % 03/15/24 Neutrophils # (Auto) 2.81 K/uL (1.40-6.50) 03/15/24 Lymphocytes # (Auto) 2.36 K/uL (1.20-3.40) 03/15/24 Monocytes # (Auto) 0.75 K/uL (0.11-0.59) H 03/15/24 Eosinophils # (Auto) 0.08 K/uL (0.00-0.50) 03/15/24 Basophils # (Auto) 0.03 K/uL (0.00-0.20) 03/15/24 Immature Granulocyte # (Auto) 0.02 K/uL (0.01-0.20) 4 Na 137 mmol/L (136-145) 03/15/24 K 4.7 mmol/L (3.5-5.1) 03/15/24 Cl 100 mmol/L (98-107) 03/15/24 CO2 28 mmol/L (21-32) 03/15/24 Anion Gap TNP 03/15/24 BUN 23 mg/dl (6-23) 03/15/24 Creatinine 0.98 mg/dl (0.6-1.2) 03/15/24 BUN/Creatinine Ratio 23.5 (10-20) H 03/15/24 Glucose Level 89 mg/dl (70-99(Fasting)) 03/15/24 Ca 9.3 mg/dl (8.6-10.3) 03/15/24 Total Bilirubin 0.0 mg/dl (0.2-1.0) L 03/15/24 AST/SGOT 20 U/L (13-39) 03/15/24 ALT/SGPT 6 U/L (7-52) L 03/15/24 Alkaline Phosphatase 55 U/L (34-104) 03/15/24 Total Protein 8.8 gm/dl (6.0-8.3) H 03/15/24 Albumin 3.4 gm/dl (3.4-5.0) 03/15/24 Globulin 5.4 gm/dl (2.5-4.0) H 03/15/24 Albumin/Globulin Ratio 0.6 (0.9-2) L 03/15/24 CRP 2.65 mg/dl (0-0.5) H 03/15/24 PTT 29 Seconds (21-31) 03/15/24 INR 1.0 (0.9-1.1) 03/15/24 Code Status & VTE Plan Code Status DNR/DNI Supervising Physician Co-Signing Physician Notes IM ATTENDING : Patient seen and examined. History obtained from patient, family, and records. Limited history from patient secondary to dementia. Concur with salient points upon review of preceding documentation by Ms. Sara Jade PA-C. I take responsibility for plan of care below. FINAL ASSESSMENT AND PLAN as follows : Left femur abscess Recurrent infection Possible osteomyelitis History left hip fracture surgery with subsequent by left hip prosthesis abscess status post surgery ([facility], 2022) Yeast growth from deep CS as per records. No sepsis for now hx postop PE on Eliquis Systolic murmur on exam hx CVA as per records breast cancer left status postsurgery, radiation currently on Arimidex hypothyroidism, euthyroid as of last month's TSH Chronic anemia, hemoglobin at baseline Anxiety/mood disorder, at baseline past tobacco abuse dementia MedSurg CS, Daptomycin, Zosyn Add fluconazole to regimen if with fever spike given prior wound CS history Orthopedics consult Re: Recurrent left hip abscess (Patient already seen by Dr. Vargas. Surgery contemplated 03/18/24.) MRI left femur to rule out osteomyelitis ID consult contingent on workup results TTE re: systolic murmur Delirium precautions, Zyprexa as needed agitation DVT prophylaxis. SCDs while Eliquis on hold given contemplated procedure DNR as per patient's prior directives as per family. Patient niece requesting updates providers. Ms. Youngine Sarah, contact #[phone] Text document was generated using [employer] voice recognition software. It may contain grammatical or spelling errors. Kindly contact undersigned for clarification of any documentation item in question. (3) Dementia Dementia behavioral or psychological symptom: with agitation Dementia severity: moderate Dementia type: unspecified type Qualified Code(s): F03.B11 - Unspecified dementia, moderate, with agitation
[2024-03-15] MEDS ORDERED: PROMETHAZINE 6.25 MG/50.25 ML BAG IV PRN (22:22)
[2024-03-15] MEDS: ACETAMINOPHEN 500 MG TAB PO SCH (22:46)
[2024-03-15 23:13] LABS: Hematocrit (blood only) 33.6 % (37.0-47.0); Hemoglobin 10.8 g/dl (12.0-16.0)
--- NOTE | 2024-03-15 23:13 | Orthopedic Consultation ---
Date of Consultation March 15, 2024 Assessment & Plan (1) Left hip pain: (2) Dementia: (3) Abscess of left thigh: (4) Dementia: (5) Hip hematoma, left: Plan 83-year-old female presents with concerns for infection surrounding left hip arthroplasty. The patient is demented as such history was unable to be obtained from her. I obtained most of the history per discussion with the emergency department as well as with the patient's niece, Orly. The patient's niece is her POA. I discussed with the patient's niece that the patient's current presentation is consistent with an infected hematoma that may have intra-articular extension. We had a long discussion regarding the nature of this diagnosis as well as the possible treatment options. I explained that in a healthy patient, the most appropriate plan of care would involve irrigation and debridement with ex plantation of all components, placement of antibiotic cement spacer and staged revision arthroplasty after it has been ensured that the infection has been completely cleared. In this particular patient's scenario given her medical comorbidities including cancer, history of CVA, history of PE, dementia, I do not think that she is an appropriate candidate for a two-stage revision arthroplasty. The patient's level of function and cognitive ability to participate in care is not at a level that would make this safe. Given this, I believe the patient's POA has 2 treatment options, either: 1. nonoperative care with suppressive antibiotics which I am not convinced will result in clearance of the infection; or 2. operative debridement with possible head/poly exchange if indeed the hematoma tr acks into the joint and chronic suppressive antibiotics thereafter. Both options carry with him significant risk including but not limited to loss of life/limb, continued infection, need for additional surgery in future, wound healing complications, dislocation, recurrence of infection. I do believe that the risk of continued infection and/or recurrence of infection is higher without formal operative debridement. The patient POA agrees that this is the best step moving forward. In order to be entirely prepared for surgery, we will need to obtain the operative reports from the patient's original surgeon in [place], [place]. The patient's POA work on obtaining these for us tomorrow. Patient will be preoperatively optimized by the medical team and we will plan for left lower extremity irrigation and debridement with possible head/polyethylene liner exchange on , 03/18/2024. History of Present Illness Reason for Consultation: Left thigh hematoma Requesting Physician: Dr. Jackson History of Present Illness This is an 83yoF with PMHx significant for HTN, Hx of CVA, hx PE on Eliquis (01/2023), breast cancer, s/p surgery & radiation currently on Arimidex, hypothyroidism, mood disorder, occipital neuralgia as per records, dementia who presents to the emergency department due to left lateral hip pain. History obtained from ED physician, chart review and discussion with her niece, Orly who is her POA. History unobtainable from patient given underlying dementia. She presents to hospital secondary to redness, fullness and drainage from the left lateral aspect of her hip. She does report pain in this area. Patient currently resides at [facility]. It is uncertain how long this area has been present like this. Per the patient's POA, her original surgery was a total hip arthroplasty a little over a year ago for a femoral neck fracture. She had 2 subsequent surgeries for irrigation and debridement due to concern for infection/hematoma. After the third surgery, she was transported to the [facility] to be closer to her niece. The patient was brought to the emergency department once before and was evaluated by the [facility] orthopedic team who believed that her hematoma was not infected and did not require surgery. Since that time, she has developed redness, pain, and drainage from this area. Per the patient's niece, prior to her original fall, she was a community ambulator without assist devices. Her fall/hip fracture have resulted in a "downward spiral" and she only really showed signs of dementia after this. Allergies Allergy/AdvReac Type Severity Reaction Status Date / Time cinnamon Allergy Intermediate Flushing Verified 04/15/23 20:13 haloperidol [From Haldol] AdvReac Severe excessive Verified 01/29/24 20:47 sedation as per family Home Medications Medication Instructions Recorded Confirmed Type amlodipine 5 mg tablet 5 mg PO DAILY #30 tabs 05/16/23 03/15/24 Rx anastrozole 1 mg tablet 1 mg PO QAM #30 tabs 05/16/23 03/15/24 Rx divalproex 125 mg capsule,delayed 500 mg (4 x 125 mg) PO HS #120 caps 05/16/23 03/15/24 Rx release sprinkle hydrocortisone 1 % topical ointment 1 applic EXT BID PRN skin rash 05/16/23 03/15/24 Rx #28.35 grams levothyroxine 125 mcg tablet 125 mcg PO DAILYBB #30 tabs 05/16/23 03/15/24 Rx acetaminophen 500 mg tablet 1,000 mg PO TID 01/29/24 03/15/24 History apixaban 5 mg tablet (Eliquis) 5 mg PO BID 01/29/24 03/15/24 History diphenhydramine HCl 12.5 mg/5 mL 12.5 mg PO Q6H PRN ALLERGIES 01/29/24 03/15/24 History oral liquid divalproex 125 mg capsule,delayed 250 mg PO QAM 01/29/24 03/15/24 History release sprinkle lorazepam 0.5 mg tablet 0.5 mg PO Q6 PRN Anxiety 01/29/24 03/15/24 History magnesium chloride 64 mg 64 mg PO BID 01/29/24 03/15/24 History (magnesium chloride) tablet olanzapine 2.5 mg tablet 2.5 mg PO BID 01/29/24 03/15/24 History olanzapine 5 mg disintegrating 2.5 mg PO Q4 PRN MOOD 01/29/24 03/15/24 History tablet polyethylene glycol 3350 17 gram 17 g PO DAILY PRN Constipation 01/29/24 03/15/24 History oral powder packet (SmoothLax) sodium chloride 0.65 % nasal spray 1 spray intranasal TID 01/29/24 03/15/24 History aerosol (Deep Sea Nasal) Patient History Medical History Axillary nerve palsy Social History Smoking Status: Former smoker Hx Alcohol Use: No (unable to answer questions) Hx Substance Use: No (unable to answer questions) Preferred Language: Hebrew Communication Ability: Effective Administrative Representative Required: No Beliefs That Will Affect Care: None Current Living Situation: Personal Care Facility Current Living Situation Comment: [facility] Home Feels Safe at Home: Yes Assistive Devices: Walker Review of Systems Review of Systems: Unobtainable due to cognitive status Physical Exam Physical Exam: Please examination the patient's left hip, she has a previous lateral hip incision for a posterior approach to the hip. On the distal aspect of his incision there is a raised, erythematous, tender area that is ill-defined. unable to express any purulence from this area. The area measures approximately 6 x 6 cm. There does appear to be excoriations noted along the incision. There is no evidence of wound dehiscence proximally or concerning signs of infection approximately Results & Data Vital Signs (Past 12 Hours) Vital Signs Temp Pulse Pulse Resp BP BP Pulse Ox 03/15/24 23:08 76 19 156/105 H 98 03/15/24 21:01 81 03/15/24 21:00 95 H 20 138/88 98 03/15/24 19:20 66 18 152/86 H 99 03/15/24 19:15 71 20 179/101 H 98 03/15/24 17:21 56 L 03/15/24 17:12 58 L 18 115/69 100 03/15/24 16:58 60 16 148/87 H 99 03/15/24 16:52 36.7 C 60 16 137/85 99 O2 Del Method 03/15/24 23:08 Room Air 03/15/24 21:01 03/15/24 21:00 Room Air 03/15/24 19:20 Room Air 03/15/24 19:15 Room Air 03/15/24 17:21 03/15/24 17:12 03/15/24 16:58 Room Air 03/15/24 16:52 Room Air Laboratory Results WBC 6.05 ESR 99 CRP 2.65 Diagnostic Findings X-ray and CT of the left hip/pelvis personally turbid and reviewed. Demonstrates no acute osseous abnormality appreciated. On the CT scan there is a subcutaneous pocket of fluid consistent with abscess versus hematoma that appears to be superficial to the IT band, but metal artifact disrupts the review. (2) Dementia Dementia behavioral or psychological symptom: with agitation Dementia severity: moderate Dementia type: unspecified type Qualified Code(s): F03.B11 - Unspecified dementia, moderate, with agitation
[2024-03-15] MEDS: PIPERACILLIN/TAZOBACTAM 4.5 GM/100 ML BAG IV ONE (23:54)
[2024-03-16] MEDS: OLANZAPINE 2.5 MG TAB PO SCH (00:05)
--- NOTE | 2024-03-16 00:23 | XRay Report ---
Exam(s): XR HIP + PELVIS, 1 view EXAM: XR Left Hip With Pelvis When Performed, 1 View CLINICAL HISTORY: prior BERTHA, new infection. TECHNIQUE: Frontal view of the left hip with pelvis when performed. COMPARISON: Left hip and pelvis radiographs 02/19/2024 FINDINGS: Bones/joints: The left total hip arthroplasty is identified. There are cerclage wires and a lateral plate also noted involving the proximal left femur. No periprosthetic fracture or lucency identified. No acute osseous traumatic injury or abnormal alignment. The pelvic bones appear intact. Remote traumatic injury suspected involving the right inferior pubic ramus, stable. Soft tissues: Unremarkable. IMPRESSION: No acute osseous traumatic injury or abnormal alignment involving the left hip. Total left hip arthroplasty noted. Electronically signed by: Braeden Burkett MD 03/16/24 00:22 AM
[2024-03-16] MEDS: PIPERACILLIN/TAZOBACTAM 4.5 GM/100 ML BAG IV SCH (05:36)
[2024-03-16] MEDS: LEVOTHYROXINE SODIUM 125 MCG TABLET PO SCH (05:36)
[2024-03-16] MEDS: DAPTOmycin 350 MG in SYRINGE 0 ML IV SCH (07:19)
[2024-03-16] MEDS: amLODIPine BESYLATE 5 MG TAB PO SCH (08:00)
[2024-03-16] MEDS: ANASTROZOLE 1 MG TAB PO SCH (08:00)
[2024-03-16] MEDS ORDERED: DOXYCYCLINE HYCLATE 100 MG CAP PO SCH (09:00)
[2024-03-16] MEDS: GADOBUTROL 65ML VIAL IV ONE (12:23)
--- NOTE | 2024-03-16 12:25 | Hospitalist Progress Note ---
Date of Service March 16, 2024 Assessment & Plan (1) Abscess of left thigh: (2) Traumatic hematoma of lower leg with infection: (3) History of surgical site infection: Plan: Patient with complicated history of left femur fracture and repair with subsequent need for additional surgeries for recurrent infection. (4) History of left hip replacement: (5) Dementia: (6) Hypothyroidism: Plan Patient with acute versus exacerbation of chronic surgical site wound with abscess formation around left femur and superficial abscess from infected hematoma at the distal portion of the incision. Possible hip joint infection/abscess. Continue current antibiotics Orthopedics proceeding with MRI Attempting to get records from outside hospital where patient had her previous surgeries performed Anticipate patient will need prolonged IV antibiotics and then subsequent chronic suppression Culture superficial abscess, it is draining purulent material Anticipate patient will need PICC line for prolonged antibiotics, Updated POA-POA states that most likely they will elect for I&D superficial abscess with some potentially additional debris debridement/washout Admission and Anticipated Discharge Date Admission Date: March 15, 2024 Subjective Patient offers no complaints. She really wants to go home. Nursing reports drainage from abscess site on lateral left thigh. Physical Exam Physical Exam: Constitutional: Alert, frail HEENT: Mucous membranes moist. Lungs: Clear to auscultation, decreased, no wheezes rales or rhonchi CV: S1-S2, regular Abdomen: Soft, nontender, nondistended Extremities: Distal surgical incision of lateral left thigh with 12 x 18 cm abscess with fluctuance and purulent material draining from center. Mild surrounding erythema Neuro: No focal deficits, generalized weakness Psych: Cooperative, abnormal memory Results & Data Results & Data Vital Signs (Past 12 Hours) Vital Signs Temp Pulse Resp BP Pulse Ox O2 Del Method 03/16/24 07:05 36.4 C L 59 L 16 115/68 95 Room Air Diagnostic Findings Reviewed imaging, laboratory and diagnostic studies. Pertinent findings as below. Reviewed imaging studies Echocardiogram shows ejection fraction 55 to 60%, no valvular vegetations. MRI of the femur pending
--- NOTE | 2024-03-16 12:51 | Magnetic Resonance Report ---
MRI OF THE LEFT FEMUR WITH AND WITHOUT CONTRAST CLINICAL HISTORY: recurrent infection ro osteomyelitis COMPARISON STUDY: Left femur CT and pelvis and left hip radiograph March 15, 2024. TECHNIQUE: Utilizing a 1.5 Kely magnet and dedicated coil, multiplanar, multiecho imaging of the lef t femur and thigh was performed pre and postcontrast administration. Intravenous injection of 6 cc of Gadavist was uneventful. FINDINGS: Note is again made of a multiloculated multicompartment left thigh rim-enhancing fluid ryann ection, as shown on CT of March 15, 2024. This collection measures 12 x 11.5 x 8 cm. Portion of th is collection partially surrounding the left femur and are adjacent to the surgical hardware. Portion s of this collection are intramuscular and subcutaneous. Left hip arthroplasty and lateral plate and cerclage fixation are better depicted by CT and radiography. Artifact from this hardware makes evalua tion for osteomyelitis nondiagnostic. No additional fluid collections are present. Evaluation for a l eft hip joint effusion is nearly nondiagnostic due to artifact. No masses identified on this examinat ion. IMPRESSION: 1. Redemonstration of a 12 x 11.5 x 8 cm multiloculated multicompartment left thigh rim-enhancing flu id collection, as shown on CT of March 15, 2024, suggestive of an abscess. A portion of this colle ction partially surrounds the left femur and is adjacent to the surgical hardware. Therefore, the renea dware may be infected. 2. Nondiagnostic evaluation for osteomyelitis given susceptibility artifact from the surgical hardwar e. ACT 112: Negative or not required by law. Electronically signed by: Floyd Bañuelos M.D. 03/16/2024 12:49 PM
--- NOTE | 2024-03-16 15:55 | Orthopedic Progress Note ---
Date of Service March 16, 2024 Assessment & Plan (1) Traumatic hematoma of lower leg with infection: (2) History of surgical site infection: (3) History of left hip replacement: (4) History of CVA (cerebrovascular accident): (5) Dementia: Plan Patient was seen and evaluated in her hospital bed. I also spoke with the patient's niece, her POA. I once again explained that given her elevated ESR and CRP, her large hematoma with swelling, erythema, I am concerned that the hematoma has become infected, and although it is not making her floridly septic at this time, this is certainly a potential consideration moving forward. As long as the patient is stable enough medically, I do think that a irrigation and debridement with possible head and polyethylene liner exchange is warranted for source control followed by long-term chronic suppressive antibiotics. I discussed with the patient's POA that she may require IV antibiotics, however the patient's POA notes that she cannot return to her memory care unit if she is to receive IV antibiotics, so her wishes for orals. We will discuss this with infectious disease. We are still awaiting operative reports from the patient's original 3 surgeries. We need to obtain these in order to plan for surgery. Hopefully we are able to obtain these this evening, if not her surgery may need to be delayed. Otherwise, we will plan for irrigation and debridement of left total hip arthroplasty with possible head and polyethylene liner exchange to occur on , 03/18/2024. Admission and Anticipated Discharge Date Admission Date: March 15, 2024 Subjective Patient seen and evaluated in her hospital room today. Remains pleasantly demented. No acute events overnight. Her vital signs remained stable. Review of Systems Review of Systems: Unobtainable due to cognitive status Physical Exam Physical Exam: Left lower extremity wound unchanged from last evening. Still remains erythematous, swollen, tender to palpation. No pain with logroll. Results & Data Vital Signs (Past 12 Hours) Vital Signs Temp Pulse Resp BP Pulse Ox O2 Del Method 03/16/24 14:49 36.5 C 65 15 107/72 95 Room Air 03/16/24 07:30 Room Air 03/16/24 07:05 36.4 C L 59 L 16 115/68 95 Room Air Diagnostic Findings MRI personally interpreted and reviewed demonstrates communication from the deep structures to the superficial abscess.
[2024-03-16] MEDS: oxyCODONE HCL IR 5 MG TAB (IMMEDIATE RELEASE) PO PRN (21:05)
[2024-03-16] MEDS: DIVALPROEX SODIUM SPRINKLE/DEL-REL 125 MG CAP PO SCH (21:06)
[2024-03-16] MEDS: OLANZapine 10 MG/2.1 ML SDV IM PRN (21:07)
[2024-03-17] MEDS: DIVALPROEX SODIUM SPRINKLE/DEL-REL 125 MG CAP PO SCH (08:29)
--- NOTE | 2024-03-17 11:08 | Hospitalist Progress Note ---
Date of Service March 17, 2024 Assessment & Plan (1) Abscess of left thigh: (2) Traumatic hematoma of lower leg with infection: (3) History of surgical site infection: Plan: Patient with complicated history of left femur fracture and repair with subsequent need for additional surgeries for recurrent infection. (4) History of left hip replacement: (5) Dementia: (6) Hypothyroidism: Plan Continue with current antibiotic regimen Communication with nurse, attempt to get records from outside hospital again today to plan for possible surgical intervention and debridement tomorrow Place PICC line for anticipated prolonged IV antibiotic use Case management updated Updated patient power of technical sales representatives, Braulio, aware of the need for possible PICC line and aware of infectious disease consultation. She reports that she did talk with the surgeon in [place] and he was going to try and reach out to Dr. Vargas Check routine labs in a.m. Admission and Anticipated Discharge Date Admission Date: March 15, 2024 Subjective No acute issues reported by nursing overnight. Patient resting comfortably, will awaken to answer some simple questions Physical Exam Physical Exam: Constitutional: Sleepy, frail, weak HEENT: Mucous membranes moist. Lungs: decreased, no wheezes rales or rhonchi CV: S1-S2, regular, systolic murmur Abdomen: Soft, nontender, nondistended Extremities: Dry dressing over left lateral thigh abscess, dressing removed, abscess less inflamed, less swollen, less purulent discharge Neuro: No focal deficits, generalized weakness Psych: Cooperative, abnormal memory Results & Data Results & Data Vital Signs (Past 12 Hours) Vital Signs Temp Pulse Resp BP Pulse Ox O2 Del Method 03/17/24 08:19 36.7 C 59 L 18 101/64 94 Room Air Diagnostic Findings Reviewed imaging, laboratory and diagnostic studies. Pertinent findings as below. Wound culture just obtained this morning
--- NOTE | 2024-03-17 13:48 | Infectious Disease Consult ---
Date of Service March 17, 2024 Telehealth Information I performed this visit using a real-time telehealth connection between my location and the patients location ([facility]). After connecting through interactive tele-video, patient was identified by name and date of and/or wristband check.Patient (or authorized healthcare technology sales representative) was informed that this was a telemedicine visit and it was being conducted confidentially over secure lines. My office door was closed and no one else was present in the room with me.Patient (or authorized healthcare technology sales representative) provided consent to proceed with the visit, expressed an understanding of privacy and security of the telemedicine visit, and gave permission to have a hospital technology sales representative in the room in order to assist with the visit and to conduct portions of the visit, as needed. I informed the patient (or authorized healthcare technology sales representative) that I reviewed their record and presented the opportunity for them to ask any questions regarding the visit today. The patient agreed to participate. Assessment & Plan (1) Abscess of left thigh: (2) Infected prosthesis of left hip: (3) Dementia: (4) Bedridden: (5) long-term resident: Plan - Per chart review, patient's vitals have been stable and no leukocytosis. Therefore, if there are no local signs of infection, I would recommend holding antibiotics for now. However, if the patient has local signs of infection, can continue on IV piperacillin/tazobactam and switch IV daptomycin to IV vancomycin. - we appreciate the assessment of the orthopedic team. She is planned for left total hip arthroplasty with possible head and polyethylene liner exchange on 03/18/2024. We would appreciate deep wound, abscess and tissue cultures to help guide antibiotic treatment. - Thank you for consulting infectious disease. We will continue to follow History of Present Illness History of Present Illness Ms. Shrestha is an 83-year-old man with medical history of HTN, CVA, pulmonary embolism, breast cancer status postsurgery and radiation, hypothyroidism, mood disorder, and dementia who was admitted to [facility] after being transferred from her [facility] on 03/15/2024 because of left lateral hip pain, redness and drainage. Per medical records, patient had history of left hip arthroplasty infection status post multiple left hip arthroplasty revisions. He does have a history of postoperative left hip abscess approximately 1 year prior to presentation. On presentation, all of her vitals were within normal limits. Initial workup, showed no leukocytosis, MRSA screen was negative and left hip MRI showed 12 x 11 x 8 cm multiloculated multicompartment left thigh rim-enhancing fluid collection suggestive of an abscess. On the portion of this collection partially surrounds the left femur and is adjacent to the surgical hardware. ID team was consulted for further recommendations and to help guide antibiotic treatment. Allergies Allergy/AdvReac Type Severity Reaction Status Date / Time cinnamon Allergy Intermediate Flushing Verified 04/15/23 20:13 haloperidol [From Haldol] AdvReac Severe excessive Verified 01/29/24 20:47 sedation as per family Home Medications Medication Instructions Recorded Confirmed Type amlodipine 5 mg tablet 5 mg PO DAILY #30 tabs 05/16/23 03/15/24 Rx anastrozole 1 mg tablet 1 mg PO QAM #30 tabs 05/16/23 03/15/24 Rx divalproex 125 mg capsule,delayed 500 mg (4 x 125 mg) PO HS #120 caps 05/16/23 03/15/24 Rx release sprinkle hydrocortisone 1 % topical ointment 1 applic EXT BID PRN skin rash 05/16/23 03/15/24 Rx #28.35 grams levothyroxine 125 mcg tablet 125 mcg PO DAILYBB #30 tabs 05/16/23 03/15/24 Rx acetaminophen 500 mg tablet 1,000 mg PO TID 01/29/24 03/15/24 History apixaban 5 mg tablet (Eliquis) 5 mg PO BID 01/29/24 03/15/24 History diphenhydramine HCl 12.5 mg/5 mL 12.5 mg PO Q6H PRN ALLERGIES 01/29/24 03/15/24 History oral liquid divalproex 125 mg capsule,delayed 250 mg PO QAM 01/29/24 03/15/24 History release sprinkle lorazepam 0.5 mg tablet 0.5 mg PO Q6 PRN Anxiety 01/29/24 03/15/24 History magnesium chloride 64 mg 64 mg PO BID 01/29/24 03/15/24 History (magnesium chloride) tablet olanzapine 2.5 mg tablet 2.5 mg PO BID 01/29/24 03/15/24 History olanzapine 5 mg disintegrating 2.5 mg PO Q4 PRN MOOD 01/29/24 03/15/24 History tablet polyethylene glycol 3350 17 gram 17 g PO DAILY PRN Constipation 01/29/24 03/15/24 History oral powder packet (SmoothLax) sodium chloride 0.65 % nasal spray 1 spray intranasal TID 01/29/24 03/15/24 History aerosol (Deep Sea Nasal) Patient History Medical History Axillary nerve palsy Social History Smoking Status: Former smoker Tobacco Type: Cigarettes Second Hand Exposure: No; Do You Dip or Chew Tobacco: No; Tobacco Cessation Education Requested by Patient: No Hx Alcohol Use: No (Unable to answer questions.) Hx Substance Use: No (Unable to answer questions.) Preferred Language: Egyptian Communication Ability: Effective [employer]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 Other Information That Helps Us Care for You: No Feels Safe at Home: Yes Safety Concerns: Feels Safe At This Time Assistive Devices: Walker Review of Systems Neg except for what was mentioned in H&P. Physical Exam couldn't be obtained as the visit was conducted via telemed. Results & Data Vital Signs (Past 12 Hours) Vital Signs Temp Pulse Resp BP Pulse Ox O2 Del Method 03/17/24 08:19 36.7 C 59 L 18 101/64 94 Room Air Laboratory Results Microbiology: 03/17: Left hip drainage culture pending Diagnostic Findings MRI Left Hip on 03/16: 1. Redemonstration of a 12 x 11.5 x 8 cm multiloculated multicompartment left thigh rim-enhancing fluid collection, as shown on CT of March 15, 2024, suggestive of an abscess. A portion of this collection partially surrounds the left femur and is adjacent to the surgical hardware. Therefore, the hardware may be infected. 2. Nondiagnostic evaluation for osteomyelitis given susceptibility artifact from the surgical hardware. (3) Dementia Dementia behavioral or psychological symptom: with agitation Dementia severity: moderate Dementia type: unspecified type Qualified Code(s): F03.B11 - Unspecified dementia, moderate, with agitation
--- NOTE | 2024-03-17 20:52 | Orthopedic Progress Note ---
Date of Service March 17, 2024 Assessment & Plan (1) Traumatic hematoma of lower leg with infection: (2) History of surgical site infection: (3) History of left hip replacement: (4) History of CVA (cerebrovascular accident): (5) Dementia: Plan Patient was seen and evaluated in her hospital bed. I also spoke with the patient's niece, her POA. I once again explained that given her elevated ESR and CRP, her large hematoma with swelling, erythema, I am concerned that the hematoma has become infected, and although it is not making her floridly septic at this time, this is certainly a potential consideration moving forward. As long as the patient is stable enough medically, I do think that an irrigation and debridement with possible head and polyethylene liner exchange is warranted for source control followed by long-term chronic suppressive antibiotics. I discussed with the patient's POA that she may require IV antibiotics, however the patient's POA notes that she cannot return to her memory care unit if she is to receive IV antibiotics, so her wishes for orals. We will discuss this with infectious disease. I spoke with the patient's original operative surgeon. In place currently she has a 50 mm G7 cup, high wall polyethylene liner, Evelia 13 standard offset Versys Heritage cemented stem with a +0 36 mm head. We will plan for irrigation and debridement of left total hip arthroplasty with possible head and polyethylene liner exchange to occur tomorrow, , 03/18/2024. I have explained to the patient's niece in great detail the risks of surgery to include but not limited to loss of life/limb, incomplete relief of infection, need for additional surgery, iatrogenic injury to bone/nerve/tendon/vessel, future dislocation, decrease in ambulatory status, need for long-term antibiotics. I made no promises or guarantees. Patient's POA wishes to proceed with surgery. Admission and Anticipated Discharge Date Admission Date: March 15, 2024 Subjective No acute issues reported by nursing overnight. Patient resting comfortably, will awaken to answer some simple questions otherwise subjective data unable to be obtained. Review of Systems Review of Systems: Unobtainable due to cognitive status Physical Exam Physical Exam: Left lower extremity wound unchanged. Still remains erythematous, swollen, tender to palpation. No pain with logroll. Results & Data Vital Signs (Past 12 Hours) Vital Signs Temp Pulse Resp BP Pulse Ox O2 Del Method 03/17/24 20:08 36.5 C 89 12 120/75 96 Room Air 03/17/24 14:56 36.4 C L 57 L 18 98/64 L 96 Room Air Laboratory Results ESR 99 CRP 2.65
[2024-03-17] MEDS ORDERED: DIVALPROEX SODIUM SPRINKLE/DEL-REL 125 MG CAP PO SCH (21:00)
[2024-03-18 08:05] LABS: Hematocrit (blood only) 31.3 % (37.0-47.0); Hemoglobin 10.3 g/dl (12.0-16.0); Mean Corpuscular Hemoglobin 32.8 pg (25.0-34.0); Mean Corpuscular Hgb Conc 32.9 g/dL (32.0-36.0); Mean Corpuscular Volume 99.7 fL (80.0-100.0); Mean Platelet Volume 9.1 fL (9.4-12.4); Platelet Count 366 K/uL (130-400); RDW Coefficient of Variation 13.4 % (11.5-14.5); RDW Standard Deviation 48.4 fL (36.4-46.3); Red Blood Count 3.14 M/uL (4.20-5.40); White Blood Count 5.53 K/ul (4.8-10.8)
[2024-03-18 08:22] LABS: BUN Creatinine Ratio 19.8 (10-20); Calcium 9.2 mg/dl (8.6-10.3); Creatinine Clr Calc Pharmacy 37.3 ml/min; Potassium 4.1 mmol/L (3.5-5.1)
[2024-03-18 08:28] LABS: Prothrombin Time 10.9 Seconds (9.0-12.0)
--- NOTE | 2024-03-18 10:21 | Orthopedic Progress Note ---
Date of Service March 18, 2024 Assessment & Plan (1) Traumatic hematoma of lower leg with infection: (2) History of surgical site infection: (3) History of left hip replacement: (4) History of CVA (cerebrovascular accident): (5) Dementia: Plan Patient was seen and evaluated in her hospital bed. I also spoke with the patient's niece, her POA. Plan for irrigation and debridement of left total hip arthroplasty with possible head and polyethylene liner exchange today. npo since 2400. I have once again explained to the patient's niece in great detail the risks of surgery to include but not limited to loss of life/limb, incomplete relief of infection, need for additional surgery, iatrogenic injury to bone/nerve/tendon/vessel, future dislocation, decrease in ambulatory status, need for long-term antibiotics. I made no promises or guarantees. Patient's POA wishes to proceed with surgery and signed informed written consent today. Admission and Anticipated Discharge Date Admission Date: March 15, 2024 Subjective No acute issues reported by nursing overnight. Patient resting comfortably, will awaken to answer some simple questions otherwise subjective data unable to be obtained. Physical Exam Physical Exam: Left lower extremity wound unchanged. Still remains erythematous, swollen, tender to palpation. No pain with logroll. Results & Data Vital Signs (Past 12 Hours) Vital Signs Temp Pulse Resp BP Pulse Ox O2 Del Method 03/18/24 09:12 36.7 C 72 16 122/78 97 Room Air
[2024-03-18] MEDS ORDERED: PROPOFOL IV EMULSION 10 MG/ML 20 ML VIAL IV ONE (14:38)
[2024-03-18] MEDS ORDERED: fentaNYL citrate PF 100 MCG/2 ML VIAL ONE (14:38)
[2024-03-18] MEDS ORDERED: LIDOCAINE 2% 2 ML VIAL/AMP(20MG/ML) INFIL ONE (14:38)
[2024-03-18] MEDS ORDERED: DEXAMETHASONE SOD INJ 4 MG/ML VIAL ONE (14:38)
[2024-03-18] MEDS ORDERED: ROCURONIUM BROMIDE 10 MG/ML 5 ML VIAL IV ONE (14:38)
[2024-03-18] MEDS ORDERED: ONDANSETRON INJ 2 MG/ML 2 ML VIAL ONE (14:38)
--- NOTE | 2024-03-18 14:47 | History & Physical Bridge Note ---
Date of Service March 18, 2024 History & Physical Bridge Note I have examined the patient, reviewed the History & Physical and in the interval since the performance of the History & Physical I have noted the following changes of clinical significance: no changes noted Plan for irrigation and debridement of left total hip arthroplasty with possible femoral head and polyethylene liner exchange. We will plan to place drains to hopefully evacuate any hematoma. We will obtain cultures and send these to help guide antibiotic treatment moving forward. I explained to the patient's POA that the patient will likely require chronic long-term antibiotic suppression as I do not think that she is healthy enough to undergo a two-stage revision arthroplasty. The patient's POA agreed wholeheartedly and stated this will be the last time that they attempt to manage this infection surgically We discussed the risks and benefits of the surgery in great detail including but not limited to loss of life/limb, DVT, recurrent hematoma, recurrent infection, dislocation, iatrogenic injury to nerve, tendon, vessel, muscle, bone. The patient's POA understands all these risks and wishes to proceed. No promises or guarantees were made or implied
--- NOTE | 2024-03-18 14:58 | Hospitalist Progress Note ---
Date of Service March 18, 2024 Assessment & Plan (1) Abscess of left thigh: (2) Traumatic hematoma of lower leg with infection: (3) History of surgical site infection: Plan: Patient with complicated history of left femur fracture and repair with subsequent need for additional surgeries for recurrent infection. (4) History of left hip replacement: (5) Dementia: (6) Hypothyroidism: Plan Patient with infected superficial hematoma/abscess to the left lateral thigh as well as imaging evidence of deeper infection/abscess. Reviewed infectious disease consultation, due to definite evidence of purulent discharge from abscess on thigh will continue antibiotics as currently ordered Extensive conversation with patient's OUMAR Ramsey and Dr. Vargas. [facility]. She can only return there if she is on oral antibiotics. There is some literature supporting oral antibiotics after short period of IV antibiotics in the setting of prosthetic joint infection. OUMAR is in agreement to trial this. Will not pursue PICC line for prolonged IV antibiotics Patient to go to the operating room today for debridement of the abscess and washout of any other infection, however, no plans to remove any hardware. Continuing to request records from [facility] where she had her previous interventions. OUMAR reports that there had been a fungal infection and she had been on antifungals for a period of time. Superficial wound culture currently not growing anything specific. Deep cultures will be obtained in the operating room today Admission and Anticipated Discharge Date Admission Date: March 15, 2024 Subjective Patient resting comfortably, confused Physical Exam Physical Exam: Constitutional: Sleepy, frail HEENT: Mucous membranes moist. Lungs: Clear to auscultation, decreased, no wheezes rales or rhonchi CV: S1-S2, regular Abdomen: Soft, nontender, nondistended Extremities: No significant edema abscess left lateral thigh covered with dry dressing Neuro: Generalized weakness Psych: Confused, abnormal memory Results & Data Results & Data Vital Signs (Past 12 Hours) Vital Signs Temp Pulse Pulse Resp BP Pulse Ox O2 Del Method 03/18/24 14:43 36.6 C 61 20 150/77 H 100 Room Air 03/18/24 09:12 36.7 C 72 16 122/78 97 Room Air Diagnostic Findings Reviewed imaging, laboratory and diagnostic studies. Pertinent findings as below. WBCs 5.5 Hemoglobin 10.3 INR 1.0 BMP within normal ranges
--- NOTE | 2024-03-18 15:00 | Anesthesiology Consultation ---
Date of Service March 18, 2024 Assessment & Plan Chart Review Chart Review: Acceptable Risk for Surgery and Patient NOT seen in Pre Admission Testing History Surgery Operation Date: 03/18/24 07:40 Proposed Procedures p Left Hip Incision and Drainage, Possible Poly Exchange - Dayday Vargas DO Height/Weight Height: 5 ft 6 in Weight: 54.1 kg Allergies Allergy/AdvReac Type Severity Reaction Status Date / Time cinnamon Allergy Intermediate Flushing Verified 04/15/23 20:13 haloperidol [From Haldol] AdvReac Severe excessive Verified 01/29/24 20:47 sedation as per family Medications Home Medications Medication Instructions Recorded Confirmed Last Taken amlodipine 5 mg tablet 5 mg PO DAILY #30 tabs 05/16/23 03/15/24 Unknown anastrozole 1 mg tablet 1 mg PO QAM #30 tabs 05/16/23 03/15/24 Unknown divalproex 125 mg capsule,delayed 500 mg (4 x 125 mg) PO HS #120 caps 05/16/23 03/15/24 Unknown release sprinkle hydrocortisone 1 % topical ointment 1 applic EXT BID PRN skin rash 05/16/23 03/15/24 Unknown #28.35 grams levothyroxine 125 mcg tablet 125 mcg PO DAILYBB #30 tabs 05/16/23 03/15/24 Unknown acetaminophen 500 mg tablet 1,000 mg PO TID 01/29/24 03/15/24 Unknown apixaban 5 mg tablet (Eliquis) 5 mg PO BID 01/29/24 03/15/24 Unknown diphenhydramine HCl 12.5 mg/5 mL 12.5 mg PO Q6H PRN ALLERGIES 01/29/24 03/15/24 Unknown oral liquid divalproex 125 mg capsule,delayed 250 mg PO QAM 01/29/24 03/15/24 Unknown release sprinkle lorazepam 0.5 mg tablet 0.5 mg PO Q6 PRN Anxiety 01/29/24 03/15/24 Unknown magnesium chloride 64 mg 64 mg PO BID 01/29/24 03/15/24 Unknown (magnesium chloride) tablet olanzapine 2.5 mg tablet 2.5 mg PO BID 01/29/24 03/15/24 Unknown olanzapine 5 mg disintegrating 2.5 mg PO Q4 PRN MOOD 01/29/24 03/15/24 Unknown tablet polyethylene glycol 3350 17 gram 17 g PO DAILY PRN Constipation 01/29/24 03/15/24 Unknown oral powder packet (SmoothLax) sodium chloride 0.65 % nasal spray 1 spray intranasal TID 01/29/24 03/15/24 Unknown aerosol (Deep Sea Nasal) Active Medications Generic Name Dose Route Start Last Admin Trade Name Freq PRN Reason Stop Dose Admin Acetaminophen 1,000 mg 03/15/24 22:20 03/18/24 13:31 Acetaminophen 500 Mg Tab PO 04/14/24 22:19 Not Given TID BO Amlodipine Besylate 5 mg 03/16/24 09:00 03/18/24 09:24 Amlodipine Besylate 5 Mg Tab PO 04/15/24 08:59 Not Given DAILY BO Anastrozole 1 mg 03/16/24 09:00 03/18/24 09:24 Anastrozole 1 Mg Tab PO 04/15/24 08:59 Not Given QAM BO Divalproex Sodium 250 mg 03/17/24 09:00 03/18/24 09:24 Divalproex Sodium Sprinkle/Del-Rel 125 Mg Cap PO 04/16/24 08:59 Not Given QAM BO Divalproex Sodium 500 mg 03/16/24 21:00 03/17/24 20:53 Divalproex Sodium Sprinkle/Del-Rel 125 Mg Cap PO 04/15/24 19:59 500 mg HS BO Administration Piperacillin Sod/Tazobactam Sod 4.5 gm in 100 mls @ 25 mls/hr 03/16/24 06:00 03/18/24 13:30 Zosyn IV 04/27/24 05:59 25 mls/hr Q8H BO Administration Protocol Daptomycin 350 mg/ Syringe 7 mls @ 3.5 mls/min 03/16/24 06:30 03/18/24 06:10 IV 04/27/24 06:29 3.5 mls/min Q24H BO Administration Protocol Levothyroxine Sodium 125 mcg 03/16/24 06:30 03/18/24 06:20 Levothyroxine Sodium 125 Mcg Tablet PO 04/15/24 06:29 125 mcg DAILYBB BO Administration Olanzapine 2.5 mg 03/15/24 22:20 03/18/24 09:24 Olanzapine 2.5 Mg Tab PO 04/14/24 22:19 Not Given BID BO Olanzapine 2.5 mg 03/15/24 22:21 03/16/24 21:07 Olanzapine 10 Mg/2.1 Ml Sdv IM 04/14/24 22:20 2.5 mg Q4H PRN Administration Agitation Oxycodone HCl 5 mg 03/15/24 22:22 03/16/24 21:05 Oxycodone Hcl Ir 5 Mg Tab (Immediate Release) PO 03/29/24 22:21 5 mg Q4H PRN Administration Pain NPO Date Last Intake of Fluids: 03/17/24 Last Intake of Fluids Comment: per report before [place] Date Last Intake of Solids: 03/17/24 Last Intake of Solids Comment: per report before [place] Past Medical History Medical History Axillary nerve palsy Social History Smoking Status: Former smoker Do You Dip or Chew Tobacco: No Hx Alcohol Use: No (Unable to answer questions.) Hx Substance Use: No (Unable to answer questions.) substance use type: does not use Physical Exam Vital Signs Last Vital Signs Temp 36.6 C 03/18/24 14:43 Pulse 61 03/18/24 14:43 Resp 20 03/18/24 14:43 BP 150/77 H 03/18/24 14:43 Pulse Ox 100 03/18/24 14:43 O2 Del Method Room Air 03/18/24 14:43 Testing Laboratory Results 03/18/24 07:26 03/18/24 07:26 PT 10.9 Seconds (9.0-12.0) 03/18/24 07:26 INR 1.0 (0.9-1.1) 03/18/24 07:26 APTT 29 Seconds (21-31) 03/15/24 16:50 Blood Type B Positive 03/15/24 22:53 Antibody Screen NEGATIVE 03/15/24 22:53 03/17/24 Unknown Gram Stain - Final Hip,Left Wound Culture - Preliminary Pin-point growth present, reincubating.
[2024-03-18] MEDS: LACTATED RINGER'S 1,000 ML IV SCH (15:02)
[2024-03-18] MEDS ORDERED: ATROPINE SULFATE 0.1 MG/ML 10ML SYR IV PRN (15:04)
[2024-03-18] MEDS ORDERED: ePHEDrine sulfate 50 MG/ML AMP IV PRN (15:04)
[2024-03-18] MEDS ORDERED: HYDROmorphone INJ 1 MG/ML SYRINGE IV PRN (15:04)
[2024-03-18] MEDS ORDERED: SUGAMMADEX SODIUM 200 MG/2 ML VIAL IV ONE (15:42)
[2024-03-18] MEDS ORDERED: ePHEDrine sulfate 50 MG/5 ML SYR ONE (16:31)
[2024-03-18] MEDS ORDERED: PHENYLEPHRINE 100MCG/ML 5ML SYR ONE ×2 (16:45→17:31)
[2024-03-18] MEDS: VANCOMYCIN HCL 1000MG/20ML VIAL ONE (16:52)
[2024-03-18] MEDS ORDERED: MoRPHine SULFATE 2 MG/ML CARP ONE (17:10)
[2024-03-18] MEDS: ONDANSETRON INJ 2 MG/ML 2 ML VIAL IV PRN (17:40)
[2024-03-18] MEDS: fentaNYL citrate PF 100 MCG/2 ML VIAL IV PRN (17:45)
--- NOTE | 2024-03-18 17:54 | Post Operative Brief Note ---
Immediate Post Op Note Date of Surgery March 18, 2024 Pre & Post Diagnosis Operation Date: 03/18/24 07:40 Pre-Op Diagnosis: Left lower extremity postsurgical abscess Post-Op Diagnosis: left lower extremity postsurgical abscess I identified the patient and participated in the time-out.: Yes Procedure Operation Date: 03/18/24 07:40 Actual Procedures p Left Hip Incision and Drainage, removal hardware, application of cerclage cable, extensive wound debridement. (Left) - Dayday Vargas DO 1. Left hip irrigation and debridement of postsurgical abscess 2. Left femur removal of hardware deep 3. Complex wound closure, left lower extremity 4. Application negative pressure wound therapy Surgeon Dayday Vargas DO Broadcast Operations Technician Nico Patricia PA-C Estimated Blood Loss 250 Findings See Below Rents in the IT band Soft tissue fluid collection extending from superficial to the IT band through the rent both anterior and posterior to the femoral shaft No proximal extension of the fluid collection Well-healed posterior capsular reconstruction Loose cerclage cables x 2 Fluids see anesthesia record Drains Hemovac Drain ( x 2) Complications none immediately apparent Disposition Accompanied Patient To Recovery: Yes Disposition: Recovery Room Overlapping Procedure I was present for: the critical portions of procedure. ( the entire procedure)
--- NOTE | 2024-03-18 17:58 | Operative Report ---
Post Operative Report Pre & Post Diagnosis Operation Date: 03/18/24 07:40 Pre-Op Diagnosis: 1. Postsurgical fluid collection left lower extremity 2. left lower extremitydraining sinus tract 3. left lower extremityIliotibial band disruption 4. left lower extremityLoose orthopedic hardware Post-Op Diagnosis: same I identified the patient and participated in the time-out.: Yes Procedure Operation Date: 03/18/24 07:40 Actual Procedures p Left Hip Incision and Drainage, removal hardware, application of cerclage cable, extensive wound debridement. (Left) - Dayday Vargas DO 1. Irrigation and debridement left lower extremity postsurgical fluid collection 2. Left femur removal of hardware, deep 3. Application cerclage wire, left femur 4. Left lower extremity repair of IT band disruption 5. Excision left lower extremity sinus tract 6. Complex wound closure 7. Application negative pressure wound therapy Modifier 22 - this procedure took more time than ordinarily necessary due to the multiply operated on tissue. This tissue having been multiply operated on was substantially frayed and soft tissue planes were not easily discernible Surgeon Dayday Vargas DO Auto Porter Nico Patricia PA-C Estimated Blood Loss 250 Findings Consistent with Post-Op Diagnosis Rents in the IT band Soft tissue fluid collection extending from superficial to the IT band through the rent both anterior and posterior to the femoral shaft No proximal extension of the fluid collection Well-healed posterior capsular reconstruction Loose cerclage cables x 2 Fluids CMCs record Specimens Specimens obtained at multiple different levels and including tissue, swabs, and fluid See operative record for exact details of all specimens collected Drains Hemovac drain x 2 1. Deep to IT band 2. Superficial to IT band Anesthesia Type General Complications none immediately apparent Disposition Accompanied Patient To Recovery: Yes Indications 83-year-old female presents with concerns for infection surrounding left hip arthroplasty. The patient is demented as such history was unable to be obtained from her. I obtained most of the history per discussion with the emergency department as well as with the patient's niece, Orly. The patient's niece is her POA. I discussed with the patient's niece that the patient's current presentation is consistent with an infected hematoma that may have intra-articular extension. We had a long discussion regarding the nature of this diagnosis as well as the possible treatment options. I explained that in a healthy patient, the most appropriate plan of care would involve irrigation and debridement with explantation of all components, placement of antibiotic cement spacer and staged revision arthroplasty after it has been ensured that the infection has been completely cleared. In this particular patient's scenario given her medical comorbidities including cancer, history of CVA, history of PE, dementia, I do not think that she is an appropriate candidate for a two-stage revision arthroplasty. The patient's level of function and cognitive ability to participate in care is not at a level that would make 2 stage revision arthroplasty safe. Given this, I believe the patient's POA has 2 treatment options, either: 1. nonoperative care with suppressive antibiotics which I am not convinced will result in clearance of the infection; or 2. operative debridement with possible head/poly exchange and chronic suppressive antibiotics thereafter. Both options carry with him significant risk including but not limited to loss of life/limb, continued infection, need for additional surgery in future, wound healing complications, dislocation, recurrence of infection. I do believe that the risk of continued infection and/or recurrence of infection is higher without formal operative debridement. The patient POA agrees that this is the best step moving forward. We discussed the risks and benefits of the surgery in great detail including but not limited to loss of life/limb, DVT, recurrent hematoma, recurrent infection, dislocation, iatrogenic injury to nerve, tendon, vessel, muscle, bone. The patient's POA understands all these risks and wishes to proceed. No promises or guarantees were made or implied Description of Procedure After informed consent was obtained, the patient was correctly identified in the preoperative holding suite, the operative site was marked with the surgeon's initials, the date of surgery, and the word yes. The patient was then taken to the operative suite. The department of anesthesia administered General Anesthesia. The patient was transferred from the [facility] to the operative table. All bony prominences were well-padded. Briefing and timeout was performed. All implants were available and sterile at the time. BRIEFING AND DEBRIEFING: Pre and post operative briefing and debriefing was performed. Introductions were made, goals of the procedure were discussed, questions and concerns were addressed. The operative site markings were identified and appropriate. A time [id number] was performed, the patient's correct identity was confirmed and the correct operative sites were identified. The patients pre-operative antibiotic dosing and administration was confirmed along with other SCIP measures. The team was polled at the completion of the surgery and all team members were in agreement that the procedure was without complication, the counts are correct, the wound class was identified and suggestions for improvement were shared. The patient was transferred from the [facility] onto the operative table in supine fashion. General anesthesia was administered. The patient was then placed in a lateral decubitus position secured by the Stulberg positioner with all bony prominences well-padded and an axillary roll underneath of her down arm. Her left lower extremity was prepped and draped in standard sterile fashion using Betadine scrub and paint due to the open wound. We made an incision through the previous incision and immediately encountered a superficial pocket of fluid. Fluid was collected and sent to the lab for cultures including aerobic, anaerobic, AFB and fungal. At this point it was very obvious that the scar tissue present in the wound bed would make for a more challenging dissection so care was taken to develop tissue planes appropriately. We deepened our dissection proximally and distally to the level of the IT band. It was immediately apparent that there was a large rent in the IT band with a significant amount of nonviable tissue in this area. We debrided this nonviable tissue sharply using knife, rongeur, electrocautery and sent this tissue for culture as well. The plate was then immediately apparent. We incised the IT band proximally as extended up the femoral shaft to the level of the greater trochanter along the plate. At this point, it was apparent that the 2 cerclage cables that were placed distally around the plate were very loose and as such we opted to remove these. We sent these to the lab for sonication and culture as well. It then became apparent that that pocket of fluid that we encountered superficially extended posterior to the femoral shaft and this pocket of fluid was evacuated. We also noted that the same pocket of fluid extended anteriorly around the femoral shaft as well. It did not track proximally to the level of the hip joint. We did obtain additional fluid and tissue cultures in the deep wound bed, as well. We then began our formal sharp debridement down to the level of bone removing all nonviable tissue using curettes, rongeur's, knife, and electrocautery. We obtained meticulous hemostasis using the aqua Jarett and Bovie. We then thoroughly irrigated the wound using 9 L of sterile saline through the pulse lavage. Next, we used a fresh 18-gauge needle to attempt to draw fluid out of the hip joint. Not much fluid was obtained, however some blood was obtained and this was sent to the lab for culture, as well. At this point, we made the decision not to dislocate the hip and perform a head and liner exchange. This decision was made due to the fact that the fluid pocket did not extend proximally to the joint, and given the patient's dementia, we did not believe that she would be able to adhere to posterior hip precautions following surgery and this would put her at a very high risk of dislocation in the future which could be a devastating consequence for her. We then completed a 3-minute dilute Betadine soak followed by a wash with Xperience. At this point, we examined the lateral trochanteric claw plate, and this was loose on the femur after having removed the 2 loose cerclage cables earlier. We placed a new cerclage cable from the Evelia set to hold the plate firmly against the bone. We opted to not remove the entire trochanteric claw plate as the proximal greater trochanter bone seemed quite soft and we were worried about greater trochanter fracture in the future which would result in increased instability of the hip. We then placed 2 g of vancomycin powder within the wound. We then turned our attention towards removing the sinus tract that was previously present. We excised this sharply using a 10 blade and Adson pickups. This was debrided back to healthy, viable tissue. At this point we then placed a drain deep to the IT band and began the closure of the IT band. Proximally, we started with the O V-Loc barbed suture. We carried this down to the level of the IT band rent and left ourselves a tail. we then started distally using a separate O V-Loc barbed suture and tied this to the original 1. We then oversewed the rent in the IT band with remaining nonbraded 0 suture. we placed an additional drain within the superficial tissues and closed the subcutaneous tissue using 2-0 PDS and we closed the skin with susy such that the skin was appropriately everted. Care was taken to ensure that the area over the original sinus tract was appropriately everted. Due to the friable nature of the tissue as well as the fact that it had been operated on multiple times before, closure was more difficult than ordinary. A negative pressure Prevena wound VAC was then placed over the wound and the drains were well-padded as they exited the skin. The patient tolerated this procedure well and was transferred to the PACU in stable condition. Prior to transportation to PACU, all counts were correct and a briefing was performed at the end of the case. Implant verification was performed by myself by reading and confirming the implant information on the packaging with the team before the sterile implants were opened. I was present for the entire procedure. Plan: Weight bearing status: Nonweightbearing left lower extremity Wound care: keep dressing clean and dry. Will change Prevena in 7 days Range of motion: okay for range of motion with physical therapy VTE Prophylaxis: SCDs for now. Once drain output decreases and drains are removed, may restart anticoagulation Antibiotics: broad-spectrum antibiotics per infectious disease Pain Control: Multimodal avoiding too many narcotics in this elderly patient Discharge Plan: pending Follow Up: she will follow-up with me as an outpatient pending clinical course. Susy likely to remain in place for 3 weeks. I attest to the content of the Intraoperative Record and any orders documented therein. Any exceptions are noted below.
--- NOTE | 2024-03-18 18:00 | Anesthesiology Progress Note ---
Date of Service March 18, 2024 Anesthesia Post Procedure Vital Signs Vital Signs: Temp Pulse Pulse Resp BP Pulse Ox O2 Del Method 03/18/24 14:43 36.6 C 61 20 150/77 H 100 Room Air 03/18/24 09:12 36.7 C 72 16 122/78 97 Room Air 03/17/24 20:08 36.5 C 89 12 120/75 96 Room Air Pain Intensity Left Hip: Pain Intensity: 2 Transfer of Care Handoff Completed per policy Notes Mental Status: alert / awake / arousable and participated in evaluation Patient Amnestic to Procedure: Yes Nausea / Vomiting: adequately controlled Pain: adequately controlled Airway Patency, RR, SpO2: stable & adequate BP & HR: stable & adequate Hydration State: stable & adequate Anesthetic Complications: no major complications apparent and Pt Satisfied with anesthetic care
--- NOTE | 2024-03-18 18:00 | XRay Report ---
EXAM: Radiographs of the Pelvis 1 View INDICATION: Postsurgical evaluation. TECHNIQUE: Frontal view of the pelvis. COMPARISON: 03/15/2024 FINDINGS: Limitations: None. Bones/joints: Cemented hip arthroplasty with lateral plate and multiple cerclage wires well-seated, unchanged and intact. No osseous destruction or fracture. Soft tissues: There are multiple skin sera now present along the left hip and proximal femur and 2 drains identified 1 coiled projecting over the proximal femoral shaft and the other roughly 2 cm lateral to the greater trochanter. IMPRESSION: There has been interval incision and drainage lateral to the left hip with [address] ACT 112: Negative or not required by law. Electronically signed by Karen Krause 03-18-2024 6:00 PM
[2024-03-19 07:44] LABS: Hematocrit (blood only) 27.3 % (37.0-47.0); Hemoglobin 8.6 g/dl (12.0-16.0); Mean Corpuscular Hemoglobin 31.9 pg (25.0-34.0); Mean Corpuscular Hgb Conc 31.5 g/dL (32.0-36.0); Mean Corpuscular Volume 101.1 fL (80.0-100.0); Mean Platelet Volume 8.8 fL (9.4-12.4); Platelet Count 324 K/uL (130-400); RDW Coefficient of Variation 13.4 % (11.5-14.5); RDW Standard Deviation 49.9 fL (36.4-46.3); White Blood Count 7.16 K/ul (4.8-10.8)
[2024-03-19 07:55] LABS: BUN Creatinine Ratio 19.8 (10-20); Creatinine Clr Calc Pharmacy 33.7 ml/min; Potassium 4.3 mmol/L (3.5-5.1)
--- NOTE | 2024-03-19 09:12 | Orthopedic Progress Note ---
Date of Service March 19, 2024 Assessment & Plan (1) Infected prosthesis of left hip: Plan Patient is postoperative day #1 status post irrigation debridement of left hip soft tissue fluid collection. Overall, she is doing well. Her drains put out 90 cc of fluid overnight. Will hope to remove these tomorrow or the next day. Patient remains on IV antibiotics. Cultures from the OR yesterday still without growth. We did discuss that considering she has been on antibiotics for so long, these may not result in any growth. Admission and Anticipated Discharge Date Admission Date: March 15, 2024 Subjective Postoperative day #1 status post irrigation and debridement left hip soft tissue fluid collection. Patient resting comfortably in bed. Remains Review of Systems Review of Systems: Unobtainable due to cognitive status Physical Exam Physical Exam: Dressing appears clean and dry. 90 cc of output from the drains per nursing. Results & Data Vital Signs (Past 12 Hours) Vital Signs Temp Pulse Resp BP Pulse Ox O2 Del Method O2 Flow Rate 03/19/24 07:48 36.5 C 97 H 20 99/65 L 99 Nasal Cannula 1 03/19/24 03:00 94 Nasal Cannula 1 03/19/24 02:58 36.6 C 64 16 90/55 L 93 Nasal Cannula 1 03/18/24 22:50 Nasal Cannula 1 03/18/24 22:00 36.8 C 68 16 101/64 96 Nasal Cannula 1 Diagnostic Findings Postoperative x-rays demonstrate removal of 2 cerclage wires with placement of new 1. Susy visualized for skin closure. No acute issues with left total hip prosthesis.
[2024-03-19] MEDS: ACETAMINOPHEN 1,000 MG/100 ML VIAL IV PRN (09:19)
--- NOTE | 2024-03-19 14:30 | Hospitalist Progress Note ---
Date of Service March 19, 2024 Assessment & Plan (1) Abscess of left thigh: (2) Traumatic hematoma of lower leg with infection: (3) History of surgical site infection: (4) History of left hip replacement: (5) Dementia: (6) Hypothyroidism: Plan Ms. Shrestha is an 83yo woman with PMHx significant for HTN, Hx of CVA, hx PE on Eliquis (01/2023), breast cancer, s/p surgery & radiation currently on Arimidex, hypothyroidism, mood disorder, occipital neuralgia as per records, dementia who presented to ED 2/2 L lateral hip pain and is now s/p I&D left hip fluid collection. 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 history of postoperative left hip abscess approximately 1 year prior to presentation. MRSA screen was negative and left hip MRI showed 12 x 11 x 8 cm multiloculated multicompartment left thigh rim-enhancing fluid collection suggestive of an abscess; collection partially surrounds the left femur and is adjacent to the surgical hardware. continue IV Abx with zosyn and dapto intraop cultures pending Extensive conversation with patient's POShakila Ramsey and Dr. Vargas. OUMAR would really like patient to return to [facility], she had been doing well there. She can only return there if she is on oral antibiotics. There is some literature supporting oral antibiotics after short period of IV antibiotics in the setting of prosthetic joint infection. OUMAR is in agreement to trial this. Will not pursue PICC line for prolonged IV antibiotics Will clarify with ID final antibiotic plans #Post op hypotension Fluids added Hold amlodipine Di #Acute blood loss anemia 2/2 expected post op losses #H/O PE will discuss resumption of eliquis in next 1-2 days with ortho contingent on stable post op hgb anemia labs in am for optimization #Dementia #Mood Disorder continue depakote and zyprexa #H/O Breast cancer S/P Surgery, radiation continue Arimidex #Hypothyroidism Normal TSH Continue levothyroxine DVT ppx: will resume in 1-2 days contingent on stable hgb dispo pending wound cultures and abx plan Admission and Anticipated Discharge Date Admission Date: March 15, 2024 Subjective No reported acute events overnight Evaluated patient at bedside, cognitive status difficult to appreciate any new symptoms--when asked about pain, whether "intolerable" or "sore", patient able to state site is just "sore" Pleasant, worked to be conversational in exam and participate reports from nursing that patient is only eating 20-50% of food/drink Physical Exam Constitutional: no distress noted Respiratory: normal respiratory effort, lungs clear to auscultation Cardiovascular: RRR, no murmur, no edema Results & Data Results & Data Vital Signs (Past 12 Hours) Vital Signs Temp Pulse Pulse Resp BP BP Pulse Ox 03/19/24 14:22 36.5 C 62 16 96/58 L 100 03/19/24 10:59 36.3 C L 60 20 91/55 L 96 03/19/24 07:48 36.5 C 97 H 20 99/65 L 99 03/19/24 03:00 94 03/19/24 02:58 36.6 C 64 16 90/55 L 93 O2 Del Method O2 Flow Rate 03/19/24 14:22 Room Air 03/19/24 10:59 Room Air 03/19/24 07:48 Nasal Cannula 1 03/19/24 03:00 Nasal Cannula 1 03/19/24 02:58 Nasal Cannula 1 Laboratory Results Short CBC 03/19/24 Range/Units 07:25 WBC 7.16 (4.8-10.8) K/ul Hgb 8.6 L (12.0-16.0) g/dl Hct 27.3 L (37.0-47.0) % Plt Count 324 (130-400) K/uL BMP 03/19/24 07:25 Sodium 139 Potassium 4.3 Chloride 104 Carbon Dioxide 28 BUN 21 Creatinine 1.06 Glucose 109 H Calcium 9.0 Medications Administered Home Medications Medication Instructions Recorded Confirmed Last Taken amlodipine 5 mg tablet 5 mg PO DAILY #30 tabs 05/16/23 03/15/24 Unknown anastrozole 1 mg tablet 1 mg PO QAM #30 tabs 05/16/23 03/15/24 Unknown divalproex 125 mg capsule,delayed 500 mg (4 x 125 mg) PO HS #120 caps 05/16/23 03/15/24 Unknown release sprinkle hydrocortisone 1 % topical ointment 1 applic EXT BID PRN skin rash 05/16/23 03/15/24 Unknown #28.35 grams levothyroxine 125 mcg tablet 125 mcg PO DAILYBB #30 tabs 05/16/23 03/15/24 Unknown acetaminophen 500 mg tablet 1,000 mg PO TID 01/29/24 03/15/24 Unknown apixaban 5 mg tablet (Eliquis) 5 mg PO BID 01/29/24 03/15/24 Unknown diphenhydramine HCl 12.5 mg/5 mL 12.5 mg PO Q6H PRN ALLERGIES 01/29/24 03/15/24 Unknown oral liquid divalproex 125 mg capsule,delayed 250 mg PO QAM 01/29/24 03/15/24 Unknown release sprinkle lorazepam 0.5 mg tablet 0.5 mg PO Q6 PRN Anxiety 01/29/24 03/15/24 Unknown magnesium chloride 64 mg 64 mg PO BID 01/29/24 03/15/24 Unknown (magnesium chloride) tablet olanzapine 2.5 mg tablet 2.5 mg PO BID 01/29/24 03/15/24 Unknown olanzapine 5 mg disintegrating 2.5 mg PO Q4 PRN MOOD 01/29/24 03/15/24 Unknown tablet polyethylene glycol 3350 17 gram 17 g PO DAILY PRN Constipation 01/29/24 03/15/24 Unknown oral powder packet (SmoothLax) sodium chloride 0.65 % nasal spray 1 spray intranasal TID 01/29/24 03/15/24 Unknown aerosol (Deep Sea Nasal) Active Medications Generic Name Dose Route Start Last Admin Trade Name Freq PRN Reason Stop Dose Admin Amlodipine Besylate 5 mg 03/16/24 09:00 03/18/24 09:24 Amlodipine Besylate 5 Mg Tab PO 04/15/24 08:59 Not Given DAILY BO Anastrozole 1 mg 03/16/24 09:00 03/19/24 09:05 Anastrozole 1 Mg Tab PO 04/15/24 08:59 1 mg QAM BO Administration Divalproex Sodium 250 mg 03/17/24 09:00 03/19/24 09:05 Divalproex Sodium Sprinkle/Del-Rel 125 Mg Cap PO 04/16/24 08:59 250 mg QAM BO Administration Divalproex Sodium 500 mg 03/16/24 21:00 03/18/24 20:48 Divalproex Sodium Sprinkle/Del-Rel 125 Mg Cap PO 04/15/24 19:59 Not Given HS BO Piperacillin Sod/Tazobactam Sod 4.5 gm in 100 mls @ 25 mls/hr 03/16/24 06:00 03/19/24 14:12 Zosyn IV 04/27/24 05:59 25 mls/hr Q8H BO Administration Protocol Daptomycin 350 mg/ Syringe 7 mls @ 3.5 mls/min 03/16/24 06:30 03/19/24 05:26 IV 04/27/24 06:29 3.5 mls/min Q24H BO Administration Protocol Acetaminophen 1,000 mg in 100 mls @ 400 mls/hr 03/19/24 08:23 03/19/24 09:42 Ofirmev IV 03/22/24 08:22 Infused Q8H PRN Infusion Pain Levothyroxine Sodium 125 mcg 03/16/24 06:30 03/19/24 05:33 Levothyroxine Sodium 125 Mcg Tablet PO 04/15/24 06:29 125 mcg DAILYBB BO Administration Olanzapine 2.5 mg 03/15/24 22:20 03/19/24 10:02 Olanzapine 2.5 Mg Tab PO 04/14/24 22:19 2.5 mg BID BO Administration Olanzapine 2.5 mg 03/15/24 22:21 03/16/24 21:07 Olanzapine 10 Mg/2.1 Ml Sdv IM 04/14/24 22:20 2.5 mg Q4H PRN Administration Agitation Oxycodone HCl 5 mg 03/15/24 22:22 03/19/24 00:14 Oxycodone Hcl Ir 5 Mg Tab (Immediate Release) PO 03/29/24 22:21 5 mg Q4H PRN Administration Pain
[2024-03-19] MEDS: SODIUM CHLORIDE 0.9% 1,000 ML IV SCH (15:06)
[2024-03-20 08:08] LABS: Hemoglobin 7.4 g/dl (12.0-16.0); Mean Corpuscular Hemoglobin 32.2 pg (25.0-34.0); Mean Corpuscular Hgb Conc 32.2 g/dL (32.0-36.0); Mean Platelet Volume 9.5 fL (9.4-12.4); Platelet Count 302 K/uL (130-400); RDW Coefficient of Variation 13.6 % (11.5-14.5); RDW Standard Deviation 49.4 fL (36.4-46.3); White Blood Count 5.71 K/ul (4.8-10.8)
[2024-03-20 08:29] LABS: BUN Creatinine Ratio 19.8 (10-20); Calcium 8.2 mg/dl (8.6-10.3); Creatinine Clr Calc Pharmacy 41.6 ml/min; Potassium 3.6 mmol/L (3.5-5.1)
[2024-03-20 08:47] LABS: Ferritin 258.5 ng/ml (8-388)
[2024-03-20 08:52] LABS: Folate (Folic Acid),Ser orPlas 12.46 ng/ml (>5.38)
--- NOTE | 2024-03-20 13:33 | Orthopedic Progress Note ---
Date of Service March 20, 2024 Assessment & Plan (1) Infected prosthesis of left hip: Plan Patient is postoperative day #2 status post irrigation debridement of left hip soft tissue fluid collection. Overall, she is doing well. Her drains were removed today. Patient remains on IV antibiotics. Cultures from the OR yesterday still without growth. We did discuss that considering she has been on antibiotics for so long, these may not result in any growth. okay for DVT ppx from orthopaedic perspective okay to WB on RLE per patient comfort. Admission and Anticipated Discharge Date Admission Date: March 15, 2024 Subjective patient resting comfortably. denies significant pain Physical Exam Physical Exam: Dressing appears clean and dry. decreased output from drains overnight per nursing. Results & Data Vital Signs (Past 12 Hours) Vital Signs Temp Pulse Resp BP Pulse Ox O2 Del Method 03/20/24 07:50 36.6 C 71 16 113/69 97 Room Air
--- NOTE | 2024-03-20 15:11 | Hospitalist Progress Note ---
Date of Service March 20, 2024 Assessment & Plan (1) Abscess of left thigh: (2) Traumatic hematoma of lower leg with infection: (3) History of surgical site infection: (4) History of left hip replacement: (5) Dementia: (6) Hypothyroidism: Plan Ms. Shrestha is an 83yo woman with PMHx significant for HTN, Hx of CVA, hx PE on Eliquis (01/2023), breast cancer, s/p surgery & radiation currently on Arimidex, hypothyroidism, mood disorder, occipital neuralgia as per records, dementia who presented to ED 2/2 L lateral hip pain and is now s/p I&D left hip fluid collection. 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 history of postoperative left hip abscess approximately 1 year prior to presentation. MRSA screen was negative and left hip MRI showed 12 x 11 x 8 cm multiloculated multicompartment left thigh rim-enhancing fluid collection suggestive of an abscess; collection partially surrounds the left femur and is adjacent to the surgical hardware. continue IV Abx with zosyn and dapto intraop cultures pending, no growth to date [facility] She can only return there if she is on oral antibiotics. There is some literature supporting oral antibiotics after short period of IV antibiotics in the setting of prosthetic joint infection. POA is in agreement to trial this. Will not pursue PICC line for prolonged IV antibiotics Will clarify with ID final antibiotic plans #Post op hypotension Fluids added Hold amlodipine #Acute blood loss anemia 2/2 expected post op losses #H/O PE will discuss resumption of eliquis in next 1-2 days with ortho contingent on stable post op hgb anemia labs in am for optimization--b12, folate, iron all optimized Hgb 7.4, may require transfusion if <7.0 in am Hemodynamically stable and working with PT, no increased reports of pain, likely iso drains CBC in am #Dementia #Mood Disorder continue depakote and zyprexa #H/O Breast cancer S/P Surgery, radiation continue Arimidex #Hypothyroidism Normal TSH Continue levothyroxine DVT ppx: will resume in 1-2 days contingent on stable hgb dispo pending wound cultures and abx plan Admission and Anticipated Discharge Date Admission Date: March 15, 2024 Subjective NAEO Patient sleeping this am, but easy to awaken Pleasant and answers that she is tired and denies any discomfort on exam Physical Exam Constitutional: WD/WN, vitals as above Respiratory: normal respiratory effort, lungs clear to auscultation Cardiovascular: RRR, no murmur, no edema Musculoskeletal: left hip drains in place on exam Results & Data Results & Data Vital Signs (Past 12 Hours) Vital Signs Temp Pulse Resp BP Pulse Ox O2 Del Method 03/20/24 07:50 36.6 C 71 16 113/69 97 Room Air Laboratory Results Short CBC 03/20/24 Range/Units 07:02 WBC 5.71 (4.8-10.8) K/ul Hgb 7.4 L (12.0-16.0) g/dl Hct 23.0 L (37.0-47.0) % Plt Count 302 (130-400) K/uL BMP 03/20/24 07:02 Sodium 140 Potassium 3.6 Chloride 109 H Carbon Dioxide 24 BUN 17 Creatinine 0.86 Glucose 91 Calcium 8.2 L Medications Administered Home Medications Medication Instructions Recorded Confirmed Last Taken amlodipine 5 mg tablet 5 mg PO DAILY #30 tabs 05/16/23 03/15/24 Unknown anastrozole 1 mg tablet 1 mg PO QAM #30 tabs 05/16/23 03/15/24 Unknown divalproex 125 mg capsule,delayed 500 mg (4 x 125 mg) PO HS #120 caps 05/16/23 03/15/24 Unknown release sprinkle hydrocortisone 1 % topical ointment 1 applic EXT BID PRN skin rash 05/16/23 03/15/24 Unknown #28.35 grams levothyroxine 125 mcg tablet 125 mcg PO DAILYBB #30 tabs 05/16/23 03/15/24 Unknown acetaminophen 500 mg tablet 1,000 mg PO TID 01/29/24 03/15/24 Unknown apixaban 5 mg tablet (Eliquis) 5 mg PO BID 01/29/24 03/15/24 Unknown diphenhydramine HCl 12.5 mg/5 mL 12.5 mg PO Q6H PRN ALLERGIES 01/29/24 03/15/24 Unknown oral liquid divalproex 125 mg capsule,delayed 250 mg PO QAM 01/29/24 03/15/24 Unknown release sprinkle lorazepam 0.5 mg tablet 0.5 mg PO Q6 PRN Anxiety 01/29/24 03/15/24 Unknown magnesium chloride 64 mg 64 mg PO BID 01/29/24 03/15/24 Unknown (magnesium chloride) tablet olanzapine 2.5 mg tablet 2.5 mg PO BID 01/29/24 03/15/24 Unknown olanzapine 5 mg disintegrating 2.5 mg PO Q4 PRN MOOD 01/29/24 03/15/24 Unknown tablet polyethylene glycol 3350 17 gram 17 g PO DAILY PRN Constipation 01/29/24 03/15/24 Unknown oral powder packet (SmoothLax) sodium chloride 0.65 % nasal spray 1 spray intranasal TID 01/29/24 03/15/24 Unknown aerosol (Deep Sea Nasal) Active Medications Generic Name Dose Route Start Last Admin Trade Name Freq PRN Reason Stop Dose Admin Amlodipine Besylate 5 mg 03/16/24 09:00 03/18/24 09:24 Amlodipine Besylate 5 Mg Tab PO 04/15/24 08:59 Not Given DAILY BO Anastrozole 1 mg 03/16/24 09:00 03/20/24 08:22 Anastrozole 1 Mg Tab PO 04/15/24 08:59 1 mg QAM BO Administration Divalproex Sodium 250 mg 03/17/24 09:00 03/20/24 08:23 Divalproex Sodium Sprinkle/Del-Rel 125 Mg Cap PO 04/16/24 08:59 250 mg QAM BO Administration Divalproex Sodium 500 mg 03/16/24 21:00 03/19/24 19:54 Divalproex Sodium Sprinkle/Del-Rel 125 Mg Cap PO 04/15/24 19:59 500 mg HS BO Administration Piperacillin Sod/Tazobactam Sod 4.5 gm in 100 mls @ 25 mls/hr 03/16/24 06:00 03/20/24 14:56 Zosyn IV 04/27/24 05:59 25 mls/hr Q8H BO Infusion Protocol Daptomycin 350 mg/ Syringe 7 mls @ 3.5 mls/min 03/16/24 06:30 03/20/24 05:43 IV 04/27/24 06:29 3.5 mls/min Q24H BO Administration Protocol Acetaminophen 1,000 mg in 100 mls @ 400 mls/hr 03/19/24 08:23 03/19/24 20:16 Ofirmev IV 03/22/24 08:22 Infused Q8H PRN Infusion Pain Levothyroxine Sodium 125 mcg 03/16/24 06:30 03/20/24 05:42 Levothyroxine Sodium 125 Mcg Tablet PO 04/15/24 06:29 125 mcg DAILYBB BO Administration Olanzapine 2.5 mg 03/15/24 22:20 03/20/24 08:23 Olanzapine 2.5 Mg Tab PO 04/14/24 22:19 2.5 mg BID BO Administration Olanzapine 2.5 mg 03/15/24 22:21 03/16/24 21:07 Olanzapine 10 Mg/2.1 Ml Sdv IM 04/14/24 22:20 2.5 mg Q4H PRN Administration Agitation Oxycodone HCl 5 mg 03/15/24 22:22 03/20/24 08:52 Oxycodone Hcl Ir 5 Mg Tab (Immediate Release) PO 03/29/24 22:21 5 mg Q4H PRN Administration Pain
[2024-03-21 10:23] LABS: Hematocrit (blood only) 23.3 % (37.0-47.0); Hemoglobin 7.4 g/dl (12.0-16.0); Mean Corpuscular Hemoglobin 32.5 pg (25.0-34.0); Mean Corpuscular Hgb Conc 31.8 g/dL (32.0-36.0); Mean Corpuscular Volume 102.2 fL (80.0-100.0); Mean Platelet Volume 9.1 fL (9.4-12.4); Platelet Count 327 K/uL (130-400); RDW Coefficient of Variation 13.5 % (11.5-14.5); RDW Standard Deviation 50.7 fL (36.4-46.3); Red Blood Count 2.28 M/uL (4.20-5.40); White Blood Count 6.24 K/ul (4.8-10.8)
[2024-03-21 10:42] LABS: BUN Creatinine Ratio 14.1 (10-20); Calcium 8.8 mg/dl (8.6-10.3); Creatinine Clr Calc Pharmacy 42.1 ml/min; Magnesium 1.9 mg/dl (1.7-2.4); Phosphorus 2.9 mg/dl (2.5-4.9); Potassium 3.5 mmol/L (3.5-5.1)
--- NOTE | 2024-03-21 10:56 | Hospitalist Progress Note ---
Date of Service March 21, 2024 Assessment & Plan (1) Abscess of left thigh: (2) Traumatic hematoma of lower leg with infection: (3) History of surgical site infection: (4) History of left hip replacement: (5) Dementia: (6) Hypothyroidism: Plan Ms. Shrestha is an 83yo woman with PMHx significant for HTN, Hx of CVA, hx PE on Eliquis (01/2023), breast cancer, s/p surgery & radiation currently on Arimidex, hypothyroidism, mood disorder, occipital neuralgia as per records, dementia who presented to ED 2/2 L lateral hip pain and is now s/p I&D left hip fluid collection. 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 history of postoperative left hip abscess approximately 1 year prior to presentation. MRSA screen was negative and left hip MRI showed 12 x 11 x 8 cm multiloculated multicompartment left thigh rim-enhancing fluid collection suggestive of an abscess; collection partially surrounds the left femur and is adjacent to the surgical hardware. continue IV Abx with zosyn and dapto deep wound cultures with yael -Start Caspofungin -Sent yael for susceptibilities for fluconazole POA would really like patient to return to [facility], she had been doing well there. She can only return there if she is on oral antibiotics. There is some literature supporting oral antibiotics after short period of IV antibiotics in the setting of prosthetic joint infection. POA is in agreement to trial this. Will not pursue PICC line for prolonged IV antibiotics Will clarify with ID final antibiotic plans #Post op hypotension Fluids added Hold amlodipine #Acute blood loss anemia 2/2 expected post op losses #H/O PE will discuss resumption of eliquis in next 1-2 days with ortho contingent on stable post op hgb anemia labs in am for optimization--b12, folate, iron all optimized Hemodynamically stable and working with PT, no increased reports of pain, likely iso drains CBC in am will resume dvt ppx in am if no tranfusion necessary #Dementia #Mood Disorder continue depakote and zyprexa #H/O Breast cancer S/P Surgery, radiation continue Arimidex #Hypothyroidism Normal TSH Continue levothyroxine DVT ppx: will resume in 1-2 days contingent on stable hgb dispo pending wound cultures and abx plan Admission and Anticipated Discharge Date Admission Date: March 15, 2024 Subjective NAEO States pain is controlled at this point Spoke to POA--blood consent obtained just incase Physical Exam Constitutional: WD/WN, vitals as above Respiratory: normal respiratory effort, lungs clear to auscultation Cardiovascular: RRR, no murmur, no edema Musculoskeletal: left hip with dressing in place Results & Data Results & Data Vital Signs (Past 12 Hours) Vital Signs Temp Pulse Resp BP BP Pulse Ox O2 Del Method 03/21/24 09:30 36.5 C 64 18 100/64 98 Room Air 03/21/24 08:02 30.5 C L 59 L 15 133/84 99 Room Air 03/21/24 07:11 36.5 C 58 L 16 111/72 96 Room Air Laboratory Results Short CBC 03/21/24 Range/Units 09:59 WBC 6.24 (4.8-10.8) K/ul Hgb 7.4 L (12.0-16.0) g/dl Hct 23.3 L (37.0-47.0) % Plt Count 327 (130-400) K/uL BMP 03/21/24 09:59 Sodium 138 Potassium 3.5 Chloride 105 Carbon Dioxide 29 BUN 12 Creatinine 0.85 Glucose 109 H Calcium 8.8 Medications Administered Home Medications Medication Instructions Recorded Confirmed Last Taken amlodipine 5 mg tablet 5 mg PO DAILY #30 tabs 05/16/23 03/15/24 Unknown anastrozole 1 mg tablet 1 mg PO QAM #30 tabs 05/16/23 03/15/24 Unknown divalproex 125 mg capsule,delayed 500 mg (4 x 125 mg) PO HS #120 caps 05/16/23 03/15/24 Unknown release sprinkle hydrocortisone 1 % topical ointment 1 applic EXT BID PRN skin rash 05/16/23 03/15/24 Unknown #28.35 grams levothyroxine 125 mcg tablet 125 mcg PO DAILYBB #30 tabs 05/16/23 03/15/24 Unknown acetaminophen 500 mg tablet 1,000 mg PO TID 01/29/24 03/15/24 Unknown apixaban 5 mg tablet (Eliquis) 5 mg PO BID 01/29/24 03/15/24 Unknown diphenhydramine HCl 12.5 mg/5 mL 12.5 mg PO Q6H PRN ALLERGIES 01/29/24 03/15/24 Unknown oral liquid divalproex 125 mg capsule,delayed 250 mg PO QAM 01/29/24 03/15/24 Unknown release sprinkle lorazepam 0.5 mg tablet 0.5 mg PO Q6 PRN Anxiety 01/29/24 03/15/24 Unknown magnesium chloride 64 mg 64 mg PO BID 01/29/24 03/15/24 Unknown (magnesium chloride) tablet olanzapine 2.5 mg tablet 2.5 mg PO BID 01/29/24 03/15/24 Unknown olanzapine 5 mg disintegrating 2.5 mg PO Q4 PRN MOOD 01/29/24 03/15/24 Unknown tablet polyethylene glycol 3350 17 gram 17 g PO DAILY PRN Constipation 01/29/24 03/15/24 Unknown oral powder packet (SmoothLax) sodium chloride 0.65 % nasal spray 1 spray intranasal TID 01/29/24 03/15/24 Unknown aerosol (Deep Sea Nasal) Active Medications Generic Name Dose Route Start Last Admin Trade Name Freq PRN Reason Stop Dose Admin Amlodipine Besylate 5 mg 03/16/24 09:00 03/18/24 09:24 Amlodipine Besylate 5 Mg Tab PO 04/15/24 08:59 Not Given DAILY BO Anastrozole 1 mg 03/16/24 09:00 03/21/24 08:44 Anastrozole 1 Mg Tab PO 04/15/24 08:59 1 mg QAM BO Administration Divalproex Sodium 250 mg 03/17/24 09:00 03/21/24 08:44 Divalproex Sodium Sprinkle/Del-Rel 125 Mg Cap PO 04/16/24 08:59 250 mg QAM OB Administration Divalproex Sodium 500 mg 03/16/24 21:00 03/20/24 19:16 Divalproex Sodium Sprinkle/Del-Rel 125 Mg Cap PO 04/15/24 19:59 500 mg HS BO Administration Piperacillin Sod/Tazobactam Sod 4.5 gm in 100 mls @ 25 mls/hr 03/16/24 06:00 03/21/24 13:38 Zosyn IV 04/27/24 05:59 25 mls/hr Q8H BO Administration Protocol Daptomycin 350 mg/ Syringe 7 mls @ 3.5 mls/min 03/16/24 06:30 03/21/24 06:16 IV 04/27/24 06:29 3.5 mls/min Q24H BO Administration Protocol Acetaminophen 1,000 mg in 100 mls @ 400 mls/hr 03/19/24 08:23 03/20/24 22:28 Ofirmev IV 03/22/24 08:22 Infused Q8H PRN Infusion Pain Levothyroxine Sodium 125 mcg 03/16/24 06:30 03/21/24 06:16 Levothyroxine Sodium 125 Mcg Tablet PO 04/15/24 06:29 125 mcg DAILYBB BO Administration Olanzapine 2.5 mg 03/15/24 22:20 03/21/24 10:12 Olanzapine 2.5 Mg Tab PO 04/14/24 22:19 2.5 mg BID BO Administration Olanzapine 2.5 mg 03/15/24 22:21 03/16/24 21:07 Olanzapine 10 Mg/2.1 Ml Sdv IM 04/14/24 22:20 2.5 mg Q4H PRN Administration Agitation Oxycodone HCl 5 mg 03/15/24 22:22 03/21/24 08:35 Oxycodone Hcl Ir 5 Mg Tab (Immediate Release) PO 03/29/24 22:21 5 mg Q4H PRN Administration Pain
--- NOTE | 2024-03-21 11:48 | Orthopedic Progress Note ---
Date of Service March 21, 2024 Assessment & Plan (1) Infected prosthesis of left hip: Plan Patient is postoperative day #3 status post irrigation debridement of left hip soft tissue fluid collection. Overall, she is doing well. Her drains were removed yesterday. Patient remains on IV antimicrobials. deep cultures growing jake - may require change of regimen. okay for anticoagulation from orthopaedic perspective okay to WB on RLE per patient comfort. Admission and Anticipated Discharge Date Admission Date: March 15, 2024 Subjective sleeping comfortably. no acute events overnight. pain controlled. Physical Exam Physical Exam: preveena functioning appropriately. dressings c/d/i Results & Data Vital Signs (Past 12 Hours) Vital Signs Temp Pulse Resp BP BP Pulse Ox O2 Del Method 03/21/24 09:30 36.5 C 64 18 100/64 98 Room Air 03/21/24 08:02 30.5 C L 59 L 15 133/84 99 Room Air 03/21/24 07:11 36.5 C 58 L 16 111/72 96 Room Air
[2024-03-21] MEDS: CASPOFUNGIN 70 MG in SODIUM CHLORIDE 0.9% 250 ML IV ONE (14:12)
[2024-03-22 07:57] LABS: Hematocrit (blood only) 24.4 % (37.0-47.0); Hemoglobin 7.7 g/dl (12.0-16.0); Mean Corpuscular Hemoglobin 31.8 pg (25.0-34.0); Mean Corpuscular Hgb Conc 31.6 g/dL (32.0-36.0); Mean Corpuscular Volume 100.8 fL (80.0-100.0); Mean Platelet Volume 9.3 fL (9.4-12.4); Platelet Count 375 K/uL (130-400); RDW Coefficient of Variation 13.5 % (11.5-14.5); RDW Standard Deviation 49.9 fL (36.4-46.3); Red Blood Count 2.42 M/uL (4.20-5.40)
--- NOTE | 2024-03-22 08:18 | Orthopedic Progress Note ---
Date of Service March 22, 2024 Assessment & Plan (1) Infected prosthesis of left hip: Plan Patient is postoperative day # status post irrigation debridement of left hip soft tissue fluid collection. Overall, she is doing well. Her drains were removed over the weekend. Patient remains on IV antimicrobials including fungal coverage. deep cultures growing jake. okay for anticoagulation from orthopaedic perspective okay to WB on RLE per patient comfort. Admission and Anticipated Discharge Date Admission Date: March 15, 2024 Subjective patient awake and comfortable this morning. notes pain well controlled. Physical Exam Physical Exam: preveena functioning appropriately. dressings c/d/i Results & Data Vital Signs (Past 12 Hours) Vital Signs Temp Pulse Resp BP Pulse Ox O2 Del Method 03/22/24 07:12 36.5 C 66 17 124/80 99 Room Air
[2024-03-22 08:21] LABS: BUN Creatinine Ratio 11.6 (10-20); Calcium 8.9 mg/dl (8.6-10.3); Creatinine Clr Calc Pharmacy 41.6 ml/min; Magnesium 1.9 mg/dl (1.7-2.4); Phosphorus 3.2 mg/dl (2.5-4.9); Potassium 3.4 mmol/L (3.5-5.1)
--- NOTE | 2024-03-22 10:39 | Hospitalist Progress Note ---
Date of Service March 22, 2024 Assessment & Plan (1) Abscess of left thigh: (2) Traumatic hematoma of lower leg with infection: (3) History of surgical site infection: (4) History of left hip replacement: (5) Dementia: (6) Hypothyroidism: Plan Ms. Shrestha is an 83yo woman with PMHx significant for HTN, Hx of CVA, hx PE on Eliquis (01/2023), breast cancer, s/p surgery & radiation currently on Arimidex, hypothyroidism, mood disorder, occipital neuralgia as per records, dementia who presented to ED 2/2 L lateral hip pain and is now s/p I&D left hip fluid collection. Patient on ongoing IV abx with dapto/zosyn, however, given deep wound cultures with yael patient started on casofungin. Will discuss with ID regarding final plans, however, yael sent for susceptibilities for fluconazole and may take some time to result. [facility]. She can only return there if she is on oral antibiotics. Hgb stable, will start dvt ppx then consider apixaban. 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 history of postoperative left hip abscess approximately 1 year prior to presenta tion. MRSA screen was negative and left hip MRI showed 12 x 11 x 8 cm multiloculated multicompartment left thigh rim-enhancing fluid collection suggestive of an abscess; collection partially surrounds the left femur and is adjacent to the surgical hardware. deep wound cultures with yael -Continue Caspofungin -Continue Zosyn, Dapto -Sent yael for susceptibilities for fluconazole #Post op hypotension Fluids added Hold amlodipine from here onward #Acute blood loss anemia 2/2 expected post op losses #H/O PE will discuss resumption of eliquis in next 1-2 days with ortho contingent on stable post op hgb anemia labs in am for optimization--b12, folate, iron all optimized Hemodynamically stable and working with PT, no increased reports of pain, likely iso drains CBC in am will resume dvt ppx in am if no tranfusion necessary #Dementia #Mood Disorder continue depakote and zyprexa #H/O Breast cancer S/P Surgery, radiation continue Arimidex #Hypothyroidism Normal TSH Continue levothyroxine DVT ppx: will start DVT ppx, if hgb stable then apixaban dispo pending wound cultures and abx plan Admission and Anticipated Discharge Date Admission Date: March 15, 2024 Subjective NAEO afebrile, stable vitals Reports feeling tired Nursing reports good morning and eating breakfast well Physical Exam Constitutional: WD/WN, vitals as above Respiratory: normal respiratory effort, lungs clear to auscultation Cardiovascular: RRR, no murmur, no edema Results & Data Results & Data Vital Signs (Past 12 Hours) Vital Signs Temp Pulse Resp BP Pulse Ox O2 Del Method 03/22/24 07:12 36.5 C 66 17 124/80 99 Room Air Laboratory Results Short CBC 03/22/24 Range/Units 07:14 WBC 5.10 (4.8-10.8) K/ul Hgb 7.7 L (12.0-16.0) g/dl Hct 24.4 L (37.0-47.0) % Plt Count 375 (130-400) K/uL BMP 03/21/24 03/22/24 09:59 07:14 Sodium 138 140 Potassium 3.5 3.4 L Chloride 105 105 Carbon Dioxide 29 30 BUN 12 10 Creatinine 0.85 0.86 Glucose 109 H 82 Calcium 8.8 8.9 Medications Administered Home Medications Medication Instructions Recorded Confirmed Last Taken amlodipine 5 mg tablet 5 mg PO DAILY #30 tabs 05/16/23 03/15/24 Unknown anastrozole 1 mg tablet 1 mg PO QAM #30 tabs 05/16/23 03/15/24 Unknown divalproex 125 mg capsule,delayed 500 mg (4 x 125 mg) PO HS #120 caps 05/16/23 03/15/24 Unknown release sprinkle hydrocortisone 1 % topical ointment 1 applic EXT BID PRN skin rash 05/16/23 03/15/24 Unknown #28.35 grams levothyroxine 125 mcg tablet 125 mcg PO DAILYBB #30 tabs 05/16/23 03/15/24 Unknown acetaminophen 500 mg tablet 1,000 mg PO TID 01/29/24 03/15/24 Unknown apixaban 5 mg tablet (Eliquis) 5 mg PO BID 01/29/24 03/15/24 Unknown diphenhydramine HCl 12.5 mg/5 mL 12.5 mg PO Q6H PRN ALLERGIES 01/29/24 03/15/24 Unknown oral liquid divalproex 125 mg capsule,delayed 250 mg PO QAM 01/29/24 03/15/24 Unknown release sprinkle lorazepam 0.5 mg tablet 0.5 mg PO Q6 PRN Anxiety 01/29/24 03/15/24 Unknown magnesium chloride 64 mg 64 mg PO BID 01/29/24 03/15/24 Unknown (magnesium chloride) tablet olanzapine 2.5 mg tablet 2.5 mg PO BID 01/29/24 03/15/24 Unknown olanzapine 5 mg disintegrating 2.5 mg PO Q4 PRN MOOD 01/29/24 03/15/24 Unknown tablet polyethylene glycol 3350 17 gram 17 g PO DAILY PRN Constipation 01/29/24 03/15/24 Unknown oral powder packet (SmoothLax) sodium chloride 0.65 % nasal spray 1 spray intranasal TID 01/29/24 03/15/24 Unknown aerosol (Deep Sea Nasal) Active Medications Generic Name Dose Route Start Last Admin Trade Name Freq PRN Reason Stop Dose Admin Amlodipine Besylate 5 mg 03/16/24 09:00 03/18/24 09:24 Amlodipine Besylate 5 Mg Tab PO 04/15/24 08:59 Not Given DAILY BO Anastrozole 1 mg 03/16/24 09:00 03/22/24 07:39 Anastrozole 1 Mg Tab PO 04/15/24 08:59 1 mg QAM BO Administration Divalproex Sodium 250 mg 03/17/24 09:00 03/22/24 07:38 Divalproex Sodium Sprinkle/Del-Rel 125 Mg Cap PO 04/16/24 08:59 250 mg QAM BO Administration Divalproex Sodium 500 mg 03/16/24 21:00 03/21/24 19:25 Divalproex Sodium Sprinkle/Del-Rel 125 Mg Cap PO 04/15/24 19:59 500 mg HS BO Administration Piperacillin Sod/Tazobactam Sod 4.5 gm in 100 mls @ 25 mls/hr 03/16/24 06:00 03/22/24 06:08 Zosyn IV 04/27/24 05:59 25 mls/hr Q8H BO Administration Protocol Daptomycin 350 mg/ Syringe 7 mls @ 3.5 mls/min 03/16/24 06:30 03/22/24 05:58 IV 04/27/24 06:29 3.5 mls/min Q24H BO Administration Protocol Levothyroxine Sodium 125 mcg 03/16/24 06:30 03/22/24 05:58 Levothyroxine Sodium 125 Mcg Tablet PO 04/15/24 06:29 125 mcg DAILYBB BO Administration Olanzapine 2.5 mg 03/15/24 22:20 03/22/24 07:38 Olanzapine 2.5 Mg Tab PO 04/14/24 22:19 2.5 mg BID BO Administration Olanzapine 2.5 mg 03/15/24 22:21 03/16/24 21:07 Olanzapine 10 Mg/2.1 Ml Sdv IM 04/14/24 22:20 2.5 mg Q4H PRN Administration Agitation Oxycodone HCl 5 mg 03/15/24 22:22 03/21/24 08:35 Oxycodone Hcl Ir 5 Mg Tab (Immediate Release) PO 03/29/24 22:21 5 mg Q4H PRN Administration Pain
[2024-03-22] MEDS: POTASSIUM CHLORIDE 20 MEQ/15 ML UDC PO SCH (11:16)
[2024-03-22] MEDS: HEPARIN SOD 5,000 UNIT/0.5 ML VIAL SQ SCH (14:31)
[2024-03-22] MEDS: CASPOFUNGIN 50 MG in SODIUM CHLORIDE 0.9% 250 ML IV SCH (16:41)
[2024-03-23 08:35] LABS: Calcium 8.9 mg/dl (8.6-10.3); Creatinine Clr Calc Pharmacy 46.4 ml/min; Potassium 3.4 mmol/L (3.5-5.1)
[2024-03-23 08:36] LABS: Hematocrit (blood only) 24.8 % (37.0-47.0); Mean Corpuscular Hemoglobin 32.3 pg (25.0-34.0); Mean Corpuscular Hgb Conc 32.3 g/dL (32.0-36.0); Mean Platelet Volume 9.3 fL (9.4-12.4); Platelet Count 409 K/uL (130-400); RDW Coefficient of Variation 13.8 % (11.5-14.5); RDW Standard Deviation 50.3 fL (36.4-46.3); Red Blood Count 2.48 M/uL (4.20-5.40); White Blood Count 6.96 K/ul (4.8-10.8)
--- NOTE | 2024-03-23 08:46 | Orthopedic Progress Note ---
Date of Service March 23, 2024 Assessment & Plan (1) Infected prosthesis of left hip: Plan Patient is postoperative day #5 status post irrigation debridement of left hip soft tissue fluid collection. Overall, she is doing well. Her drains were removed over the weekend. Patient remains on IV antimicrobials including fungal coverage. deep cultures growing jake. okay for anticoagulation from orthopaedic perspective okay to WB on RLE per patient comfort. Admission and Anticipated Discharge Date Admission Date: March 15, 2024 Subjective patient resting comfortably in bed today. she removed her preveena yesterday and this was replaced with a ROLLY by nursing. Physical Exam Physical Exam: ROLLY functioning appropriately. dressings c/d/i Results & Data Vital Signs (Past 12 Hours) Vital Signs Temp Pulse Resp BP Pulse Ox O2 Del Method 03/23/24 07:25 36.6 C 60 19 139/76 95 Room Air
[2024-03-23] MEDS: APIXABAN 2.5 MG TAB PO SCH (09:23)
[2024-03-23] MEDS: FLUCONAZOLE 100 MG TAB PO SCH (09:23)
--- NOTE | 2024-03-23 11:42 | Discharge Summary ---
Discharge Summary Date of Service March 23, 2024 Principal Dx & Hospital Course #1 = Principal Diagnosis (1) Abscess of left thigh: (2) Traumatic hematoma of lower leg with infection: (3) History of surgical site infection: (4) History of left hip replacement: (5) Dementia: (6) Hypothyroidism: Plan Ms. Shrestha is an 83yo woman with PMHx significant for HTN, Hx of CVA, hx PE on Eliquis (01/2023), breast cancer, s/p surgery & radiation currently on Arimidex, hypothyroidism, mood disorder, occipital neuralgia as per records, dementia who presented to ED 2/2 L lateral hip pain and is now s/p I&D left hip fluid collection on 03/18. Patient continued 7 days of broad spectrum abx with no growth from deep wound cultures outside of small yael colonies. Discussed case with ID who recommended 400mg daily fluconazole for 6 months followed by 200mg suppressive threapy idefinitely; however, given renal function, patient's dose reduced by 50%. Patient will continue on 200mg daily for 6 months with ID follow up. Patient's postoperative course uncomplicated. She did experience post op anemia however did not require transfusions. Given her history of DVT, but also renal function, age, and bleed risk, she was started on 2.5 eliquis BID. Ortho followed patient. Patient with wound vac/ROLLY on left hip. Per Dr. Vargas, the battery should last 7 days (03/29) and can be disconnected once the battery dies. Patient will keep dressing in place until follow up with Ortho. Discussion about return to [facility] was had with niece and it was agreed this would be the best next step for patient. On day of discharge, patient denied any acute concerns and reported pain was controlled. She reported eagerness to get out of hospital. 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 history of postoperative left hip abscess approximately 1 year prior to presentation. MRSA screen was negative and left hip MRI showed 12 x 11 x 8 cm multiloculated multicompartment left thigh rim-enhancing fluid collection suggestive of an abscess; collection partially surrounds the left femur and is adjacent to the surgical hardware. deep wound cultures with yael -Discontinued broad spectrum -Start 200mg Fluconazole daily (renally dosed from 400mg) for 6 months, then daily suppressive therapy (100mg daily, renally dose from recommended 200mg) -ID follow up #Post op hypotension discontinued amlodipine #Acute blood loss anemia 2/2 expected post op losses #H/O PE will discuss resumption of eliquis in next 1-2 days with ortho contingent on stable post op hgb anemia labs in am for optimization--b12, folate, iron all optimized Hemodynamically stable and working with PT, no increased reports of pain, likely iso drains resumed apixaban at 2.5mgBID #Dementia #Mood Disorder continue depakote and zyprexa #H/O Breast cancer S/P Surgery, radiation continue Arimidex #Hypothyroidism Normal TSH Continue levothyroxine Notes For Next Care Provider Remove ROLLY when battery dies (roughly around 03/29) Keep dressing in place until seen by Ortho in 1 week (roughly around 12/) QtC on discharge 417 Medication Changes From Visit Discontinue amlodipine Reduced apixaban to 2.5mg BID Start renally dosed fluconazole 200mg daily for 6 months -Patient will need suppressive therapy thereafter Admission HPI Per Admitting Provider Pt is an 83yoF with PMHx significant for HTN, Hx of CVA, hx PE on Eliquis (01/2023), breast cancer, s/p surgery & radiation currently on Arimidex, hypothyroidism, mood disorder, occipital neuralgia as per records, dementia who presents to ED 2/2 L lateral hip pain. History obtained from ED provider and nursing staff. History unobtainable from patient given underlying dementia. She presents to hospital secondary to redness, fullness and drainage from the left lateral aspect of her hip. She does report pain in this area. She has a known previous left hip replacement. She also has a prior history of postop abscess to the left hip approximately 1 year ago. Patient currently resides at [facility]. It is uncertain how long this area has been present like this. Admission Exam Per Admitting Provider Gen: thin, elderly, f, NAD, A&O to self only HEENT: Normocephalic, atraumatic, conjunctivae moist, sclerae anicteric, mucous membranes dry Lung: Clear to Auscultation bilaterally, no wheezes/rales/rhonchi Heart: Regular rate, regular rhythm, no murmurs, rubs, or gallops Abdomen: Soft, NT, ND +BS x 4 Extremities: No edema, L lateral abscess noted with surrounding erythema and purulent drainage Skin: Warm, no rash, negative turgor. Discharge Exam Constitutional WD/WN, vitals as above (at baseline responds to name and mostly responds appropriately ) Respiratory normal respiratory effort, lungs clear to auscultation Cardiovascular RRR, no murmur, no edema Gastrointestinal (Abdomen) normal bowel sounds, soft, nontender, no hepatosplenomegaly Skin left dressing in place with ROLLY attached Updated Medication List Medication Instructions Recorded Confirmed Type anastrozole 1 mg tablet 1 mg PO QAM #30 tabs 05/16/23 03/15/24 Rx divalproex 125 mg capsule,delayed 500 mg (4 x 125 mg) PO HS #120 caps 05/16/23 03/15/24 Rx release sprinkle hydrocortisone 1 % topical ointment 1 applic EXT BID PRN skin rash 05/16/23 03/15/24 Rx #28.35 grams levothyroxine 125 mcg tablet 125 mcg PO DAILYBB #30 tabs 05/16/23 03/15/24 Rx acetaminophen 500 mg tablet 1,000 mg PO TID 01/29/24 03/15/24 History diphenhydramine HCl 12.5 mg/5 mL 12.5 mg PO Q6H PRN ALLERGIES 01/29/24 03/15/24 History oral liquid divalproex 125 mg capsule,delayed 250 mg PO QAM 01/29/24 03/15/24 History release sprinkle lorazepam 0.5 mg tablet 0.5 mg PO Q6 PRN Anxiety 01/29/24 03/15/24 History magnesium chloride 64 mg 64 mg PO BID 01/29/24 03/15/24 History (magnesium chloride) tablet olanzapine 2.5 mg tablet 2.5 mg PO BID 01/29/24 03/15/24 History olanzapine 5 mg disintegrating 2.5 mg PO Q4 PRN MOOD 01/29/24 03/15/24 History tablet polyethylene glycol 3350 17 gram 17 g PO DAILY PRN Constipation 01/29/24 03/15/24 History oral powder packet (SmoothLax) sodium chloride 0.65 % nasal spray 1 spray intranasal TID 01/29/24 03/15/24 History aerosol (Deep Sea Nasal) apixaban 2.5 mg tablet (Eliquis) 2.5 mg PO BID 30 days #60 tabs 03/23/24 Rx fluconazole 100 mg tablet 200 mg (2 x 100 mg) PO QAM 30 days 03/23/24 Rx (Diflucan) #60 tabs potassium chloride 20 mEq/15 mL 40 meq (30 mL) PO QAM 30 days #900 03/23/24 Rx oral liquid mL Hospital Stay Data Consultations 03/15/24 20:05 ED Decision to Admit Stat 03/15/24 22:20 Consult Orthopedic Surgery Routine 03/16/24 22:30 HIM [Consult Health Information Management] Routine 03/17/24 07:42 Consult Infectious Diseases Routine Procedures Performed Operation Date: 03/18/24 07:40 Actual Procedures p Left Hip Incision and Drainage, removal hardware, application of cerclage cable, extensive wound debridement. (Left) - Dayday Vargas, Diagnostic Imagining Performed 03/15/24 17:37 CT femur LT w con Stat 03/16/24 06:24 MRI Femur [MR femur LT wo/w con] Routine Pending Results Patient Have Any Pending Studies at Discharge: No Discharge Instructions Given to Patient (Per Discharging Provider) You were admitted for left hip pain and found to have fluid collection. You were treated with IV antibiotics and underwent a procedure to drain fluid on 03/18. Your cultures showed yeast. Therefore you will continue Fluconazole 200mg daily for 6 months and then will transition to daily suppressive treatment indefinitely. Given your age, renal function, and risk for bleed, you will continue on 2.5mg eliquis two times a day. Your blood pressure medication was discontinued given low-normal blood pressures. Please take a potassium supplement daily (40meq for now) and follow up with lab work (BMP) in 1 week. An appointment with Infectious disease will be arranged. You will follow up with Orthopedics in 1 week, please call to coordinate. The ROLLY wound vac device on your hip has a 7 day battery life. When the battery runs out, please disconnect device and leave the dressing in place until follow up with Dr. Vargas. Total Time Total Time Spent Total Time Spent (In Minutes): 45
[2024-03-23] MEDS: POTASSIUM CHLORIDE 20 MEQ/15 ML UDC PO STA (12:40)
--- NOTE | 2024-03-23 17:16 | Hospitalist Progress Note ---
Date of Service March 23, 2024 Assessment & Plan (1) Abscess of left thigh: (2) Traumatic hematoma of lower leg with infection: (3) History of surgical site infection: (4) History of left hip replacement: (5) Dementia: (6) Hypothyroidism: Plan Ms. Shrestha is an 83yo woman with PMHx significant for HTN, Hx of CVA, hx PE on Eliquis (01/2023), breast cancer, s/p surgery & radiation currently on Arimidex, hypothyroidism, mood disorder, occipital neuralgia as per records, dementia who presented to ED 2/2 L lateral hip pain and is now s/p I&D left hip fluid collection on 03/18. Patient continued 7 days of broad spectrum abx with no growth from deep wound cultures outside of small yael colonies. Discussed case with ID who recommended 400mg daily fluconazole for 6 months followed by 200mg suppressive threapy idefinitely; however, given renal function, patient's dose reduced by 50%. Patient will continue on 200mg daily for 6 months with ID follow up. Patient's postoperative course uncomplicated. She did experience post op anemia however did not require transfusions. Given her history of DVT, but also renal function, age, and bleed risk, she was started on 2.5 eliquis BID. Ortho followed patient. Patient with wound vac/ROLLY on left hip. Per Dr. Vargas, the battery should last 7 days (03/29) and can be disconnected once the battery dies. Patient will keep dressing in place until follow up with Ortho. Discussion about return to [place] was had with niece and it was agreed this would be the best next step for patient. Patient was to discharge 03/23; however, memory unit not comfortable with ROLLY device and states they do not have capacity to handle patient. 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 history of postoperative left hip abscess approximately 1 year prior to presentation. MRSA screen was negative and left hip MRI showed 12 x 11 x 8 cm multiloculated multicompartment left thigh rim-enhancing fluid collection suggestive of an abscess; collection partially surrounds the left femur and is adjacent to the surgical hardware. deep wound cultures with yael -Discontinued broad spectrum -Continue 200mg Fluconazole daily (renally dosed from 400mg) for 6 months, then daily suppressive therapy (100mg daily, renally dose from recommended 200mg) -ID follow up #Post op hypotension discontinued amlodipine #Acute blood loss anemia 2/2 expected post op losses #H/O PE will discuss resumption of eliquis in next 1-2 days with ortho contingent on stable post op hgb anemia labs in am for optimization--b12, folate, iron all optimized Hemodynamically stable and working with PT, no increased reports of pain, likely iso drains resumed apixaban at 2.5mgBID #Dementia #Mood Disorder continue depakote and zyprexa #H/O Breast cancer S/P Surgery, radiation continue Arimidex #Hypothyroidism Normal TSH Continue levothyroxine DVT apixaban 2.5mg BID Need to address new dispo plans given last minute cancellation with [place] [facility] Admission and Anticipated Discharge Date Admission Date: March 15, 2024 Subjective prevenna wound vac removed overnight inadverently, replaced with ROLLY Patient more conversational with POA in room, eager to discharge denies any symptoms and reports pain is controlled Physical Exam Constitutional: WD/WN, vitals as above Respiratory: normal respiratory effort, lungs clear to auscultation Cardiovascular: RRR, no murmur, no edema Musculoskeletal: LLE dressing in place, ROLLY attached Results & Data Results & Data Vital Signs (Past 12 Hours) Vital Signs Temp Pulse Resp BP Pulse Ox O2 Del Method 03/23/24 15:48 37.0 C 69 18 131/68 97 Room Air 03/23/24 07:25 36.6 C 60 19 139/76 95 Room Air Laboratory Results Short CBC 03/23/24 Range/Units 07:41 WBC 6.96 (4.8-10.8) K/ul Hgb 8.0 L (12.0-16.0) g/dl Hct 24.8 L (37.0-47.0) % Plt Count 409 H (130-400) K/uL BMP 03/23/24 07:41 Sodium 138 Potassium 3.4 L Chloride 104 Carbon Dioxide 27 BUN 10 Creatinine 0.77 Glucose 86 Calcium 8.9 Medications Administered Home Medications Medication Instructions Recorded Confirmed Last Taken anastrozole 1 mg tablet 1 mg PO QAM #30 tabs 05/16/23 03/15/24 Unknown divalproex 125 mg capsule,delayed 500 mg (4 x 125 mg) PO HS #120 caps 05/16/23 03/15/24 Unknown release sprinkle hydrocortisone 1 % topical ointment 1 applic EXT BID PRN skin rash 05/16/23 03/15/24 Unknown #28.35 grams levothyroxine 125 mcg tablet 125 mcg PO DAILYBB #30 tabs 05/16/23 03/15/24 Unknown acetaminophen 500 mg tablet 1,000 mg PO TID 01/29/24 03/15/24 Unknown diphenhydramine HCl 12.5 mg/5 mL 12.5 mg PO Q6H PRN ALLERGIES 01/29/24 03/15/24 Unknown oral liquid divalproex 125 mg capsule,delayed 250 mg PO QAM 01/29/24 03/15/24 Unknown release sprinkle lorazepam 0.5 mg tablet 0.5 mg PO Q6 PRN Anxiety 01/29/24 03/15/24 Unknown magnesium chloride 64 mg 64 mg PO BID 01/29/24 03/15/24 Unknown (magnesium chloride) tablet olanzapine 2.5 mg tablet 2.5 mg PO BID 01/29/24 03/15/24 Unknown olanzapine 5 mg disintegrating 2.5 mg PO Q4 PRN MOOD 01/29/24 03/15/24 Unknown tablet polyethylene glycol 3350 17 gram 17 g PO DAILY PRN Constipation 01/29/24 03/15/24 Unknown oral powder packet (SmoothLax) sodium chloride 0.65 % nasal spray 1 spray intranasal TID 01/29/24 03/15/24 Unknown aerosol (Deep Sea Nasal) apixaban 2.5 mg tablet (Eliquis) 2.5 mg PO BID 30 days #60 tabs 03/23/24 Unknown fluconazole 100 mg tablet 200 mg (2 x 100 mg) PO QAM 30 days 03/23/24 Unknown (Diflucan) #60 tabs potassium chloride 20 mEq/15 mL 40 meq (30 mL) PO QAM 30 days #900 03/23/24 Unknown oral liquid mL Active Medications Generic Name Dose Route Start Last Admin Trade Name Freq PRN Reason Stop Dose Admin Amlodipine Besylate 5 mg 03/16/24 09:00 03/18/24 09:24 Amlodipine Besylate 5 Mg Tab PO 04/15/24 08:59 Not Given DAILY BO Anastrozole 1 mg 03/16/24 09:00 03/23/24 08:20 Anastrozole 1 Mg Tab PO 04/15/24 08:59 1 mg QAM BO Administration Apixaban 2.5 mg 03/23/24 09:00 03/23/24 09:23 Apixaban 2.5 Mg Tab PO 04/22/24 08:59 2.5 mg BID BO Administration Divalproex Sodium 250 mg 03/17/24 09:00 03/23/24 08:20 Divalproex Sodium Sprinkle/Del-Rel 125 Mg Cap PO 04/16/24 08:59 250 mg QAM BO Administration Divalproex Sodium 500 mg 03/16/24 21:00 03/22/24 20:13 Divalproex Sodium Sprinkle/Del-Rel 125 Mg Cap PO 04/15/24 19:59 500 mg HS BO Administration Fluconazole 200 mg 03/23/24 09:00 03/23/24 09:23 Fluconazole 100 Mg Tab PO 04/02/24 08:59 200 mg QAM BO Administration Levothyroxine Sodium 125 mcg 03/16/24 06:30 03/23/24 06:15 Levothyroxine Sodium 125 Mcg Tablet PO 04/15/24 06:29 125 mcg DAILYBB BO Administration Olanzapine 2.5 mg 03/15/24 22:20 03/23/24 08:19 Olanzapine 2.5 Mg Tab PO 04/14/24 22:19 2.5 mg BID BO Administration Olanzapine 2.5 mg 03/15/24 22:21 03/16/24 21:07 Olanzapine 10 Mg/2.1 Ml Sdv IM 04/14/24 22:20 2.5 mg Q4H PRN Administration Agitation Oxycodone HCl 5 mg 03/15/24 22:22 03/21/24 08:35 Oxycodone Hcl Ir 5 Mg Tab (Immediate Release) PO 03/29/24 22:21 5 mg Q4H PRN Administration Pain Potassium Chloride 40 meq 03/22/24 10:45 03/23/24 08:20 Potassium Chloride 20 Meq/15 Ml Udc PO 04/21/24 10:44 40 meq QAM BO Administration
--- NOTE | 2024-03-23 18:27 | Electrocardiogram Report ---
Test Reason : Blood Pressure : */* mmHG Vent. Rate : 56 BPM Atrial Rate : 56 BPM P-R Int : 190 ms QRS Dur : 104 ms QT Int : 430 ms P-R-T Axes : 49 25 34 degrees QTcB Int : 414 ms Sinus bradycardia Incomplete right bundle branch block Borderline ECG When compared with ECG of 29-Jan-2024 19:48, No significant change was found Confirmed by Cm French ([id number] on 03/23/2024 6:27:02 PM Referred By: REFERRED SELF Confirmed By: Cm French
[2024-03-23 20:08] VITALS: TEMP 98.2
--- NOTE | 2024-03-24 08:05 | Orthopedic Progress Note ---
Date of Service March 24, 2024 Assessment & Plan (1) Infected prosthesis of left hip: Plan Patient is postoperative day #6 status post irrigation debridement of left hip soft tissue fluid collection. Overall, she is doing well. Her drains were removed over the weekend. Deep cultures growing jake. patient on fluconazole per ID. okay for anticoagulation from orthopaedic perspective okay to WB on RLE per patient comfort. Patients discharge yesterday was denied due to ROLLY. I believe it is more important that she returns to her facility than has the ROLLY so her ROLLY can be changed for an island dressing today to expedite her discharge. Admission and Anticipated Discharge Date Admission Date: March 15, 2024 Subjective Patient was slated to return to her memory unit yesterday but her transfer was denied due to the ROLLY. denies any symptoms and reports pain is controlled Physical Exam Physical Exam: ROLLY functioning appropriately. dressings c/d/i Results & Data Vital Signs (Past 12 Hours) Vital Signs Temp Pulse Resp BP Pulse Ox O2 Del Method 03/23/24 20:07 36.8 C 64 16 145/71 H 94 Room Air
[2024-03-24 08:23] VITALS: BP 104/63; RESP 20
[2024-03-24 08:27] VITALS: PULSE 62; O2SAT 98
[2024-03-24 08:42] LABS: Hematocrit (blood only) 25.1 % (37.0-47.0); Mean Corpuscular Hgb Conc 31.9 g/dL (32.0-36.0); Mean Corpuscular Volume 100.4 fL (80.0-100.0); Platelet Count 415 K/uL (130-400); RDW Coefficient of Variation 14.1 % (11.5-14.5); RDW Standard Deviation 50.5 fL (36.4-46.3); White Blood Count 6.54 K/ul (4.8-10.8)
[2024-03-24 08:49] LABS: BUN Creatinine Ratio 11.8 (10-20); Calcium 8.9 mg/dl (8.6-10.3); Creatinine Clr Calc Pharmacy 52.6 ml/min; Potassium 4.1 mmol/L (3.5-5.1)
--- NOTE | 2024-03-24 12:32 | Discharge Summary ---
Date of Service March 24, 2024 Admission HPI Per Admitting Provider Pt is an 83yoF with PMHx significant for HTN, Hx of CVA, hx PE on Eliquis (01/2023), breast cancer, s/p surgery & radiation currently on Arimidex, hypothyroidism, mood disorder, occipital neuralgia as per records, dementia who presents to ED 2/2 L lateral hip pain. L hip pain L thigh abscess Pt with h/o multiple left hip surgeries with previous hematoma and infection --CT Femur:Status post left hip arthroplasty with lateral plate placement with cerclage wires in place. Very limited evaluation of the soft tissues in this area due to extensive streak artifact arising from the hip hardware. Within this constraint, there is a large rim-enhancing fluid surrounding the proximal left femur measuring up to 12.7 cm which may possibly be arising from the joint space. The finding is overall consistent with a large abscess. Please correlate with fluid sampling if indicated. There appears to be both subcutaneous and intramuscular components to this fluid Orthopedics consulted - await their input Dementia: mood stable, delirium precautions Hx of PE on eliquis Pt was seen, hx obtained and physical performed by myself. Please refer to Dr. Portillo addendum for details regarding a/p. I spent a total of 30 minutes reviewing notes, outpatient records, labs, medication, coordinating, documenting and providing care for this patient excluding time spent in the performance of separately billed services. Pts sima Smith to be updated regarding patient. 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 Admission Exam Per Admitting Provider Gen: thin, elderly, f, NAD, A&O to self only HEENT: Normocephalic, atraumatic, conjunctivae moist, sclerae anicteric, mucous membranes dry Lung: Clear to Auscultation bilaterally, no wheezes/rales/rhonchi Heart: Regular rate, regular rhythm, no murmurs, rubs, or gallops Abdomen: Soft, NT, ND +BS x 4 Extremities: No edema, L lateral abscess noted with surrounding erythema and pu rulent drainage Skin: Warm, no rash, negative turgor. 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 Pt confused, at baseline. Respiratory: normal respiratory effort, lungs clear to auscultation Cardiovascular: RRR, no murmur, no edema Musculoskeletal: LLE dressing in place, ROLLY attached Discharge Data Allergies Allergy/AdvReac Type Severity Reaction Status Date / Time cinnamon Allergy Intermediate Flushing Verified 04/15/23 20:13 haloperidol [From Haldol] AdvReac Severe excessive Verified 01/29/24 20:47 sedation as per family Consultations 03/15/24 20:05 ED Decision to Admit Stat 03/15/24 22:20 Consult Orthopedic Surgery Routine 03/16/24 22:30 HIM [Consult Health Information Management] Routine 03/17/24 07:42 Consult Infectious Diseases Routine Procedures Performed Operation Date: 03/18/24 07:40 Actual Procedures p Left Hip Incision and Drainage, removal hardware, application of cerclage cable, extensive wound debridement. (Left) - Dayday Vargas DO Ordered Studies 03/15/24 17:37 CT femur LT w con Stat 03/16/24 06:24 MRI Femur [MR femur LT wo/w con] Routine Hospital Course (1) Abscess of left thigh: (2) Traumatic hematoma of lower leg with infection: (3) History of surgical site infection: (4) History of left hip replacement: (5) Dementia: (6) Hypothyroidism: Plan Per prior attending with addendum: Ms. Shrestha is an 83yo woman with PMHx significant for HTN, Hx of CVA, hx PE on Eliquis (01/2023), breast cancer, s/p surgery & radiation currently on Arimidex, hypothyroidism, mood disorder, occipital neuralgia as per records, dementia who presented to ED 2/2 L lateral hip pain and is now s/p I&D left hip fluid collection on 03/18. Patient continued 7 days of broad spectrum abx with no growth from deep wound cultures outside of small jake colonies. Discussed case with ID who recommended 400mg daily fluconazole for 6 months followed by 200mg suppressive threapy idefinitely; however, given renal function, patient's dose reduced by 50%. Patient will continue on 200mg daily for 6 months with ID follow up. Patient's postoperative course uncomplicated. She did experience post op anemia however did not require transfusions. Given her history of DVT, but also renal function, age, and bleed risk, she was started on 2.5 eliquis BID. Ortho followed patient. Patient with wound vac/ROLLY on left hip. Per Dr. Vargas, the battery should last 7 days (03/29) and can be disconnected once the battery dies. Patient will keep dressing in place until follow up with Ortho. Discussion about return to [facility] was had with niece and it was agreed this would be the best next step for patient. Patient was to discharge 03/23; however, memory unit not comfortable with ROLLY device and states they do not have capacity to handle patient. 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 history of postoperative left hip abscess approximately 1 year prior to presentation. MRSA screen was negative and left hip MRI showed 12 x 11 x 8 cm multiloculated multicompartment left thigh rim-enhancing fluid collection suggestive of an abscess; collection partially surrounds the left femur and is adjacent to the surgical hardware. deep wound cultures with jake -Discontinued broad spectrum -Continue 200mg Fluconazole daily (renally dosed from 400mg) for 6 months, then daily suppressive therapy (100mg daily, renally dose from recommended 200mg) -ID follow up #Post op hypotension discontinued amlodipine #Acute blood loss anemia 2/2 expected post op losses #H/O PE will discuss resumption of eliquis in next 1-2 days with ortho contingent on stable post op hgb anemia labs in am for optimization--b12, folate, iron all optimized Hemodynamically stable and working with PT, no increased reports of pain, likely iso drains resumed apixaban at 2.5mgBID #Dementia #Mood Disorder continue depakote and zyprexa #H/O Breast cancer S/P Surgery, radiation continue Arimidex #Hypothyroidism Normal TSH Continue levothyroxine DVT apixaban 2.5mg BID Need to address new dispo plans given last minute cancellation with [facility] Addendum 03/24/2024: Patient was seen and examined at bedside as a follow-up of left hip abscess status post I&D currently on rolly dressing. Discussed with wound care physician, okay to change to island dressing to expedite discharge planning. Dressing changed per RN, communicated with special education case manager, patient being discharged to [facility]. Patient is hemodynamically stable, and no new issues since yesterday per RN. She is being discharged with following instruction at the point of discharge: You were admitted for left hip pain and found to have fluid collection. You were treated with IV antibiotics and underwent a procedure to drain fluid on 03/18. Your cultures showed yeast. Therefore you will continue Fluconazole 200mg daily for 6 months and then will transition to daily suppressive treatment indefinitely. Coordinate with your PCP office for ongoing blood labs and clinical monitoring/management. Given your age, renal function, and risk for bleed, you will continue on 2.5mg Eliquis two times a day. Your blood pressure medication was discontinued given low-normal blood pressures. Please take a potassium supplement daily (40meq for now) and follow up with lab work (BMP) in 1 week. Take the tablet with 8 ounces of water and stay upright for half an hour after the intake to avoid the risk of pill related esophagitis. An appointment with Infectious disease needs be arranged. Coordinate with your PCP office to set up the referral. You will follow up with Orthopedics in 1 week, please call to coordinate. Continue wound care upon discharge. Home Health Attestation I certify that this patient is under my care and that I, or a physicians assistant case manager working with me, had a face to-face encounter that meets the home health gtej-pe-xapa encounter requirements with this patient. The encounter with the patient was in whole, or in part, for the following medical condition, which is the primary reason for home health care (list medical condition): I certify that, based on my findings, the following services are medically necessary home health services: My clinical findings support the need for the above services because: Further, I certify that my clinical findings support that this patient is homebound (i.e. absences from home require considerable and taxing effort and are for medical reasons or quaker services or infrequently or of short duration when for other reasons) because: Certification for Home Health Services: Based on the above findings, I certify that this patient is confined to the home and needs intermittent [facility] care, physical therapy and/or speech therapy or continues to need occupational therapy. The patient is under my care, and I have initiated the establishment of the plan of care. This patient will be followed by a physician who will periodically review the plan of care. Total Time Total Time Spent Total Time Spent (In Minutes): 45 Discharge Plan Discharge Items Patient Disposition: Personal Fdc Reason For Visit: LLE ABSCESS Discharge Diagnosis: Left prothesis infection Condition on Discharge: Fair Activity: Resume your previous activity Non-emergency contact: Primary Care Provider Call non-emergency contact if: you have any medication questions Follow-up/Referrals: Ras Day [Primary Care Provider] - (Please call Dr. Day's office to schedule a discharge follow-up appointment within 10 days of discharge. ) Nawaf Sanchez MD [Physician] - (Date & Time 04/29/2024 11:00 AM Provider Nawaf Sanchez MD Department Infectious Disease, [facility] ) Dayday Vargas DO [Surgeon] - Diet: Regular Addtl Attending Provider Instructions: You were admitted for left hip pain and found to have fluid collection. You were treated with IV antibiotics and underwent a procedure to drain fluid on 03/18. Your cultures showed yeast. Therefore you will continue Fluconazole 200mg daily for 6 months and then will transition to daily suppressive treatment indefinitely. Coordinate with your PCP office for ongoing blood labs and clinical monitoring/management. Given your age, renal function, and risk for bleed, you will continue on 2.5mg Eliquis two times a day. Your blood pressure medication was discontinued given low-normal blood pressures. Please take a potassium supplement daily (40meq for now) and follow up with lab work (BMP) in 1 week. Take the tablet with 8 ounces of water and stay upright for half an hour after the intake to avoid the risk of pill related esophagitis. An appointment with Infectious disease needs be arranged. Coordinate with your PCP office to set up the referral. You will follow up with Orthopedics in 1 week, please call to coordinate. Continue wound care upon discharge. Pending Studies at Discharge: No Stand-Alone Forms: My [employer], Smoking Cessation Skilled Items Patient informed of condition?: Yes DNR: Yes Discharge Level of Care: Other Communicable Disease: No Discharge Prognosis: Stable Lines: None Urinary Catheter: No Medications and DC Order Prescriptions: New fluconazole [Diflucan] 100 mg Tablet 200 mg PO QAM 30 Days Qty: 60 6RF potassium chloride 20 mEq/15 mL Liquid 40 meq PO QAM 30 Days Qty: 900 0RF Eliquis 2.5 mg Tablet 2.5 mg PO BID 30 Days Qty: 60 0RF Continued hydrocortisone 1 % Ointment 1 applic EXT BID PRN (Reason: skin rash) Qty: 28.35 0RF divalproex 125 mg Capsule, Delayed Rel Sprinkle 500 mg PO HS Qty: 120 0RF anastrozole 1 mg Tablet 1 mg PO QAM Qty: 30 0RF levothyroxine 125 mcg Tablet 125 mcg PO DAILYBB Qty: 30 0RF acetaminophen 500 mg Tablet 1,000 mg PO TID Rx Instructions: GIVE AT 8AM,1PM,7PM divalproex 125 mg capsule, delayed rel sprinkle 250 mg PO QAM olanzapine 2.5 mg tablet 2.5 mg PO BID Rx Instructions: GIVE AT 8AM,7PM magnesium chloride 64 mg magnesium Tablet 64 mg PO BID diphenhydramine HCl 12.5 mg/5 mL Liquid 12.5 mg PO Q6H PRN (Reason: ALLERGIES) Deep Sea Nasal 0.65 % Aerosol,[place] 1 spray INTRANASAL TID polyethylene glycol 3350 [SmoothLax] 17 gram Powder In Packet 17 g PO DAILY PRN (Reason: Constipation) lorazepam 0.5 mg Tablet 0.5 mg PO Q6 PRN (Reason: Anxiety) olanzapine 5 mg Tablet,Disintegrating 2.5 mg PO Q4 PRN (Reason: MOOD) Rx Instructions: 1/2 TABLET DOSE Discontinued amlodipine 5 mg Tablet 5 mg PO DAILY Qty: 30 0RF Eliquis 5 mg tablet 5 mg PO BID Discharge Orders: Discharge Order (Routine); Ordered 03/24/24 Ordered By: Jan Low Admission Data Admit Date/Time: 03/15/24 22:17 Attending Provider: Jan Low Admit Provider: Christian Portillo Primary Care Provider: Ras Day Other Providers: John Gomez [place]; [place]; Christian Portillo; Dayday Vargas; Robert Smith; Troy Esquivel; Nawaf Sanchez I.; Rolando Gaona II; Yasmine Ballard; Moshe Russell; Raymond Hernandez; Rony Cardenas; [facility]
== END 2024-03-24 13:26 | disposition home or self-care (01) | DRG 464 ==
LOC: ED 16:36 → 3N 22:17 → SUATTDRO 22:17 → 3N 23:08

== ENCOUNTER 2025-03-10 07:53 | Observation (INO) ==
[2025-03-10 08:50] LABS: Hematocrit (blood only) 34.6 % (37.0-47.0); Hemoglobin 11.5 g/dL (12.0-16.0); Immature Granulocytes # (auto) 0.01 K/uL (0.01-0.20); Immature Granulocytes % (auto) 0.2 %; Mean Corpuscular Hemoglobin 34.1 pg (25.0-34.0); Mean Corpuscular Volume 102.7 fL (80.0-100.0); Platelet Count 301 K/uL (130-400); RDW Standard Deviation 52.5 fL (36.4-46.3); Red Blood Count 3.37 M/uL (4.20-5.40); White Blood Count 6.36 K/ul (4.8-10.8)
--- NOTE | 2025-03-10 09:06 | CT Scan Report ---
CT head/brain wo con CLINICAL HISTORY: 84 years-old Female with syncope. Acute syncope TECHNIQUE: Multiple axial CT images of the head were obtained without contrast. A dose lowering tech nique was utilized adhering to the principles of ALARA. CT DOSE: 625.8 mGy.cm COMPARISON: 08/14/2024 FINDINGS: No acute intracranial hemorrhage, midline shift, intracranial mass, hydrocephalus, territorial ischem ia or abnormal extra-axial collection. Involutional changes with white matter hypodensities suggestiv e of chronic microvascular ischemic disease. The calvarium is intact. Prior bilateral lens repair. The paranasal sinuses, mastoid air cells, and m iddle ear cavities are clear. IMPRESSION: No acute intracranial abnormality. ACT 112: Negative or not required by law. The above report was generated using voice recognition software. It may contain grammatical, syntax o r spelling errors. Electronically signed by: Christos Rico M.D. 03/10/2025 9:03 AM
[2025-03-10 09:10] LABS: Alanine Aminotransferase 12.0 U/L (7-52); Albumin Globulin Ratio 0.9 (0.9-2); Albumin Level 3.7 gm/dl (3.4-5.0); Alkaline Phosphatase 61.0 U/L (34-104); Anion Gap 4.0 (3-11); Bilirubin,Total 0.2 mg/dl (0.2-1.0); Blood Urea Nitrogen 39.0 mg/dl (6-23); Calcium 9.6 mg/dl (8.6-10.3); Carbon Dioxide 32.0 mmol/L (21-32); Chloride 104.0 mmol/L (98-107); Creatinine Clr Calc Pharmacy 32.3 ml/min; Globulin 4.2 gm/dl (2.5-4.0); Glucose 81.0 mg/dl (70-99(Fasting)); Magnesium 2.4 mg/dl (1.7-2.4); Potassium 4.7 mmol/L (3.5-5.1); Sodium 140.0 mmol/L (136-145); Total Protein 7.9 gm/dl (6.0-8.3)
--- NOTE | 2025-03-10 09:35 | XRay Report ---
XR chest 1V portable CLINICAL HISTORY: Syncope. COMPARISON STUDY: Chest radiograph August 14, 2024. FINDINGS: Patient is mildly rotated. There is no pneumothorax or pleural effusion. No airspace opacit ies are present. Cardiomediastinal silhouette is stable. There is pulmonary vascular congestion. Righ t axillary surgical clips are incidentally noted. There are also surgical anchors within the proximal right humerus. IMPRESSION: Pulmonary vascular congestion. ACT 112: Negative or not required by law. Electronically signed by: Floyd Bañuelos M.D. 03/10/2025 9:34 AM
--- NOTE | 2025-03-10 09:39 | XRay Report ---
XR hip RT 2V w pelvis HISTORY: 84 years-old Female right hip pain acute pain of the right hip COMPARISON: Radiographs 03/18/2024 TECHNIQUE: AP view of the pelvis with 2 views of the right hip FINDINGS: Left hip arthroplasty noted along with lateral fixation plate with cerclage wires. 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 No acute fracture, dislocation or avascular necrosis identified. IMPRESSION: No acute fracture or dislocation identified. ACT 112: Negative or not required by law. The above report was generated using voice recognition software. It may contain grammatical, syntax o r spelling errors. Electronically signed by: Christos Rico M.D. 03/10/2025 9:38 AM
--- NOTE | 2025-03-10 09:42 | Emergency Department Note ---
History of Present Illness General Chief complaint: Syncope Stated complaint: SYNCOPE Time Seen by Provider: 03/10/25 08:02 Source: EMS and RN notes reviewed Mode of arrival: EMS History of Present Illness Patient is an 84-year-old female presenting from senior living after a syncopal event while on the toilet. She was being assisted by staff when she passed out. Patient is awake and alert and back to baseline upon arrival here in the ED. No head injury or trauma reported. Unfortunately patient is unable to give much history due to underlying dementia. No staff or EMS at bedside to corroborate story. Patient does complain of some cramping in her abdomen. No complaints of headache, chest pain, shortness of breath, back pain, nausea, vomiting. Home Medications Medication Instructions Recorded Confirmed Type anastrozole 1 mg tablet 1 mg PO QAM #30 tabs 05/16/23 03/10/25 Rx divalproex 125 mg capsule,delayed 500 mg (4 x 125 mg) PO HS #120 caps 05/16/23 03/10/25 Rx release sprinkle levothyroxine 125 mcg tablet 125 mcg PO DAILYBB #30 tabs 05/16/23 03/10/25 Rx acetaminophen 500 mg tablet 1,000 mg PO TID 01/29/24 03/10/25 History divalproex 125 mg capsule,delayed 250 mg PO QAM 01/29/24 03/10/25 History release sprinkle magnesium chloride 64 mg 64 mg PO BID 01/29/24 03/10/25 History (magnesium chloride) tablet polyethylene glycol 3350 17 gram 17 g PO DAILY PRN Constipation 01/29/24 03/10/25 History oral powder packet (SmoothLax) sodium chloride 0.65 % nasal spray 1 spray intranasal TID 01/29/24 03/10/25 History aerosol (Deep Sea Nasal) doxycycline hyclate 100 mg capsule 100 mg PO DAILY 06/28/24 03/10/25 History apixaban 2.5 mg tablet (Eliquis) 2.5 mg PO BID 03/10/25 03/10/25 History carboxymethylcellulose sodium 0.5 1 drp ophthalmic (eye) TID PRN 03/10/25 03/10/25 History % eye drops itching or irritation fluconazole 200 mg tablet 200 mg PO DAILY 03/10/25 03/10/25 History food supplemt, lactose-reduced 1 ea PO TID 03/10/25 03/10/25 History hydrochlorothiazide 12.5 mg capsule 12.5 mg PO QAM 03/10/25 03/10/25 History naproxen sodium 220 mg tablet 220 mg PO BID PRN Pain 03/10/25 03/10/25 History olanzapine 2.5 mg tablet 2.5 mg PO TID 03/10/25 03/10/25 History Allergies Allergy/AdvReac Type Severity Reaction Status Date / Time cinnamon Allergy Intermediate Flushing Verified 08/14/24 15:23 haloperidol [From Haldol] AdvReac Severe excessive Verified 08/14/24 15:23 sedation as per family Past Med/Surg History Problem List (Updated 03/10/25 @ 16:45 by Ramo Vasquez MD) Pulmonary embolism (Acute) Syncope (Acute) Pulmonary emboli Syncope prison resident Bedridden Infected prosthesis of left hip Traumatic hematoma of lower leg with infection History of surgical site infection History of left hip replacement Anemia (Acute) Dementia (Acute) Acute blood loss anemia Hypothyroidism Delirium multifactorial Dementia cryptogenic, but plausible vascular etiology or contribution given history of CVA History of CVA (cerebrovascular accident) Hip hematoma, left Hip pain (Acute) Hypotension Medical History Left hip pain 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 Social History Smoking Status: Former smoker Tobacco Type: Cigarettes Second Hand Exposure: No; Do You Dip or Chew Tobacco: No; Hx Alcohol Use: No (Unable to answer questions.) Hx Substance Use: No (Unable to answer questions.) Preferred Language: Turkmen Communication Ability: Effective 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 Feels Safe at Home: Yes Assistive Devices: Walker Review of Systems Review of systems negative outside of positive findings mentioned in HPI. Physical Exam Vital Signs Vital Signs - 24 hr 03/10/25 08:01 03/10/25 08:08 03/10/25 08:12 Temperature 36.3 C L Temperature Source Axillary Pulse Rate 56 L 55 L Pulse Rate [Apical] Respiratory Rate 25 H Respiratory Effort / Characteristics Non-Labored Spontaneous Respiratory Depth Normal Respiratory Pattern Regular Blood Pressure 135/73 Blood Pressure [Right Arm] Blood Pressure Mean 93 Blood Pressure Mean [Right Arm] Blood Pressure Position Lying Blood Pressure Position [Right Arm] Pulse Oximetry 96 96 Oxygen Delivery Method Room Air Room Air Sepsis Recent Fever Within 48 Hours No Sepsis New/Unexplained Change in Mental Status N/A Sepsis Action Taken by Nursing No Action Required 03/10/25 08:37 03/10/25 09:22 03/10/25 09:22 Temperature Temperature Source Pulse Rate 55 L Pulse Rate [Apical] 55 L 58 L Respiratory Rate 18 Respiratory Effort / Characteristics Respiratory Depth Respiratory Pattern Blood Pressure Blood Pressure [Right Arm] 123/72 149/85 H Blood Pressure Mean Blood Pressure Mean [Right Arm] 89 106 Blood Pressure Position Blood Pressure Position [Right Arm] Lying Sitting Pulse Oximetry 99 Oxygen Delivery Method Room Air Sepsis Recent Fever Within 48 Hours Sepsis New/Unexplained Change in Mental Status Sepsis Action Taken by Nursing 03/10/25 09:23 03/10/25 09:42 Temperature Temperature Source Pulse Rate 64 Pulse Rate [Apical] 55 L Respiratory Rate 20 Respiratory Effort / Characteristics Respiratory Depth Respiratory Pattern Blood Pressure Blood Pressure [Right Arm] 148/99 H Blood Pressure Mean Blood Pressure Mean [Right Arm] 115 Blood Pressure Position Blood Pressure Position [Right Arm] Standing Pulse Oximetry 99 Oxygen Delivery Method Sepsis Recent Fever Within 48 Hours Sepsis New/Unexplained Change in Mental Status Sepsis Action Taken by Nursing See below. Constitutional WD/WN, vitals as above Eyes PERRL, conjunctivae normal, anicteric sclerae ENMT external ear and nose normal, oropharynx normal Neck trachea midline, no thyromegaly Respiratory normal respiratory effort, lungs clear to auscultation Cardiovascular RRR, no murmur, no edema Gastrointestinal (Abdomen) normal bowel sounds, soft, nontender, no hepatosplenomegaly Musculoskeletal Reproducible pain in her R hip with passive flexion. Skin no rashes, warm and dry Neurologic CN's II-XI intact bilaterally Speech / Cognition: normal speech Motor/Sensory: no pronator drift Course Administered Medications Discontinued Medications Enoxaparin Sodium (Enoxaparin Inj 60 Mg/0.6 Ml Syr) 60 mg SQ NOW ONE Stop: 03/10/25 11:46 Last Admin: 03/10/25 11:20 Dose: 60 mg Documented By: mbu Ioversol (Optiray 320 125ml) 120 ml IV ONCE ONE Stop: 03/10/25 10:08 Last Admin: 03/10/25 10:07 Dose: 120 ml Documented By: BRAD Medical Decision Making Differential Diagnosis DDx includes but not limited to: Vasovagal syncope, orthostatic hypotension, cardiac arrhythmia, metabolic abnormality, acute anemia, PE, ACS Medical Records Attestation: I reviewed the patient's medical records. Home Medications Current Medication List: was personally reviewed by me Laboratory Data Attestation: I reviewed the patient's lab results. 03/10/25 08:24 03/10/25 08:24 Lab Results 03/10/25 Range/Units 08:24 WBC 6.36 (4.8-10.8) K/ul RBC 3.37 L (4.20-5.40) M/uL Hgb 11.5 L (12.0-16.0) g/dL Hct 34.6 L (37.0-47.0) % MCV 102.7 H (80.0-100.0) fL MCH 34.1 H (25.0-34.0) pg MCHC 33.2 (32.0-36.0) g/dL RDW Std Deviation 52.5 H (36.4-46.3) fL RDW Coeff of Andrea 13.9 (11.5-14.5) % Plt Count 301 (130-400) K/uL MPV 9.6 (9.4-12.4) fL Immature Gran % (Auto) 0.2 % Neut % (Auto) 51.2 % Lymph % (Auto) 32.4 % [place] % (Auto) 14.6 % Eos % (Auto) 1.1 % Baso % (Auto) 0.5 % Neut # (Auto) 3.26 (1.40-6.50) K/uL Lymph # (Auto) 2.06 (1.20-3.40) K/uL [place] # (Auto) 0.93 H (0.11-0.59) K/uL Eos # (Auto) 0.07 (0.00-0.50) K/uL Baso # (Auto) 0.03 (0.00-0.20) K/uL Immature Gran # (Auto) 0.01 (0.01-0.20) K/uL D-Dimer 1880 H* (0-500) ug/L FEU Sodium 140 (136-145) mmol/L Potassium 4.7 (3.5-5.1) mmol/L Chloride 104 (98-107) mmol/L Carbon Dioxide 32 (21-32) mmol/L Anion Gap 4 (3-11) BUN 39 H (6-23) mg/dl Creatinine 1.09 (0.6-1.2) mg/dl Est Cr Clr Drug Dosing 32.3 ml/min eGFR 49.78 BUN/Creatinine Ratio 35.8 H (10-20) Glucose 81 (70-99(Fasting)) mg/dl Calcium 9.6 (8.6-10.3) mg/dl Magnesium 2.4 (1.7-2.4) mg/dl Total Bilirubin 0.2 (0.2-1.0) mg/dl AST 36 (13-39) U/L ALT 12 (7-52) U/L Alkaline Phosphatase 61 (34-104) U/L Troponin I High Sens 6.5 (0-14) pg/ml Total Protein 7.9 (6.0-8.3) gm/dl Albumin 3.7 (3.4-5.0) gm/dl Globulin 4.2 H (2.5-4.0) gm/dl Albumin/Globulin Ratio 0.9 (0.9-2) Imaging Data Radiologist's Impression: Chest X-Ray 03/10/25 08:32 XR chest 1V portable CLINICAL HISTORY: Syncope. COMPARISON STUDY: Chest radiograph August 14, 2024. FINDINGS: Patient is mildly rotated. There is no pneumothorax or pleural effusion. No airspace opacities are present. Cardiomediastinal silhouette is stable. There is pulmonary vascular congestion. Right axillary surgical clips are incidentally noted. There are also surgical anchors within the proximal right humerus. IMPRESSION: Pulmonary vascular congestion. ACT 112: Negative or not required by law. Electronically signed by: Floyd Bañuelos M.D. 03/10/2025 9:[address] 03/10/25 08:32 CT head/brain wo con CLINICAL HISTORY: 84 years-old Female with syncope. Acute syncope TECHNIQUE: Multiple axial CT images of the head were obtained without contrast. A dose lowering technique was utilized adhering to the principles of ALARA. CT DOSE: 625.8 mGy.cm COMPARISON: 08/14/2024 FINDINGS: No acute intracranial hemorrhage, midline shift, intracranial mass, hydrocephalus, territorial ischemia or abnormal extra-axial collection. Involutional changes with white matter hypodensities suggestive of chronic microvascular ischemic disease. The calvarium is intact. Prior bilateral lens repair. The paranasal sinuses, mastoid air cells, and middle ear cavities are clear. IMPRESSION: No acute intracranial abnormality. ACT 112: Negative or not required by law. The above report was generated using voice recognition software. It may contain grammatical, syntax or spelling errors. Electronically signed by: Christos Rico M.D. 03/10/2025 9:03 AM Hip/Pelvis X-Ray 03/10/25 09:11 XR hip RT 2V w pelvis HISTORY: 84 years-old Female right hip pain acute pain of the right hip COMPARISON: Radiographs 03/18/2024 TECHNIQUE: AP view of the pelvis with 2 views of the right hip FINDINGS: Left hip arthroplasty noted along with lateral fixation plate with cerclage wires. 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 No acute fracture, dislocation or avascular necrosis identified. IMPRESSION: No acute fracture or dislocation identified. ACT 112: Negative or not required by law. The above report was generated using voice recognition software. It may contain grammatical, syntax or spelling errors. Electronically signed by: Christos Rico M.D. 03/10/2025 9:38 AM Chest CTA 03/10/25 09:30 CT angio chest PE protocol CT DOSE: 1524.53 mGy.cm HISTORY: 84 years-old Female with PE. Acute shortness of breath TECHNIQUE: Multiple CTA images of the chest were obtained after the intravenous administration of 120 ml Optiray. Coronal and sagittal MIPS were obtained from the axial data set and were submitted for review. All measurements were obtained according to NASCET criteria. A dose lowering technique was utilized adhering to the principles of ALARA. COMPARISON: CT abdomen and pelvis of same day FINDINGS: CTA: Heart is upper limits of normal in size. No pericardial effusion. Ectasia of the ascending thoracic aorta measures up to 3.9 cm. No dissection. There are segmental and subsegmental left upper and lower lobe pulmonary emboli noted. Respiratory motion artifact mildly limits evaluation of the segmental and subsegmental pulmonary arterial branches. CT CHEST: Unremarkable thyroid. No lymphadenopathy. No pneumothorax, pleural effusion or overt pulmonary edema. Mild pulmonary emphysema with dependent subsegmental bibasilar cyst. Mild bronchial wall thickening. Subcentimeter calcified granuloma apical posterior segment left upper lobe. 4 mm solid nodule right lower lobe on image 91 series 5. There are a few 3 mm solid nodules present within the right lung apex. Mild tracheobronchial secretions. No acute upper abdominal abnormality. The soft tissues are within normal limits. Right axillary surgical clips. No acute fracture. IMPRESSION: 1. Left-sided segmental and subsegmental pulmonary emboli. 2. No pleural effusion or airspace consolidation to suggest a pulmonary infarct. 3. Pulmonary emphysema with a few scattered subcentimeter solid pulmonary nodules measuring up to 4 mm. Please refer to below summary of Fleischner criteria recommendations for follow- up of incidental CT nodules (Lashon Souza, Guidelines for management of small pulmonary nodules detected on CT scans: A statement from the Fleischner Society, Radiology 237: [phone].) SOLID NODULES Multiple nodules size: <6 mm * Low risk patients: no routine follow-up * high risk patients: optional CT at 12 months Note: newly detected indeterminate nodule in persons 35 years of age or older. * Low risk patients: minimal or absent history of smoking and/or other known risk factors * high risk patients: history of smoking or of other known risk factors (e.g. first degree relative with lung cancer, or exposure to asbestos, radon, uranium) * if a nodule up to 8 mm is partly solid or is ground glass further follow-up is required after 24 months to exclude possible slow growing adenocarcinoma (BRAYDEN) ACT 112: Negative or not required by law. The above report was generated using voice recognition software. It may contain grammatical, syntax or spelling errors. Electronically signed by: Christos Rico M.D. 03/10/2025 10:36 AM Abdomen/Pelvis CT 03/10/25 09:42 CT SCAN OF THE ABDOMEN AND PELVIS WITH IV CONTRAST CLINICAL HISTORY: Abdominal cramping. COMPARISON STUDY: Pelvis and right hip radiographs performed earlier today. TECHNIQUE: Following the IV administration of 120 cc of Optiray 320, CT scan of the abdomen and pelvis is performed from the lung bases to the proximal femora. Images are reviewed in the axial, sagittal, and coronal planes. IV contrast was administered without complication. A dose lowering technique was utilized adhering to the principles of ALARA. FINDINGS: Visualized lung bases are unremarkable. There is no pneumatosis, free air or portal venous gas. Several splenules are incidentally noted. There are gallstones within the gallbladder without evidence for acute cholecystitis. There is no biliary or pancreatic ductal dilatation patient. There are no suspicious hepatic lesions. There is moderate bilateral renal cortical thinning and several renal cysts. There is no hydronephrosis. Infrarenal abdominal aorta is ectatic, measuring 2.6 cm in caliber. There is moderate aortoiliac atherosclerotic plaque. No evidence for a bowel obstruction. Colonic diverticulosis without evidence for acute diverticulitis. Apparent left colon wall thickening is likely due to underdistention. Images of the pelvis are degraded by streak artifact from a left hip arthroplasty with cerclage wires. There are no acute fractures within the lumbar spine, pelvis or hips. Sacral Tarlov cysts are incidentally noted. A prominent left external iliac lymph node is unchanged since CT of April 15, 2023 and is likely benign. IMPRESSION: 1. No acute process within the abdomen or pelvis. 2. No bowel obstruction. No bowel wall thickening. Colonic diverticulosis. No evidence for acute diverticulitis. 3. Cholelithiasis. ACT 112: Negative or not required by law. Electronically signed by: Floyd Bañuelos M.D. 03/10/2025 10:25 AM ECG Data Attestation: I personally reviewed and interpreted this ECG as follows: Indication: + syncope Rate (beats per minute): 55 Rhythm: + sinus bradycardia ECG Intervals/blocks: + Normal QRS, + Normal QT and + Normal [place] ECG [place]: + Normal ECG ST segments: + Normal ST segments Comparison ECG Date: from (08/14/2024) Change: no significant change Blood Pressure Blood Pressure Findings: Elevated blood pressure Blood Pressure Disposition: further management by hospitalist JOLENE Narrative Patient is an 84-year-old female who presents after syncopal event from senior living facility. Description of event sounds vasovagal in nature as she was on the toilet when the event happened. Awake and alert on arrival. At baseline per POA who is at bedside. No focal neurologic deficits. EKG as seen above. No concerning cardiac abnormalities. Lab work was obtained. D-dimer greater than 1800. Follow-up CTA was ordered and reviewed. Evidence of left sided segmental and subsegmental PEs. No evidence of strain. Do not believe this is what caused her syncopal event and is likely an incidental finding however she is on chronic Eliquis and there is concern that she had breakthrough clotting. Possibly due to medication noncompliance however she should be administered her medication by staff at the facility. Regardless patient was in admitted to the hospitalist service today. Weight-based Lovenox dose was given here in the ED. Stable for admission to monitored bed. Impression & Plan Syncope, Pulmonary embolism Discharge Plan Visit Data Chief Complaint: Syncope Stated Complaint: SYNCOPE ED Provider: Ramo Vasquez Discharge Problem: Syncope, Pulmonary embolism Patient Disposition: Home - Self-Care Condition: Good Discharge Instructions Interventions: ED Discharge Assessment Last Done: 03/10/25 15:31
[2025-03-10] MEDS: OPTIRAY 320 125ml IV ONE (10:07)
--- NOTE | 2025-03-10 10:27 | CT Scan Report ---
CT SCAN OF THE ABDOMEN AND PELVIS WITH IV CONTRAST CLINICAL HISTORY: Abdominal cramping. COMPARISON STUDY: Pelvis and right hip radiographs performed earlier today. TECHNIQUE: Following the IV administration of 120 cc of Optiray 320, CT scan of the abdomen and pelvi s is performed from the lung bases to the proximal femora. Images are reviewed in the axial, sagittal , and coronal planes. IV contrast was administered without complication. A dose lowering technique wa s utilized adhering to the principles of ALARA. FINDINGS: Visualized lung bases are unremarkable. There is no pneumatosis, free air or portal venous gas. Several splenules are incidentally noted. There are gallstones within the gallbladder without ev idence for acute cholecystitis. There is no biliary or pancreatic ductal dilatation patient. There ar e no suspicious hepatic lesions. There is moderate bilateral renal cortical thinning and several ashley l cysts. There is no hydronephrosis. Infrarenal abdominal aorta is ectatic, measuring 2.6 cm in calib er. There is moderate aortoiliac atherosclerotic plaque. No evidence for a bowel obstruction. Colonic diverticulosis without evidence for acute diverticulitis. Apparent left colon wall thickening is lik archana due to underdistention. Images of the pelvis are degraded by streak artifact from a left hip arth roplasty with cerclage wires. There are no acute fractures within the lumbar spine, pelvis or hips. S acral Tarlov cysts are incidentally noted. A prominent left external iliac lymph node is unchanged si kye CT of April 15, 2023 and is likely benign. IMPRESSION: 1. No acute process within the abdomen or pelvis. 2. No bowel obstruction. No bowel wall thickening. Colonic diverticulosis. No evidence for acute dive rticulitis. 3. Cholelithiasis. ACT 112: Negative or not required by law. Electronically signed by: Floyd Bañuelos M.D. 03/10/2025 10:25 AM
--- NOTE | 2025-03-10 10:38 | CT Scan Report ---
CT angio chest PE protocol CT DOSE: 1524.53 mGy.cm HISTORY: 84 years-old Female with PE. Acute shortness of breath TECHNIQUE: Multiple CTA images of the chest were obtained after the intravenous administration of 120 ml Optiray. Coronal and sagittal MIPS were obtained from the axial data set and were submitted for review. All measurements were obtained according to NASCET criteria. A dose lowering technique was u tilized adhering to the principles of ALARA. COMPARISON: CT abdomen and pelvis of same day FINDINGS: CTA: Heart is upper limits of normal in size. No pericardial effusion. Ectasia of the ascending thoracic a echo measures up to 3.9 cm. No dissection. There are segmental and subsegmental left upper and lower lobe pulmonary emboli noted. Respiratory motion artifact mildly limits evaluation of the segmental an d subsegmental pulmonary arterial branches. CT CHEST: Unremarkable thyroid. No lymphadenopathy. No pneumothorax, pleural effusion or overt pulmonary edema. Mild pulmonary emphysema with dependent subsegmental bibasilar cyst. Mild bronchial wall thickening. Subcentimeter calcified granuloma apical posterior segment left upper lobe. 4 mm solid nodule right lower lobe on image 91 series 5. There are a few 3 mm solid nodules present within the right lung ape x. Mild tracheobronchial secretions. No acute upper abdominal abnormality. The soft tissues are within normal limits. Right axillary surgi karina clips. No acute fracture. IMPRESSION: 1. Left-sided segmental and subsegmental pulmonary emboli. 2. No pleural effusion or airspace consolidation to suggest a pulmonary infarct. 3. Pulmonary emphysema with a few scattered subcentimeter solid pulmonary nodules measuring up to 4 m m. Please refer to below summary of Fleischner criteria recommendations for follow-up of incidental CT n odules (Lashon Souza, Guidelines for management of small pulmonary nodules detected on CT scans: A sta tement from the Fleischner Society, Radiology 237: [phone].) SOLID NODULES Multiple nodules size: <6 mm * Low risk patients: no routine follow-up * high risk patients: optional CT at 12 months Note: newly detected indeterminate nodule in persons 35 years of age or older. * Low risk patients: minimal or absent history of smoking and/or other known risk factors * high risk patients: history of smoking or of other known risk factors (e.g. first degree relative with lung cancer, or exposure to asbestos, radon, uranium) * if a nodule up to 8 mm is partly solid or is ground glass further follow-up is required after 24 m onths to exclude possible slow growing adenocarcinoma (BRAYDEN) ACT 112: Negative or not required by law. The above report was generated using voice recognition software. It may contain grammatical, syntax o r spelling errors. Electronically signed by: Christos Rico M.D. 03/10/2025 10:36 AM
[2025-03-10] MEDS: ENOXAPARIN INJ 60 MG/0.6 ML SYR SQ ONE (11:20)
[2025-03-10] MEDS ORDERED: ACETAMINOPHEN 325 MG TAB PO PRN (11:36)
[2025-03-10] MEDS ORDERED: ONDANSETRON INJ 2 MG/ML 2 ML VIAL IV PRN (11:36)
[2025-03-10] MEDS ORDERED: POLYETHYLENE (MIRALAX) 17 GM PACK PO PRN (11:36)
[2025-03-10 11:40] LABS: Appearance Urine Clear (Clear); Glucose Urine UA Negative (Negative)
--- NOTE | 2025-03-10 11:48 | History & Physical Report ---
"Date of Service March 10, 2025 Assessment & Plan (1) Syncope: (2) Pulmonary emboli: (3) Dementia: (4) Anemia: (5) Infected prosthesis of left hip: Plan This is an 84 year old female with PMHx of dementia, anemia, infected porsthesis of left hip, A fib, CVA who presented to the ED on 03/10/2025 after a syncopal episode at [facility] facility. While in the ED, she was found to have an elevated D-dimer at 1880. Chest CTA obtained which did reveal a left sided segmental & subsegmental pulmonary emboli. CTAP was negative. Right hip XR negative. Head CT negative. CXR consistent w/ pulmonary vascular congestion. CBC was without leukocytosis & hgb was within her typical baseline of at 11.5. Creatinine is WNL, BUN elevated at 39. UA negative. She was started on therapeutic Lovenox dosing #Syncope | PE w/ syncopal episode while sitting on the toilet at [facility] [employer]. CTAP, head CT, R hip XR all negative. CXR w/ pulm vascular congestion. Chest CTA significant for left sided segmental & subsegmental PE, no pleural effusion/airspace consolidation to suggest pulm infarct; pulm emphysema w/ few scattered subcentimeter solid pulm nodules measuring up to 4mm. CBC w/ no leukocytosis. Hgb within baseline at 11.5 (9-11.7), BMP w/ stable creatinine & electrolytes. UA negative. D-dimer elevated at 1880; Trop negative. On Eliquis 2.5mg BID outpatient for hx of A fib. --> start therapeutic Lovenox dosing. Plan to transition to Eliquis 5mg BID on discharge given weight & creatinine value. Echo & LE b/l Doppler pending. PT/OT consulted, appreciate recommendations. 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 #Dementia | Mental Health Continue Olanzapine, Depakote #Hypothyroidism TSH 07/2024 WNL - update in AM Continue Levothyroxine #Anemia Hgb appears at baseline at 11.5 Ordered routine workup including iron studies, B12, and Folate. DVT prophylaxis: Lovenox Code: DNR/DNI Case was discussed with Dr. Santos at time of admission. Updated patient's Oryl OSEGUERA via phone 03/10. History of Present Illness Primary Care Provider: Ras Day This is an 84 year old female with PMHx of dementia, anemia, infected porsthesis of left hip, A fib, CVA who presented to the ED on 03/10/2025 after a syncopal episode at SNF facility. Tc was seen & examined this morning. No accurate history able to be obtained from her secondary to baseline cognitive status. Per report, patient had an epis ode of syncope while on the toilet. Did discuss with her POA Orly on the phone and she does confirm that she is a DNR/DNI. She also confirmed that Tc has been on Eliquis for quite some time and reports no dosing changes recently. While in the ED, she was found to have an elevated D-dimer at 1880. Chest CTA obtained which did reveal a left sided segmental & subsegmental pulmonary emboli. CTAP was negative. Right hip XR negative. Head CT negative. CXR consistent w/ pulmonary vascular congestion. CBC was without leukocytosis & hgb was within her typical baseline of at 11.5. Creatinine is WNL, BUN elevated at 39. UA negative. She was started on therapuetic lovenox dosing. Allergies Allergy/AdvReac Type Severity Reaction Status Date / Time cinnamon Allergy Intermediate Flushing Verified 08/14/24 15:23 haloperidol [From Haldol] AdvReac Severe excessive Verified 08/14/24 15:23 sedation as per family Home Medications Medication Instructions Recorded Confirmed Type anastrozole 1 mg tablet 1 mg PO QAM #30 tabs 05/16/23 08/14/24 Rx divalproex 125 mg capsule,delayed 500 mg (4 x 125 mg) PO HS #120 caps 05/16/23 08/14/24 Rx release sprinkle levothyroxine 125 mcg tablet 125 mcg PO DAILYBB #30 tabs 05/16/23 08/14/24 Rx acetaminophen 500 mg tablet 1,000 mg PO TID 01/29/24 08/14/24 History divalproex 125 mg capsule,delayed 250 mg PO QAM 01/29/24 08/14/24 History release sprinkle magnesium chloride 64 mg 64 mg PO BID 01/29/24 08/14/24 History (magnesium chloride) tablet olanzapine 5 mg disintegrating 5 mg PO BID 01/29/24 08/14/24 History tablet polyethylene glycol 3350 17 gram 17 g PO DAILY PRN Constipation 01/29/24 08/14/24 History oral powder packet (SmoothLax) sodium chloride 0.65 % nasal spray 1 spray intranasal TID 01/29/24 08/14/24 History aerosol (Deep Sea Nasal) fluconazole 100 mg tablet 200 mg (2 x 100 mg) PO QAM 30 days 03/23/24 08/14/24 Rx (Diflucan) #60 tabs amlodipine 5 mg tablet 5 mg PO DAILY 06/28/24 08/14/24 History doxycycline hyclate 100 mg capsule 100 mg PO DAILY 06/28/24 08/14/24 History olanzapine 5 mg tablet 2.5 mg PO Q4H PRN MOOD 08/11/24 08/14/24 History Past Med/Surg History Problem List (Updated 03/10/25 @ 12:35 by Christine Gomez PA-C) Pulmonary emboli Syncope jail resident Bedridden Infected prosthesis of left hip Traumatic hematoma of lower leg with infection History of surgical site infection History of left hip replacement Anemia (Acute) Dementia (Acute) Acute blood loss anemia Hypothyroidism Delirium multifactorial Dementia cryptogenic, but plausible vascular etiology or contribution given history of CVA History of CVA (cerebrovascular accident) Hip hematoma, left Hip pain (Acute) Hypotension Medical History Left hip pain 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 Social History Smoking Status: Former smoker Tobacco Type: Cigarettes Second Hand Exposure: No; Do You Dip or Chew Tobacco: No; Hx Alcohol Use: No (Unable to answer questions.) Hx Substance Use: No (Unable to answer questions.) Preferred Language: Ghanaian Communication Ability: Effective Floor Cashier Required: No Beliefs That Will Affect Care: None Current Living Situation: Correction Current Living Situation Comment: [facility]. Feels Safe at Home: Yes Assistive Devices: Walker Physical Exam Physical Exam: General: NAD, VS: BP 148/99; P64; R20; T36.3C Resp: normal respiratory effort, lungs clear to auscultation CV: RRR, no murmur Abd: normal bowel sounds, non tender, soft Extremities: no edema Neuro: Alert, oriented to self only. Skin: intact, no lesions noted Results & Data Results & Data Vital Signs (Past 12 Hours) Vital Signs Temp Pulse Pulse Resp BP BP Pulse Ox 03/10/25 09:42 64 20 99 03/10/25 09:23 55 L 148/99 H 03/10/25 09:22 58 L 149/85 H 03/10/25 09:22 55 L 123/72 03/10/25 08:37 55 L 18 99 03/10/25 08:12 55 L 03/10/25 08:08 96 03/10/25 08:01 36.3 C L 56 L 25 H 135/73 96 O2 Del Method 03/10/25 09:42 03/10/25 09:23 03/10/25 09:22 03/10/25 09:22 03/10/25 08:37 Room Air 03/10/25 08:12 03/10/25 08:08 Room Air 03/10/25 08:01 Room Air Supervising Physician Co-Signing Physician Notes The patient was seen by me. The chart was reviewed. Case discussed with FLOYD Trevino. Agree with assessment and plan PG Care Time/CCT Total # of Minutes Spent Total Time Spent with Patient: Total time spent is greater than 50% in coordination of care (as documented) at patient's floor/unit and/or counseling patient: Coding Level of Care Code 05906 INT INP/OBS CARE 3/75MIN Diagnoses Syncope R55 Pulmonary emboli I26.99 Dementia F03.B11 Dementia behavioral or psychological symptom: with agitation Dementia severity: moderate Dementia type: unspecified type Anemia D64.9 Anemia type: unspecified type Infected prosthesis of left hip T84.52XA (3) Dementia Dementia behavioral or psychological symptom: with agitation Dementia severity: moderate Dementia type: unspecified type Qualified Code(s): F03.B11 - Unspecified dementia, moderate, with agitation (4) Anemia Anemia type: unspecified type Qualified Code(s): D64.9 - Anemia, unspecified"
--- NOTE | 2025-03-10 15:35 | XCELERA ---
[id number]
--- NOTE | 2025-03-10 15:51 | Ultrasound Report ---
BILATERAL LOWER EXTREMITY VENOUS DOPPLER CLINICAL HISTORY: Pulmonary emboli. COMPARISON STUDY: No previous studies for comparison. TECHNIQUE: Sonography of the deep venous system of the bilateral lower extremities was performed. Co mpression and augmentation were evaluated. FINDINGS: The bilateral common femoral, superficial femoral and popliteal veins were compressible. A ugmentation was normal. Flow was shown within the deep calf vessels. IMPRESSION: No evidence of deep venous thrombus within the bilateral lower extremities. ACT 112: Negative or not required by law. Electronically signed by: Floyd Bañuelos M.D. 03/10/2025 3:49 PM
[2025-03-10] MEDS: LACTATED RINGER'S 1,000 ML IV SCH (16:49)
[2025-03-10] MEDS: MAGNESIUM CHLORIDE W/CALCIUM 64MG DELAYED REL TAB PO SCH (20:03)
[2025-03-10] MEDS: DIVALPROEX SODIUM SPRINKLE/DEL-REL 125 MG CAP PO SCH (20:04)
[2025-03-10] MEDS: ENOXAPARIN INJ 60 MG/0.6 ML SYR SQ SCH (23:30)
[2025-03-10] MEDS ORDERED: ENOXAPARIN 1 MG/KG SC SCH (23:45)
[2025-03-11] MEDS: LEVOTHYROXINE SODIUM 125 MCG TABLET PO SCH (05:37)
[2025-03-11 07:22] LABS: Hematocrit (blood only) 33.3 % (37.0-47.0); Hemoglobin 11.3 g/dL (12.0-16.0); Mean Corpuscular Hemoglobin 34.0 pg (25.0-34.0); Mean Corpuscular Volume 100.3 fL (80.0-100.0); Platelet Count 298 K/uL (130-400); RDW Standard Deviation 51.8 fL (36.4-46.3); Red Blood Count 3.32 M/uL (4.20-5.40); White Blood Count 5.12 K/ul (4.8-10.8)
[2025-03-11 07:35] VITALS: RESP 16
[2025-03-11 07:43] LABS: Anion Gap 7.0 (3-11); Blood Urea Nitrogen 29.0 mg/dl (6-23); Calcium 9.4 mg/dl (8.6-10.3); Carbon Dioxide 27.0 mmol/L (21-32); Chloride 105.0 mmol/L (98-107); Creatinine Clr Calc Pharmacy 38.6 ml/min; Glucose 85.0 mg/dl (70-99(Fasting)); Iron 66.0 mcg/dl (35-150); Potassium 4.1 mmol/L (3.5-5.1); Sodium 139.0 mmol/L (136-145); Total Iron Binding Cap Calc 328.0 mcg/dl (250-450); Transferrin 234.0 mg/dl (200-360); Transferrin (FE) Percent Satur 20.0 % (15-50)
[2025-03-11 07:58] LABS: Thyroid Stimulating Hormone 2.052 uIu/ml (0.300-4.500)
[2025-03-11 08:11] LABS: Folate (Folic Acid),Ser orPlas > 22.30 ng/ml (>5.38); Vitamin B12 881 pg/ml (180-914)
[2025-03-11] MEDS: FLUCONAZOLE 100 MG TAB PO SCH (08:47)
[2025-03-11] MEDS: ANASTROZOLE 1 MG TAB PO SCH (08:47)
[2025-03-11] MEDS: DOXYCYCLINE HYCLATE 100 MG CAP PO SCH (08:50)
[2025-03-11] MEDS: DIVALPROEX SODIUM SPRINKLE/DEL-REL 125 MG CAP PO SCH (08:50)
--- NOTE | 2025-03-11 09:57 | Electrocardiogram Report ---
Test Reason : Blood Pressure : */* mmHG Vent. Rate : 55 BPM Atrial Rate : 55 BPM P-R Int : 172 ms QRS Dur : 104 ms QT Int : 456 ms P-R-T Axes : 85 25 43 degrees QTcB Int : 436 ms Sinus bradycardia Incomplete right bundle branch block Borderline ECG When compared with ECG of 14-Aug-2024 14:27, No significant change was found Confirmed by Leonidas Almanza ([id number]) on 03/11/2025 9:57:24 AM Referred By: REFERRED SELF Confirmed By: Leonidas Almanza
[2025-03-11 10:44] VITALS: BP 113/66; PULSE 62; TEMP 97.5; O2SAT 93
--- NOTE | 2025-03-11 11:19 | Discharge Summary ---
"Discharge Summary Date of Service March 11, 2025 Principal Dx & Hospital Course #1 = Principal Diagnosis (1) Syncope: (2) Pulmonary emboli: (3) Dementia: (4) Anemia: (5) Infected prosthesis of left hip: Plan This is an 84 year old female with PMHx of dementia, anemia, infected porsthesis of left hip, A fib, CVA who presented to the ED on 03/10/2025 after a syncopal episode at SNF facility. #Syncope | PE w/ syncopal episode while sitting on the toilet at [facility] [employer]. CTAP, head CT, R hip XR all negative. CXR w/ pulm vascular congestion. Chest CTA significant for left sided segmental & subsegmental PE, no pleural effusion/airspace consolidation to suggest pulm infarct; pulm emphysema w/ few scattered subcentimeter solid pulm nodules measuring up to 4mm. CBC w/ no leukocytosis. Hgb within baseline at 11.3 (9-11.7), BMP w/ stable creatinine & electrolytes. UA negative. D-dimer elevated at 1880; Trop negative. Echo w/ EF of 55-60%; moderate aortic valve sclerosis but no stenosis. B/l LE doppler neg for DVT. s/p therapeutic Lovenox, transition to Eliquis on discharge but adjust dose from 2.5 to 5mg BID. #Infected prosthesis of L hip- On chronic therapy outpatient - Doxy + Diflucan, continue. #Dementia | Mental Health- Continue Olanzapine, Depakote #Hypothyroidism TSH WNL 03/11 Continue Levothyroxine #Anemia Hgb appears at baseline at 11.5 Ordered routine workup including iron studies, B12, and Folate. Updated patient's Orly OSEGUERA03/11 Admission HPI Per Admitting Provider This is an 84 year old female with PMHx of dementia, anemia, infected porsthesis of left hip, A fib, CVA who presented to the ED on 03/10/2025 after a syncopal episode at SNF facility. Tc was seen & examined this morning. No accurate history able to be obtained from her secondary to baseline cognitive status. Per report, patient had an episode of syncope while on the toilet. Did discuss with her POShakila Villalba on the phone and she does confirm that she is a DNR/DNI. She also confirmed that Tc has been on Eliquis for quite some time and reports no dosing changes recently. While in the ED, she was found to have an elevated D-dimer at 1880. Chest CTA obtained which did reveal a left sided segmental & subsegmental pulmonary emboli. CTAP was negative. Right hip XR negative. Head CT negative. CXR consistent w/ pulmonary vascular congestion. CBC was without leukocytosis & hgb was within her typical baseline of at 11.5. Creatinine is WNL, BUN elevated at 39. UA negative. She was started on therapuetic lovenox dosing. Discharge Exam General: NAD, VS: BP 113/66; P62; R16; T36.4C Resp: normal respiratory effort Extremities: no edema Neuro: Alert, oriented to person only. Skin: intact, no lesions noted Discharge Plan Discharge Items Patient Disposition: Personal Nursing Home Reason For Visit: SYNCOPE Discharge Diagnosis: Syncope, PE Condition on Discharge: Good Activity: Resume your previous activity Non-emergency contact: Primary Care Provider Call non-emergency contact if: you have any medication questions and your symptoms worsen Follow-up/Referrals: Ras Day [Primary Care Provider] - Diet: Heart Healthy Addtl Attending Provider Instructions: Ms. Shrestha, You were recently hospitalized secondary to a syncope episode. While here, you were found to have a pulmonary emboli and were treated with anticoagulation medication. Medications: Your medication list has been reviewed and reconciled upon discharge to ensure accuracy and continuity of care. An updated list of all your medications is included with your hospital discharge paperwork. Please review this list closely, and make note of any changes. Your Eliquis has been increased to 5mg twice daily. Please take your next dose this evening, 03/11. Take your medications as instructed; do not skip a dose of your medicines. Make sure all of your doctors know every medicine you are taking (including hscw-vgj-yayznts medicines, vitamins, and supplements). Call your primary care provider before taking any new medicines (including over- the-counter medicines, vitamins, and supplements), because some of these may interact with your current medications, or may make your symptoms worse. Tell your primary care provider if you cannot afford your medications. Activity: You can do normal everyday activities as your body allows. Take rest breaks if you feel tired. Do not overexert. Stop activity if you have pain, shortness of breath or feel dizzy. Follow-up appointments: Make an appointment with your primary care physician within one week of discharge. A copy of this summary will be sent to them. Every time you see your primary care physician, or any other doctor, bring your medication list, and a list of questions. CONTACT YOUR PRIMARY CARE PROVIDER if you experience any of the following: Shortness of breath or difficulty breathing Fevers or chills Feeling tired with normal activity or experiencing dizziness or fainting Difficulty following your treatment plan, or difficulty taking medications CALL 911 OR GO TO THE EMERGENCY DEPARTMENT if you experience any of the following: Severe abdominal pain or nausea/vomiting Severe chest pain, or chest pain that radiates (moves) to your jaw or arm Sudden, severe shortness of breath or difficulty breathing Thank you for allowing us to participate in your care. Pending Studies at Discharge: No Stand-Alone Forms: My [employer], Smoking Cessation Skilled Items Patient informed of condition?: Yes DNR: Yes Discharge Level of Care: Other Communicable Disease: No Discharge Prognosis: Stable Lines: None Urinary Catheter: No Medications and DC Order Prescriptions: New Eliquis 5 mg tablet 5 mg PO BID Qty: 60 0RF Continued divalproex 125 mg Capsule, Delayed Rel Sprinkle 500 mg PO HS Qty: 120 0RF anastrozole 1 mg Tablet 1 mg PO QAM Qty: 30 0RF levothyroxine 125 mcg Tablet 125 mcg PO DAILYBB Qty: 30 0RF fluconazole 200 mg tablet 200 mg PO DAILY olanzapine 2.5 mg tablet 2.5 mg PO TID hydrochlorothiazide 12.5 mg capsule 12.5 mg PO QAM carboxymethylcellulose sodium 0.5 % Drops 1 drp OPHTHALMIC (EYE) TID PRN (Reason: itching or irritation) naproxen sodium 220 mg Tablet 220 mg PO BID PRN (Reason: Pain ) food supplemt, lactose-reduced Liquid 1 ea PO TID Rx Instructions: chocolate liquid between meals acetaminophen 500 mg Tablet 1,000 mg PO TID Rx Instructions: GIVE AT 8AM,1PM,7PM divalproex 125 mg capsule, delayed rel sprinkle 250 mg PO QAM magnesium chloride 64 mg magnesium Tablet 64 mg PO BID Deep Sea Nasal 0.65 % Aerosol,[place] 1 spray INTRANASAL TID polyethylene glycol 3350 [SmoothLax] 17 gram Powder In Packet 17 g PO DAILY PRN (Reason: Constipation) doxycycline hyclate 100 mg Capsule 100 mg PO DAILY Discontinued Eliquis 2.5 mg tablet 2.5 mg PO BID Discharge Orders: Discharge Order (Routine); Ordered 03/11/25 Ordered By: Christine Gomez Admission Data Admit Date/Time: 03/10/25 11:36 Attending Provider: Raymond Santos Admit Provider: Raymond Santos Primary Care Provider: Ras Day Other Interventions: Discharge Summary Assessment (RN) Last Done: 03/11/25 11:29 Hospital Stay Data Diagnostic Imagining Performed 03/10/25 08:32 CT head/brain wo con Stat 03/10/25 09:30 CT for pulmonary embolism PE [CT angio chest PE protocol] Stat 03/10/25 09:42 CT abd pelvis IV con only Stat 03/10/25 12:31 US venous doppler LE BI Urgent Pending Results Patient Have Any Pending Studies at Discharge: No Discharge Instructions Given to Patient (Per Discharging Provider) Ms. Shrestha, Betito were recently hospitalized secondary to a syncope episode. While here, you were found to have a pulmonary emboli and were treated with anticoagulation medication. Medications: Your medication list has been reviewed and reconciled upon discharge to ensure accuracy and continuity of care. An updated list of all your medications is included with your hospital discharge paperwork. Please review this list closely, and make note of any changes. Your Eliquis has been increased to 5mg twice daily. Please take your next dose this evening, 03/11. Take your medications as instructed; do not skip a dose of your medicines. Make sure all of your doctors know every medicine you are taking (including enes-dfp-yeneuyg medicines, vitamins, and supplements). Call your primary care provider before taking any new medicines (including over- the-counter medicines, vitamins, and supplements), because some of these may interact with your current medications, or may make your symptoms worse. Tell your primary care provider if you cannot afford your medications. Activity: You can do normal everyday activities as your body allows. Take rest breaks if you feel tired. Do not overexert. Stop activity if you have pain, shortness of breath or feel dizzy. Follow-up appointments: Make an appointment with your primary care physician within one week of discharge. A copy of this summary will be sent to them. Every time you see your primary care physician, or any other doctor, bring your medication list, and a list of questions. CONTACT YOUR PRIMARY CARE PROVIDER if you experience any of the following: Shortness of breath or difficulty breathing Fevers or chills Feeling tired with normal activity or experiencing dizziness or fainting Difficulty following your treatment plan, or difficulty taking medications CALL 911 OR GO TO THE EMERGENCY DEPARTMENT if you experience any of the following: Severe abdominal pain or nausea/vomiting Severe chest pain, or chest pain that radiates (moves) to your jaw or arm Sudden, severe shortness of breath or difficulty breathing Thank you for allowing us to participate in your care. Supervising Physician Co-Signing Physician Notes The patient was not seen by me. The chart was reviewed. Case discussed with FLOYD Trevino. Agree with assessment and plan Total Time Total Time Spent Total Time Spent (In Minutes): 45 Total Time Includes: Examination of the Patient, Discharge Planning and Medication Reconciliation Coding Level of Care Code 75404 INP/OBS DISCH >30 MIN Diagnoses Syncope R55 Pulmonary emboli I26.99 Dementia F03.B11 Dementia behavioral or psychological symptom: with agitation Dementia severity: moderate Dementia type: unspecified type Anemia D64.9 Anemia type: unspecified type Infected prosthesis of left hip T84.52XA"
== END 2025-03-11 15:25 | disposition home or self-care (01) | DRG 176 ==
LOC: SUATTDRO → ED 07:53 → INTOOBSV 11:36 → 2N 11:36

== ENCOUNTER 2025-03-30 20:14 | Observation (INO) ==
[2025-03-30] MEDS: ACETAMINOPHEN 1,000 MG/100 ML VIAL IV STA (20:31)
[2025-03-30] MEDS: SODIUM CHLORIDE 0.9% 500 ML IV SCH (20:31)
[2025-03-30] MEDS: PROTHROMBIN COMP CONC- KCENTRA 2,000 UNITS in SYRINGE 0 ML IV STA (20:38)
[2025-03-30] MEDS: STAT IV/IM STA (20:38)
[2025-03-30 20:48] LABS: Hematocrit (blood only) 28.2 % (37.0-47.0); Hemoglobin 9.3 g/dL (12.0-16.0); Immature Granulocytes # (auto) 0.02 K/uL (0.01-0.20); Immature Granulocytes % (auto) 0.3 %; Mean Corpuscular Hemoglobin 34.2 pg (25.0-34.0); Mean Corpuscular Volume 103.7 fL (80.0-100.0); Platelet Count 237 K/uL (130-400); RDW Standard Deviation 54.9 fL (36.4-46.3); Red Blood Count 2.72 M/uL (4.20-5.40); White Blood Count 6.46 K/ul (4.8-10.8)
--- NOTE | 2025-03-30 21:00 | Emergency Department Note ---
Impression & Plan Generalized weakness, Anemia, Acute pain of left thigh ED Provider Note NAME: TORSTEN GALEANO AGE: 84 SEX: F : 1940 ARRIVES VIA: Ambulance INFORMANT: Patient, EMS, the patient's personal-detention ED PROVIDER(S): Steve Birmingham DO CHIEF COMPLAINT: Difficulty walking HPI: The patient is an 84-year-old female who presented to the emergency department from her snf. This is the third time the patient has been in our facility this month. The prehospital personnel did not have a good history on the patient. The patient has severe dementia. We had to call the patient's personal-detention. They are concerned because she has not been able to walk and appears to have pain in her left hip. The patient has a history of previous hip replacement. There is no reported trauma. The patient has not been eating well according to the personal-detention. The patient himself denies having any chest pain or difficulty breathing. ROS: See above HPI for pertinent positives & negatives. A total of 10 systems reviewed and were otherwise negative. PAST MEDICAL HISTORY: See Below PAST SURGICAL HISTORY: See Below FAMILY HISTORY: See Below SOCIAL HISTORY: See Below HOME MEDICATIONS: See Below ALLERGIES: See Below VITALS: See Below PHYSICAL EXAMINATION: GENERAL: Patient is awake alert in no acute distress patient is resting comfortably and showing no signs of anxiety EYES: The conjunctivae are clear. The pupils are round and reactive. EARS, NOSE, MOUTH AND THROAT: The nose is without any evidence of any deformity. NECK: The neck is nontender and supple. RESPIRATORY: Normal respiratory effort is noted there is no evidence of wheezing rhonchi or rales CARDIOVASCULAR: Regular rate and rhythm noted there no murmurs rubs or gallops normal S1 normal S2. GASTROINTESTINAL: The abdomen is soft. Abdomen is nontender. MUSCULOSKELETAL/EXTREMITIES: There is no evidence of gross deformity full range of motion is noted in the hips and shoulders. SKIN: No significant pedal edema was noted. Pulses are symmetric in both feet. There was an area on the lateral left hip which was mildly erythematous. There was no drainage or dehiscence. NEUROLOGIC: Patient is awake alert and oriented to person and place but not time or situation. Strength is diminished but symmetric. MEDICAL DECISION MAKING: The patient is an 84-year-old female who presented to the emergency department at the request of of the assistant chief nursing officer at her personal-detention. The patient did not have any recent falls. She does have a history of a previous hip replacement. She had swelling over the area of her previous hip surgery. This seems to be getting worse and the patient is not putting as much weight on the leg. She has been seen in our facility multiple times over the last few weeks. The patient was found to have an anemia as well as signs of a hematoma on the left thigh. Given the patient's inability to ambulate as well as the apparent difficulty of doing outpatient studies on this patient I do feel she would be a better candidate for patient management. She may require further imaging or possibly referral to a specialist. This reason I [facility] Nursing notes reviewed. Prior medical records reviewed Vital Signs: reviewed and remarkable for no significant abnormalities Differential diagnosis: Infection, dehydration, metabolic abnormality, hypo/hyperglycemia, electrolyte disturbance, anemia, hypoxia, cardiac sources, intracerebral event, toxicologic, neurologic, as well as other pathologies. ER treatment provided: See below Diagnostics interpreted by me: ECG: EKG was obtained in the emergency department. My interpretation is normal sinus rhythm at 63 bpm. Right bundle branch block pattern was noted. There were no PVCs. This was compared to a tracing from March 26, 2025. No changes were noted. Cardiac Monitoring: An order was placed for continuous cardiac monitoring. The monitor shows a rate of 73 bpm with sinus rhythm. Laboratory studies: As stated above and show below. Imaging studies: See below. Radiographic imaging was reviewed by myself Consultation(s): Dr. Sanchez was notified about the patient. [facility] Past Med/Surg History Problem List (Updated 03/31/25 @ 00:17 by Steve Birmingham DO) Acute pain of left thigh (Acute) Anemia (Acute) Generalized weakness (Acute) Acute dehydration (Acute) Pulmonary embolism (Acute) Syncope (Acute) Pulmonary emboli Syncope [facility] resident Bedridden Infected prosthesis of left hip Traumatic hematoma of lower leg with infection History of surgical site infection History of left hip replacement Anemia (Acute) Dementia (Acute) Acute blood loss anemia Hypothyroidism Delirium multifactorial Dementia cryptogenic, but plausible vascular etiology or contribution given history of CVA History of CVA (cerebrovascular accident) Hip hematoma, left Hip pain (Acute) Hypotension Medical History Left hip pain 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 Social History Smoking Status: Never smoker Tobacco Type: Cigarettes Second Hand Exposure: No; Do You Dip or Chew Tobacco: No; Hx Alcohol Use: No Hx Substance Use: No Preferred Language: Egyptian Communication Ability: Effective Commercial [employer] Specialist Required: No Beliefs That Will Affect Care: None Current Living Situation: [facility] Current Living Situation Comment: [facility] Feels Safe at Home: Yes Assistive Devices: Walker Allergies Allergies Allergy/AdvReac Type Severity Reaction Status Date / Time cinnamon Allergy Intermediate Flushing Verified 03/30/25 22:40 haloperidol [From Haldol] AdvReac Severe excessive Verified 03/30/25 22:40 sedation as per [facility] Home Meds Home Medications Medication Instructions Recorded Confirmed acetaminophen 500 mg tablet 1,000 mg PO TID 01/29/24 03/30/25 divalproex 125 mg capsule,delayed 250 mg PO QAM 01/29/24 03/30/25 release sprinkle magnesium chloride 64 mg 64 mg PO BID 01/29/24 03/30/25 (magnesium chloride) tablet polyethylene glycol 3350 17 gram 17 g PO DAILY PRN Constipation 01/29/24 03/30/25 oral powder packet (SmoothLax) sodium chloride 0.65 % nasal spray 1 spray intranasal TID 01/29/24 03/30/25 aerosol (Deep Sea Nasal) doxycycline hyclate 100 mg capsule 100 mg PO DAILY 06/28/24 03/30/25 carboxymethylcellulose sodium 0.5 1 drp ophthalmic (eye) TID PRN 03/10/25 03/30/25 % eye drops itching or irritation fluconazole 200 mg tablet 200 mg PO DAILY 03/10/25 03/30/25 food supplemt, lactose-reduced 1 ea PO TID 03/10/25 03/30/25 hydrochlorothiazide 12.5 mg capsule 12.5 mg PO QAM 03/10/25 03/30/25 naproxen sodium 220 mg tablet 220 mg PO BID PRN Pain 03/10/25 03/30/25 olanzapine 2.5 mg tablet 2.5 mg PO TID 03/10/25 03/30/25 Previous Rx's Medication Instructions Recorded anastrozole 1 mg tablet 1 mg PO QAM #30 tabs 05/16/23 divalproex 125 mg capsule,delayed 500 mg (4 x 125 mg) PO HS #120 caps 05/16/23 release sprinkle levothyroxine 125 mcg tablet 125 mcg PO DAILYBB #30 tabs 05/16/23 apixaban 5 mg tablet (Eliquis) 5 mg PO BID #60 tabs 03/11/25 Results & Data (ED) Vital Signs Vital Signs - 24 hr 03/30/25 20:11 03/30/25 20:11 03/30/25 20:34 Temperature 36.3 C L Temperature Source Oral Pulse Rate 63 59 L Pulse Rate [Apical] Pulse Rhythm Regular Pulse Strength Normal Respiratory Rate 19 Respiratory Effort / Characteristics Non-Labored Respiratory Depth Normal Respiratory Pattern Regular Blood Pressure 105/75 Blood Pressure [Right Arm] Blood Pressure Mean 85 Blood Pressure Mean [Right Arm] Blood Pressure Position Lying Blood Pressure Position [Right Arm] Pulse Oximetry 100 Oxygen Delivery Method Room Air Room Air Sepsis Recent Fever Within 48 Hours No Sepsis New/Unexplained Change in Mental Status No Sepsis Action Taken by Nursing No Action Required 03/30/25 23:01 Temperature Temperature Source Pulse Rate Pulse Rate [Apical] 73 Pulse Rhythm Pulse Strength Respiratory Rate 20 Respiratory Effort / Characteristics Non-Labored Spontaneous Respiratory Depth Normal Respiratory Pattern Regular Blood Pressure Blood Pressure [Right Arm] 130/74 Blood Pressure Mean Blood Pressure Mean [Right Arm] 92 Blood Pressure Position Blood Pressure Position [Right Arm] Semi-fowlers Pulse Oximetry 98 Oxygen Delivery Method Room Air Sepsis Recent Fever Within 48 Hours Sepsis New/Unexplained Change in Mental Status Sepsis Action Taken by [facility] Medications Current Medication List: was personally reviewed by me Laboratory Data Attestation: I reviewed the patient's lab results. 03/30/25 20:26 03/30/25 20:26 Lab Results 03/30/25 03/30/25 Range/Units 20:26 23:40 WBC 6.46 (4.8-10.8) K/ul RBC 2.72 L (4.20-5.40) M/uL Hgb 9.3 L (12.0-16.0) g/dL Hct 28.2 L (37.0-47.0) % MCV 103.7 H (80.0-100.0) fL MCH 34.2 H (25.0-34.0) pg MCHC 33.0 (32.0-36.0) g/dL RDW Std Deviation 54.9 H (36.4-46.3) fL RDW Coeff of Andrea 14.3 (11.5-14.5) % Plt Count 237 (130-400) K/uL MPV 9.7 (9.4-12.4) fL Immature Gran % (Auto) 0.3 % Neut % (Auto) 45.2 % Lymph % (Auto) 36.7 % Callahan % (Auto) 15.6 % Eos % (Auto) 1.7 % Baso % (Auto) 0.5 % Neut # (Auto) 2.92 (1.40-6.50) K/uL Lymph # (Auto) 2.37 (1.20-3.40) K/uL Callahan # (Auto) 1.01 H (0.11-0.59) K/uL Eos # (Auto) 0.11 (0.00-0.50) K/uL Baso # (Auto) 0.03 (0.00-0.20) K/uL Immature Gran # (Auto) 0.02 (0.01-0.20) K/uL PT 11.2 (9.0-12.0) Seconds INR 1.1 (0.9-1.1) Fibrinogen 403 H (184-400) mg/dl Heparin Anti-Xa, LM Wt > 1.50 (< 0.10) IU/ML Sodium 137 (136-145) mmol/L Potassium 4.7 (3.5-5.1) mmol/L Chloride 103 (98-107) mmol/L Carbon Dioxide 27 (21-32) mmol/L Anion Gap 7 (3-11) BUN 40 H (6-23) mg/dl Creatinine 1.14 (0.6-1.2) mg/dl Est Cr Clr Drug Dosing 33.8 ml/min eGFR 47.18 BUN/Creatinine Ratio 35.1 H (10-20) Glucose 111 H (70-99(Fasting)) mg/dl Calcium 8.9 (8.6-10.3) mg/dl Magnesium 2.4 (1.7-2.4) mg/dl Total Bilirubin 0.3 (0.2-1.0) mg/dl AST 31 (13-39) U/L ALT 11 (7-52) U/L Alkaline Phosphatase 62 (34-104) U/L Troponin I High Sens 4.6 (0-14) pg/ml Total Protein 7.3 (6.0-8.3) gm/dl Albumin 3.1 L (3.4-5.0) gm/dl Globulin 4.2 H (2.5-4.0) gm/dl Albumin/Globulin Ratio 0.7 L (0.9-2) TSH 2.024 (0.300-4.500) uIu/ml Urine Color Yellow Urine Appearance Clear (Clear) Urine pH 7.5 (4.5-7.5) Ur Specific [place] 1.015 (1.000-1.030) Urine Protein Negative (Negative) Urine Glucose (UA) Negative (Negative) Urine Ketones Negative (Negative) Urine Blood Negative (Negative) Urine Nitrite Negative (Negative) Urine Bilirubin Negative (Negative) Urine Urobilinogen Negative (Negative) Ur Leukocyte Esterase Negative (Negative) Urine Comment Administered Medications Discontinued Medications Sodium Chloride (Nss) 500 mls @ 999 mls/hr IV .Q31M BO Stop: 03/30/25 21:00 Last Infusion: 03/30/25 21:50 Dose: Infused Documented By: yogi Admin: 03/30/25 20:31 Dose: 999 mls/hr Documented By: ELVIS Acetaminophen (Ofirmev) 1,000 mg in 100 mls @ 400 mls/hr IV NOW STA Stop: 03/30/25 20:41 Last Infusion: 03/30/25 21:49 Dose: Infused Documented By: yogi Admin: 03/30/25 20:31 Dose: 400 mls/hr Documented By: ELVIS Prothrombin Complex Concent ( (Human) 2,000 units/ Syringe) 80 mls @ 10 mls/min IV NOW STA Stop: 03/30/25 20:36 Last Admin: 03/30/25 20:38 Dose: Not Given Documented By: ELVIS Lorazepam (Lorazepam 1 Mg/1 Ml Syr Ed Inj Use) 0.5 mg IV ONE STA Stop: 03/30/25 21:56 Last Admin: 03/30/25 21:59 Dose: 0.5 mg Documented By: yogi Miscellaneous (Stat Iv/Im) 1 each N/A NOW STA Stop: 03/30/25 20:30 Last Admin: 03/30/25 20:38 Dose: Not Given Documented By: ELVIS Olanzapine (Olanzapine 2.5 Mg Tab) 2.5 mg PO ONE ONE Stop: 03/30/25 21:56 Last Admin: 03/30/25 23:22 Dose: Not Given Documented By: [facility] Imaging Data Attestation: I personally reviewed and interpreted this imaging study as follows: My Impression: 1 view chest x-ray was obtained in the emergency department. My interpretation is no free air or definite infiltrate, final report below. Radiologist's Impression: Abdomen/Pelvis CT 03/30/25 20:27 Exam(s): CT ABDOMEN + PELVIS Without Contrast EXAM: CT Abdomen and Pelvis Without Intravenous Contrast CLINICAL HISTORY: lower pain. TECHNIQUE: Axial computed tomography images of the abdomen and pelvis without intravenous contrast. CTDI is 19.74 mGy and DLP is 943.25 mGy-cm. Automated exposure control was utilized for the study. A dose lowering technique was utilized adhering to the principles of ALARA. COMPARISON: CT abdomen and pelvis with contrast FINDINGS: Artifacts: Scatter artifact likely related to patient's arm position. Lung bases: No significant abnormality. No mass. No consolidation. ABDOMEN: Liver: No significant abnormality. Gallbladder and bile ducts: Subcentimeter calcified gallstones noted layering dependently in the gallbladder. No gallbladder wall thickening or biliary dilatation. Pancreas: No significant abnormality. No ductal dilation. Spleen: No significant abnormality. No splenomegaly. Adrenals: No significant abnormality. No mass. Kidneys and ureters: No significant abnormality. No obstructing stones. No hydronephrosis. Stomach and bowel: No evidence for bowel obstruction. Evaluation of the bowel mucosa is slightly limited without contrast; however, no definite focal asymmetry suggested. Vyjb-[id number] stool burden. No diverticulitis. PELVIS: Appendix: No findings to suggest acute appendicitis. Bladder: No significant abnormality. No stones. Reproductive: Status post hysterectomy. ABDOMEN and PELVIS: Intraperitoneal space: No significant abnormality. No free air. No significant fluid collection. Bones/joints: A left total hip arthroplasty is noted. No acute fracture. No dislocation. Soft tissues: No significant abnormality. Vasculature: Atherosclerotic disease. 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 Lymph nodes: Similar left periaortic infrarenal lymph nodes similar nonspecific pelvic lymph nodes adjacent to the external iliac arteries, [id number]-right. IMPRESSION: 1. No evidence for bowel obstruction. Evaluation of the bowel mucosa is slightly limited without contrast; however, no definite focal asymmetry suggested. Qigl-[id number] stool burden. No diverticulitis. No free intraperitoneal fluid or pneumoperitoneum. 2. Subcentimeter calcified gallstones noted layering dependently in the gallbladder. No gallbladder wall thickening or biliary dilatation. The clinical significance of this finding is indeterminate and this may be incidental. Electronically signed by: Braeden Burkett MD 03/30/25 23:45 PM Chest X-Ray 03/30/25 20:27 Exam(s): XR CXR 1 VIEW EXAM: XR Chest, 1 View CLINICAL HISTORY: weakness. TECHNIQUE: Frontal view of the chest. COMPARISON: No relevant prior studies available. FINDINGS: Lungs: Subtle subcentimeter nodular opacities in the right mid to lower lung zone centrally are more prominent from the previous examination. The lungs are otherwise well-aerated without definite focal airspace consolidation. The pulmonary vasculature appears somewhat equalized. No radiographic evidence for florid CHF. Patient's lower face obscures visualization of portions of the lung apex. Pleural space: No significant abnormality. No pneumothorax. No large pleural effusion. Heart: No significant abnormality. No cardiomegaly. Mediastinum: The mediastinal contours are stable, accounting for prominent kyphosis and slight obliquity. Bones/joints: No acute osseous abnormality. Soft tissues: Postsurgical changes involving the right lateral thorax soft tissues. IMPRESSION: 1. Subtle subcentimeter nodular opacities in the right mid to lower lung zone centrally are more prominent from the previous examination. This raises suspicion for subtle alveolitis/pneumonia. The lungs are otherwise well-aerated without definite focal airspace consolidation. 2. The pulmonary vasculature appears somewhat equalized. No radiographic evidence for florid CHF. Mild underlying vascular congestion suspected. Electronically signed by: Braeden Burkett MD 03/30/25 23:[address] 03/30/25 20:27 Exam(s): CT EXTREMITY LEFT LOWER Without Contrast EXAM: CT Left Lower Extremity Without Intravenous Contrast CLINICAL HISTORY: sent by [facility] for swelling. TECHNIQUE: Axial computed tomography images of the left lower extremity without intravenous contrast. CTDI is 9.97 mGy and DLP is 541.34 mGy-cm. Automated exposure control was utilized for the study. A dose lowering technique was utilized adhering to the principles of ALARA. COMPARISON: CT left hip with contrast 08/11/2024 FINDINGS: Bones/joints: A left total hip arthroplasties noted. Cerclage wires and lateral plate surrounding the intramedullary stem component. No acute fracture. The femoral head component is well seated. No dislocation. Soft tissues: Evaluation of the soft tissues is limited without contrast. However, the previously noted fluid collection along the posterior aspect of the proximal femur is suggested with similar morphologic appearance partially circumferential extending laterally along the cranial aspect of the presumed collection and posteriorly along the caudal aspect measuring up to 4.9 cm in diameter from 4.5 cm previously. Questionable more prominent marginal calcifications when compared to the prior exam. IMPRESSION: Evaluation of the soft tissues is limited without contrast. However, the previously noted fluid collection along the posterior aspect of the proximal femur is suggested with similar morphologic appearance partially circumferential extending laterally along the cranial aspect of the presumed collection and posteriorly along the caudal aspect measuring up to 4.9 cm in diameter from 4.5 cm previously. Questionable more prominent marginal calcifications when compared to the prior exam. The suspected fluid collection may be further assessed with either contrast CT, MRI or ultrasound. Electronically signed by: Braeden Burkett MD 03/31/25 00:[address] 03/30/25 20:27 Exam(s): CT HEAD Without Contrast EXAM: CT Head Without Intravenous Contrast CLINICAL HISTORY: weakness. TECHNIQUE: Axial computed tomography images of the head/brain without intravenous contrast. CTDI is 35.65 mGy and DLP is 624.41 mGy-cm. Automated exposure control was utilized for the study. A dose lowering technique was utilized adhering to the principles of ALARA. COMPARISON: CT Head dated 03/26/2025 FINDINGS: Limitations: There is motion artifact, which degrades image quality on multiple image slices. Brain: There are a few areas of decreased attenuation in the deep cerebral white matter consistent with mild small vessel ischemic/degenerative changes. The cerebral and cerebellar sulci are mildly prominent consistent with mild brain atrophy. No intracranial hemorrhage. No significant mass effect. No appreciable alteration in appearance of the parenchyma when compared to the previous examination. Ventricles: No significant abnormality. No ventriculomegaly. Bones/joints: No significant abnormality. No acute fracture. Soft tissues: No significant abnormality. Vasculature: Atherosclerotic disease. Sinuses: Unremarkable as visualized. No acute sinusitis. Mastoid air cells: Unremarkable as visualized. No mastoid effusion. IMPRESSION: No acute intracranial process or significant alteration from the prior examination. Chronic underlying presumed age-related findings incidentally noted. Electronically signed by: Braeden Burkett MD 03/31/25 00:18 AM Discharge Plan Visit Data Chief Complaint: Weakness Stated Complaint: Leg Pain, Weakness ED Provider: Steve Birmingham Discharge Problem: Generalized weakness, Anemia, Acute pain of left thigh Patient Disposition: Being Evaluated by Hospitalist Condition: Fair Forms Stand Alone Forms: My [facility] Prescriptions Prescriptions: No Action divalproex 125 mg Capsule, Delayed Rel Sprinkle 500 mg PO HS Qty: 120 0RF anastrozole 1 mg Tablet 1 mg PO QAM Qty: 30 0RF levothyroxine 125 mcg Tablet 125 mcg PO DAILYBB Qty: 30 0RF fluconazole 200 mg tablet 200 mg PO DAILY olanzapine 2.5 mg tablet 2.5 mg PO TID hydrochlorothiazide 12.5 mg capsule 12.5 mg PO QAM carboxymethylcellulose sodium 0.5 % Drops 1 drp OPHTHALMIC (EYE) TID PRN (Reason: itching or irritation) naproxen sodium 220 mg Tablet 220 mg PO BID PRN (Reason: Pain ) food supplemt, lactose-reduced Liquid 1 ea PO TID Rx Instructions: VANILLA liquid between meals Eliquis 5 mg tablet 5 mg PO BID Qty: 60 0RF acetaminophen 500 mg Tablet 1,000 mg PO TID Rx Instructions: GIVE AT 8AM,1PM,7PM divalproex 125 mg capsule, delayed rel sprinkle 250 mg PO QAM magnesium chloride 64 mg magnesium Tablet 64 mg PO BID Deep Sea Nasal 0.65 % Aerosol,[place] 1 spray INTRANASAL TID polyethylene glycol 3350 [SmoothLax] 17 gram Powder In Packet 17 g PO DAILY PRN (Reason: Constipation) doxycycline hyclate 100 mg Capsule 100 mg PO DAILY Referrals Referrals: Ras Day [Primary Care Provider] -
[2025-03-30 21:06] LABS: Alanine Aminotransferase 11.0 U/L (7-52); Albumin Globulin Ratio 0.7 (0.9-2); Albumin Level 3.1 gm/dl (3.4-5.0); Alkaline Phosphatase 62.0 U/L (34-104); Anion Gap 7.0 (3-11); Bilirubin,Total 0.3 mg/dl (0.2-1.0); Blood Urea Nitrogen 40.0 mg/dl (6-23); Calcium 8.9 mg/dl (8.6-10.3); Carbon Dioxide 27.0 mmol/L (21-32); Chloride 103.0 mmol/L (98-107); Creatinine Clr Calc Pharmacy 33.8 ml/min; Globulin 4.2 gm/dl (2.5-4.0); Glucose 111.0 mg/dl (70-99(Fasting)); Magnesium 2.4 mg/dl (1.7-2.4); Potassium 4.7 mmol/L (3.5-5.1); Sodium 137.0 mmol/L (136-145); Total Protein 7.3 gm/dl (6.0-8.3)
[2025-03-30 21:15] LABS: INR 1.1 (0.9-1.1); Prothrombin Time 11.2 Seconds (9.0-12.0)
[2025-03-30 21:21] LABS: Thyroid Stimulating Hormone 2.024 uIu/ml (0.300-4.500)
[2025-03-30 21:22] LABS: Fibrinogen 403 mg/dl (184-400)
[2025-03-30 21:38] LABS: ANTI-Xa, LMWH(Low Molecular Wt > 1.50 IU/ML (< 0.10)
[2025-03-30] MEDS: LORazepam 1 MG/1 ML SYR ED Inj Use IV STA (21:59)
[2025-03-30] MEDS: OLANZAPINE 2.5 MG TAB PO ONE (23:22)
--- NOTE | 2025-03-30 23:23 | XRay Report ---
Exam(s): XR CXR 1 VIEW EXAM: XR Chest, 1 View CLINICAL HISTORY: weakness. TECHNIQUE: Frontal view of the chest. COMPARISON: No relevant prior studies available. FINDINGS: Lungs: Subtle subcentimeter nodular opacities in the right mid to lower lung zone centrally are more prominent from the previous examination. The lungs are otherwise well-aerated without definite focal airspace consolidation. The pulmonary vasculature appears somewhat equalized. No radiographic evidence for florid CHF. Patient's lower face obscures visualization of portions of the lung apex. Pleural space: No significant abnormality. No pneumothorax. No large pleural effusion. Heart: No significant abnormality. No cardiomegaly. Mediastinum: The mediastinal contours are stable, accounting for prominent kyphosis and slight obliquity. Bones/joints: No acute osseous abnormality. Soft tissues: Postsurgical changes involving the right lateral thorax soft tissues. IMPRESSION: 1. Subtle subcentimeter nodular opacities in the right mid to lower lung zone centrally are more prominent from the previous examination. This raises suspicion for subtle alveolitis/pneumonia. The lungs are otherwise well-aerated without definite focal airspace consolidation. 2. The pulmonary vasculature appears somewhat equalized. No radiographic evidence for florid CHF. Mild underlying vascular congestion suspected. Electronically signed by: Braeden Burkett MD 03/30/25 23:23 PM
--- NOTE | 2025-03-30 23:46 | CT Scan Report ---
Exam(s): CT ABDOMEN + PELVIS Without Contrast EXAM: CT Abdomen and Pelvis Without Intravenous Contrast CLINICAL HISTORY: lower pain. TECHNIQUE: Axial computed tomography images of the abdomen and pelvis without intravenous contrast. CTDI is 19.74 mGy and DLP is 943.25 mGy-cm. Automated exposure control was utilized for the study. A dose lowering technique was utilized adhering to the principles of ALARA. COMPARISON: CT abdomen and pelvis with contrast FINDINGS: Artifacts: Scatter artifact likely related to patient's arm position. Lung bases: No significant abnormality. No mass. No consolidation. ABDOMEN: Liver: No significant abnormality. Gallbladder and bile ducts: Subcentimeter calcified gallstones noted layering dependently in the gallbladder. No gallbladder wall thickening or biliary dilatation. Pancreas: No significant abnormality. No ductal dilation. Spleen: No significant abnormality. No splenomegaly. Adrenals: No significant abnormality. No mass. Kidneys and ureters: No significant abnormality. No obstructing stones. No hydronephrosis. Stomach and bowel: No evidence for bowel obstruction. Evaluation of the bowel mucosa is slightly limited without contrast; however, no definite focal asymmetry suggested. [id number] stool burden. No diverticulitis. PELVIS: Appendix: No findings to suggest acute appendicitis. Bladder: No significant abnormality. No stones. Reproductive: Status post hysterectomy. ABDOMEN and PELVIS: Intraperitoneal space: No significant abnormality. No free air. No significant fluid collection. Bones/joints: A left total hip arthroplasty is noted. No acute fracture. No dislocation. Soft tissues: No significant abnormality. Vasculature: Atherosclerotic disease. 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 Lymph nodes: Similar left periaortic infrarenal lymph nodes similar nonspecific pelvic lymph nodes adjacent to the external iliac arteries, [id number]-right. IMPRESSION: 1. No evidence for bowel obstruction. Evaluation of the bowel mucosa is slightly limited without contrast; however, no definite focal asymmetry suggested. Foiu-rj-gfwpuccz stool burden. No diverticulitis. No free intraperitoneal fluid or pneumoperitoneum. 2. Subcentimeter calcified gallstones noted layering dependently in the gallbladder. No gallbladder wall thickening or biliary dilatation. The clinical significance of this finding is indeterminate and this may be incidental. Electronically signed by: Braeden Burkett MD 03/30/25 23:45 PM
[2025-03-30 23:53] LABS: Appearance Urine Clear (Clear); Glucose Urine UA Negative (Negative)
--- NOTE | 2025-03-31 00:20 | CT Scan Report ---
Exam(s): CT HEAD Without Contrast EXAM: CT Head Without Intravenous Contrast CLINICAL HISTORY: weakness. TECHNIQUE: Axial computed tomography images of the head/brain without intravenous contrast. CTDI is 35.65 mGy and DLP is 624.41 mGy-cm. Automated exposure control was utilized for the study. A dose lowering technique was utilized adhering to the principles of ALARA. COMPARISON: CT Head dated 03/26/2025 FINDINGS: Limitations: There is motion artifact, which degrades image quality on multiple image slices. Brain: There are a few areas of decreased attenuation in the deep cerebral white matter consistent with mild small vessel ischemic/degenerative changes. The cerebral and cerebellar sulci are mildly prominent consistent with mild brain atrophy. No intracranial hemorrhage. No significant mass effect. No appreciable alteration in appearance of the parenchyma when compared to the previous examination. Ventricles: No significant abnormality. No ventriculomegaly. Bones/joints: No significant abnormality. No acute fracture. Soft tissues: No significant abnormality. Vasculature: Atherosclerotic disease. Sinuses: Unremarkable as visualized. No acute sinusitis. Mastoid air cells: Unremarkable as visualized. No mastoid effusion. IMPRESSION: No acute intracranial process or significant alteration from the prior examination. Chronic underlying presumed age-related findings incidentally noted. Electronically signed by: Braeden Burkett MD 03/31/25 00:18 AM
--- NOTE | 2025-03-31 00:23 | CT Scan Report ---
Exam(s): CT EXTREMITY LEFT LOWER Without Contrast EXAM: CT Left Lower Extremity Without Intravenous Contrast CLINICAL HISTORY: sent by [facility] for swelling. TECHNIQUE: Axial computed tomography images of the left lower extremity without intravenous contrast. CTDI is 9.97 mGy and DLP is 541.34 mGy-cm. Automated exposure control was utilized for the study. A dose lowering technique was utilized adhering to the principles of ALARA. COMPARISON: CT left hip with contrast 08/11/2024 FINDINGS: Bones/joints: A left total hip arthroplasties noted. Cerclage wires and lateral plate surrounding the intramedullary stem component. No acute fracture. The femoral head component is well seated. No dislocation. Soft tissues: Evaluation of the soft tissues is limited without contrast. However, the previously noted fluid collection along the posterior aspect of the proximal femur is suggested with similar morphologic appearance partially circumferential extending laterally along the cranial aspect of the presumed collection and posteriorly along the caudal aspect measuring up to 4.9 cm in diameter from 4.5 cm previously. Questionable more prominent marginal calcifications when compared to the prior exam. IMPRESSION: Evaluation of the soft tissues is limited without contrast. However, the previously noted fluid collection along the posterior aspect of the proximal femur is suggested with similar morphologic appearance partially circumferential extending laterally along the cranial aspect of the presumed collection and posteriorly along the caudal aspect measuring up to 4.9 cm in diameter from 4.5 cm previously. Questionable more prominent marginal calcifications when compared to the prior exam. The suspected fluid collection may be further assessed with either contrast CT, MRI or ultrasound. Electronically signed by: Braeden Burkett MD 03/31/25 00:22 AM
--- NOTE | 2025-03-31 00:51 | History & Physical Report ---
Date of Service March 31, 2025 Assessment & Plan (1) Acute pain of left thigh: (2) Pulmonary emboli: (3) Infected prosthesis of left hip: (4) Hypothyroidism: Plan 84yo female presenting from her correction with report of increased pain and swelling of the left hip. Per record review - patient with prosthetic left hip. She seems to have sustained a traumatic hematoma to the left thigh which then became infected. She has been seen by Orthopedics for this issue and had an I/D with removal of hardware and debridement performed on 03/18/24. She was treated with antibiotics. Her deep cultures grew jake and is receiving Fluconazole. She continues on Fluconazole and Doxycycline for ongoing antibiotic management. Patient has had multiple images of the left thigh performed. On 06/28/2024 noted to have an 8.3 x 7.5 x 5cm rim enhancing multiloculated multicompartment left thigh rim enhancing fluid collection which has decreased in size compared to MRI from 03/16/24. CT of the hip from 08/11/[address] of the femur obtained today with possible increase in collection size (noted 4.5 --> 4.9cm) No trauma reported. No fever Patient is on Eliquis anticoagulation for history of PE and has had a decrease in her Hgb 11.7 --> 9.3 and Hct 36.4 --> 28.4 when compared to 03/26/25 raising possibility of hematoma in the left thigh. Patient does not display any laboratory evidence of sepsis or worsening infection at this time. #Acute Left Hip Pain - with history of traumatic hematoma with infection. On Fluconazole and Doxycycline therapy -Repeat labs in the AM -If significant decline in H/H would consider CT with contrast to assess for possible bleed vs MRI -Consider Orthopedics evaluation -PT/OT consult appreciated #History of PE -Hold Apixaban for now while assessing for possible hematoma #Dementia / Behavioral health -Continue Divalproex -Continue Olanzapine -One to one sitter as needed -Frequent orientation, delirium prevention measures #Hypothyroidism- TSH WNL at 2.024 -Continue Synthroid #History of cancer -Continue Anastrozole ROBERT stockings to bilateral LE DNR per chart review POC Orly Smith - [place] - [phone] History of Present Illness Chief Complaint: left thigh swelling Primary Care Provider: Ras Dodgenathan Shrestha is an 84yo female with history of LEFT BERTHA with prosthetic joint infection on Fluconazole and Doxycycline therapy presenting from her correction with report of increased swelling in her left thigh as well as difficulty with ambulation. Patient is unable to provide history. No family or caretakers at bedside. Minimal documentation with patient. In the ER she is afebrile, HD stable ER Course: NSS x 500mL Tylenol 1gm Ativan 0.5mg IV at 21:59 Allergies Allergy/AdvReac Type Severity Reaction Status Date / Time cinnamon Allergy Intermediate Flushing Verified 03/30/25 22:40 haloperidol [From Haldol] AdvReac Severe excessive Verified 03/30/25 22:40 sedation as per family Home Medications Medication Instructions Recorded Confirmed Type anastrozole 1 mg tablet 1 mg PO QAM #30 tabs 05/16/23 03/30/25 Rx divalproex 125 mg capsule,delayed 500 mg (4 x 125 mg) PO HS #120 caps 05/16/23 03/30/25 Rx release sprinkle levothyroxine 125 mcg tablet 125 mcg PO DAILYBB #30 tabs 05/16/23 03/30/25 Rx acetaminophen 500 mg tablet 1,000 mg PO TID 01/29/24 03/30/25 History divalproex 125 mg capsule,delayed 250 mg PO QAM 01/29/24 03/30/25 History release sprinkle magnesium chloride 64 mg 64 mg PO BID 01/29/24 03/30/25 History (magnesium chloride) tablet polyethylene glycol 3350 17 gram 17 g PO DAILY PRN Constipation 01/29/24 03/30/25 History oral powder packet (SmoothLax) sodium chloride 0.65 % nasal spray 1 spray intranasal TID 01/29/24 03/30/25 History aerosol (Deep Sea Nasal) doxycycline hyclate 100 mg capsule 100 mg PO DAILY 06/28/24 03/30/25 History carboxymethylcellulose sodium 0.5 1 drp ophthalmic (eye) TID PRN 03/10/25 03/30/25 History % eye drops itching or irritation fluconazole 200 mg tablet 200 mg PO DAILY 03/10/25 03/30/25 History food supplemt, lactose-reduced 1 ea PO TID 03/10/25 03/30/25 History hydrochlorothiazide 12.5 mg capsule 12.5 mg PO QAM 03/10/25 03/30/25 History naproxen sodium 220 mg tablet 220 mg PO BID PRN Pain 03/10/25 03/30/25 History olanzapine 2.5 mg tablet 2.5 mg PO TID 03/10/25 03/30/25 History apixaban 5 mg tablet (Eliquis) 5 mg PO BID #60 tabs 03/11/25 03/30/25 Rx Past Med/Surg History Problem List (Updated 03/31/25 @ 01:05 by Lauren Sanchez DO) Acute pain of left thigh (Acute) Generalized weakness (Acute) Acute dehydration (Acute) Pulmonary emboli Syncope [facility] resident Bedridden Infected prosthesis of left hip Traumatic hematoma of lower leg with infection History of surgical site infection History of left hip replacement Acute blood loss anemia Hypothyroidism Delirium multifactorial Dementia cryptogenic, but plausible vascular etiology or contribution given history of CVA History of CVA (cerebrovascular accident) Hip hematoma, left Hypotension Medical History Left hip pain 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 Social History Smoking Status: Never smoker Tobacco Type: Cigarettes Second Hand Exposure: No; Do You Dip or Chew Tobacco: No; Hx Alcohol Use: No Hx Substance Use: No Preferred Language: [place] Communication Ability: Effective [employer] Attendant Required: No Beliefs That Will Affect Care: None Current Living Situation: [facility] Current Living Situation Comment: [facility] Feels Safe at Home: Yes Assistive Devices: Walker Review of Systems Review of Systems: All systems reviewed & are unremarkable except as noted in HPI & below Physical Exam Physical Exam: General: patient resting comfortably, NAD, not oriented, does not answer questions appropriately Skin: warm, dry, intact, no rashes or lesions HEENT: NC/AT, PERRL, EOMI, anicteric sclera, conjunctiva without injection, external ear normal to inspection and nontender, nares patent, moist mucus membranes, dentition intact, no oropharyngeal lesions, neck supple, trachea midline, no LAD, no thyromegaly, no JVD Heart: +S1/S2, regular, 4/6 MALLORY across precordium Lungs: equal air entry bilaterally, no rales/rhonchi/wheezes Abd: +BS, soft, NT/ND, no masses/organomegaly/ascites Ext: edema to left thigh, non-tender to palpation, no redness or warmth Neuro: nonfocal, patient with dementia, does not answer questions appropriately Results & Data Results & Data Vital Signs (Past 12 Hours) Vital Signs Temp Pulse Pulse Resp BP BP Pulse Ox 03/30/25 23:01 73 20 130/74 98 03/30/25 20:34 59 L 03/30/25 20:11 03/30/25 20:11 36.3 C L 63 19 105/75 100 O2 Del Method 03/30/25 23:01 Room Air 03/30/25 20:34 03/30/25 20:11 Room Air 03/30/25 20:11 Room Air Laboratory Results Laboratory Results WBC 6.46 K/ul (4.8-10.8) 03/30/25 20: RBC 2.72 M/uL (4.20-5.40) L 03/30/25 20: Hgb 9.3 g/dL (12.0-16.0) L 03/30/25 20: Hct 28.2 % (37.0-47.0) L 03/30/25 20: MCV 103.7 fL (80.0-100.0) H 03/30/25 20: MCH 34.2 pg (25.0-34.0) H 03/30/25 20: MCHC 33.0 g/dL (32.0-36.0) 03/30/25 20: RDW Std Deviation 54.9 fL (36.4-46.3) H 03/30/25: RDW Coeff of Andrea 14.3 % (11.5-14.5) 03/30/25 20: Plt Count 237 K/uL (130-400) 03/30/25 20: MPV 9.7 fL (9.4-12.4) 03/30/25 20: Immature Gran % (Auto) 0.3 % 03/30/25 20: Neut % (Auto) 45.2 % 03/30/25 20: Lymph % (Auto) 36.7 % 03/30/25: [place] % (Auto) 15.6 % 03/30/25 20: Eos % (Auto) 1.7 % 03/30/25 20: Baso % (Auto) 0.5 % 03/30/25 20: Neut # (Auto) 2.92 K/uL (1.40-6.50) 03/30/25 20: Lymph # (Auto) 2.37 K/uL (1.20-3.40) 03/30/25 20: [place] # (Auto) 1.01 K/uL (0.11-0.59) H 03/30/25 20: Eos # (Auto) 0.11 K/uL (0.00-0.50) 03/30/25 20: Baso # (Auto) 0.03 K/uL (0.00-0.20) 03/30/25 20: Immature Gran # (Auto) 0.02 K/uL (0.01-0.20) 03/30/25 20: PT 11.2 Seconds (9.0-12.0) 03/30/25 20: INR 1.1 (0.9-1.1) 03/30/25 20: Fibrinogen 403 mg/dl (184-400) H 03/30/25 20: Heparin Anti-Xa, LM Wt > 1.50 IU/ML (< 0.10) 03/30/25 20: Sodium 137 mmol/L (136-145) 03/30/25 20: Potassium 4.7 mmol/L (3.5-5.1) 03/30/25 20: Chloride 103 mmol/L (98-107) 03/30/25 20: Carbon Dioxide 27 mmol/L (21-32) 03/30/25 20: Anion Gap 7 (3-11) 03/30/25 20: BUN 40 mg/dl (6-23) H 03/30/25 20: Creatinine 1.14 mg/dl (0.6-1.2) 03/30/25: Est Cr Clr Drug Dosing 33.8 ml/min 03/30/25 20: eGFR 47.18 03/30/25 20: BUN/Creatinine Ratio 35.1 (10-20) H 03/30/25 20: Glucose 111 mg/dl (70-99(Fasting)) H 03/30/25 20:26 Calcium 8.9 mg/dl (8.6-10.3) 03/30/25 20:26 Magnesium 2.4 mg/dl (1.7-2.4) 03/30/25 20:26 Total Bilirubin 0.3 mg/dl (0.2-1.0) 03/30/25 20:26 AST 31 U/L (13-39) 03/30/25 20:26 ALT 11 U/L (7-52) 03/30/25 20:26 Alkaline Phosphatase 62 U/L (34-104) 03/30/25 20:26 Troponin I High Sens 4.6 pg/ml (0-14) 03/30/25 20: Total Protein 7.3 gm/dl (6.0-8.3) 03/30/25 20: Albumin 3.1 gm/dl (3.4-5.0) L 03/30/25 20:26 Globulin 4.2 gm/dl (2.5-4.0) H 03/30/25 20: Albumin/Globulin Ratio 0.7 (0.9-2) L 03/30/25 20:26 TSH 2.024 uIu/ml (0.300-4.500) 03/30/25 20:26 Urine Color Yellow 03/30/25 23:40 Urine Appearance Clear (Clear) 03/30/25 23:40 Urine pH 7.5 (4.5-7.5) 03/30/25 23:40 Ur Specific [place] 1.015 (1.000-1.030) 03/30/25 23:40 Urine Protein Negative (Negative) 03/30/25 23:40 Urine Glucose (UA) Negative (Negative) 03/30/25 23:40 Urine Ketones Negative (Negative) 03/30/25 23:40 Urine Blood Negative (Negative) 03/30/25 23:40 Urine Nitrite Negative (Negative) 03/30/25 23:40 Urine Bilirubin Negative (Negative) 03/30/25 23:40 Urine Urobilinogen Negative (Negative) 03/30/25 23:40 Ur Leukocyte Esterase Negative (Negative) 03/30/25 23:40 Urine Comment 03/30/25 23:40 Impressions Abdomen/Pelvis CT 03/30/25 20:27 Exam(s): CT ABDOMEN + PELVIS Without Contrast EXAM: CT Abdomen and Pelvis Without Intravenous Contrast CLINICAL HISTORY: lower pain. TECHNIQUE: Axial computed tomography images of the abdomen and pelvis without intravenous contrast. CTDI is 19.74 mGy and DLP is 943.25 mGy-cm. Automated exposure control was utilized for the study. A dose lowering technique was utilized adhering to the principles of ALARA. COMPARISON: CT abdomen and pelvis with contrast FINDINGS: Artifacts: Scatter artifact likely related to patient's arm position. Lung bases: No significant abnormality. No mass. No consolidation. ABDOMEN: Liver: No significant abnormality. Gallbladder and bile ducts: Subcentimeter calcified gallstones noted layering dependently in the gallbladder. No gallbladder wall thickening or biliary dilatation. Pancreas: No significant abnormality. No ductal dilation. Spleen: No significant abnormality. No splenomegaly. Adrenals: No significant abnormality. No mass. Kidneys and ureters: No significant abnormality. No obstructing stones. No hydronephrosis. Stomach and bowel: No evidence for bowel obstruction. Evaluation of the bowel mucosa is slightly limited without contrast; however, no definite focal asymmetry suggested. Eziv-ra-baftrahh stool burden. No diverticulitis. PELVIS: Appendix: No findings to suggest acute appendicitis. Bladder: No significant abnormality. No stones. Reproductive: Status post hysterectomy. ABDOMEN and PELVIS: Intraperitoneal space: No significant abnormality. No free air. No significant fluid collection. Bones/joints: A left total hip arthroplasty is noted. No acute fracture. No dislocation. Soft tissues: No significant abnormality. Vasculature: Atherosclerotic disease. 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 Lymph nodes: Similar left periaortic infrarenal lymph nodes similar nonspecific pelvic lymph nodes adjacent to the external iliac arteries, [id number]-right. IMPRESSION: 1. No evidence for bowel obstruction. Evaluation of the bowel mucosa is slightly limited without contrast; however, no definite focal asymmetry suggested. Rgmn-hu-hsuomwts stool burden. No diverticulitis. No free intraperitoneal fluid or pneumoperitoneum. 2. Subcentimeter calcified gallstones noted layering dependently in the gallbladder. No gallbladder wall thickening or biliary dilatation. The clinical significance of this finding is indeterminate and this may be incidental. Electronically signed by: Braeden Burkett MD 03/30/25 23:45 PM Chest X-Ray 03/30/25 20:27 Exam(s): XR CXR 1 VIEW EXAM: XR Chest, 1 View CLINICAL HISTORY: weakness. TECHNIQUE: Frontal view of the chest. COMPARISON: No relevant prior studies available. FINDINGS: Lungs: Subtle subcentimeter nodular opacities in the right mid to lower lung zone centrally are more prominent from the previous examination. The lungs are otherwise well-aerated without definite focal airspace consolidation. The pulmonary vasculature appears somewhat equalized. No radiographic evidence for florid CHF. Patient's lower face obscures visualization of portions of the lung apex. Pleural space: No significant abnormality. No pneumothorax. No large pleural effusion. Heart: No significant abnormality. No cardiomegaly. Mediastinum: The mediastinal contours are stable, accounting for prominent kyphosis and slight obliquity. Bones/joints: No acute osseous abnormality. Soft tissues: Postsurgical changes involving the right lateral thorax soft tissues. IMPRESSION: 1. Subtle subcentimeter nodular opacities in the right mid to lower lung zone centrally are more prominent from the previous examination. This raises suspicion for subtle alveolitis/pneumonia. The lungs are otherwise well-aerated without definite focal airspace consolidation. 2. The pulmonary vasculature appears somewhat equalized. No radiographic evidence for florid CHF. Mild underlying vascular congestion suspected. Electronically signed by: Braeden Burkett MD 03/30/25 23:[address] 03/30/25 20:27 Exam(s): CT EXTREMITY LEFT LOWER Without Contrast EXAM: CT Left Lower Extremity Without Intravenous Contrast CLINICAL HISTORY: sent by [facility] for swelling. TECHNIQUE: Axial computed tomography images of the left lower extremity without intravenous contrast. CTDI is 9.97 mGy and DLP is 541.34 mGy-cm. Automated exposure control was utilized for the study. A dose lowering technique was utilized adhering to the principles of ALARA. COMPARISON: CT left hip with contrast 08/11/2024 FINDINGS: Bones/joints: A left total hip arthroplasties noted. Cerclage wires and lateral plate surrounding the intramedullary stem component. No acute fracture. The femoral head component is well seated. No dislocation. Soft tissues: Evaluation of the soft tissues is limited without contrast. However, the previously noted fluid collection along the posterior aspect of the proximal femur is suggested with similar morphologic appearance partially circumferential extending laterally along the cranial aspect of the presumed collection and posteriorly along the caudal aspect measuring up to 4.9 cm in diameter from 4.5 cm previously. Questionable more prominent marginal calcifications when compared to the prior exam. IMPRESSION: Evaluation of the soft tissues is limited without contrast. However, the previously noted fluid collection along the posterior aspect of the proximal femur is suggested with similar morphologic appearance partially circumferential extending laterally along the cranial aspect of the presumed collection and posteriorly along the caudal aspect measuring up to 4.9 cm in diameter from 4.5 cm previously. Questionable more prominent marginal calcifications when compared to the prior exam. The suspected fluid collection may be further assessed with either contrast CT, MRI or ultrasound. Electronically signed by: Braeden Burkett MD 03/31/25 00:[address] 03/30/25 20:27 Exam(s): CT HEAD Without Contrast EXAM: CT Head Without Intravenous Contrast CLINICAL HISTORY: weakness. TECHNIQUE: Axial computed tomography images of the head/brain without intravenous contrast. CTDI is 35.65 mGy and DLP is 624.41 mGy-cm. Automated exposure control was utilized for the study. A dose lowering technique was utilized adhering to the principles of ALARA. COMPARISON: CT Head dated 03/26/2025 FINDINGS: Limitations: There is motion artifact, which degrades image quality on multiple image slices. Brain: There are a few areas of decreased attenuation in the deep cerebral white matter consistent with mild small vessel ischemic/degenerative changes. The cerebral and cerebellar sulci are mildly prominent consistent with mild brain atrophy. No intracranial hemorrhage. No significant mass effect. No appreciable alteration in appearance of the parenchyma when compared to the previous examination. Ventricles: No significant abnormality. No ventriculomegaly. Bones/joints: No significant abnormality. No acute fracture. Soft tissues: No significant abnormality. Vasculature: Atherosclerotic disease. Sinuses: Unremarkable as visualized. No acute sinusitis. Mastoid air cells: Unremarkable as visualized. No mastoid effusion. IMPRESSION: No acute intracranial process or significant alteration from the prior examination. Chronic underlying presumed age-related findings incidentally noted. Electronically signed by: Braeden Burkett MD 03/31/25 00:18 AM PG Care Time/CCT Total # of Minutes Spent Total Time Spent with Patient: Total time spent is greater than 50% in coordination of care (as documented) at patient's floor/unit and/or counseling patient: Coding Level of Care Code 46547 INT INP/OBS CARE 3/75MIN Diagnoses Acute pain of left thigh M79.652 Pulmonary emboli I26.99 Infected prosthesis of left hip T84.52XA Hypothyroidism E03.9
[2025-03-31] MEDS ORDERED: POLYETHYLENE (MIRALAX) 17 GM PACK PO PRN (03:17)
[2025-03-31 06:28] LABS: Hematocrit (blood only) 27.8 % (37.0-47.0); Hemoglobin 9.3 g/dL (12.0-16.0); Mean Corpuscular Hemoglobin 34.7 pg (25.0-34.0); Mean Corpuscular Volume 103.7 fL (80.0-100.0); Platelet Count 220 K/uL (130-400); RDW Standard Deviation 53.0 fL (36.4-46.3); Red Blood Count 2.68 M/uL (4.20-5.40); White Blood Count 5.74 K/ul (4.8-10.8)
[2025-03-31 06:58] LABS: Anion Gap 4.0 (3-11); Blood Urea Nitrogen 30.0 mg/dl (6-23); Calcium 8.7 mg/dl (8.6-10.3); Carbon Dioxide 30.0 mmol/L (21-32); Chloride 105.0 mmol/L (98-107); Creatinine Clr Calc Pharmacy 39.0 ml/min; Glucose 76.0 mg/dl (70-99(Fasting)); Potassium 5.0 mmol/L (3.5-5.1); Sodium 139.0 mmol/L (136-145)
[2025-03-31] MEDS: hydroCHLOROthiazide 25 MG TAB PO SCH (08:14)
[2025-03-31] MEDS: ANASTROZOLE 1 MG TAB PO SCH (08:14)
[2025-03-31] MEDS: FLUCONAZOLE 100 MG TAB PO SCH (08:15)
[2025-03-31] MEDS: DOXYCYCLINE HYCLATE 100 MG CAP PO SCH (08:15)
[2025-03-31] MEDS: OLANZAPINE 2.5 MG TAB PO SCH (08:15)
[2025-03-31] MEDS: DIVALPROEX SODIUM SPRINKLE/DEL-REL 125 MG CAP PO SCH ×2 (08:15→19:54)
[2025-03-31] MEDS: LEVOTHYROXINE SODIUM 125 MCG TABLET PO SCH (08:16)
[2025-03-31] MEDS: SODIUM CHLORIDE 0.65% NA SOLN 45 ML (OCEAN) SCH (08:18)
[2025-03-31] MEDS: ACETAMINOPHEN 500 MG TAB PO SCH (08:18)
--- NOTE | 2025-03-31 09:30 | Hospitalist Progress Note ---
Date of Service March 31, 2025 Assessment & Plan (1) Acute pain of left thigh: (2) Pulmonary emboli: (3) Infected prosthesis of left hip: (4) Hypothyroidism: Plan 84yo female presenting from her longterm with report of increased pain and swelling of the left hip. Per record review - patient with prosthetic left hip. She seems to have sustained a traumatic hematoma to the left thigh which then became infected. She has been seen by Orthopedics for this issue and had an I/D with removal of hardware and debridement performed on 03/18/24. She was treated with antibiotics. Her deep cultures grew jake and is receiving Fluconazole. She continues on Fluconazole and Doxycycline for ongoing antibiotic management. Patient has had multiple images of the left thigh performed. On 06/28/2024 noted to have an 8.3 x 7.5 x 5cm rim enhancing multiloculated multicompartment left thigh rim enhancing fluid collection which has decreased in size compared to MRI from 03/16/24. CT of the hip from 08/11/[address] of the femur obtained today with possible increase in collection size (noted 4.5 --> 4.9cm) No trauma reported. No fever Patient is on Eliquis anticoagulation for history of PE and has had a decrease in her Hgb 11.7 --> 9.3 and Hct 36.4 --> 28.4 when compared to 03/26/25 raising possibility of hematoma in the left thigh. Patient does not display any laboratory evidence of sepsis or worsening infection at this time. #Acute Left Hip Pain - with history of traumatic hematoma with infection. On Fluconazole and Doxycycline therapy Supportive care Neurovascular checks CT femur with increase in collection as above If clinical signs of deterioration/compartment syndrome, repeat CT with contrast/CTA hip and femur to rule out active extravasation Monitor H&H Resume anticoagulation once okay with orthopedics Orthopedics consulted #History of PE Anticoagulation As above #Dementia / Behavioral health -Continue Divalproex -Continue Olanzapine -One to one sitter as needed -Frequent orientation, delirium prevention measures #Hypothyroidism- TSH WNL at 2.024 -Continue Synthroid #History of cancer -Continue Anastrozole ROBERT stockings to bilateral LE DNR per chart review POC Orly Sanonmynorradha - Ailyn - [phone] Disposition SNF Admission and Anticipated Discharge Date Admission Date: March 31, 2025 Subjective Sitting up in bed comfortably eating breakfast. Endorses ongoing unchanged pain left thigh region. Denies numbness tingling weakness distally. Denies nausea fevers chills or any other symptoms. Limited historian due to dementia. Discussed with orthopedic surgeon this morning he will see when able after performing surgeries this morning Distally NVI able to wiggle toes move feet positive pulses clinically no signs of compartment syndrome Review of Systems Review of Systems: Negative except as in HPI Physical Exam Physical Exam: General: patient resting comfortably, NAD, not oriented, does not answer questions appropriately Skin: warm, dry, intact, no rashes or lesions HEENT: NC/AT, PERRL, EOMI, anicteric sclera, conjunctiva without injection, external ear normal to inspection and nontender, nares patent, moist mucus membranes, dentition intact, no oropharyngeal lesions, neck supple, trachea midline, no LAD, no thyromegaly, no JVD Heart: +S1/S2, regular, 4/6 MALLORY across precordium Lungs: equal air entry bilaterally, no rales/rhonchi/wheezes Abd: +BS, soft, NT/ND, no masses/organomegaly/ascites Ext: edema to left thigh, non-tender to palpation, no redness or warmth Neuro: nonfocal, patient with dementia, does not answer questions appropriately Results & Data Results & Data Vital Signs (Past 12 Hours) Vital Signs Temp Pulse Pulse Pulse Resp BP BP 03/31/25 07:58 36.6 C 57 L 18 135/81 03/31/25 03:22 70 16 118/58 L 03/31/25 02:52 60 17 122/71 03/31/25 01:33 60 03/31/25 01:00 61 15 122/71 03/30/25 23:01 73 20 130/74 Pulse Ox O2 Del Method 03/31/25 07:58 95 Room Air 03/31/25 03:22 98 Room Air 03/31/25 02:52 100 Room Air 03/31/25 01:33 03/31/25 01:00 96 Room Air 03/30/25 23:01 98 Room Air PG Care Time/CCT Total # of Minutes Spent Total Time Spent with Patient: Total time spent is greater than 50% in coordination of care (as documented) at patient's floor/unit and/or counseling patient: Coding Level of Care Code 60910 SUB INP/OBS CARE 2/35MIN Diagnoses Acute pain of left thigh M79.652 Pulmonary emboli I26.99 Infected prosthesis of left hip T84.52XA Hypothyroidism E03.9
--- NOTE | 2025-03-31 12:56 | Electrocardiogram Report ---
Test Reason : Blood Pressure : */* mmHG Vent. Rate : 63 BPM Atrial Rate : 63 BPM P-R Int : 162 ms QRS Dur : 106 ms QT Int : 424 ms P-R-T Axes : 52 51 64 degrees QTcB Int : 433 ms Normal sinus rhythm Incomplete right bundle branch block Borderline ECG When compared with ECG of 26-Mar-2025 19:31, No significant change was found Confirmed by Steve Vargas ([id number]) on 03/31/2025 12:56:29 PM Referred By: REFERRED SELF Confirmed By: Steve Vargas
--- NOTE | 2025-03-31 13:22 | Orthopedic Consultation ---
Date of Consultation March 31, 2025 Assessment & Plan (1) Abscess of left thigh: (2) Left hip pain: (3) Generalized weakness: (4) Pulmonary emboli: (5) care home resident: (6) Infected prosthesis of left hip: (7) History of left hip replacement: (8) Delirium: (9) Dementia: (10) History of CVA (cerebrovascular accident): Iamn Montez is a pleasantly demented 84-year-old female presents to the hospital from her nursing facility due to a concern for increased pain in her left hip. As noted in the HPI section of this note, the patient is well-known to me. I first met her in February of last year with concerns for an active infection about her left total hip prosthesis. This left total hip prosthesis was placed a year prior after a fall outside of the [place] area. She had multiple prior irrigation and debridements, but prior to the first time that I met her, she was never on chronic antibiotic suppression. Given the active state of her infection, we took her to the operating room for irrigation and debridement, however given the morbidity associated with dislocating the hip, doing a headliner exchange, and especially given the morbidity associated with an explant with antibiotic spacer, the patient's POA elected for simple decompression of the abscess with chronic antibiotic suppression thereafter. I did follow the patient in clinic for some time, and she was stable upon multiple visits months later, so after discussing this with the patient's TAWANDAAOrly, the patient's POA elected for her mother to continue on chronic antibiotic suppression and stop orthopedic follow-up. The patient's POA had actually become quite upset at how often the long-term was sending her to the hospital for her left hip because the left hip has remained stable since her most recent surgery about a year ago. On my evaluation today, the patient's surgical incision appears the best I have ever seen it. It is now completely healed. Given the fact that it is completely healed, the hematoma/seroma underneath may increase in size over time. It is almost certainly infected and is almost certainly represents a prosthetic joint infection, however given the patient's medical frailty, her pleasantly demented state, and her relatively normal level of function with chronic antibiotic suppression, my recommendation remains for chronic antibiotic suppression without large reconstruction surgery. I suspect patient's TAWANDAAOrly would agree based on the multiple discussions I had with her prior, however should she change her mind, my recommendation would be to have this patient evaluated by an arthroplasty specialist. At this point, the patient shows no signs or symptoms concerning for sepsis or severe infection. Patient's white blood cell count is 5.74. She has been afebrile. Her vital signs are stable. 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 I recommend continuing her chronic antibiotic suppression with doxycycline and fluconazole and continuing to allow her to bear weight as tolerated. Patient is on anticoagulation for history of PE, and the risk of the hematoma worsening versus a clot needs to be weighed, but orthopedically, I see no contraindication for her to be on her anticoagulation. No plans for acute orthopedic intervention at this time. History of Present Illness Reason for Consultation: left hip Attending Physician: Franky Castro MD History of Present Illness Tc is a pleasantly demented 84-year-old female who I originally met about a year ago when she came in with concerns of sepsis secondary to an infected left total hip prosthesis. She has a PMHx significant for HTN, Hx of CVA, hx PE on Eliquis (01/2023), breast cancer, s/p surgery & radiation currently on Arimidex, hypothyroidism, mood disorder, occipital neuralgia as per records. Patient currently resides at [facility]. When I first met the patient, it was discovered through discussion with her POA, her neice, Orly, that her original surgery was a total hip arthroplasty about two years ago for a femoral neck fracture. She had 2 subsequent surgeries for irrigation and debridement due to concern for infection/hematoma. After the third surgery, she was transported to the [facility] to be closer to her niece. During that admission, the patient was taken to the operating room by myself for evaluation of the hematoma with irrigation and debridement. We did also obtain cultures to help guide further antibiotic therapy. We opted for incomplete source control due to the morbidity associated with explant of all of her components and since that time she has been on chronic antibiotic suppression therapy. She has returned a few times to the emergency department complaining of left hip pain and I have seen her in the clinic multiple times for this as well, however each time that she has presented, she has appeared comfortable without signs of worsening of the infection. History is gathered entirely from chart review as patient cannot participate in history gathering, and her niece, Orly is unreachable as she is [place] of the country. This time, she was brought to the emergency department due to concerns at her nursing facility for decreased ambulation and potentially increase swelling of the left hip. She was admitted the hospital team and orthopedics is consulted. On my evaluation this afternoon, the patient is seated comfortably in her hospital bed eating lunch. She is pleasant and appears at her baseline cognitive status. Allergies Allergy/AdvReac Type Severity Reaction Status Date / Time cinnamon Allergy Intermediate Flushing Verified 03/30/25 22:40 haloperidol [From Haldol] AdvReac Severe excessive Verified 03/30/25 22:40 sedation as per family Home Medications Medication Instructions Recorded Confirmed Type anastrozole 1 mg tablet 1 mg PO QAM #30 tabs 05/16/23 03/30/25 Rx divalproex 125 mg capsule,delayed 500 mg (4 x 125 mg) PO HS #120 caps 05/16/23 03/30/25 Rx release sprinkle levothyroxine 125 mcg tablet 125 mcg PO DAILYBB #30 tabs 05/16/23 03/30/25 Rx acetaminophen 500 mg tablet 1,000 mg PO TID 01/29/24 03/30/25 History divalproex 125 mg capsule,delayed 250 mg PO QAM 01/29/24 03/30/25 History release sprinkle magnesium chloride 64 mg 64 mg PO BID 01/29/24 03/30/25 History (magnesium chloride) tablet polyethylene glycol 3350 17 gram 17 g PO DAILY PRN Constipation 01/29/24 03/30/25 History oral powder packet (SmoothLax) sodium chloride 0.65 % nasal spray 1 spray intranasal TID 01/29/24 03/30/25 History aerosol (Deep Sea Nasal) doxycycline hyclate 100 mg capsule 100 mg PO DAILY 06/28/24 03/30/25 History carboxymethylcellulose sodium 0.5 1 drp ophthalmic (eye) TID PRN 03/10/25 03/30/25 History % eye drops itching or irritation fluconazole 200 mg tablet 200 mg PO DAILY 03/10/25 03/30/25 History food supplemt, lactose-reduced 1 ea PO TID 03/10/25 03/30/25 History hydrochlorothiazide 12.5 mg capsule 12.5 mg PO QAM 03/10/25 03/30/25 History naproxen sodium 220 mg tablet 220 mg PO BID PRN Pain 03/10/25 03/30/25 History olanzapine 2.5 mg tablet 2.5 mg PO TID 03/10/25 03/30/25 History apixaban 5 mg tablet (Eliquis) 5 mg PO BID #60 tabs 03/11/25 03/30/25 Rx Patient History Medical History Left hip pain 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 Social History Smoking Status: Never smoker Tobacco Type: Cigarettes Second Hand Exposure: No; Do You Dip or Chew Tobacco: No; Hx Alcohol Use: No Hx Substance Use: No Preferred Language: Chinese Communication Ability: Impaired Drill Doctor Required: No Beliefs That Will Affect Care: None Current Living Situation: Long-Term Current Living Situation Comment: [facility] Other Information That Helps Us Care for You: No Feels Safe at Home: Yes Safety Concerns: Feels Safe At This Time Assistive Devices: Walker Review of Systems Review of Systems: Unobtainable due to cognitive status Physical Exam Physical Exam: On physical examination the patient's left hip, her prior surgical incision is actually entirely healed today. This is a person I have seen this entirely healed. There is no significant erythema. No fluid able to be expressed from the hip. She has minimal tenderness palpation about her left hip. Results & Data Vital Signs (Past 12 Hours) Vital Signs Temp Pulse Pulse Resp BP BP Pulse Ox 03/31/25 07:58 36.6 C 57 L 18 135/81 95 03/31/25 03:22 70 16 118/58 L 98 03/31/25 02:52 60 17 122/71 100 03/31/25 01:33 60 O2 Del Method 03/31/25 07:58 Room Air 03/31/25 03:22 Room Air 03/31/25 02:52 Room Air 03/31/25 01:[address] and CT the femur personally interpreted and reviewed. These demonstrate a known seroma/hematoma collection on the lateral side of the patient's left hip. Stable left hip prosthesis.
[2025-04-01 08:38] LABS: Hematocrit (blood only) 33.2 % (37.0-47.0); Hemoglobin 10.9 g/dL (12.0-16.0); Mean Corpuscular Hemoglobin 34.4 pg (25.0-34.0); Mean Corpuscular Volume 104.7 fL (80.0-100.0); Platelet Count 281 K/uL (130-400); RDW Standard Deviation 52.0 fL (36.4-46.3); Red Blood Count 3.17 M/uL (4.20-5.40); White Blood Count 4.87 K/ul (4.8-10.8)
[2025-04-01 09:04] LABS: Albumin Level 3.6 gm/dl (3.4-5.0); Anion Gap 7.0 (3-11); Bilirubin,Total 0.4 mg/dl (0.2-1.0); Calcium 9.3 mg/dl (8.6-10.3); Carbon Dioxide 27.0 mmol/L (21-32); Chloride 104.0 mmol/L (98-107); Potassium 4.0 mmol/L (3.5-5.1); Sodium 138.0 mmol/L (136-145)
[2025-04-01] MEDS: APIXABAN 5 MG TABLET PO SCH (09:07)
[2025-04-01 09:11] LABS: Alanine Aminotransferase 9.0 U/L (7-52); Albumin Globulin Ratio 0.8 (0.9-2); Alkaline Phosphatase 61.0 U/L (34-104); Blood Urea Nitrogen 29.0 mg/dl (6-23); Creatinine Clr Calc Pharmacy 42.8 ml/min; Globulin 4.3 gm/dl (2.5-4.0); Glucose 89.0 mg/dl (70-99(Fasting)); Total Protein 7.9 gm/dl (6.0-8.3)
--- NOTE | 2025-04-01 10:40 | Hospitalist Progress Note ---
Date of Service April 01, 2025 Assessment & Plan (1) Acute pain of left thigh: (2) Pulmonary emboli: (3) Infected prosthesis of left hip: (4) Hypothyroidism: Plan 84yo female presenting from her [facility] with report of increased pain and swelling of the left hip. Per record review - patient with prosthetic left hip. She seems to have sustained a traumatic hematoma to the left thigh which then became infected. She has been seen by Orthopedics for this issue and had an I/D with removal of hardware and debridement performed on 03/18/24. She was treated with antibiotics. Her deep cultures grew jake and is receiving Fluconazole. She continues on Fluconazole and Doxycycline for ongoing antibiotic management. Patient has had multiple images of the left thigh performed. On 06/28/2024 noted to have an 8.3 x 7.5 x 5cm rim enhancing multiloculated multicompartment left thigh rim enhancing fluid collection which has decreased in size compared to MRI from 03/16/24. CT of the hip from 08/11/[address] of the femur obtained today with possible increase in collection size (noted 4.5 --> 4.9cm) No trauma reported. No fever Patient is on Eliquis anticoagulation for history of PE and has had a decrease in her Hgb 11.7 --> 9.3 and Hct 36.4 --> 28.4 when compared to 03/26/25 raising possibility of hematoma in the left thigh. Patient does not display any laboratory evidence of sepsis or worsening infection at this time. #Acute Left Hip Pain - with history of traumatic hematoma with infection. On Fluconazole and Doxycycline therapy Supportive care Neurovascular checks CT femur with increase in collection as above If clinical signs of deterioration/compartment syndrome, repeat CT with contrast/CTA hip and femur to rule out active extravasation Monitor H&H Eliquis resumed on 04/01 monitor for worsening hematoma Orthopedics Recommends conservative management continuing with chronic Antimicrobials and at some point if POA wants surgery done for likely chronically infected hematoma/hardware, then Needs referral to an arthroplasty specialist #History of PE Anticoagulation As above #Dementia / Behavioral health -Continue Divalproex -Continue Olanzapine -One to one sitter as needed -Frequent orientation, delirium prevention measures #Hypothyroidism- TSH WNL at 2.024 -Continue Synthroid #History of cancer -Continue Anastrozole ROBERT stockings to bilateral LE DNR per chart review POC Orly Robertson - [phone] Disposition SNF Admission and Anticipated Discharge Date Admission Date: March 31, 2025 Subjective Doing very well ambulating around the room with assisted living nursing director/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 She denies any notable symptoms. No fevers or chills. Thigh pain seems to be improved. Examined seems to be a little improved no notable swelling warmth redness or other abnormalities. Distally NVI Eliquis reinitiated X-ray from admission raises concern for congestion versus pneumonia. Clinically she has no fevers chills cough chest pain shortness of breath O2 requirements or any other evidence of clinical manifestations Review of Systems Review of Systems: Negative except as in HPI Physical Exam Physical Exam: General: patient resting comfortably, NAD, not oriented, does not answer questions appropriately Skin: warm, dry, intact, no rashes or lesions HEENT: NC/AT, PERRL, EOMI, anicteric sclera, conjunctiva without injection, external ear normal to inspection and nontender, nares patent, moist mucus membranes, dentition intact, no oropharyngeal lesions, neck supple, trachea midline, no LAD, no thyromegaly, no JVD Heart: +S1/S2, regular, 4/6 MALLORY across precordium Lungs: equal air entry bilaterally, no rales/rhonchi/wheezes Abd: +BS, soft, NT/ND, no masses/organomegaly/ascites Ext: edema to left thigh, non-tender to palpation, no redness or warmth Neuro: nonfocal, patient with dementia, does not answer questions appropriately Results & Data Results & Data Vital Signs (Past 12 Hours) Vital Signs Temp Pulse Pulse Pulse Resp BP BP 04/01/25 07:49 36.3 C L 75 75 14 116/78 03/31/25 22:44 36.6 C 62 16 119/74 Pulse Ox O2 Del Method 04/01/25 07:49 95 Room Air 03/31/25 22:44 94 Room Air PG Care Time/CCT Total # of Minutes Spent Total Time Spent with Patient: Total time spent is greater than 50% in coordination of care (as documented) at patient's floor/unit and/or counseling patient: Coding Level of Care Code 70724 SUB INP/OBS CARE 2/35MIN Diagnoses Acute pain of left thigh M79.652 Pulmonary emboli I26.99 Infected prosthesis of left hip T84.52XA Hypothyroidism E03.9
[2025-04-02 08:28] LABS: Hematocrit (blood only) 29.8 % (37.0-47.0); Hemoglobin 9.9 g/dL (12.0-16.0); Mean Corpuscular Hemoglobin 33.8 pg (25.0-34.0); Mean Corpuscular Volume 101.7 fL (80.0-100.0); Platelet Count 290 K/uL (130-400); RDW Standard Deviation 50.3 fL (36.4-46.3); Red Blood Count 2.93 M/uL (4.20-5.40); White Blood Count 5.48 K/ul (4.8-10.8)
[2025-04-02 08:47] LABS: Alanine Aminotransferase 11.0 U/L (7-52); Albumin Globulin Ratio 0.9 (0.9-2); Albumin Level 3.5 gm/dl (3.4-5.0); Alkaline Phosphatase 59.0 U/L (34-104); Anion Gap 7.0 (3-11); Bilirubin,Total 0.3 mg/dl (0.2-1.0); Blood Urea Nitrogen 30.0 mg/dl (6-23); Calcium 9.3 mg/dl (8.6-10.3); Carbon Dioxide 27.0 mmol/L (21-32); Chloride 104.0 mmol/L (98-107); Creatinine Clr Calc Pharmacy 40.8 ml/min; Globulin 4.1 gm/dl (2.5-4.0); Glucose 78.0 mg/dl (70-99(Fasting)); Potassium 4.1 mmol/L (3.5-5.1); Sodium 138.0 mmol/L (136-145); Total Protein 7.6 gm/dl (6.0-8.3)
--- NOTE | 2025-04-02 10:48 | Hospitalist Progress Note ---
Date of Service April 02, 2025 Assessment & Plan (1) Acute pain of left thigh: (2) Pulmonary emboli: (3) Infected prosthesis of left hip: (4) Hypothyroidism: Plan 84yo female presenting from her detention with report of increased pain and swelling of the left hip. Per record review - patient with prosthetic left hip. She seems to have sustained a traumatic hematoma to the left thigh which then became infected. She has been seen by Orthopedics for this issue and had an I/D with removal of hardware and debridement performed on 03/18/24. She was treated with antibiotics. Her deep cultures grew jake and is receiving Fluconazole. She continues on Fluconazole and Doxycycline for ongoing antibiotic management. Patient has had multiple images of the left thigh performed. On 06/28/2024 noted to have an 8.3 x 7.5 x 5cm rim enhancing multiloculated multicompartment left thigh rim enhancing fluid collection which has decreased in size compared to MRI from 03/16/24. CT of the hip from 08/11/[address] of the femur obtained today with possible increase in collection size (noted 4.5 --> 4.9cm) No trauma reported. No fever Patient is on Eliquis anticoagulation for history of PE and has had a decrease in her Hgb 11.7 --> 9.3 and Hct 36.4 --> 28.4 when compared to 03/26/25 Patient does not display any laboratory evidence of sepsis or worsening infection at this time. #Acute Left Hip Pain - with history of traumatic hematoma with infection. On Fluconazole and Doxycycline therapy Supportive care Neurovascular checks CT femur with increase in collection as above If clinical signs of deterioration/compartment syndrome, repeat CT with contrast/CTA hip and femur to rule out active extravasation Monitor H&H Eliquis resumed on 04/01 monitor for worsening hematoma Orthopedics Recommends conservative management continuing with chronic Antimicrobials and at some point if POA wants surgery done for likely chronically infected hematoma/hardware, then Needs referral to an arthroplasty specialist #Reported Bloody bowel movement 04/01 Stool occult pending GI consulted #History of PE Anticoagulation As above #Dementia / Behavioral health -Continue Divalproex -Continue Olanzapine -One to one sitter as needed -Frequent orientation, delirium prevention measures #Hypothyroidism- TSH WNL at 2.024 -Continue Synthroid #History of cancer -Continue Anastrozole ROBERT stockings to bilateral LE DNR per chart review POC Orly Robertson - [phone] Disposition SNF Admission and Anticipated Discharge Date Admission Date: April 01, 2025 Subjective Remains unchanged no worsening of left thigh swelling or other changes in examination she has no pain or other complaints Discussed with RN hadQuestionable bloody bowel movement yesterday Seen by vice president of nursing. No further Bleeding visualized. At this time benefits outweigh risk to continue anticoagulation await GI input Review of Systems Review of Systems: Negative except as in HPI Physical Exam Physical Exam: General: patient resting comfortably, NAD, not oriented, does not answer questions appropriately Skin: warm, dry, intact, no rashes or lesions HEENT: NC/AT, PERRL, EOMI, anicteric sclera, conjunctiva without injection, external ear normal to inspection and nontender, nares patent, moist mucus membranes, dentition intact, no oropharyngeal lesions, neck supple, trachea midline, no LAD, no thyromegaly, no JVD Heart: +S1/S2, regular, 4/6 MALLORY across precordium Lungs: equal air entry bilaterally, no rales/rhonchi/wheezes Abd: +BS, soft, NT/ND, no masses/organomegaly/ascites Ext: edema to left thigh, non-tender to palpation, no redness or warmth Neuro: nonfocal, patient with dementia, does not answer questions appropriately Results & Data Results & Data Vital Signs (Past 12 Hours) Vital Signs Temp Pulse Resp BP Pulse Ox O2 Del Method 04/02/25 07:58 36.7 C 60 18 120/74 95 Room Air 04/02/25 00:46 36.5 C 63 16 106/62 96 Room Air PG Care Time/CCT Total # of Minutes Spent Total Time Spent with Patient: Total time spent is greater than 50% in coordination of care (as documented) at patient's floor/unit and/or counseling patient: Coding Level of Care Code 59910 SUB INP/OBS CARE 2/35MIN Diagnoses Acute pain of left thigh M79.652 Pulmonary emboli I26.99 Infected prosthesis of left hip T84.52XA Hypothyroidism E03.9
[2025-04-03 06:47] LABS: Hematocrit (blood only) 34.4 % (37.0-47.0); Hemoglobin 11.2 g/dL (12.0-16.0); Mean Corpuscular Hemoglobin 33.9 pg (25.0-34.0); Mean Corpuscular Volume 104.2 fL (80.0-100.0); Platelet Count 323 K/uL (130-400); RDW Standard Deviation 51.5 fL (36.4-46.3); Red Blood Count 3.30 M/uL (4.20-5.40); White Blood Count 5.01 K/ul (4.8-10.8)
[2025-04-03 07:29] LABS: Alanine Aminotransferase 12.0 U/L (7-52); Albumin Globulin Ratio 0.8 (0.9-2); Albumin Level 3.6 gm/dl (3.4-5.0); Alkaline Phosphatase 62.0 U/L (34-104); Anion Gap 8.0 (3-11); Bilirubin,Total 0.3 mg/dl (0.2-1.0); Blood Urea Nitrogen 31.0 mg/dl (6-23); Calcium 9.4 mg/dl (8.6-10.3); Carbon Dioxide 28.0 mmol/L (21-32); Chloride 105.0 mmol/L (98-107); Creatinine Clr Calc Pharmacy 43.3 ml/min; Globulin 4.5 gm/dl (2.5-4.0); Glucose 72.0 mg/dl (70-99(Fasting)); Potassium 4.1 mmol/L (3.5-5.1); Sodium 141.0 mmol/L (136-145); Total Protein 8.1 gm/dl (6.0-8.3)
--- NOTE | 2025-04-03 08:23 | Gastrointestinal Consultation ---
Date of Consultation April 03, 2025 Assessment & Plan (1) Rectal bleeding: Patient with one documented episode of "blood-tinged brown stool". Unable to give me further history. While I don't believe the "rise" in hemoglobin at least it didn't fall. I suspect she had bleeding from hemorrhoids or rectal irritation and it is nothing to worry about. Unless she develops clinically significant bleeding I would not evaluate at this time. Please reconsult if circumstances change. History of Present Illness Reason for Consultation: rectal bleeding Attending Physician: Franky Castro MD History of Present Illness 84 year old female admitted for issues related to her leg, I am asked to see because she passed blood yesterday. Patient is unable to tell me anything about bleeding, all of my questions are answered "I don't know". Documented on summary page is "blood-tinged stool brown stool". Hemoglobin actually porsha from 9.9 to 11.2 without transfusion. Patient does not recall if she has ever had colonoscopy. Patient denies any abdominal pain. She is on eliquis but she doesn't know why. Allergies Allergy/AdvReac Type Severity Reaction Status Date / Time cinnamon Allergy Intermediate Flushing Verified 03/30/25 22:40 haloperidol [From Haldol] AdvReac Severe excessive Verified 03/30/25 22:40 sedation as per family Home Medications Medication Instructions Recorded Confirmed Type anastrozole 1 mg tablet 1 mg PO QAM #30 tabs 05/16/23 03/30/25 Rx divalproex 125 mg capsule,delayed 500 mg (4 x 125 mg) PO HS #120 caps 05/16/23 03/30/25 Rx release sprinkle levothyroxine 125 mcg tablet 125 mcg PO DAILYBB #30 tabs 05/16/23 03/30/25 Rx acetaminophen 500 mg tablet 1,000 mg PO TID 01/29/24 03/30/25 History divalproex 125 mg capsule,delayed 250 mg PO QAM 01/29/24 03/30/25 History release sprinkle magnesium chloride 64 mg 64 mg PO BID 01/29/24 03/30/25 History (magnesium chloride) tablet polyethylene glycol 3350 17 gram 17 g PO DAILY PRN Constipation 01/29/24 03/30/25 History oral powder packet (SmoothLax) sodium chloride 0.65 % nasal spray 1 spray intranasal TID 01/29/24 03/30/25 History aerosol (Deep Sea Nasal) doxycycline hyclate 100 mg capsule 100 mg PO DAILY 06/28/24 03/30/25 History carboxymethylcellulose sodium 0.5 1 drp ophthalmic (eye) TID PRN 03/10/25 03/30/25 History % eye drops itching or irritation fluconazole 200 mg tablet 200 mg PO DAILY 03/10/25 03/30/25 History food supplemt, lactose-reduced 1 ea PO TID 03/10/25 03/30/25 History hydrochlorothiazide 12.5 mg capsule 12.5 mg PO QAM 03/10/25 03/30/25 History naproxen sodium 220 mg tablet 220 mg PO BID PRN Pain 03/10/25 03/30/25 History olanzapine 2.5 mg tablet 2.5 mg PO TID 03/10/25 03/30/25 History apixaban 5 mg tablet (Eliquis) 5 mg PO BID #60 tabs 03/11/25 03/30/25 Rx Patient History Medical History Left hip pain 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 Social History Smoking Status: Never smoker Tobacco Type: Cigarettes Second Hand Exposure: No; Do You Dip or Chew Tobacco: No; Hx Alcohol Use: No Hx Substance Use: No Preferred Language: [place] Communication Ability: Unable Saw Handle Assembler Required: No Beliefs That Will Affect Care: None Current Living Situation: Assisted Current Living Situation Comment: [facility] Other Information That Helps Us Care for You: No Feels Safe at Home: Yes Safety Concerns: Feels Safe At This Time Assistive Devices: Walker Review of Systems Review of Systems: Unobtainable due to cognitive status Physical Exam Constitutional: + thin and + frail appearing Respiratory: normal respiratory effort, lungs clear to auscultation Cardiovascular: RRR, no murmur, no edema Gastrointestinal (Abdomen): normal bowel sounds, soft, nontender, no hepatosplenomegaly Results & Data Vital Signs (Past 12 Hours) Vital Signs Temp Pulse Resp BP Pulse Ox O2 Del Method 04/02/25 22:30 36.7 C 70 20 127/83 94 Room Air Laboratory Results 04/03/25 04/02/25 04/02/25 Range/Units 06:26 11:40 08:04 WBC 5.01 5.48 (4.8-10.8) K/ul RBC 3.30 L 2.93 L (4.20-5.40) M/uL Hgb 11.2 L 9.9 L (12.0-16.0) g/dL Hct 34.4 L 29.8 L (37.0-47.0) % MCV 104.2 H 101.7 H (80.0-100.0) fL MCH 33.9 33.8 (25.0-34.0) pg MCHC 32.6 33.2 (32.0-36.0) g/dL RDW Std Deviation 51.5 H 50.3 H (36.4-46.3) fL RDW Coeff of Andrea 13.5 13.5 (11.5-14.5) % Plt Count 323 290 (130-400) K/uL MPV 9.3 L 9.2 L (9.4-12.4) fL Sodium 141 138 (136-145) mmol/L Potassium 4.1 4.1 (3.5-5.1) mmol/L Chloride 105 104 (98-107) mmol/L Carbon Dioxide 28 27 (21-32) mmol/L Anion Gap 8 7 (3-11) BUN 31 H 30 H (6-23) mg/dl Creatinine 0.82 0.87 (0.6-1.2) mg/dl Est Cr Clr Drug Dosing 43.3 40.8 ml/min eGFR 70.05 65.25 BUN/Creatinine Ratio 37.8 H 34.5 H (10-20) Glucose 72 78 (70-99(Fasting)) mg/dl Calcium 9.4 9.3 (8.6-10.3) mg/dl Total Bilirubin 0.3 0.3 (0.2-1.0) mg/dl AST 40 H 33 (13-39) U/L ALT 12 11 (7-52) U/L Alkaline Phosphatase 62 59 (34-104) U/L Total Protein 8.1 7.6 (6.0-8.3) gm/dl Albumin 3.6 3.5 (3.4-5.0) gm/dl Globulin 4.5 H 4.1 H (2.5-4.0) gm/dl Albumin/Globulin Ratio 0.8 L 0.9 (0.9-2) Stool Occult Bld Scrn Positive A (Negative) Diagnostic Findings Abdomen/Pelvis CT 03/30/25 20:27 Exam(s): CT ABDOMEN + PELVIS Without Contrast EXAM: CT Abdomen and Pelvis Without Intravenous Contrast CLINICAL HISTORY: lower pain. TECHNIQUE: Axial computed tomography images of the abdomen and pelvis without intravenous contrast. CTDI is 19.74 mGy and DLP is 943.25 mGy-cm. Automated exposure control was utilized for the study. A dose lowering technique was utilized adhering to the principles of ALARA. COMPARISON: CT abdomen and pelvis with contrast FINDINGS: Artifacts: Scatter artifact likely related to patient's arm position. Lung bases: No significant abnormality. No mass. No consolidation. ABDOMEN: Liver: No significant abnormality. Gallbladder and bile ducts: Subcentimeter calcified gallstones noted layering dependently in the gallbladder. No gallbladder wall thickening or biliary dilatation. Pancreas: No significant abnormality. No ductal dilation. Spleen: No significant abnormality. No splenomegaly. Adrenals: No significant abnormality. No mass. Kidneys and ureters: No significant abnormality. No obstructing stones. No hydronephrosis. Stomach and bowel: No evidence for bowel obstruction. Evaluation of the bowel mucosa is slightly limited without contrast; however, no definite focal asymmetry suggested. Fvys-[id number] stool burden. No diverticulitis. PELVIS: Appendix: No findings to suggest acute appendicitis. Bladder: No significant abnormality. No stones. Reproductive: Status post hysterectomy. ABDOMEN and PELVIS: Intraperitoneal space: No significant abnormality. No free air. No significant fluid collection. Bones/joints: A left total hip arthroplasty is noted. No acute fracture. No dislocation. Soft tissues: No significant abnormality. Vasculature: Atherosclerotic disease. 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 Lymph nodes: Similar left periaortic infrarenal lymph nodes similar nonspecific pelvic lymph nodes adjacent to the external iliac arteries, [id number]-right. IMPRESSION: 1. No evidence for bowel obstruction. Evaluation of the bowel mucosa is slightly limited without contrast; however, no definite focal asymmetry suggested. Yriy-et-mnmpfslb stool burden. No diverticulitis. No free intraperitoneal fluid or pneumoperitoneum. 2. Subcentimeter calcified gallstones noted layering dependently in the gallbladder. No gallbladder wall thickening or biliary dilatation. The clinical significance of this finding is indeterminate and this may be incidental. Electronically signed by: Braeden Burkett MD 03/30/25 23:45 PM Chest X-Ray 03/30/25 20:27 Exam(s): XR CXR 1 VIEW EXAM: XR Chest, 1 View CLINICAL HISTORY: weakness. TECHNIQUE: Frontal view of the chest. COMPARISON: No relevant prior studies available. FINDINGS: Lungs: Subtle subcentimeter nodular opacities in the right mid to lower lung zone centrally are more prominent from the previous examination. The lungs are otherwise well-aerated without definite focal airspace consolidation. The pulmonary vasculature appears somewhat equalized. No radiographic evidence for florid CHF. Patient's lower face obscures visualization of portions of the lung apex. Pleural space: No significant abnormality. No pneumothorax. No large pleural effusion. Heart: No significant abnormality. No cardiomegaly. Mediastinum: The mediastinal contours are stable, accounting for prominent kyphosis and slight obliquity. Bones/joints: No acute osseous abnormality. Soft tissues: Postsurgical changes involving the right lateral thorax soft tissues. IMPRESSION: 1. Subtle subcentimeter nodular opacities in the right mid to lower lung zone centrally are more prominent from the previous examination. This raises suspicion for subtle alveolitis/pneumonia. The lungs are otherwise well-aerated without definite focal airspace consolidation. 2. The pulmonary vasculature appears somewhat equalized. No radiographic evidence for florid CHF. Mild underlying vascular congestion suspected. Electronically signed by: Braeden Burkett MD 03/30/25 23:[address] 03/30/25 20:27 Exam(s): CT EXTREMITY LEFT LOWER Without Contrast EXAM: CT Left Lower Extremity Without Intravenous Contrast CLINICAL HISTORY: sent by [place] for swelling. TECHNIQUE: Axial computed tomography images of the left lower extremity without intravenous contrast. CTDI is 9.97 mGy and DLP is 541.34 mGy-cm. Automated exposure control was utilized for the study. A dose lowering technique was utilized adhering to the principles of ALARA. COMPARISON: CT left hip with contrast 08/11/2024 FINDINGS: Bones/joints: A left total hip arthroplasties noted. Cerclage wires and lateral plate surrounding the intramedullary stem component. No acute fracture. The femoral head component is well seated. No dislocation. Soft tissues: Evaluation of the soft tissues is limited without contrast. However, the previously noted fluid collection along the posterior aspect of the proximal femur is suggested with similar morphologic appearance partially circumferential extending laterally along the cranial aspect of the presumed collection and posteriorly along the caudal aspect measuring up to 4.9 cm in diameter from 4.5 cm previously. Questionable more prominent marginal calcifications when compared to the prior exam. IMPRESSION: Evaluation of the soft tissues is limited without contrast. However, the previously noted fluid collection along the posterior aspect of the proximal femur is suggested with similar morphologic appearance partially circumferential extending laterally along the cranial aspect of the presumed collection and posteriorly along the caudal aspect measuring up to 4.9 cm in diameter from 4.5 cm previously. Questionable more prominent marginal calcifications when compared to the prior exam. The suspected fluid collection may be further assessed with either contrast CT, MRI or ultrasound. Electronically signed by: Braeden Brukett MD 03/31/25 00:[address] 03/30/25 20:27 Exam(s): CT HEAD Without Contrast EXAM: CT Head Without Intravenous Contrast CLINICAL HISTORY: weakness. TECHNIQUE: Axial computed tomography images of the head/brain without intravenous contrast. CTDI is 35.65 mGy and DLP is 624.41 mGy-cm. Automated exposure control was utilized for the study. A dose lowering technique was utilized adhering to the principles of ALARA. COMPARISON: CT Head dated 03/26/2025 FINDINGS: Limitations: There is motion artifact, which degrades image quality on multiple image slices. Brain: There are a few areas of decreased attenuation in the deep cerebral white matter consistent with mild small vessel ischemic/degenerative changes. The cerebral and cerebellar sulci are mildly prominent consistent with mild brain atrophy. No intracranial hemorrhage. No significant mass effect. No appreciable alteration in appearance of the parenchyma when compared to the previous examination. Ventricles: No significant abnormality. No ventriculomegaly. Bones/joints: No significant abnormality. No acute fracture. Soft tissues: No significant abnormality. Vasculature: Atherosclerotic disease. Sinuses: Unremarkable as visualized. No acute sinusitis. Mastoid air cells: Unremarkable as visualized. No mastoid effusion. IMPRESSION: No acute intracranial process or significant alteration from the prior examination. Chronic underlying presumed age-related findings incidentally noted. Electronically signed by: Braeden Burkett MD 03/31/25 00:18 AM
--- NOTE | 2025-04-03 10:37 | Hospitalist Progress Note ---
Date of Service April 03, 2025 Assessment & Plan (1) Acute pain of left thigh: (2) Pulmonary emboli: (3) Infected prosthesis of left hip: (4) Hypothyroidism: Plan 84yo female presenting from her longterm with report of increased pain and swelling of the left hip. Per record review - patient with prosthetic left hip. She seems to have sustained a traumatic hematoma to the left thigh which then became infected. She has been seen by Orthopedics for this issue and had an I/D with removal of hardware and debridement performed on 03/18/24. She was treated with antibiotics. Her deep cultures grew jake and is receiving Fluconazole. She continues on Fluconazole and Doxycycline for ongoing antibiotic management. Patient has had multiple images of the left thigh performed. On 06/28/2024 noted to have an 8.3 x 7.5 x 5cm rim enhancing multiloculated multicompartment left thigh rim enhancing fluid collection which has decreased in size compared to MRI from 03/16/24. CT of the hip from 08/11/[address] of the femur obtained today with possible increase in collection size (noted 4.5 --> 4.9cm) No trauma reported. No fever Patient is on Eliquis anticoagulation for history of PE and has had a decrease in her Hgb 11.7 --> 9.3 and Hct 36.4 --> 28.4 when compared to 03/26/25 Patient does not display any laboratory evidence of sepsis or worsening infection at this time. #Acute Left Hip Pain - with history of traumatic hematoma with infection. On Fluconazole and Doxycycline therapy Supportive care Neurovascular checks CT femur with increase in collection as above If clinical signs of deterioration/compartment syndrome, repeat CT with contrast/CTA hip and femur to rule out active extravasation Monitor H&H Eliquis resumed on 04/01 monitor for worsening hematoma Orthopedics Recommends conservative management continuing with chronic Antimicrobials and at some point if POA wants surgery done for likely chronically infected hematoma/hardware, then Needs referral to an arthroplasty specialist #Reported Bloody bowel movement 04/01 Stool occult pending GI Suspect hemorrhoids Or rectal irritation and signed off. Call back if further signs of bleeding #History of PE Anticoagulation As above #Dementia / Behavioral health -Continue Divalproex -Continue Olanzapine -One to one sitter as needed -Frequent orientation, delirium prevention measures #Hypothyroidism- TSH WNL at 2.024 -Continue Synthroid #History of cancer -Continue Anastrozole ROBERT stockings to bilateral LE DNR per chart review POC Orly Robertson - [phone] Disposition SNF Admission and Anticipated Discharge Date Admission Date: April 01, 2025 Subjective Doing well In good spirits denies any thigh pain abdominal pain nausea lightheadedness or any other symptoms. RN at bedside tells me no further reported episodes of Blood in stool since the other day Examination of Left thigh Swelling and tenderness seems to have resolved. Hb remained stable Review of Systems Review of Systems: Negative except as in HPI Physical Exam Physical Exam: General: patient resting comfortably, NAD, not oriented, does not answer questions appropriately Skin: warm, dry, intact, no rashes or lesions HEENT: NC/AT, PERRL, EOMI, anicteric sclera, conjunctiva without injection, external ear normal to inspection and nontender, nares patent, moist mucus membranes, dentition intact, no oropharyngeal lesions, neck supple, trachea midline, no LAD, no thyromegaly, no JVD Heart: +S1/S2, regular, 4/6 MALLORY across precordium Lungs: equal air entry bilaterally, no rales/rhonchi/wheezes Abd: +BS, soft, NT/ND, no masses/organomegaly/ascites Ext: edema to left thigh, non-tender to palpation, no redness or warmth Neuro: nonfocal, patient with dementia, does not answer questions appropriately Results & Data Results & Data Vital Signs (Past 12 Hours) Vital Signs Temp Pulse Resp BP Pulse Ox O2 Del Method 04/03/25 08:24 36.5 C 57 L 18 132/83 98 Room Air PG Care Time/CCT Total # of Minutes Spent Total Time Spent with Patient: Total time spent is greater than 50% in coordination of care (as documented) at patient's floor/unit and/or counseling patient: Coding Level of Care Code 71548 SUB INP/OBS CARE 2/35MIN Diagnoses Acute pain of left thigh M79.652 Pulmonary emboli I26.99 Infected prosthesis of left hip T84.52XA Hypothyroidism E03.9
[2025-04-04 07:26] LABS: Hematocrit (blood only) 33.5 % (37.0-47.0); Hemoglobin 10.9 g/dL (12.0-16.0); Mean Corpuscular Hemoglobin 34.0 pg (25.0-34.0); Mean Corpuscular Volume 104.4 fL (80.0-100.0); Platelet Count 335 K/uL (130-400); RDW Standard Deviation 51.6 fL (36.4-46.3); Red Blood Count 3.21 M/uL (4.20-5.40); White Blood Count 5.87 K/ul (4.8-10.8)
[2025-04-04 08:04] VITALS: PULSE 60; RESP 14; TEMP 97.3; O2SAT 96
--- NOTE | 2025-04-04 10:07 | Discharge Summary ---
Discharge Summary Date of Service April 04, 2025 Principal Dx & Hospital Course #1 = Principal Diagnosis (1) Acute pain of left thigh: (2) Pulmonary emboli: (3) Infected prosthesis of left hip: (4) Hypothyroidism: Plan 84yo female presenting from her [facility] with report of increased pain and swelling of the left hip on 03/31/2025. #Left hip pain hx of traumatic hematoma w/ infection. On chronic Fluconazole & doxycycline therapy. Left Hip CT w/ increase of fluid collection from 4.5cm to 4.9 cm. Ortho consulted --> Dr. Vargas reports hip incision is now fully healed & the underlying hematoma/seroma may increase in size over time. Recommending to continue PO Abx suppressive therapy. no acute plans from an ortho standpoint. PT/OT consulted --> recommending return to [facility] #BRBPR w/ blood tinged stool on 04/01. GI consulted --> likely from hemorrhoids vs rectal irritation. Defer any additional treatment. #History of PE - Eliquis Anticoagulation As above #Dementia / Behavioral health - Continue Divalproex, Olanzapine #Hypothyroidism- TSH WNL at 2.024; Continue Synthroid #History of cancer-Continue Anastrozole Updated niece via phone 04/04. Patient discharged back to [facility] on 04/04. Admission HPI Per Admitting Provider Tc Shrestha is an 84yo female with history of LEFT BERTHA with prosthetic joint infection on Fluconazole and Doxycycline therapy presenting from her [facility] with report of increased swelling in her left thigh as well as difficulty with ambulation. Patient is unable to provide history. No family or caretakers at bedside. Minimal documentation with patient. In the ER she is afebrile, HD stable ER Course: NSS x 500mL Tylenol 1gm Ativan 0.5mg IV at 21:59 Discharge Exam General: NAD, VS: BP 119/74; P63; T36.3C; R14 Resp: normal respiratory effort Extremities: Moves all extremities, no edema, left hip incision intact, without surrounding erythema, no exudate. Neuro: A&O x3, Skin: intact, no lesions noted Discharge Plan Discharge Items Patient Disposition: Transfer Half-Way Fac Reason For Visit: LLE SWELLING Discharge Diagnosis: Worsening thigh hematoma Condition on Discharge: Fair Activity: Resume your previous activity Lifting: No more than 10 pounds Non-emergency contact: Primary Care Provider, Surgeon and Specialist Call non-emergency contact if: you have any medication questions, your symptoms worsen, your pain is not controlled, your pain is worsening, your pain is unusual for you and you have a fever Follow-up/Referrals: Ras Day [Primary Care Provider] - Diet: Regular Addtl Attending Provider Instructions: Ms. Shrestha was recently admitted to the hospital secondary to left hip pain. She was evaluated by her orthopedic surgeon, Dr. Vargas who noted that her hip looked stable and her incision is fully healed. It was also noted that the patient may have an increase of the fluid collection underlying her incision but that this was a normal response. Dr. Vargas's recommendation is to continue chronic antibiotic therapy. Medications: Your medication list has been reviewed and reconciled upon discharge to ensure accuracy and continuity of care. An updated list of all your medications is included with your hospital discharge paperwork. Please review this list closely, and make note of any changes. Take your medications as instructed; do not skip a dose of your medicines. Make sure all of your doctors know every medicine you are taking (including [id number]-sdl-wmpolgt medicines, vitamins, and supplements). Call your primary care provider before taking any new medicines (including over- the-counter medicines, vitamins, and supplements), because some of these may interact with your current medications, or may make your symptoms worse. Tell your primary care provider if you cannot afford your medications. Activity: You can do normal everyday activities as your body allows. Take rest breaks if you feel tired. Do not overexert. Stop activity if you have pain, shortness of breath or feel dizzy. Follow-up appointments: Make an appointment with your primary care physician within one week of discharge. A copy of this summary will be sent to them. Every time you see your primary care physician, or any other doctor, bring your medication list, and a list of questions. CONTACT YOUR PRIMARY CARE PROVIDER if you experience any of the following: Shortness of breath or difficulty breathing Fevers or chills Feeling tired with normal activity or experiencing dizziness or fainting Difficulty following your treatment plan, or difficulty taking medications CALL 911 OR GO TO THE EMERGENCY DEPARTMENT if you experience any of the following: Severe abdominal pain or nausea/vomiting Severe chest pain, or chest pain that radiates (moves) to your jaw or arm Sudden, severe shortness of breath or difficulty breathing Thank you for allowing us to participate in your care. Pending Studies at Discharge: No Stand-Alone Forms: My [facility] Skilled Items Patient informed of condition?: Yes DNR: Yes Discharge Level of Care: Skilled Communicable Disease: No Discharge Prognosis: Stable Lines: None Urinary Catheter: No Medications and DC Order Prescriptions: Continued divalproex 125 mg Capsule, Delayed Rel Sprinkle 500 mg PO HS Qty: 120 0RF anastrozole 1 mg Tablet 1 mg PO QAM Qty: 30 0RF levothyroxine 125 mcg Tablet 125 mcg PO DAILYBB Qty: 30 0RF fluconazole 200 mg tablet 200 mg PO DAILY olanzapine 2.5 mg tablet 2.5 mg PO TID hydrochlorothiazide 12.5 mg capsule 12.5 mg PO QAM carboxymethylcellulose sodium 0.5 % Drops 1 drp OPHTHALMIC (EYE) TID PRN (Reason: itching or irritation) food supplemt, lactose-reduced Liquid 1 ea PO TID Rx Instructions: VANILLA liquid between meals Eliquis 5 mg tablet 5 mg PO BID Qty: 60 0RF acetaminophen 500 mg Tablet 1,000 mg PO TID Rx Instructions: GIVE AT 8AM,1PM,7PM divalproex 125 mg capsule, delayed rel sprinkle 250 mg PO QAM magnesium chloride 64 mg magnesium Tablet 64 mg PO BID [place] Nasal 0.65 % Aerosol,[place] 1 spray INTRANASAL TID polyethylene glycol 3350 [SmoothLax] 17 gram Powder In Packet 17 g PO DAILY PRN (Reason: Constipation) doxycycline hyclate 100 mg Capsule 100 mg PO DAILY Discontinued naproxen sodium 220 mg Tablet 220 mg PO BID PRN (Reason: Pain ) Discharge Orders: Discharge Order (Routine); Ordered 04/04/25 Ordered By: Christine Gomez Admission Data Admit Date/Time: 04/01/25 10:38 Attending Provider: Raymond Santos Admit Provider: Lauren Sanchez Primary Care Provider: Ras Day Other Providers: Lauren Sanchez; Dayday Vargas; Kassandra Ernst; Isacc Hector; Charla Holden; Mirta Negron; Charito Valladares; Karen Ziegler; Ras Urbina; Tricia Theodore; Iva Rajan; Ermelinda Morales; Cherrie Reardon; Maci Grant; Alayna Antonio; Colleen Hawkins; Bennie Ornelas; Og Feng; Mary Esposito; Bonny Tillman Jr; Andrea Pena; Ayaz Patel; Thang Padilla; Ami Mcgrath; Chadwick Romo I; Jessica Min; Vincenzo Mccracken; Devante Miller; Rodolfo Barnhart; Edward Duvall; Chantal Sy; [facility] Other Interventions: Discharge Summary Assessment (RN) Last Done: 04/04/25 11:08 Hospital Stay Data Consultations 03/31/25 00:34 ED Decision to Admit Stat 03/31/25 07:14 Consult Orthopedic Surgery Routine 04/02/25 10:45 Consult Gastroenterology Routine Diagnostic Imagining Performed 03/30/25 20:27 CT abd pelvis wo con Stat CT femur LT wo con Stat CT head/brain wo con Stat Pending Results Patient Have Any Pending Studies at Discharge: No Discharge Instructions Given to Patient (Per Discharging Provider) Ms. Shrestha was recently admitted to the hospital secondary to left hip pain. She was evaluated by her orthopedic surgeon, Dr. Vargas who noted that her hip looked stable and her incision is fully healed. It was also noted that the patient may have an increase of the fluid collection underlying her incision but that this was a normal response. Dr. Vargas's recommendation is to continue chronic antibiotic therapy. Medications: Your medication list has been reviewed and reconciled upon discharge to ensure accuracy and continuity of care. An updated list of all your medications is included with your hospital discharge paperwork. Please review this list closely, and make note of any changes. Take your medications as instructed; do not skip a dose of your medicines. Make sure all of your doctors know every medicine you are taking (including snje-vgc-taqnvuq medicines, vitamins, and supplements). Call your primary care provider before taking any new medicines (including over- the-counter medicines, vitamins, and supplements), because some of these may interact with your curr ent medications, or may make your symptoms worse. Tell your primary care provider if you cannot afford your medications. Activity: You can do normal everyday activities as your body allows. Take rest breaks if you feel tired. Do not overexert. Stop activity if you have pain, shortness of breath or feel dizzy. Follow-up appointments: Make an appointment with your primary care physician within one week of discharge. A copy of this summary will be sent to them. Every time you see your primary care physician, or any other doctor, bring your medication list, and a list of questions. CONTACT YOUR PRIMARY CARE PROVIDER if you experience any of the following: Shortness of breath or difficulty breathing Fevers or chills Feeling tired with normal activity or experiencing dizziness or fainting Difficulty following your treatment plan, or difficulty taking medications CALL 911 OR GO TO THE EMERGENCY DEPARTMENT if you experience any of the following: Severe abdominal pain or nausea/vomiting Severe chest pain, or chest pain that radiates (moves) to your jaw or arm Sudden, severe shortness of breath or difficulty breathing Thank you for allowing us to participate in your care. Supervising Physician Co-Signing Physician Notes The patient was not seen by me. The chart was reviewed. Case discussed with FLOYD Trevino. Agree with assessment and plan Total Time Total Time Spent Total Time Spent (In Minutes): 50 Total Time Includes: Examination of the Patient, Discharge Planning and Medication Reconciliation Coding Level of Care Code 43685 INP/OBS DISCH >30 MIN Diagnoses Acute pain of left thigh M79.652 Pulmonary emboli I26.99 Infected prosthesis of left hip T84.52XA Hypothyroidism E03.9
[2025-04-04 11:10] VITALS: BP 119/74
== END 2025-04-04 14:24 | disposition home or self-care (01) | DRG 560 ==
LOC: 2N 20:14 → ED 20:14 → SUATTDRO 03-31 00:55 → 2N 03-31 02:52 → 3W 03-31 18:43 → SUATTDRO 04-01 10:38